=== PATIENT | female | born 1955 | race Caucasian/White ===

== ENCOUNTER → 2019-02-14 15:22 | Outpatient (CLI) | payer MEDICARE, OTHER, SELFPAY ==
[2019-02-14 17:49] LABS: Absolute Lymphocyte Count 1.72 X10^3/ul (0.83-4.51); Absolute Neutrophil Count 4.7 X10^3/uL (2.0-7.7); Basophil# 0.04 X10^3/uL; Basophil% 0.5 % (0-1); Eosinophil# 0.31 X10^3/uL; Eosinophils% 4.1 % (0-5); Hemoglobin 14.6 g/dl (12.0-15.0); Lymphocyte # 1.72 X10^3/ul (4.0); Lymphocyte % 22.6 % (19-41); Mean Corp Hgb Conc 32.4 g/gl (32-36); Mean Corpuscular Hgb 29.6 pg (27.0-32.0); Mean Corpuscular Volume 91.1 fL (81-99); Mean Platelet Vol. 10.6 fl (6.2-12.0); Monocyte# 0.79 X10^3/uL; Monocyte% 10.4 % (0-10); Neutrophil # 4.74 X10^3/uL (2.7-7.7); Neutrophil % 62.1 % (47-70); Platelet Count 272 K/mm3 (150-450); RBC Distribution Width CV 14.2 % (11.6-14.6); RBC Distribution Width SD 46.8 fl (35.1-43.9); Red Blood Count 4.94 M/mm3 (4.2-5.4); White Blood Count 7.6 K/mm3 (4.4-11.0)
[2019-02-14 18:04] LABS: POSITIVE COUNT NO; POSITIVE DIFFERENTIAL NO; POSITIVE MORPHOLOGY NO
[2019-02-14 18:08] LABS: ALB/GLOB Ratio 1.2 RATIO (0.9-2.4); AST(SGOT) 20 U/L (15-37); Alanine Aminotransfer ALT/SGPT 32 U/L (13-56); Albumin, Serum 4.2 g/dL (3.2-5.0); Alkaline Phosphatase 85 U/L (45-117); Anion Gap 6 (5-15); BUN 16 mg/dL (7-18); BUN/Creat Ratio 23.3 RATIO (10-20); Calcium,Total 9.2 mg/dL (8.5-10.1); Chloride 107 mmol/L (98-107); Cholesterol 176 mg/dL (200); Creatinine, Serum 0.69 mg/dL (0.55-1.02); EST Glomerular Filtration Rate 91 mL/min (>60); Est Glom Filt Rate - Afr Amer 110 mL/min (>60); Globulin 3.6 g/dL (2.2-4.2); Glucose 86 mg/dL (74-106); High Density Lipoprotein 56 mg/dL; Potassium 4.2 mmol/L (3.5-5.1); Protein, Total 7.8 g/dL (6.4-8.2); Sodium Level 139 mmol/L (136-145); Triglycerides 95 mg/dL; Very Low Density Lipoprotein 19 mg/dL (5-40)
[2019-02-14 19:52] LABS: Microalbumin:Creatinine Ratio 360.7 mg/g CRE (<30 mg/g CRE)
== END ==
PROVIDERS: Family Provider Family Medicine; PCP Family Medicine; Visit Provider Family Medicine
DX: I10 Essential (primary) hypertension (principal)
CPT/HCPCS: 36415; 80053; 80061; 82043; 82570; 85025

== ENCOUNTER → 2019-02-15 10:27 | Outpatient (CLI) | payer MEDICARE, OTHER, SELFPAY ==
--- NOTE | 2019-02-15 10:33 | RAD_ITS ---
HISTORY: bilateral knee pain, nki, right worse than left COMPARISON: None FINDINGS: XR Knee Complete 4 Views or More: Right. SOFT TISSUES: No acute findings. No radiopaque foreign body. BONES/JOINTS: No acute fracture or subluxation. Normal alignment. Marked osteoarthritis of the medial compartment. Mild osteoarthritis of the patellofemoral and lateral compartments. No effusion. No destructive changes observed. RAD/Knee 4 or More Views IMPRESSION: Marked medial compartment osteoarthritis. at 1450 Reported and signed by: Mark Ivan MD Electronically Signed: Mark Ivan, at 14:48 EDT Tel , Service support ,
--- NOTE | 2019-02-15 10:47 | RAD_ITS ---
HISTORY: nki, bilateral knee pain, right worse COMPARISON: None FINDINGS: XR Knee Complete 4 Views or More: Left SOFT TISSUES: No acute findings. No radiopaque foreign body. BONES/JOINTS: No acute fracture or subluxation. Normal alignment. Marked osteoarthritis of the medial compartment. Mild lateral and moderate patellofemoral osteoarthritis. No joint effusion. No destructive changes observed. RAD/Knee 4 or More Views IMPRESSION: Marked osteoarthritis of the medial compartment. at 1450 Reported and signed by: Mark Ivan MD Electronically Signed: Mark Ivan, at 14:49 EDT Tel , Service support ,
== END ==
PROVIDERS: Family Provider Family Medicine; PCP Family Medicine; Referring Provider Family Medicine; Visit Provider Family Medicine
DX: M25.561 Pain in right knee (principal); M25.562 Pain in left knee
CPT/HCPCS: 73564

== ENCOUNTER 2019-08-26 14:51 | Emergency (ER) | payer MEDICARE, OTHER, SELFPAY ==
[2019-08-26 14:52] VITALS: BP 162/77; PULSE 95; RESP 16; TEMP 36.9; O2SAT 97; BMI 37.4
--- NOTE | 2019-08-26 15:05 | VDLE_ITS ---
Reason For Study: Swelling RIGHT LEFT GSV is normal. CFV is compressible, spontaneous, phasic, CFV is compressible, spontaneous, phasic, competent, and demonstrates normal competent and demonstrates normal augmentation. augmentation. FV is compressible, spontaneous, phasic, competent and demonstrates normal augmentation. POP V is compressible, spontaneous, phasic, competent and demonstrates normal augmentation. T/P Trunk is compressible. PTV is compressible. RT PerV is compressible. Procedure Exam performed portable in ED. A preliminary report was called and/or faxed to Dr. Fulton. Interpretation Summary Deep veins of the right lower extremity are patent and compressible segmentally. There is no evidence of right lower extremity deep vein thrombosis. Valvular competence appears intact within the proximal deep venous system on the right . The right great saphenous vein appears patent and compressible segmentally. Ordering Physician: Samuel Fulton Referring Physician: Devin Bloom Performed By: Betty Eng RDCS, RVT
--- NOTE | 2019-08-26 15:05 | RAD_ITS ---
STUDY: X-RAY - RIGHT KNEE REASON FOR EXAM: Female, 64 years old. Knee pain. TECHNIQUE: 4 view(s) of the knee. COMPARISON: None. FINDINGS: Normal visualized distal femur. Normal visualized proximal tibia and fibula. Normal proximal tibiofibular articulation. There is moderate degenerative arthrosis of the medial femorotibial compartment with moderate joint space narrowing. Normal lateral femorotibial compartment. There is moderate degenerative arthrosis of the patellofemoral articulation. Proximal 5.5 mm loose body in the intercondylar eminence. The soft tissue structures are unremarkable. RAD/Knee 4 or More Views IMPRESSION: Degenerative arthrosis. Possible 5.5 mm loose body in the intercondylar eminence. Electronically Signed: Kehinde Cruz, at 15:34 EDT , Service support ,
--- NOTE | 2019-08-26 15:06 | ED.DCSUM_ITS ---
History of Present Illness Chief Complaint: Lower Extremity Injury Informant: Patient Onset: Yesterday Context: Gradual Onset Timing: Intermittent Current Severity: Moderate Maximum Severity: Moderate Narrative: The patient presents to the emergency department with right posterior knee pain. She states that she does have a history of prior arthritis in the knee. States yesterday, she was doing a lot of exercises, sitting on the ground, and then sat crosslegged. She states that she had increasing pain and difficulty extending her knee. She denies any fevers or chills. She denies any trauma. She states that it has improved today but she still having tightness in the back of the knee. She denies chest pain or shortness of breath. She is taken some ibuprofe n with improvement. Prior similar symptoms: No Recent Illness/Hospitalization: No Past Medical History - Allergies and Home Meds Allergies/Adverse Reactions: Allergies No Known Allergies Allergy (Verified 08/26/19 15:02) Primary Care Physician: Martell Tai MD [STAFF PHYSICIAN] - Prior records reviewed: Yes Past Medical History: - - Hypertension Smoking Status: Never smoker Review of Systems General: Denies: Chills, Fever, Sweats Eyes: Denies: Visual changes - bilaterally, Diplopia ENT: Denies: Rhinorrhea, Sore throat Cardiovascular: Denies: Chest pain, Palpitations Respiratory: Denies: Dyspnea, Cough, Dyspnea on exertion Gastrointestinal: Denies: Abdominal pain, Nausea, Vomiting, Diarrhea, Melena, Hematochezia Genitourinary: Denies: Dysuria, Hematuria, Frequency Musculoskeletal: Reports: Arthralgias. Denies: Back pain, Extremity Pain Skin: Denies: Rash, Wounds Neurological: Denies: Headache, Weakness, Numbness Physical Exam Vital Signs/Narrative: Vital Signs Temp Pulse Resp BP Pulse Ox 08/26/19 14:52 98.4 F 95 16 162/77 H 97 Inital Vital Signs reviewed: Yes General: Well nourished, Well developed, No Acute Distress Head: Normocephalic, Atraumatic Eyes: Perrl, EOMI ENT: Moist mucous membranes, No rhinorrhea Neck: Supple, Nontender Cardiovascular: Regular rate, Regular rhythm, No murmurs Respiratory: No distress, CTA bilaterally, Chest nontender Abdomen: Soft, Nontender, Nondistended, Normal bowel sounds Back: Nontender, Normal Inspection Extremities: No edema, Tenderness - Mild tenderness in the posterior aspect of the knee. No cords. Normal pulses. No gross laxity. No erythema. Skin: Normal color, No rash Neurological: Alert, Oriented x3, Cranial nerves II-XII grossly intact, Normal Strength, Normal Sensation Psychological: Normal affect, Normal Mood Diagnostic/Tx/Re-eval Clinical Impression(s) from Imaging Studies Knee X-Ray 08/26/19 15:05 IMPRESSION: Degenerative arthrosis. Possible 5.5 mm loose body in the intercondylar eminence. Electronically Signed: Kehinde Bledsoequeenie, at 15:34 EDT , Service support , - Medical Decision Making The patient symptoms do seem most consistent with degenerative arthritis. I did obtain an ultrasound. There is no evidence of DVT. X-ray shows a questionable bony body within the knee. Again, the patient does have a normal range of motion. She is able to extend. My suspicion is that she may end up needing orthopedic intervention given the loose body. The patient be given outpatient referral. She declined crutches. She will be placed on Medrol. She will be discharged home. Impression 1. Right knee arthritis with bony disturbance ED Disposition - Plan for ED Patient: Instructions: Knee Effusion Prescriptions: MethylPREDNISolone DosePak [Medrol DosePak] 4 mg PO UD #1 box Prescription Printed Referrals: Martell Tai MD [STAFF PHYSICIAN] -
[2019-08-26] MEDS: Acetaminophen 500 MG Tablet 1000 MG PO (15:08)
== END 2019-08-26 16:13 | disposition home or self-care (01) ==
LOC: ED 15:56
PROVIDERS: Emergency Provider Emergency Medicine; Family Provider Family Medicine; PCP Family Medicine
DX: M17.11 Unilateral primary osteoarthritis, right knee (principal); M23.41 Loose body in knee, right knee; M79.89 Other specified soft tissue disorders; I10 Essential (primary) hypertension; Z79.899 Other long term (current) drug therapy
CPT/HCPCS: 73564; 93971; 99282

== ENCOUNTER → 2019-09-05 15:56 | Outpatient (CLI) | payer MEDICARE, OTHER, SELFPAY ==
[2019-08-26 14:52] VITALS: BMI 37.4
[2019-09-05 18:01] LABS: Anion Gap 6 (5-15); BUN 21 mg/dL (7-18); BUN/Creat Ratio 19.4 RATIO (10-20); Calcium,Total 8.9 mg/dL (8.5-10.1); Chloride 110 mmol/L (98-107); Creatinine, Serum 1.08 mg/dL (0.55-1.02); EST Glomerular Filtration Rate 54 mL/min (>60); Est Glom Filt Rate - Afr Amer 65 mL/min (>60); Glucose 120 mg/dL (74-106); Potassium 4.3 mmol/L (3.5-5.1); Sodium Level 141 mmol/L (136-145)
[2019-09-05 18:41] LABS: Microalbumin:Creatinine Ratio 351.2 mg/g CRE (<30 mg/g CRE)
== END ==
PROVIDERS: Family Provider Family Medicine; PCP Family Medicine; Visit Provider Family Medicine
DX: I10 Essential (primary) hypertension (principal); R80.9 Proteinuria, unspecified
CPT/HCPCS: 36415; 80048; 82043; 82570

== ENCOUNTER → 2019-11-01 14:27 | Outpatient (CLI) | payer MEDICARE, OTHER, SELFPAY ==
[2019-11-01 09:59] LABS: 24 Hour Urine Protein 937.9 mg/24HR (<150 MG/24HR); 24HR. UA Prot. Total Volume 1525 mL; Urine Protein (24 Hour) 61.5 mg/dL (<11.9)
--- NOTE | 2019-11-01 14:32 | US_ITS ---
ACR Level 3 findings have been noted. An addendum which confirms receipt of the report will follow. STUDY: RENAL ULTRASOUND - COMPLETE REASON FOR EXAM: Female, 64 years old. C KD stage III TECHNIQUE: Ultrasound evaluation of the kidneys was performed with real-time and static arevalo-scale imaging. COMPARISON: None. FINDINGS: RIGHT KIDNEY: Normal location of the right kidney, which is normal in size. The right kidney measures 10.1 x 4.9 x 6.2 cm. There is a normal cortex of the right kidney. The renal cortex measures 0.8 cm. There is no right renal mass or cyst. Dictated echogenicity is without shadowing compatible small punctate stones. The largest may measure up to 8.8 mm. There is a suggestion of cluster of stones in the lower pole. There is no visualized hydronephrosis. Within the right renal pelvis there is a shadowing stone that may measure up to 9.1 mm. There is mild right hydronephrosis. DISTAL RIGHT URETER: There is non-visualization of the distal right ureter. There is no demonstrated right ureterovesical junction calculus. There is no demonstrated right ureteral jet. LEFT KIDNEY: Normal location of the left kidney, which is normal in size. The left kidney measures 10.8 x 4.2 x 5.5 cm. There is a normal cortex of the left kidney. The renal cortex measures 1.5 cm. There is no left renal mass or cyst. The suggestion of few punctate calcifications in the left kidney. There is a well-circumscribed cystic structure measuring 1.4 x 1.0 cm. There is no left hydronephrosis. DISTAL LEFT URETER: There is non-visualization of the distal left ureter. There is no demonstrated left ureterovesical junction calculus. There is a visualized left ureteral jet. BLADDER: The distended urinary bladder has a volume of 145 ml. There is visualized layering debris in the bladder. There is mild wall thickening.. US/Kidney and Bladder IMPRESSION: Mild hydronephrosis. There is a 9.1 mm stone in the renal pelvis. Recommend consideration for a follow-up noncontrast renal colic protocol CT abdomen and pelvis for further violation. Bilateral renal stones. Mild thickening of the wall the bladder and debris could consider cystitis. Electronically Signed: Tameka Huang MD at 17:53 EST Tel , Service support ,
[2019-11-01 15:55] LABS: Color, Urine Yellow (Yellow); Glucose, Dipstick Normal (Normal); Ketone-Dipstick 5 mg/dl (Negative); Leukocyte Esterase-Dipstick 500 /ul (Negative); Nitrite-Dipstick Positive (Negative); Occult Blood-Urine 250 /ul (Negative); Protein-Dipstick 100 mg/dl (Negative); Urine Bilirubin Dipstick Negative (Negative); Urine Clarity Cloudy (Clear); Urine Urobilinogen Normal (Normal)
[2019-11-01 16:06] LABS: Anion Gap 7 (5-15); BUN 15 mg/dL (7-18); BUN/Creat Ratio 17.1 RATIO (10-20); Calcium,Total 8.9 mg/dL (8.5-10.1); Chloride 110 mmol/L (98-107); Creatinine, Serum 0.88 mg/dL (0.55-1.02); EST Glomerular Filtration Rate 69 mL/min (>60); Est Glom Filt Rate - Afr Amer 83 mL/min (>60); Glucose 122 mg/dL (74-106); Phosphorus 3.2 mg/dL (2.5-4.9); Sodium Level 140 mmol/L (136-145)
[2019-11-01 16:17] LABS: Vitamin D,25 Hydroxy 15.7 ng/mL (29.95-100.01)
[2019-11-01 16:35] LABS: Protein, Urine (Random) 76.8 mg/dL (<11.9); Protein:Creat Ratio 831 mg/g CRE (0-200)
[2019-11-01 21:43] LABS: Creat.Clear Total Volume 1525 mL; Creatinine Clearance 94 ml/min (100-200); Creatinine Serum Creat 0.9 mg/dL (0.6-1.0); Creatinine Urine 77.9 mg/dL (NO RANGE EST.); EST Glomerular Filtration Rate 68 mL/min (>60); Est Glom Filt Rate - Afr Amer 83 mL/min (>60)
[2019-11-02 09:07] LABS: PTHIN 47.7 pg/mL (18.4-80.1)
[2019-11-04 15:18] LABS: PROEL- A/G Ratio 1.1 (0.7-1.7); PROEL- Albumin 3.9 g/dL (2.9-4.4); PROEL- Alpha-1 Globulin 0.2 g/dL (0.0-0.4); PROEL- Alpha-2 Globulin 0.9 g/dL (0.4-1.0); PROEL- Beta Globulin 1.2 g/dL (0.7-1.3); PROEL- Globulin, Total 3.4 g/dL (2.2-3.9); PROEL- TOTAL PROTEIN 7.3 g/dL (6.0-8.5); PROELU- Alpha-1-Globulin,Ur 2.8 % (.); PROELU- Alpha-2-Globulin,Ur 11.8 % (.); PROELU- Beta Globulin, Ur 18.6 % (.); PROELU- Gamma Globulin, Ur 18.8 % (.); Total Protein, Ur 88.8 mg/dL (Not Estab.)
== END ==
PROVIDERS: Family Provider Family Medicine; PCP Family Medicine; Referring Provider Internal Medicine; Visit Provider Internal Medicine
DX: N18.3 Chronic kidney disease, stage 3 (moderate) (principal); R80.9 Proteinuria, unspecified
CPT/HCPCS: 36415; 76770; 80048; 81002; 81050; 82306; 82570; 82575; 83970; 84100; 84156; 84165; 84166

== ENCOUNTER → 2020-01-16 15:34 | Outpatient (CLI) | payer MEDICARE, OTHER, SELFPAY | PROVIDERS: PCP Family Medicine; Referring Provider Urology; Visit Provider Urology | DX: N39.0 Urinary tract infection, site not specified (principal) | CPT/HCPCS: 87077; 87086; 87088; 87186 ==

== ENCOUNTER → 2020-05-08 09:17 | Outpatient (CLI) | payer MEDICARE, OTHER, SELFPAY ==
--- NOTE | 2020-05-08 09:25 | RAD_ITS ---
STUDY: X-RAY - ABDOMEN/PELVIS REASON FOR EXAM: Female, 65 years old. HX OF KIDNEY STONES PER PATIENT. TECHNIQUE: Single AP view of the abdomen / pelvis. COMPARISON: None. FINDINGS: There is elevation of the right hemidiaphragm. There is a moderate amount of colonic fecal material. There is a staghorn calculus in the mid to lower pole of the right kidney. This measures 2.2 cm x 0.8 cm. This also evidence of a 1 cm calculus in the region of the right renal pelvis. There is also evidence of a 1.6 cm x 1.1 cm calculus in the lower pole calyx of the left kidney. Normal soft tissue structures. There are degenerative changes of the visualized lumbar spine. Mild levoscoliosis. RAD/Abdomen Single View IMPRESSION: Bilateral intrarenal calculi as well as a 1 cm calculus in the region of the right renal pelvis. Electronically Signed: Kehinde Cruz, at 9:50 EDT , Service support ,
== END ==
PROVIDERS: PCP Family Medicine; Referring Provider Urology; Visit Provider Urology
DX: N20.2 Calculus of kidney with calculus of ureter (principal)
CPT/HCPCS: 74018

== ENCOUNTER 2020-06-02 15:30 | Inpatient (IN) | payer MEDICARE, OTHER, SELFPAY ==
[2020-06-01] VITALS (18 sets, daily range): BP systolic 75–143; BP diastolic 41–88; PULSE 65–100; RESP 16–18; TEMP 36.2–37.2; O2SAT 91–98; BMI 39.2
[2020-06-01] MEDS: Lactated Ringers 1,000 ML 100 ML IV ×3 (08:11→20:14)
--- NOTE | 2020-06-01 09:02 | PCM.HP.STD ---
Problem List (1) Left renal stone Status: Acute Comment: Lower pole large 3 cm (2) Right kidney stone Status: Acute Comment: In the renal pelvis large 2.5 cm History of Present Illness Date of Admission: 06/01/20 Chief Complaint: Bilateral large renal calculi The patient is a 65 year old female who presents to the office with bilateral stones both a very large she has a very large stone in the right renal pelvis which we can proceed with ureteroscopy and laser and then she also has a very large stone in the lower pole the left kidney which is more symptomatic and we plan get percutaneous access that stone and do a percutaneous nephrolithotomy to remove that stone Past Medical History Allergies No Known Allergies Allergy (Verified 08/26/19 15:02) Home Medications: Ambulatory Orders Medication Instructions Recorded Lisinopril [Zestril] 10 mg PO DAILY 08/26/19 Aspirin [Aspir 81] 81 mg PO QODAY 05/24/20 Cider Vinegar [Apple Cider Vinegar] 300 mg PO DAILY 05/24/20 Multivit-Min/Iron/Folic/Lutein 1 ea PO DAILY 05/24/20 [Centrum Silver Women Tablet] Turmeric 400 mg PO DAILY 05/24/20 Surgical History: no surgical history Smoking Status: Never smoker Tobacco Use: Non-smoker Review of Systems Constitutional: Denies: Chills, Fever, Weight Change HEENT: Denies: Head Aches, Sinus Congestion, Sinus Drainage Cardiovascular: Denies: Chest Pain, Palpitations Respiratory: Denies: Cough, Shortness of breath at rest, Sputum production Gastrointestinal: Denies: Abdominal Pain, Nausea, Vomiting Genitourinary: Denies: Dysuria Musculoskeletal: Denies: Joint Pain, Joint Tenderness Skin: Denies: Rash, Wounds Neurological: Denies: Numbness, Tingling, Focal weakness Psychiatric: Denies: Anxiety, Depression, Homicidal Ideations, Suicidal Ideations Hematologic/ Lymphatic: Denies: Easy Bruising, Easy Bleeding VTE Information - Inpt Only VTE Present on Admission: No VTE Mechan Device Prophylaxis: SCD's Patient Problems: Active and Suspected Problems Left renal stone (Acute) Lower pole large 3 cm Right kidney stone (Acute) In the renal pelvis large 2.5 cm - Physical Exam Vitals/I&O's: Vital Signs Temp Pulse Resp BP Pulse Ox 97.9 F 87 16 143/82 H 95 06/01/20 07:45 06/01/20 07:45 06/01/20 07:45 06/01/20 07:45 06/01/20 07:45 Oxygen Delivery Method Room Air Weight: 97.3 kg Body Mass Index (BMI) 39.2 General: Alert, Oriented x3, Cooperative HEENT: Atraumatic, PERRLA, EOMI, Normocephalic Neck: Supple, No JVD, Negative Carotid Bruits Lungs: Clear to auscultation, Normal air movement Cardiovascular: Regular rate, No murmurs Abdomen: Bowel Sounds Present, Soft, Non Tender Extremities: No edema, Capillary Refill Less than 3 Seconds Skin: No rashes, No breakdown Musculoskeletal: No Tenderness to Palpation of Joints or Extremities Neurological: Cranial nerves II-XII grossly intact Psych/Mental Status: Normal Affect, Appropriate Laboratory Results 05/27/20 : COVID-19 ([facility]) Not Detected Current Medications Lactated Ringer's () 1,000 mls @ 100 mls/hr IV .Q10H MAYELIN Last Admin: 06/01/20 08:11 Dose: 100 mls/hr Documented by: Assessment/Plan All Active Problems Left renal stone (Acute) Right kidney stone (Acute) Plan to proceed with right ureteroscopy laser lithotripsy of stones and then will do a left percutaneous access and percutaneous nephrolithotomy and placement of nephrostomy tube on the left side.
[2020-06-01] MEDS: Cefazolin 2 GM in 0.9% Normal Saline 100 ML IV (09:13)
[2020-06-01] MEDS: Lubricating Jelly 60 GM Tube 30 GM TOPICAL (09:29)
--- NOTE | 2020-06-01 12:07 | OP.PCM_ITS ---
Problem List (1) Left renal stone Status: Acute Comment: Lower pole large 3 cm (2) Right kidney stone Status: Acute Comment: In the renal pelvis large 2.5 cm Report of Operation Date of Procedure: 06/01/20 Pre-Operative Diagnosis: Right renal calculi multiple stones, upper stone 1.5 cm and a right lower pole stone 1.5 cm. Left renal calculi a large 3 cm stone in the lower pole of the left kidney Post-Operative Diagnosis: Same Surgery/Procedure Performed:: Multiple procedures,. 1.Right ureteroscopy laser lithotripsy of stones and right stent placement. 2. Left percutaneous axis and establishment of a nephrostomy track. 3. Left percutaneous nephrostolithotomy. 4. Left nephrostomy tube placement. Description of Surgical Findings:: 65-year-old female who has stones bilateral stones very large on both sides today we will get a plan to proceed with treating both the stones in 1 surgical setting. She understands always possible she may need more than one procedure at this any fragments that are any able to be treated. First procedure: Right ureteroscopy laser lithotripsy of stones and right stent placement, patient was taken back to the operating room after smooth induction of general anesthesia she was placed supine on the table, urethrovaginal area prepped and draped in usual sterile fashion, went into the bladder with a 21 [place] rigid cystourethroscope, she had cystitis cystica throughout the bladder, the urethra was normal, the trigone was normal identified the right and left ureteral orifice, there were no tumors or stones within the bladder but there is a lot of cystitis cystica and raised lesions throughout the bladder. This is a result of chronic infections. I then cannulated the right ureteral orifice with a Glidewire advanced a wire up into the kidney over the wire I then advanced an access sheath all the way up into the kidney and then through the access sheath I went in with a flexible ureteroscope. She had 2 major stones in the right kidney one is the upper pole stone about 1.5 cm in size and there was another lower pole stone about 1.5 cm in size I started lasering the upper pole stone using a 270 ?m laser fiber laser the stone little tiny pieces took a long time to get the stone pulverized into small dust pieces. I then had to use quite a bit of deflection and angle to get the scope into the lower pole stone and then I treated the lower pole stone with laser lithotripsy as well. Took a long time to treat both the stones with ureteroscopy and a small laser took about 45 minutes of laser time at the end of the procedure both the stones were treated successfully except there was once fragment in the lower pole that I could not get it was about 5 to 6 mm fragment still not able to get probably plan to do shockwave lithotripsy for the remaining fragment. I then worked my way down the ureter advance a wire up on the right kidney over the wire I placed a stent once his stent was good position then we went to the left side. Second major procedure, Once inside the bladder I then identified the left ureteral orifice and advanced a wire up the left side over the wire then advanced the access sheath all the way to the left kidney under fluoroscopy could see the access sheath go up, there was a question of a distal stone when I was looking so I looked in with the ureteroscope and I did see cystitis cystica all along the course of the ureter but no stones. The patient was then repositioned facedown on the table of her pressure points were padded I then came in with fluoroscopy identified the stone in the lower pole of the left kidney I then used triangulation technique to identify my axis point of the stone in the left kidney. There was prepped and draped in usual sterile fashion I then used the 18-gauge needle with a stylette through the patient skin right to the stone once I got to the stone using triangulation technique then we irrigated the left kidney with retrograde with water to distend the kidney as much as possible as I pulled out the stylette I had water coming out of the access needle I then used 0.038 wire through the access needle coiled around the stone in the lower pole the kidney and then after this I dilated serial dilation starting with a 6 [place]i nephro dilator then went to the 8 [place]i nephro dilator and finally a 10 [place]i nephro dilator. Then after this I advanced the balloon dilator over the wire once I got the balloon dilator into the kidney then I filled the balloon dilator was a 30 [place]i access sheath we went to 30 bernarda and then I advanced the access sheath over the balloon dilator to establish nephrostomy tube track after getting the access. We then went in with the nephroscope and immediately around the stone I used ultrasonic lithotripsy fairly efficient machine was a large 3 cm stone but the machine broke the stone down very rapidly this only took about 15 minutes to completely remove the entire lower pole stone. Once that stone was completely pulverized and moved and removed from the lower pole the kidney then I used a flexible cystoscope to examine the lower pole the kidney went into the pelvis of the kidney I put a wire through the flexible cystoscope and then over the wire establish nephrostomy tube tract but a nephrostomy tube into the left kidney and sent this to gravity drainage I did perform a nephrostogram. Interpretation of fluoroscopic images during the case I could see on the right side we used fluoroscopy to identify the stone and identify the treatment of the stones as I went. I also used fluoroscopy to establish axis to the left lower pole kidney and to ensure that the entire stone was removed in its entirety we also performed a nephrostogram of the left side with good drainage of contrast on the left side after the establishment of nephrostomy tube tract and the nephrostomy tube. After this case took about 2-1/2 hours to the long complicated case patient's anesthetic was reversed taken back to the PACU in good condition will stay in the hospital overnight. Type of Anesthesia:: General Drains: stent right, nephrostomy tube left - Admit VTE Documentation VTE Present on Admission: No VTE Mechan Device Prophylaxis: SCD's
[2020-06-01] MEDS: Cefazolin 1 GM/50 ML BAG IV (16:57)
[2020-06-01] MEDS: 0.9% Saline Lock 10 ML Syringe IV (17:21)
[2020-06-01] MEDS: Lactated Ringers 500 ML 999 ML IV (17:21)
[2020-06-01] MEDS: Ketorolac 15 MG/ML Vial IV (17:21)
[2020-06-01 18:51] LABS: Hematocrit 42.8 % (37-47); Mean Corp Hgb Conc 30.4 g/dL (32-36); Mean Corpuscular Hgb 30.2 pg (27.0-32.0); Mean Corpuscular Volume 99.3 fL (81-99); Mean Platelet Vol. 9.8 fl (6.2-12.0); Platelet Count 160 K/mm3 (150-450); RBC Distribution Width CV 14.1 % (11.6-14.6); RBC Distribution Width SD 51.2 fl (35.1-43.9); Red Blood Count 4.31 M/mm3 (4.2-5.4); White Blood Count 6.5 K/mm3 (4.4-11.0)
[2020-06-01 19:11] LABS: Anion Gap 10 (5-15); BUN 16 mg/dL (7-18); BUN/Creat Ratio 18.6 RATIO (10-20); Calcium,Total 7.9 mg/dL (8.5-10.1); Chloride 113 mmol/L (98-107); Creatinine, Serum 0.86 mg/dL (0.55-1.02); EST Glomerular Filtration Rate 70 mL/min (>60); Est Glom Filt Rate - Afr Amer 85 mL/min (>60); Estimated Creatinine Clearance 50.21 ml/min; Glucose 131 mg/dL (74-106); Potassium 4.1 mmol/L (3.5-5.1); Sodium Level 142 mmol/L (136-145)
[2020-06-01] MEDS: Docusate Sodium 100 MG Capsule 200 MG PO (22:19)
[2020-06-02] VITALS (9 sets, daily range): BP systolic 81–124; BP diastolic 35–96; PULSE 81–97; RESP 16; TEMP 36.4–37.2; O2SAT 93–96; BMI 39.2
[2020-06-02] MEDS: Cefazolin 1 GM/50 ML BAG IV (00:15)
[2020-06-02] MEDS: Ketorolac 15 MG/ML Vial IV (00:30)
[2020-06-02] MEDS: HYDROcodone Bitartrate/Apap 5/325 Tablet PO ×3 (04:33→22:30)
[2020-06-02] MEDS: Lactated Ringers 1,000 ML 100 ML IV (06:45)
[2020-06-02 08:01] LABS: Hematocrit 33.3 % (37-47); Hemoglobin 10.8 g/dL (12.0-15.0); Mean Corp Hgb Conc 32.4 g/dL (32-36); Mean Corpuscular Volume 92.5 fL (81-99); Mean Platelet Vol. 10.1 fl (6.2-12.0); Platelet Count 230 K/mm3 (150-450); RBC Distribution Width CV 14.1 % (11.6-14.6); RBC Distribution Width SD 47.8 fl (35.1-43.9); White Blood Count 24.7 K/mm3 (4.4-11.0)
[2020-06-02 08:26] LABS: Scan Indicated on CBC? Y/N NO
[2020-06-02 08:45] LABS: Anion Gap 9 (5-15); BUN 20 mg/dL (7-18); BUN/Creat Ratio 15.3 RATIO (10-20); Calcium,Total 7.5 mg/dL (8.5-10.1); Chloride 107 mmol/L (98-107); Creatinine, Serum 1.31 mg/dL (0.55-1.02); EST Glomerular Filtration Rate 43 mL/min (>60); Est Glom Filt Rate - Afr Amer 52 mL/min (>60); Estimated Creatinine Clearance 32.96 ml/min; Glucose 117 mg/dL (74-106); Potassium 4.2 mmol/L (3.5-5.1); Sodium Level 139 mmol/L (136-145)
[2020-06-02] MEDS: Pantoprazole Sodium 40 MG Tablet PO (08:57)
[2020-06-02] MEDS: Docusate Sodium 100 MG Capsule 200 MG PO ×2 (08:57→21:45)
[2020-06-02] MEDS: Multivitamins,Ther W-Minerals Tablet 1 TABLET PO (08:57)
[2020-06-02] MEDS: Lactated Ringers 500 ML 999 ML IV (08:57)
--- NOTE | 2020-06-02 10:08 | PCM.PROGNOTE ---
Patient Problems: Active and Suspected Problems Left renal stone (Acute) Lower pole large 3 cm Right kidney stone (Acute) In the renal pelvis large 2.5 cm Subjective: 65-year-old female status post percutaneous removal of a large stone on the left side, also laser lithotripsy of stones in the right side, she has a stent in the right and the nephrostomy tube in the left. Working to remove the catheter today we will clamp her nephrostomy tube blood pressures been slightly low white count is high at 24,000 and started on Cipro continue with fluids at a slow rate at 50 cc/h she does not look symptomatic she is not septic looking. Not ready for discharge yet but with a low blood pressure can monitor and continue in the hospital will hold her blood pressure medications. - Physical Exam Vitals/I&O's: Vital Signs Temp Pulse Resp BP Pulse Ox 97.5 F L 81 16 85/35 L 95 06/02/20 09:58 06/02/20 09:58 06/02/20 09:58 06/02/20 09:59 06/02/20 09:58 Oxygen Flow Rate (L/min) 1 Oxygen Delivery Method Room Air Weight: 97.3 kg Body Mass Index (BMI) 39.2 Intake and Output for Last 24 Hours 05/31/20 06/01/20 06/02/20 23:59 23:59 23:59 Intake Total 2561.66 / 2561.66 2171.67 / 2171.67 Output Total 555 / 555 675 / 675 Balance 66 / 2005. 1496.67 / 1496.67 General: Alert, Oriented x3, Cooperative HEENT: Atraumatic, PERRLA, EOMI, Normocephalic Neck: Supple, No JVD, Negative Carotid Bruits Lungs: Clear to auscultation, Normal air movement Cardiovascular: Regular rate, No murmurs Abdomen: Bowel Sounds Present, Soft, Non Tender Extremities: No edema, Capillary Refill Less than 3 Seconds Skin: No rashes, No breakdown Musculoskeletal: No Tenderness to Palpation of Joints or Extremities Neurological: Cranial nerves II-XII grossly intact Psych/Mental Status: Normal Affect, Appropriate Laboratory Results 06/01/20 18:35: WBC 6.5, RBC 4.31, Hgb 13.0, Hct 42.8, MCV 99.3 H, MCH 30.2, MCHC 30.4 L, RDW Std Deviation 51.2 H, RDW Coeff of Chayo 14.1, Plt Count 160, MPV 9.8 06/01/20 18:35: Sodium 142, Potassium 4.1, Chloride 113 H, Carbon Dioxide 19.0 L, Anion Gap 10, BUN 16, Creatinine 0.86, Estim Creat Clear Calc 50.21, Est GFR (MDRD) Af Amer 85, Est GFR (MDRD) Non-Af 70, BUN/Creatinine Ratio 18.6, Glucose 131 H, Calcium 7.9 L 06/02/20 07:00: WBC 24.7 H, RBC 3.60 L, Hgb 10.8 L, Hct 33.3 L, MCV 92.5 D, MCH 30.0, MCHC 32.4 D, RDW Std Deviation 47.8 H, RDW Coeff of Chayo 14.1, Plt Count 230, MPV 10.1 06/02/20 07:00: Sodium 139, Potassium 4.2, Chloride 107, Carbon Dioxide 23.0, Anion Gap 9, BUN 20 H, Creatinine 1.31 H, Estim Creat Clear Calc 32.96, Est GFR (MDRD) Af Amer 52 L, Est GFR (MDRD) Non-Af 43 L, BUN/Creatinine Ratio 15.3, Glucose 117 H, Calcium 7.5 L Current Medications Hydrocodone Bitart/Acetaminophen ([place] 5mg-325mg) 1 - 2 tablet PO Q6H PRN PRN PRN Reason: Pain Score 1-5/10 Last Admin: 06/02/20 04:33 Dose: 2 tablet Documented by: Docusate Sodium (Colace) 200 mg PO BID [facility] Last Admin: 06/02/20 08:57 Dose: 200 mg Documented by: Hydromorphone HCl (Dilaudid Inj) 0.1 mg IV Q2H PRN PRN PRN Reason: Pain Score 6-10/10 Lactated Ringer's () 1,000 mls @ 50 mls/hr IV .Q20H [facility] Last Infusion: 06/02/20 09:31 Dose: 100 mls/hr Documented by: Ciprofloxacin (Cipro) 400 mg in 200 mls @ 200 mls/hr IV BID [facility] Ketorolac Tromethamine (Toradol (Bkc)) 15 mg IV Q6H PRN PRN PRN Reason: Pain Score 1-09/01 Stop: 06/03/20 09:06 Last Admin: 06/02/20 00:30 Dose: 15 mg Documented by: Lisinopril (Zestril) 10 mg PO DAILY [facility] Last Admin: 06/02/20 08:58 Dose: Not Given Documented by: Multivitamins/Minerals ([facility]ivitamin With Min[facility] (B[facility])) [facility] Last Admin: 06/02/20 08:57 Dose: 1 tablet Documented by: Ondansetron HCl (Zofran) 4 mg IV Q8H PRN PRN Reason: Nausea Pantoprazole Sodium (Protonix) 40 mg PO DAILY [facility] Last Admin: 06/02/20 08:57 Dose: 40 mg Documented by: Sodium Chloride () 10 - 40 ml IV UD PRN PRN Reason: SALINE FLUSH Last Admin: 06/01/20 17:21 Dose: 10 ml Documented by: Tolterodine Tartrate (Detrol La) 4 mg PO DAILY PRN PRN PRN Reason: Spasms Medical Necessity - Tobacco Use Smoking Status: Never smoker Tobacco Use: Non-smoker Assessment/Plan All Active Problems Left renal stone (Acute) Right kidney stone (Acute) Plan a KV O IV fluids start antibiotics DC Watson clamp nephrostomy tube hopefully her blood pressure resolves her white count normalizes by tomorrow she may be on the go home with antibiotics.
--- NOTE | 2020-06-02 10:24 | NURSING ---
neph tube clamped and dressing changed per dr javed
[2020-06-02] MEDS: Ciprofloxacin 400 MG/200 ML BAG 200 MG IV ×2 (11:32→21:45)
--- NOTE | 2020-06-02 15:43 | CASEMGMT ---
RN PEARL Face to Face with patient for initial transition planning/care coordination assessment. RN CM introduced self and role at [facility]. Patient sitting in chair, alert and oriented, at bedside. Patient willing to participate in assessment and is able to answer all questions appropriately. Care providers, pharmacy, and demographics verified. Patient wishes to discharge home, denies need for home health at this time. Patient states she has no further needs or concerns at this time. CM to follow for discharge planning needs that may arise. PCP: Wolf Specialists: Paty, urologist; Kamille, nephrology Preferred Pharmacy: [facility] Insurance: [facility] Prescription Benefit: YEs Living Will/HPOA: none LNOK: Living Arrangements: Patient lives with in split level home. Patient is independent at home and able to ambulate stairs. Transportation: self/ DME/HHC: Patient has cane and walker at home. Patient denies previous HHC. Disposition Plan: Patient to discharge home with family support and follow-up plans in place. Denise CARRINGTON, RN, CM
[2020-06-03 02:20] VITALS: BP 116/77; PULSE 100; RESP 16; TEMP 36.6; O2SAT 95
[2020-06-03] MEDS: HYDROcodone Bitartrate/Apap 5/325 Tablet PO ×2 (04:59→17:37)
[2020-06-03 06:20] LABS: Hematocrit 33.7 % (37-47); Hemoglobin 10.9 g/dL (12.0-15.0); Mean Corp Hgb Conc 32.3 g/dL (32-36); Mean Corpuscular Hgb 29.7 pg (27.0-32.0); Mean Corpuscular Volume 91.8 fL (81-99); Mean Platelet Vol. 10.1 fl (6.2-12.0); Platelet Count 203 K/mm3 (150-450); RBC Distribution Width CV 14.1 % (11.6-14.6); Red Blood Count 3.67 M/mm3 (4.2-5.4); White Blood Count 20.4 K/mm3 (4.4-11.0)
[2020-06-03 06:52] LABS: Anion Gap 9 (5-15); BUN 16 mg/dL (7-18); BUN/Creat Ratio 21.4 RATIO (10-20); Calcium,Total 7.8 mg/dL (8.5-10.1); Chloride 106 mmol/L (98-107); Creatinine, Serum 0.75 mg/dL (0.55-1.02); EST Glomerular Filtration Rate 82 mL/min (>60); Est Glom Filt Rate - Afr Amer 99 mL/min (>60); Estimated Creatinine Clearance 43.18 ml/min; Glucose 106 mg/dL (74-106); Potassium 3.7 mmol/L (3.5-5.1); Sodium Level 138 mmol/L (136-145)
[2020-06-03] MEDS: Docusate Sodium 100 MG Capsule 200 MG PO ×2 (08:50→21:03)
[2020-06-03] MEDS: Multivitamins,Ther W-Minerals Tablet 1 TABLET PO (08:50)
[2020-06-03] MEDS: Lisinopril 10 MG Tablet PO (08:50)
[2020-06-03] MEDS: Pantoprazole Sodium 40 MG Tablet PO (08:50)
--- NOTE | 2020-06-03 08:58 | PCM.PROGNOTE ---
Patient Problems: Active and Suspected Problems Left renal stone (Acute) Lower pole large 3 cm Right kidney stone (Acute) In the renal pelvis large 2.5 cm Subjective: s/p bilateral procedures Blood pressure is better good uop WBC still high, on cipro. - Physical Exam Vitals/I&O's: Vital Signs Temp Pulse Resp BP Pulse Ox 97.9 F 100 16 116/77 95 06/03/20 02:20 06/03/20 02:20 06/03/20 02:20 06/03/20 02:06/03/20 02:20 Oxygen Flow Rate (L/min) 2 Oxygen Delivery Method Room Air Weight: 97.3 kg Body Mass Index (BMI) 39.2 Intake and Output for Last 24 Hours 06/01/20 06/02/20 06/03/20 23:59 23:59 23:59 Intake Total 2561.66 / 2561.66 3477.50 / 3717.50 940 / 940 Output Total 555 / 555 1125 / 1125 575 / 575 Balance / 2352.50 / 2592.50 365 / 365 General: Alert, Oriented x3, Cooperative HEENT: Atraumatic, PERRLA, EOMI, Normocephalic Neck: Supple, No JVD, Negative Carotid Bruits Lungs: Clear to auscultation, Normal air movement Cardiovascular: Regular rate, No murmurs Abdomen: Bowel Sounds Present, Soft, Non Tender Extremities: No edema, Capillary Refill Less than 3 Seconds Skin: No rashes, No breakdown Musculoskeletal: No Tenderness to Palpation of Joints or Extremities Neurological: Cranial nerves II-XII grossly intact Psych/Mental Status: Normal Affect, Appropriate Laboratory Results 06/03/20 05:30: WBC 20.4 H, RBC 3.67 L, Hgb 10.9 L, Hct 33.7 L, MCV 91.8, MCH 29.7, MCHC 32.3, RDW Std Deviation 48.0 H, RDW Coeff of Chayo 14.1, Plt Count 203, MPV 10.1 06/03/20 05:30: Sodium 138, Potassium 3.7, Chloride 106, Carbon Dioxide 23.0, Anion Gap 9, BUN 16, Creatinine 0.75, Estim Creat Clear Calc 43.18, Est GFR (MDRD) Af Amer 99, Est GFR (MDRD) Non-Af 82, BUN/Creatinine Ratio 21.4 H, Glucose 106, Calcium 7.8 L Current Medications Hydrocodone Bitart/Acetaminophen ([place] 5mg-325mg) 1 - 2 tablet PO Q6H PRN PRN PRN Reason: Pain Score 1-510 Last Admin: 06/03/20 04:59 Dose: 2 tablet Documented by: Docusate Sodium (Colace) 200 mg PO BID [facility] Last Admin: 06/03/20 08:50 Dose: 200 mg Documented by: Hydromorphone HCl (Dilaudid Inj) 0.1 mg IV Q2H PRN PRN PRN Reason: Pain Score 6-09/01 Lactated Ringer's () 1,000 mls @ 50 mls/hr IV .Q20H [facility] Last Infusion: 06/02/20 12:35 Dose: 50 mls/hr Documented by: Ciprofloxacin (Cipro) 400 mg in 200 mls @ 200 mls/hr IV BID [facility] Last Infusion: 06/02/20 23:07 Dose: Infused Documented by: Ketorolac Tromethamine (Toradol (Bkc)) 15 mg IV Q6H PRN PRN PRN Reason: Pain Score 1-09/01 Stop: 06/03/20 09:06 Last Admin: 06/02/20 00:30 Dose: 15 mg Documented by: Lisinopril (Zestril) 10 mg PO DAILY [facility] Last Admin: 06/03/20 08:50 Dose: 10 mg Documented by: Multivitamins/Minerals (Multivitamin With Minerals (Bkc)) [facility] Last Admin: 06/03/20 08:50 Dose: 1 tablet Documented by: Ondansetron HCl (Zofran) 4 mg IV Q8H PRN PRN Reason: Nausea Pantoprazole Sodium (Protonix) 40 mg PO DAILY [facility] Last Admin: 06/03/20 08:50 Dose: 40 mg Documented by: Sodium Chloride () 10 - 40 ml IV UD PRN PRN Reason: SALINE FLUSH Last Admin: 06/01/20 17:21 Dose: 10 ml Documented by: Tolterodine Tartrate (Detrol La) 4 mg PO DAILY PRN PRN PRN Reason: Spasms Medical Necessity - Tobacco Use Smoking Status: Never smoker Tobacco Use: Non-smoker Assessment/Plan All Active Problems Left renal stone (Acute) Right kidney stone (Acute) may be discharge tomorrow. check CBC in am no signs of bleedign h/h stable.
[2020-06-03 09:00] VITALS: BP 134/57; PULSE 90; RESP 18; TEMP 36.5; O2SAT 96
[2020-06-03] MEDS: Ciprofloxacin 400 MG/200 ML BAG 200 MG IV ×2 (09:02→21:02)
[2020-06-03] MEDS: Sodium Chloride 0.65% 1 SPRAY SPRAY.BTL NASAL (17:55)
[2020-06-03 18:03] VITALS: BP 139/56; PULSE 90; RESP 18; TEMP 36.6; O2SAT 97
[2020-06-03 22:00] VITALS: BP 140/68; PULSE 86; RESP 16; TEMP 36.8; O2SAT 96
[2020-06-04] MEDS: HYDROcodone Bitartrate/Apap 5/325 Tablet PO (01:08)
[2020-06-04] MEDS: Ondansetron 4 MG/2 ML Vial IV (01:12)
[2020-06-04] MEDS: 0.9% Saline Lock 10 ML Syringe IV (01:12)
[2020-06-04 04:00] VITALS: BP 136/73; PULSE 82; RESP 16; TEMP 36.8; O2SAT 96
[2020-06-04 06:01] LABS: Hematocrit 35.5 % (37-47); Hemoglobin 11.5 g/dL (12.0-15.0); Mean Corp Hgb Conc 32.4 g/dL (32-36); Mean Corpuscular Hgb 29.6 pg (27.0-32.0); Mean Corpuscular Volume 91.5 fL (81-99); Platelet Count 214 K/mm3 (150-450); RBC Distribution Width CV 14.3 % (11.6-14.6); RBC Distribution Width SD 47.5 fl (35.1-43.9); Red Blood Count 3.88 M/mm3 (4.2-5.4); White Blood Count 15.5 K/mm3 (4.4-11.0)
[2020-06-04 06:29] LABS: Anion Gap 7 (5-15); BUN 10 mg/dL (7-18); BUN/Creat Ratio 13.8 RATIO (10-20); Calcium,Total 8.2 mg/dL (8.5-10.1); Chloride 108 mmol/L (98-107); Creatinine, Serum 0.72 mg/dL (0.55-1.02); EST Glomerular Filtration Rate 85 mL/min (>60); Est Glom Filt Rate - Afr Amer 103 mL/min (>60); Estimated Creatinine Clearance 43.18 ml/min; Glucose 122 mg/dL (74-106); Potassium 3.9 mmol/L (3.5-5.1); Sodium Level 139 mmol/L (136-145)
[2020-06-04 07:02] VITALS: O2SAT 93
[2020-06-04 07:53] VITALS: BP 131/67; PULSE 84; RESP 16; TEMP 36.6; O2SAT 98
--- NOTE | 2020-06-04 07:56 | PCM.PROGNOTE ---
Patient Problems: Active and Suspected Problems Left renal stone (Acute) Lower pole large 3 cm Right kidney stone (Acute) In the renal pelvis large 2.5 cm Subjective: Severe episode of pain last night with nausea vomiting on the left side nephrostomy tube is been removed this morning somewhat better but still pale and diaphoretic - Physical Exam Vitals/I&O's: Vital Signs Temp Pulse Resp BP Pulse Ox 97.8 F 84 16 131/67 H 98 06/04/20 07:53 06/04/20 07:53 06/04/20 07:53 06/04/20 07:53 06/04/20 07:53 Oxygen Flow Rate (L/min) 2 Oxygen Delivery Method Room Air Weight: 97.3 kg Body Mass Index (BMI) 39.2 Intake and Output for Last 24 Hours 06/02/20 06/03/20 06/04/20 23:59 23:59 23:59 Intake Total 3477.50 / 3717.50 2742.50 / 2742.50 800 / 800 Output Total 1125 / 1125 1275 / 1275 775 / 775 Balance 2352.50 / 2592.50 1467.50 / 1467.50 25 / 25 General: Alert, Oriented x3, Cooperative HEENT: Atraumatic, PERRLA, EOMI, Normocephalic Neck: Supple, No JVD, Negative Carotid Bruits Lungs: Clear to auscultation, Normal air movement Cardiovascular: Regular rate, No murmurs Abdomen: Bowel Sounds Present, Soft, Non Tender Extremities: No edema, Capillary Refill Less than 3 Seconds Skin: No rashes, No breakdown Musculoskeletal: No Tenderness to Palpation of Joints or Extremities Neurological: Cranial nerves II-XII grossly intact Psych/Mental Status: Normal Affect, Appropriate Laboratory Results 06/04/20 05:42: WBC 15.5 H, RBC 3.88 L, Hgb 11.5 L, Hct 35.5 L, MCV 91.5, MCH 29.6, MCHC 32.4, RDW Std Deviation 47.5 H, RDW Coeff of Chayo 14.3, Plt Count 214, MPV 10.0 06/04/20 05:42: Sodium 139, Potassium 3.9, Chloride 108 H, Carbon Dioxide 24.0, Anion Gap 7, BUN 10, Creatinine 0.72, Estim Creat Clear Calc 43.18, Est GFR (MDRD) Af Amer 103, Est GFR (MDRD) Non-Af 85, BUN/Creatinine Ratio 13.8, Glucose 122 H, Calcium 8.2 L Current Medications Hydrocodone Bitart/Acetaminophen ([place] 5mg-325mg) 1 - 2 tablet PO Q6H PRN PRN PRN Reason: Pain Score 1-5/10 Last Admin: 06/04/20 01:08 Dose: 2 tablet Documented by: Docusate Sodium (Colace) 200 mg PO BID [facility] Last Admin: 06/03/20 21:03 Dose: 200 mg Documented by: Ciprofloxacin (Cipro) 400 mg in 200 mls @ 200 mls/hr IV BID [facility] Last Infusion: 06/03/20 22:10 Dose: Infused Documented by: Multivitamins/Minerals (Multivitamin With Minerals (Bkc)) [facility] Last Admin: 06/03/20 08:50 Dose: 1 tablet Documented by: Ondansetron HCl (Zofran) 4 mg IV Q8H PRN PRN Reason: Nausea Last Admin: 06/04/20 01:12 Dose: 4 mg Documented by: Pantoprazole Sodium (Protonix) 40 mg PO DAILY [facility] Last Admin: 06/03/20 08:50 Dose: 40 mg Documented by: Sodium Chloride () 10 - 40 ml IV UD PRN PRN Reason: SALINE FLUSH Last Admin: 06/04/20 01:12 Dose: 10 ml Documented by: Sodium Chloride ([place] Nasal [place]) 1 spray NASAL TID PRN PRN PRN Reason: NASAL DRYNESS Last Admin: 06/03/20 17:55 Dose: 1 spray Documented by: Tolterodine Tartrate (Detrol La) 4 mg PO DAILY PRN PRN PRN Reason: Spasms Medical Necessity - Tobacco Use Smoking Status: Never smoker Tobacco Use: Non-smoker Assessment/Plan All Active Problems Left renal stone (Acute) Right kidney stone (Acute) Plan to do a CT scan stone protocol to evaluate the kidney on the left side.
--- NOTE | 2020-06-04 07:57 | CT_ITS ---
STUDY: CT ABDOMEN AND PELVIS WITHOUT CONTRAST REASON FOR EXAM: Female, 65 years old. BILAT [place] SURG, LT FLANK PAIN, LITHOTRIPSY RADIATION DOSAGE (If Supplied By Facility): CTDIvol = ( 14.43 ) mGy, DLP = ( 794.30 ) mGycm TECHNIQUE: Transaxial images were obtained from the dome of the diaphragm to the symphysis pubis without oral contrast, and without intravenous contrast. Sagittal and coronal images were reconstructed. Individualized dose optimization techniques were used for this CT. COMPARISON: None. FINDINGS: Linear atelectasis and/or infiltrates at the lung bases more prominent on the right side. Small right pleural effusion. Minimal left pleural effusion. The visualized portions of the heart are within normal limits. Normal liver. Sludge is seen in the gallbladder lumen. Normal spleen. Normal pancreas. Normal bilateral adrenal glands. Mild degree of the right hydronephrosis and right hydroureter. A right-sided double-J stent catheter is seen. There is evidence of a 8.4 mm x 7.7 mm calculus in the lower pole cortex of the right kidney. There is also evidence of a 4.9 mm calculus in the midportion of the right kidney. Nonspecific right perinephric stranding. Nonspecific moderate degree of left perinephric stranding. Mild degree of left hydronephrosis and left hydroureter. Possible tiny calculus at the left ureterovesical junction. There is a small hiatal hernia. Normal small intestine. Normal colon. The appendix is visualized and appears normal. Normal abdominal aorta. Normal inferior vena cava. Normal retroperitoneum. Normal urinary bladder. Soft tissue density overlying the left flank region most likely secondary to the recent ESWL. Disc space narrowing at the L4-L5 level with minimal anterolisthesis of L4 on L5. CT/Abdomen/Pelvis without Cont IMPRESSION: Right intrarenal calculi with the right hydronephrosis and hydroureter. Multiple calculi in the right kidney. Bilateral nonspecific perinephric stranding more prominent on the left side Possible tiny calculus at the left ureterovesical junction. Small bilateral pleural effusions with bibasilar atelectasis more prominent on the right side Electronically Signed: Kehinde Cruz, at 9:18 EDT , Service support ,
[2020-06-04] MEDS: Multivitamins,Ther W-Minerals Tablet 1 TABLET PO (08:06)
[2020-06-04] MEDS: Ciprofloxacin 400 MG/200 ML BAG 200 MG IV (10:13)
[2020-06-04] MEDS: Docusate Sodium 100 MG Capsule 200 MG PO (10:14)
[2020-06-04] MEDS: Pantoprazole Sodium 40 MG Tablet PO (10:14)
[2020-06-04 15:07] VITALS: BP 134/65; PULSE 85; RESP 16; TEMP 36.8; O2SAT 100
--- NOTE | 2020-06-04 17:06 | DCINST_ITS ---
Discharge Diet: Light diet - advance as tolerated Discharge Activity: Return to Normal Activity Allergies/Adverse Reactions: Allergies No Known Allergies Allergy (Verified 08/26/19 15:02) Medications to take at Discharge Lisinopril [Zestril] 10 mg PO DAILY 08/26/19 Aspirin [Aspir 81] 81 mg PO QODAY 05/24/20 Cider Vinegar [Apple Cider Vinegar] 300 mg PO DAILY 05/24/20 Multivit-Min/Iron/Folic/Lutein [Centrum Silver Women Tablet] 1 ea PO DAILY 05/24/20 Turmeric 400 mg PO DAILY 05/24/20 Ciprofloxacin [Cipro] 500 mg PO BID #6 tab 06/04/20 Hydrocodone/Acetaminophen [[place] 5-325 Tablet] 1 each PO Q4H PRN PRN 3 Days #14 tablet 06/04/20 The following prescriptions were given: Ciprofloxacin [Cipro] 500 mg PO BID #6 tab Transmission Status: [facility]ending to [id number] Hydrocodone/Acetaminophen [[place] 5-325 Tablet] 1 each PO Q4H PRN PRN 3 Days #14 tablet PRN Reason: Pain Score 1-10/10 Transmission Status: Received by [id number] Primary Care Physician: Devin Bloom DO [Primary Care Provider] - Test Results: Test results from this visit will be discussed in further detail at your follow- up appointment, if applicable. Please Follow Up With: Harshad Newman MD When: plan for surgery this Thursday at hospital.
--- NOTE | 2020-06-04 17:07 | PCM.DC.SUM ---
Discharge Date and Diagnosis - Problem List Patient Problems: Active and Suspected Problems Left renal stone (Acute) Lower pole large 3 cm Right kidney stone (Acute) In the renal pelvis large 2.5 cm Date of Admission: 06/01/20 Date of Discharge: 06/04/20 - Primary Discharge Diagnosis Acute Problems: Active Problems Left renal stone (Acute) Lower pole large 3 cm Right kidney stone (Acute) In the renal pelvis large 2.5 cm Hospital Course and Treatment Operations: - - left Perc. Procedures: None Summary of Care Provided: The patient is a 65 year old F [] Patient Problems: Active and Suspected Problems Left renal stone (Acute) Lower pole large 3 cm Right kidney stone (Acute) In the renal pelvis large 2.5 cm - Physical Exam Vitals/I&O's: Vital Signs Temp Pulse Resp BP Pulse Ox 98.2 F 85 16 134/65 H 100 06/04/20 15:07 06/04/20 15:07 06/04/20 15:07 06/04/20 15:07 06/04/20 15:07 Oxygen Flow Rate (L/min) 2 Oxygen Delivery Method Room Air Weight: 97.3 kg Body Mass Index (BMI) 39.2 Intake and Output for Last 24 Hours 06/02/20 06/03/20 06/04/20 23:59 23:59 23:59 Intake Total 3477.50 / 3717.50 2742.50 / 2742.50 1000 / 1000 Output Total 1125 / 1125 1275 / 1275 775 / 775 Balance 2352.50 / 2592.50 1467.50 / 1467.50 225 / 225 General: Alert, Oriented x3, Cooperative HEENT: Atraumatic, PERRLA, EOMI, Normocephalic Neck: Supple, No JVD, Negative Carotid Bruits Lungs: Clear to auscultation, Normal air movement Cardiovascular: Regular rate, No murmurs Abdomen: Bowel Sounds Present, Soft, Non Tender Extremities: No edema, Capillary Refill Less than 3 Seconds Skin: No rashes, No breakdown Musculoskeletal: No Tenderness to Palpation of Joints or Extremities Neurological: Cranial nerves II-XII grossly intact Psych/Mental Status: Normal Affect, Appropriate Laboratory Results 06/04/20 05:42: WBC 15.5 H, RBC 3.88 L, Hgb 11.5 L, Hct 35.5 L, MCV 91.5, MCH 29.6, MCHC 32.4, RDW Std Deviation 47.5 H, RDW Coeff of Chayo 14.3, Plt Count 214, MPV 10.0 06/04/20 05:42: Sodium 139, Potassium 3.9, Chloride 108 H, Carbon Dioxide 24.0, Anion Gap 7, BUN 10, Creatinine 0.72, Estim Creat Clear Calc 43.18, Est GFR (MDRD) Af Amer 103, Est GFR (MDRD) Non-Af 85, BUN/Creatinine Ratio 13.8, Glucose 122 H, Calcium 8.2 L Current Medications Hydrocodone Bitart/Acetaminophen ([place] 5mg-325mg) 1 - 2 tablet PO Q6H PRN PRN PRN Reason: Pain Score 1-5/10 Last Admin: 06/04/20 01:08 Dose: 2 tablet Documented by: Docusate Sodium (Colace) 200 mg PO BID [facility] Last Admin: 06/04/20 10:14 Dose: 200 mg Documented by: Ciprofloxacin (Cipro) 400 mg in 200 mls @ 200 mls/hr IV BID [facility] Last Infusion: 06/04/20 11:13 Dose: Infused Documented by: Multivitamins/Minerals (Multivitamin With Minerals (Bkc)) 1 tablet PO DAILYCM [facility] Last Admin: 06/04/20 08:06 Dose: 1 tablet Documented by: Ondansetron HCl (Zofran) 4 mg IV Q8H PRN PRN Reason: Nausea Last Admin: 06/04/20 01:12 Dose: 4 mg Documented by: Pantoprazole Sodium (Protonix) 40 mg PO DAILY [facility] Last Admin: 06/04/20 10:14 Dose: 40 mg Documented by: Sodium Chloride () 10 - 40 ml IV UD PRN PRN Reason: SALINE FLUSH Last Admin: 06/04/20 01:12 Dose: 10 ml Documented by: Sodium Chloride ([place] Nasal [place]) 1 spray NASAL TID PRN PRN PRN Reason: NASAL DRYNESS Last Admin: 06/03/20 17:55 Dose: 1 spray Documented by: Tolterodine Tartrate (Detrol La) 4 mg PO DAILY PRN PRN PRN Reason: Spasms Discharge Diet: Light diet - advance as tolerated Discharge Activity: Return to Normal Activity Home Medications: Medications to take at Discharge Lisinopril [Zestril] 10 mg PO DAILY 08/26/19 Aspirin [Aspir 81] 81 mg PO QODAY 05/24/20 Cider Vinegar [Apple Cider Vinegar] 300 mg PO DAILY 05/24/20 Multivit-Min/Iron/Folic/Lutein [Centrum Silver Women Tablet] 1 ea PO DAILY 05/24/20 Turmeric 400 mg PO DAILY 05/24/20 Ciprofloxacin [Cipro] 500 mg PO BID #6 tab 06/04/20 Hydrocodone/Acetaminophen [[place] 5-325 Tablet] 1 each PO Q4H PRN PRN 3 Days #14 tablet 06/04/20 Following Prescrptions Were Given to Patient: Ciprofloxacin [Cipro] 500 mg PO BID #6 tab Transmission Status: [id number] Hydrocodone/Acetaminophen [[place] 5-325 Tablet] 1 each PO Q4H PRN PRN 3 Days #14 tablet PRN Reason: Pain Score 1-1010 Transmission Status: [facility] by [id number] Primary Care Physician: Devin Bloom DO [Primary Care Provider] - Please Follow Up With: Harshad Newman MD When: plan for surgery this Thursday at hospital. Medical Necessity - Tobacco Use Smoking Status: Never smoker Tobacco Use: Non-smoker Meaningful Use Info Meaningful Use Diagnoses (Choose all that apply): None applicable
== END 2020-06-04 17:38 | disposition home or self-care (01) | DRG 983 ==
LOC: SDC 15:50 → MS3 18:10
PROVIDERS: Anesthesiology; Admitting Provider Urology; PCP Family Medicine; Referring Provider Urology; Visit Provider Urology
PROC: 0TJ98ZZ Inspection of Ureter, Via Natural or Artificial Opening Endoscopic (ICD-10-PCS; CPT 52352; principal; 2020-06-01 08:10)
PROC: 0TF38ZZ Fragmentation in Right Kidney Pelvis, Via Natural or Artificial Opening Endoscopic (ICD-10-PCS; 2020-06-01 08:10)
DX: I95.9 Hypotension, unspecified (principal); N20.0 Calculus of kidney; N30.80 Other cystitis without hematuria; Z11.59 Encounter for screening for other viral diseases; R35.1 Nocturia; I10 Essential (primary) hypertension; Z79.82 Long term (current) use of aspirin; Z79.899 Other long term (current) drug therapy; Z78.0 Asymptomatic menopausal state; Z87.442 Personal history of urinary calculi
CPT/HCPCS: 36415; 74176; 76000; 80048; 85027; 87635; G2023; J7120; A4216; C1769; C2617; J0744; J2405; U0003

== ENCOUNTER 2020-06-06 12:28 | Day surgery (SDC) | payer MEDICARE, OTHER, SELFPAY ==
[2020-06-01 07:45] VITALS: BMI 39.2
[2020-06-06] VITALS (8 sets, daily range): BP systolic 149–159; BP diastolic 76–93; PULSE 70–89; RESP 16–18; TEMP 36.4–37.1; O2SAT 94–100; BMI 40.3
--- NOTE | 2020-06-06 12:31 | RAD_ITS ---
STUDY: X-RAY - ABDOMEN/PELVIS REASON FOR EXAM: Female, 65 years old. KIDNEY STONES. STENT ON RIGHT SIDE TECHNIQUE: Single AP view of the abdomen / pelvis. COMPARISON: Comparison is made with prior examination of earlier today. FINDINGS: There is a moderate amount of colonic fecal material. A right-sided double J stent catheter is now seen. The previously seen calculus at the right ureteropelvic junction is not seen at this time. Normal soft tissue structures. There are diffuse degenerative changes of the visualized lumbar spine. RAD/Abdomen Single View IMPRESSION: Status post placement of a right double-J stent catheter with the removal of the right ureteral pelvic junction calculus. Electronically Signed: Kehinde Cruz, at 12:51 EDT , Service support ,
[2020-06-06] MEDS: Lactated Ringers 1,000 ML 100 ML IV ×2 (13:17→16:18)
--- NOTE | 2020-06-06 14:26 | HP.PCM_ITS ---
History of Present Illness Date of Admission: 06/06/20 Chief Complaint: Status post left percutaneous nephrostolithotomy. Status post right ureteroscopy laser of stones The patient is a 65 year old female who had a prior percutaneous procedure on the left side. She also had a prior procedure on the right side with ureteroscopy and laser. She has a remaining fragment in the right kidney organ to proceed with right shockwave lithotripsy to treat the stone fragments also can place a stent on the left side because she has some residual hydronephrosis as result of the prior procedure. Past Medical History Allergies No Known Allergies Allergy (Verified 06/06/20 12:54) Home Medications: Ambulatory Orders Medication Instructions Recorded Lisinopril [Zestril] 10 mg PO DAILY 08/26/19 Aspirin [Aspir 81] 81 mg PO QODAY 05/24/20 Cider Vinegar [Apple Cider Vinegar] 300 mg PO DAILY 05/24/20 Multivit-Min/Iron/Folic/Lutein 1 ea PO DAILY 05/24/20 [Centrum Silver Women Tablet] Turmeric 400 mg PO DAILY 05/24/20 Ciprofloxacin [Cipro] 500 mg PO BID #6 tab 06/04/20 Hydrocodone/Acetaminophen [[place] 1 ea PO Q4H PRN PRN 3 Days #14 tab 06/04/20 5-325 Tablet] Surgical History: no surgical history Smoking Status: Never smoker Tobacco Use: Non-smoker Review of Systems Constitutional: Denies: Chills, Fever, Weight Change HEENT: Denies: Head Aches, Sinus Congestion, Sinus Drainage Cardiovascular: Denies: Chest Pain, Palpitations Respiratory: Denies: Cough, Shortness of breath at rest, Sputum production Gastrointestinal: Denies: Abdominal Pain, Nausea, Vomiting Genitourinary: Denies: Dysuria Musculoskeletal: Denies: Joint Pain, Joint Tenderness Skin: Denies: Rash, Wounds Neurological: Denies: Numbness, Tingling, Focal weakness Psychiatric: Denies: Anxiety, Depression, Homicidal Ideations, Suicidal Ideations Hematologic/ Lymphatic: Denies: Easy Bruising, Easy Bleeding VTE Information - Inpt Only VTE Present on Admission: No VTE Mechan Device Prophylaxis: SCD's - Physical Exam Vitals/I&O's: Vital Signs Temp Pulse Resp BP Pulse Ox 98.4 F 89 16 159/90 H 96 06/06/20 12:58 06/06/20 12:58 06/06/20 12:58 06/06/20 12:58 06/06/20 12:58 Oxygen Delivery Method Room Air Weight: 100 kg Body Mass Index (BMI) 40.3 General: Alert, Oriented x3, Cooperative HEENT: Atraumatic, PERRLA, EOMI, Normocephalic Neck: Supple, No JVD, Negative Carotid Bruits Lungs: Clear to auscultation, Normal air movement Cardiovascular: Regular rate, No murmurs Abdomen: Bowel Sounds Present, Soft, Non Tender Extremities: No edema, Capillary Refill Less than 3 Seconds Skin: No rashes, No breakdown Musculoskeletal: No Tenderness to Palpation of Joints or Extremities Neurological: Cranial nerves II-XII grossly intact Psych/Mental Status: Normal Affect, Appropriate Current Medications Cefazolin Sodium 2 gm/ Sodium (Chloride) 110 mls @ 150 mls/hr IV PREOP ONE Stop: 06/06/20 15:08 Lactated Ringer's () 1,000 mls @ 100 mls/hr IV .Q10H MAYELIN Last Admin: 06/06/20 13:17 Dose: 100 mls/hr Documented by: Assessment/Plan All Active Problems Left renal stone (Acute) Right kidney stone (Acute) Plan to proceed with staged related procedures she is going to undergo a right shockwave lithotripsy for remaining fragments in the right kidney after right ureteroscopy about a week ago. Were also can place a stent on the left side due to some hydronephrosis on recent CAT scan after her percutaneous procedure on the left side.
--- NOTE | 2020-06-06 14:29 | PCM.DC.URO ---
Discharge Diet: Light diet - advance as tolerated Discharge Activity: Return to Normal Activity Call your doctor if your incision/area has: Sudden Increased Bleeding Call your doctor if you observe: Fever of 101 or Higher Allergies/Adverse Reactions: Allergies No Known Allergies Allergy (Verified 06/06/20 12:54) Medications to take at Discharge Lisinopril [Zestril] 10 mg PO DAILY 08/26/19 Aspirin [Aspir 81] 81 mg PO QODAY 05/24/20 Cider Vinegar [Apple Cider Vinegar] 300 mg PO DAILY 05/24/20 Multivit-Min/Iron/Folic/Lutein [Centrum Silver Women Tablet] 1 ea PO DAILY 05/24/20 Turmeric 400 mg PO DAILY 05/24/20 Ciprofloxacin [Cipro] 500 mg PO BID #6 tab 06/04/20 Hydrocodone/Acetaminophen [[place] 5-325 Tablet] 1 ea PO Q4H PRN PRN 3 Days #14 tab 06/04/20 Orders to be completed after discharge: Abdomen Single View [RAD] Time Frame: 06/06/20, Facility: [facility], Location: [facility] Primary Care Physician: Devin Bloom DO [Primary Care Provider] - Test Results: Test results from this visit will be discussed in further detail at your follow-up appointment, if applicable. Please Follow Up With: Harshad Newman MD When: please call to make an appointment.
[2020-06-06] MEDS: Cefazolin 2 GM in 0.9% Normal Saline 100 ML IV (14:40)
--- NOTE | 2020-06-06 15:50 | OP.PCM_ITS ---
Report of Operation Date of Procedure: 06/06/20 Pre-Operative Diagnosis: Right renal calculi status post right ureteroscopy. Left hydronephrosis status post PERC Post-Operative Diagnosis: Same Surgery/Procedure Performed:: Right extracorporeal shockwave lithotripsy. Cys toscopy and left stent placement Description of Surgical Findings:: 65-year-old female who last week underwent a right ureteroscopy and laser of stones in the right kidney she has remaining fragments in the right kidney working to proceed with shockwave lithotripsy to treat these fragments. Natalya also underwent a percutaneous procedure on the left side and she developed hydronephrosis as a result of the procedure and placed a stent to the left side to decompress the kidney. Patient was taken back to the operating room at the smooth induction of general anesthesia she was placed in dorsolithotomy position, the urethrovaginal area prepped and draped in usual sterile fashion, went into the bladder the 21 [place] rigid cystourethroscope, she had cystitis cystica throughout the bladder I then cannulated the left ureteral orifice with a Glidewire advance a wire up into the kidney and advanced a stent over the wire this decompress the left kidney there is a significant E flux of urine coming to the left kidney. After the stent was placed and the patient was repositioned on the table we found the stones and the lower pole the right kidney and we deliver 3000 shockwaves to the stone at a rate of 90/min between 5 to 7 kV. At the end of the treatment cycle the stones are broken up really well. She had a prior stent on the right side for the prior procedure the stent was left in place. Plan to see her next week with an x-ray and will get the stent out if everything looks good. Type of Anesthesia:: General Drains: left stent - Admit VTE Documentation VTE Present on Admission: No VTE Mechan Device Prophylaxis: SCD's
[2020-06-06] MEDS: Ketorolac 15 MG/ML Vial IV (16:17)
== END 2020-06-06 18:06 | disposition home or self-care (01) ==
LOC: SDC 12:29 → AC 12:30
PROVIDERS: PCP Family Medicine; Referring Provider Urology; Visit Provider Urology
PROC: (CPT 50590; principal; 2020-06-06 13:55)
DX: N13.2 Hydronephrosis with renal and ureteral calculous obstruction (principal); N30.80 Other cystitis without hematuria; I10 Essential (primary) hypertension; Z79.82 Long term (current) use of aspirin; Z78.0 Asymptomatic menopausal state; Z79.899 Other long term (current) drug therapy
CPT/HCPCS: 00873; 50590; 52332; 74018; J7120; C1769; C2617; J2405

== ENCOUNTER → 2020-06-07 10:44 | Outpatient (CLI) | payer MEDICARE, OTHER, SELFPAY ==
[2020-06-06 12:58] VITALS: BMI 40.3
[2020-06-07 11:11] LABS: Color, Urine Yellow (Yellow); Glucose, Dipstick Normal (Normal); Ketone-Dipstick Negative (Negative); Leukocyte Esterase-Dipstick 500 /ul (Negative); Nitrite-Dipstick Negative (Negative); Occult Blood-Urine 250 /ul (Negative); Protein-Dipstick 100 mg/dl (Negative); Urine Bilirubin Dipstick Negative (Negative); Urine Clarity Cloudy (Clear); Urine Urobilinogen Normal (Normal); Urine pH 6.5 (5.0 - 8.0)
[2020-06-07 11:24] LABS: Protein, Urine (Random) 76.5 mg/dL (<11.9); Protein:Creat Ratio 1435 mg/g CRE (0-200)
[2020-06-07 11:46] LABS: Anion Gap 5 (5-15); BUN 14 mg/dL (7-18); BUN/Creat Ratio 18.1 RATIO (10-20); Calcium,Total 8.2 mg/dL (8.5-10.1); Chloride 109 mmol/L (98-107); Creatinine, Serum 0.77 mg/dL (0.55-1.02); EST Glomerular Filtration Rate 79 mL/min (>60); Est Glom Filt Rate - Afr Amer 96 mL/min (>60); Glucose 101 mg/dL (74-106); Potassium 3.5 mmol/L (3.5-5.1); Sodium Level 142 mmol/L (136-145)
[2020-06-07 11:48] LABS: Vitamin D,25 Hydroxy 24.5 ng/mL
== END ==
PROVIDERS: PCP Family Medicine; Referring Provider Internal Medicine; Visit Provider Internal Medicine
DX: R80.9 Proteinuria, unspecified (principal); E55.9 Vitamin D deficiency, unspecified
CPT/HCPCS: 36415; 80048; 81002; 82306; 82570; 84156

== ENCOUNTER → 2020-06-12 10:05 | Outpatient (CLI) | payer MEDICARE, OTHER, SELFPAY ==
[2020-06-06 12:58] VITALS: BMI 40.3
--- NOTE | 2020-06-12 10:06 | RAD_ITS ---
STUDY: X-RAY - ABDOMEN/PELVIS REASON FOR EXAM: Female, 65 years old. Pain, hematuria, stent placement TECHNIQUE: Two AP supine views of the abdomen and pelvis. COMPARISON: 06/06/2020 FINDINGS: Since the previous study, a left-sided JJ stent has also been placed. There are now bilateral JJ stents in satisfactory position. There is an unremarkable bowel gas pattern. There is no demonstrated free abdominal air. The visualized liver, spleen and kidneys are grossly normal in size and morphology. Persistent calcific densities noted along the distal aspect of the right JJ stent. No suspicious calcifications noted along the course of the left JJ stent. The overall pattern of pelvic calcifications are unchanged. Normal soft tissue structures. There are diffuse degenerative changes of the visualized lumbar spine. RAD/Abdomen Single View IMPRESSION: Since the previous study, a left-sided JJ stent has been placed, stent appears in satisfactory position. Otherwise, there has been no significant interval change since the previous study Electronically Signed: Nilo Medeiros MD at 10:46 EDT , Service support ,
== END ==
PROVIDERS: PCP Family Medicine; Referring Provider Urology; Visit Provider Urology
DX: N20.2 Calculus of kidney with calculus of ureter (principal)
CPT/HCPCS: 74018

== ENCOUNTER → 2020-07-26 17:05 | Outpatient (CLI) | payer MEDICARE, OTHER, SELFPAY ==
[2020-06-06 12:58] VITALS: BMI 40.3
== END ==
PROVIDERS: Referring Provider Urology; Visit Provider Urology
DX: N39.0 Urinary tract infection, site not specified (principal)
CPT/HCPCS: 87077; 87086; 87088; 87186

== ENCOUNTER → 2020-10-30 15:08 | Outpatient (CLI) | payer MEDICARE, OTHER, SELFPAY ==
[2020-06-06 12:58] VITALS: BMI 40.3
--- NOTE | 2020-10-30 15:15 | RAD_ITS ---
STUDY: X-RAY - ABDOMEN/PELVIS REASON FOR EXAM: Female, 65 years old. Kidney stones TECHNIQUE: Single AP view of the abdomen / pelvis. COMPARISON: Comparison is made with prior examination dated 06/12/2020. FINDINGS: There is elevation of the right hemidiaphragm. There is a moderate amount of colonic fecal material. The previously seen bilateral double-J stent catheters have been removed. No evidence of renal calculi are seen. There are calcified phleboliths in the pelvis. Normal visualized osseous structures. RAD/Abdomen Single View IMPRESSION: Status post removal of the bilateral double-J stent catheters. No renal calculus is seen at this time. Electronically Signed: Kehinde Cruz, at 15:35 EST , Service support ,
== END ==
PROVIDERS: Referring Provider Urology; Visit Provider Urology
DX: N20.0 Calculus of kidney (principal)
CPT/HCPCS: 74018

== ENCOUNTER → 2020-12-07 13:58 | Outpatient (CLI) | payer MEDICARE, OTHER, SELFPAY ==
[2020-06-06 12:58] VITALS: BMI 40.3
[2020-12-07 14:04] LABS: Mucous, Urine 0 SEEN /hpf (<or=2+); Red Blood Cells-Urine 0 SEEN /hpf (0-5); Squamous Epithelial Cells - UA 0 SEEN /hpf (5-10)
[2020-12-07 15:10] LABS: Color, Urine Yellow (Yellow); Glucose, Dipstick Normal (Normal); Ketone-Dipstick 5 mg/dl (Negative); Leukocyte Esterase-Dipstick 500 /ul (Negative); Nitrite-Dipstick Negative (Negative); Occult Blood-Urine Negative /ul (Negative); Protein-Dipstick Negative (Negative); Protein:Creat Ratio 116 mg/g CRE (0-200); Urine Bilirubin Dipstick Negative (Negative); Urine Clarity Clear (Clear); Urine Urobilinogen Normal (Normal)
[2020-12-07 15:22] LABS: White Blood Cells 10-25 SEEN /hpf (0-5)
[2020-12-07 15:23] LABS: Bacteria 1+ /hpf (None Seen)
[2020-12-07 15:53] LABS: PTHIN 44.9 pg/mL (18.4-80.1)
[2020-12-07 15:54] LABS: Anion Gap 6 (5-15); BUN 24 mg/dL (7-18); BUN/Creat Ratio 32.4 RATIO (10-20); Calcium,Total 9.5 mg/dL (8.5-10.1); Chloride 110 mmol/L (98-107); Creatinine, Serum 0.74 mg/dL (0.55-1.02); EST Glomerular Filtration Rate 83 mL/min (>60); Est Glom Filt Rate - Afr Amer 101 mL/min (>60); Glucose 105 mg/dL (74-106); Phosphorus 3.9 mg/dL (2.5-4.9); Potassium 3.8 mmol/L (3.5-5.1); Sodium Level 140 mmol/L (136-145)
[2020-12-07 15:57] LABS: Vitamin D,25 Hydroxy 25.1 ng/mL
== END ==
PROVIDERS: PCP Family Medicine; Referring Provider Internal Medicine; Visit Provider Internal Medicine
DX: N18.2 Chronic kidney disease, stage 2 (mild) (principal); R80.9 Proteinuria, unspecified; E55.9 Vitamin D deficiency, unspecified
CPT/HCPCS: 36415; 80048; 81001; 82306; 82570; 83970; 84100; 84156

== ENCOUNTER 2021-03-26 14:34 | Emergency (ER) | payer MEDICARE, OTHER, SELFPAY ==
[2020-06-06 12:58] VITALS: BMI 40.3
[2021-03-26 14:35] VITALS: BP 138/71; PULSE 74; RESP 22; TEMP 36; O2SAT 97; BMI 36.6
--- NOTE | 2021-03-26 14:51 | ED.VIS.FEGU ---
HPI HPI - Female History of Present Illness Chief Complaint: Flank Pain Informant: patient Pain Onset: Today Context: Sudden Onset Timing: Continuous Quality: Positive for Sharp and Stabbing Current Severity: Moderate Maximum Severity: Moderate Bleeding Issue: Negative for Vaginal bleeding Associated Symptoms Associated Symptoms: Positive for Dysuria; Negative for Frequency, Urgency and Hematuria Narrative Narrative: 65-year-old female history of kidney stones. Had sudden onset of right flank pain around 11 AM today. Associated nausea and vomiting. Denies any fever. Denies any diarrhea. She does have dysuria associated with it. No gross hematuria. Prior surgery for kidney stones. Prior similar symptoms: Yes Recent Illness/Hospitalization: No PFSH PFSH Medical History Kidney disease Kidney stones Home Medications lisinopril 10 mg PO DAILY 08/26/19 [History Last Taken 06/01/20 05:30 10 MG] apple cider vinegar 300 mg PO DAILY 05/24/20 [History Last Taken Unknown] aspirin 81 mg PO QODAY 05/24/20 [History Last Taken Unknown] hfwlnxlg-xnl-rwdg-FA-lutein 1 ea PO DAILY 05/24/20 [History Last Taken Unknown] turmeric 400 mg PO DAILY 05/24/20 [History Last Taken Unknown] ciprofloxacin HCl 500 mg PO BID #6 tab 06/04/20 [Rx Last Taken Unknown] acetaminophen 500 mg PO Q4H PRN PRN #20 tab 06/06/20 [Rx Last Taken Unknown] ibuprofen 600 mg PO Q6H PRN PRN #20 tab 06/06/20 [Rx Last Taken Unknown] Allergy/AdvReac Type Severity Reaction Status Date / Time No Known Allergies Allergy Verified 03/26/21 14:35 Social History Smoking Status: Never smoker ROS ROS ED ROS Narrative Patient denies any recent illness. Review of Systems ROS Unobtainable: Denies due to encephalopathy Constitutional Constitutional ED: Denies chills or fever(s) Eyes Eyes: Denies change in vision ENT ENT ED: Denies sore throat Cardiovascular Cardiovascular: Denies chest pain Respiratory/Chest Respiratory/Chest: Denies dyspnea Gastrointestinal Gastrointestinal: Reports nausea and vomiting; Denies constipation or diarrhea Genitourinary Genitourinary ED: Reports dysuria; Denies hematuria or urinary frequency Musculoskeletal Musculoskeletal: Denies arthralgias or myalgias Integumentary Denies abscess or rash Neurologic Neurologic: Denies headache(s) Psychiatric Psychiatric: Denies depression Endocrine Endocrinology: Denies polyuria Hematologic/Lymphatic Hematologic/Lymphatic: Denies easy bruising Allergic/Immunologic Allergic/Immunologic ED: Denies urticaria EXAM Physical Exam Narrative Exam Narrative: Older female no acute distress complaining of right flank pain. Vital signs are stable and afebrile. She does not look septic or toxic. Const Vital Signs: 03/26/21 14:35 03/26/21 16:46 Temperature 96.8 F L Temperature Source Temporal Pulse Rate 74 Respiratory Rate 22 H 14 Blood Pressure 138/71 H Blood Pressure Mean 93 Pulse Ox 97 Oxygen Delivery Method Room Air Positive well nourished and well developed General Appearance ED: well developed HEENT Negative for trauma or tenderness Eyes PERRL and EOMs intact bilaterally Neck no lymphadenopathy and supple Chest Wall inspection of chest normal Resp normal respiratory effort and clear to auscultation bilaterally Cardio regular rate, regular rhythm and no murmurs GI normal to inspection, nondistended, normoactive bowel sounds, soft to palpation, non-tender and non-distended Auscultation: normoactive bowel sounds no CVA tenderness Back/Spine no CVA tenderness Extremity normal to inspection Neuro oriented x3 and CN's II-XII intact bilaterally Sensorium / Orientation: alert, oriented to person, oriented to place and oriented to time Psych mental status grossly normal Skin no rashes or lesions noted MDM MDM MDM Narrative Medical decision making narrative: 65-year-old female with right flank pain with a history of kidney stones. Kidney stone versus UTI to talk to my differential versus other etiologies. She will be treated with IV fluids, IV morphine and IV Zofran. Labs and CT flank study along with urinalysis are being obtained. Lab Data Attestation: I reviewed the patient's lab results. Lab results narrative: CBC unremarkable white count 1.4. Hemoglobin 13.9. CAT scan without contrast read by the radiologist reviewed by me shows right UVJ stone with hydroureter and hydronephrosis. Consistent with acute kidney stone. Urine was consistent with a urinary tract infection with grade 100 white cells, positive nitrates and bacteria. Urine culture was sent also. Patient be started on Keflex given first dose in the ER. Labs: Laboratory Results - last 24 hr 03/26/21 03/26/21 03/26/21 15:00 15:00 17:05 WBC 11.4 H RBC 4.72 Hgb 13.9 Hct 42.1 MCV 89.2 MCH 29.4 MCHC 33.0 RDW Std Deviation 44.9 H RDW Coeff of [place] 13.8 Plt Count 280 MPV 9.6 Immature Gran % (Auto) 0.400 Neut % (Auto) 79.0 H Lymph % (Auto) 11.5 L [place] % (Auto) 7.3 Eos % (Auto) 1.3 Baso % (Auto) 0.5 Absolute Neuts (auto) 9.0 H Absolute Lymphs (auto) 1.31 Nucleated RBC % 0 Sodium 139 Potassium 4.0 Chloride 107 Carbon Dioxide 22.0 Anion Gap 10 BUN 22 H Creatinine 0.82 Estim Creat Clear Calc 52.65 Est GFR (MDRD) Af Amer 90 Est GFR (MDRD) Non-Af 74 BUN/Creatinine Ratio 27.0 H Glucose 119 H Calcium 9.1 Urine Color Yellow Urine Clarity Cloudy Urine pH 6.5 Ur Specific [place] 1.015 Urine Protein 30 H Urine Glucose (UA) Normal Urine Ketones 50 H Urine Occult Blood 150 H Urine Nitrite Positive H Urine Bilirubin Negative Urine Urobilinogen Normal Ur Leukocyte Esterase 500 H Urine RBC 0-5 SEEN Urine WBC >100 SEEN Ur Squamous Epith Cells 0 SEEN Urine Bacteria 1+ Urine Mucus 0 SEEN Repeat exam patient is doing well at 3:58 PM. Feeling improved after medications. Her CBC was unremarkable with a white 11.4. Normal hemoglobin. Chemistries normal with a normal gap of 10 normal creatinine is 0.8.I went over all test results with the patient and her . Clinically she looks well at 5:48 PM. Radiography Diagnostic Testing: Radiology Impression Abdomen/Pelvis CT 03/26/21 15:12 IMPRESSION: Right hydronephrosis and hydroureter due to a 3.5 mm calculus at the right ureterovesical junction. 6.3 mm nonobstructive catheter is in the lower pole calyx of the left kidney. Electronically Signed: Kehinde Cruz MD at 15:42 EDT , Service support , Discharge Plan Triage Chief Complaint: Flank Pain ED Provider: Jan Yu Dx/Rx/DC Orders Clinical Impression: Right kidney stone, Acute UTI Instructions: ED Bladder Infection, Female (Adult), ED Kidney Stone w/ Colic Prescriptions: No Action lisinopril 10 MG tablet 10 mg PO DAILY RF: 0 apple cider vinegar 300 MG tablet 300 mg PO DAILY RF: 0 wgolpbpj-isf-ejaq-FA-lutein 1 EACH tablet 1 ea PO DAILY RF: 0 turmeric 400 MG capsule 400 mg PO DAILY RF: 0 aspirin 81 MG tablet,delayed release (DR/EC) 81 mg PO QODAY RF: 0 ciprofloxacin HCl 500 MG tablet 500 mg PO BID Qty: 6 RF: 0 acetaminophen 500 MG tablet 500 mg PO Q4H PRN PRN (Reason: Pain Score 1-10/10) Qty: 20 RF: 0 ibuprofen 600 MG tablet 600 mg PO Q6H PRN PRN (Reason: Pain Score 1-10/10) Qty: 20 RF: 0 Primary Care Provider: Devin Bloom Referrals: Harshad Newman MD [STAFF PHYSICIAN] - As soon as possible Jna Yu MD [Emergency Provider] - Devin Bloom DO [Primary Care Provider] - As soon as possible Activity Restrictions/Additional Instructions: You have a kidney stone that should pass. Strain your urine to look for the stone. Plenty of fluids. [place] for more severe pain. You also have a urinary tract infection. I sent a urine culture. He will be started on antibiotic Keflex. Follow-up with your doctor and/or the urologist the next several days to ensure you are doing well. Return to the emergency department if you are feeling worse. Disposition Disposition: Home, self care
[2021-03-26] MEDS: Ondansetron 4 MG/2 ML Vial IV (15:03)
[2021-03-26] MEDS: Morphine 4 MG/ML Syringe 8 MG IV (15:04)
[2021-03-26 15:10] LABS: Absolute Lymphocyte Count 1.31 X10^3/uL (0.83-4.51); Basophil# 0.06 X10^3/uL; Basophil% 0.5 % (0-1); Eosinophil# 0.15 X10^3/uL; Eosinophils% 1.3 % (0-5); Hematocrit 42.1 % (37-47); Hemoglobin 13.9 g/dL (12.0-15.0); Lymphocyte # 1.31 X10^3/ul (0.83-4.51); Lymphocyte % 11.5 % (19-41); Mean Corpuscular Hgb 29.4 pg (27.0-32.0); Mean Corpuscular Volume 89.2 fL (81-99); Mean Platelet Vol. 9.6 fl (6.2-12.0); Monocyte# 0.83 X10^3/uL; Monocyte% 7.3 % (0-10); NRBC Flagged by Analyzer 0 % (0-5); Neutrophil # 9.01 X10^3/uL (2.7-7.7); Platelet Count 280 K/mm3 (150-450); RBC Distribution Width CV 13.8 % (11.6-14.6); RBC Distribution Width SD 44.9 fl (35.1-43.9); Red Blood Count 4.72 M/mm3 (4.2-5.4); White Blood Count 11.4 K/mm3 (4.4-11.0)
--- NOTE | 2021-03-26 15:12 | CT_ITS ---
STUDY: CT ABDOMEN AND PELVIS WITHOUT CONTRAST REASON FOR EXAM: Female, 65 years old. Kidney Stone. Right flank pain RADIATION DOSAGE (If Supplied By Facility): CTDIvol = ( 18.38 ) mGy, DLP = ( 1033.43 ) mGycm TECHNIQUE: Transaxial images were obtained from the dome of the diaphragm to the symphysis pubis without oral contrast, and without intravenous contrast. Sagittal and coronal images were reconstructed. Individualized dose optimization techniques were used for this CT. COMPARISON: Comparison is made with prior study dated 06/04/2020. FINDINGS: The visualized lung bases are unremarkable. The visualized portions of the heart are within normal limits. Normal liver. Normal gallbladder and extrahepatic biliary system. Normal spleen. Normal pancreas. Normal bilateral adrenal glands. Mild degree of right hydronephrosis and hydroureter due to a 3.5 mm calculus at the right ureterovesical junction. Nonobstructive calculi are seen in the left kidney. The largest is in the lower pole calyx and measures 6.3 mm There is a small hiatal hernia. Normal small intestine. There is a 3.2 cm diverticulum in the sigmoid colon. The appendix is visualized and appears normal. There is scattered atherosclerotic calcification of the abdominal aorta, without a demonstrated aneurysm. Normal inferior vena cava. Normal retroperitoneum. Normal urinary bladder. Normal abdominal wall. There are degenerative changes of the visualized lumbar spine. Minimal anterior listhesis of L4 on L5. CT/Abdomen/Pelvis without Cont IMPRESSION: Right hydronephrosis and hydroureter due to a 3.5 mm calculus at the right ureterovesical junction. 6.3 mm nonobstructive catheter is in the lower pole calyx of the left kidney. Electronically Signed: Kehinde Cruz MD at 15:42 EDT , Service support ,
[2021-03-26 15:58] LABS: Anion Gap 10 (5-15); BUN 22 mg/dL (7-18); Calcium,Total 9.1 mg/dL (8.5-10.1); Chloride 107 mmol/L (98-107); Creatinine, Serum 0.82 mg/dL (0.55-1.02); EST Glomerular Filtration Rate 74 mL/min (>60); Est Glom Filt Rate - Afr Amer 90 mL/min (>60); Estimated Creatinine Clearance 52.65 ml/min; Glucose 119 mg/dL (74-106); Sodium Level 139 mmol/L (136-145)
[2021-03-26 16:46] VITALS: RESP 14
[2021-03-26 17:15] LABS: Mucous, Urine 0 SEEN /hpf (<or=2+); Squamous Epithelial Cells - UA 0 SEEN /hpf (5-10)
[2021-03-26 17:19] LABS: Color, Urine Yellow (Yellow); Glucose, Dipstick Normal (Normal); Ketone-Dipstick 50 mg/dl (Negative); Leukocyte Esterase-Dipstick 500 /ul (Negative); Nitrite-Dipstick Positive (Negative); Occult Blood-Urine 150 /ul (Negative); Protein-Dipstick 30 mg/dl (Negative); Specific Gravity, Urine 1.015 (1.002-1.030); Urine Bilirubin Dipstick Negative (Negative); Urine Clarity Cloudy (Clear); Urine Urobilinogen Normal (Normal); Urine pH 6.5 (5.0 - 8.0)
[2021-03-26 17:35] LABS: Bacteria 1+ /hpf (None Seen); Red Blood Cells-Urine 0-5 SEEN /hpf (0-5); White Blood Cells >100 SEEN /hpf (0-5)
[2021-03-26] MEDS: Ceftriaxone 1 GM/50 ML BAG IV (18:11)
[2021-03-26 18:13] VITALS: BP 156/75; PULSE 74; RESP 14; O2SAT 98
== END 2021-03-26 19:07 | disposition home or self-care (01) ==
PROVIDERS: Emergency Provider Emergency Medicine; PCP Family Medicine
DX: N13.6 Pyonephrosis (principal); Z79.82 Long term (current) use of aspirin; Z79.899 Other long term (current) drug therapy; Z87.442 Personal history of urinary calculi
CPT/HCPCS: 74176; 80048; 81001; 85025; 87077; 87086; 87088; 87186; 96365; 96375; 99282; J7030; A4216; J2405

== ENCOUNTER → 2021-04-18 16:04 | Outpatient (CLI) | payer MEDICARE, OTHER, SELFPAY ==
[2021-03-26 14:35] VITALS: BMI 36.6
[2021-04-18 17:36] LABS: Creatinine, Serum 0.87 mg/dL (0.55-1.02); EST Glomerular Filtration Rate 69 mL/min (>60); Est Glom Filt Rate - Afr Amer 83 mL/min (>60)
== END ==
PROVIDERS: PCP Family Medicine; Visit Provider Nurse Practitioner Adult Health
DX: N13.39 Other hydronephrosis (principal)
CPT/HCPCS: 36415; 82565

== ENCOUNTER → 2021-04-25 12:37 | Outpatient (CLI) | payer MEDICARE, OTHER, SELFPAY ==
[2021-03-26 14:35] VITALS: BMI 36.6
--- NOTE | 2021-04-25 12:38 | US_ITS ---
STUDY: RENAL ULTRASOUND - COMPLETE REASON FOR EXAM: Female, 66 years old. HYDRONEPHROSIS TECHNIQUE: Ultrasound evaluation of the kidneys was performed with real-time and static arevalo-scale imaging. COMPARISON: Comparison is made with prior ultrasound dated 11/03/2019. FINDINGS: RIGHT KIDNEY: Normal location of the right kidney, which is normal in size. The right kidney measures 10 cm x 5.5 cm x 5.5 cm. There is a normal cortex of the right kidney. The renal cortex measures 1.8 cm. There is a 1.1 cm x 1.1 cm x 0.9 cm cyst. There is a 3 mm x 3 mm x 3 mm nonobstructive right renal calculus. There is no right hydronephrosis. DISTAL RIGHT URETER: There is non-visualization of the distal right ureter. There is no demonstrated right ureterovesical junction calculus. There is a visualized right ureteral jet. LEFT KIDNEY: Normal location of the left kidney, which is normal in size. The left kidney measures 10.8 cm x 4.8 cm x 5 cm. There is a normal cortex of the left kidney. The renal cortex measures 1.4 cm. 2 cysts are seen. The larger measures 1.5 cm x 1.4 cm x 1.2 cm. There is a 6 mm x 5 mm x 5 mm nonobstructive intrarenal calculus. There is no left hydronephrosis. DISTAL LEFT URETER: There is non-visualization of the distal left ureter. There is no demonstrated left ureterovesical junction calculus. There is a visualized left ureteral jet. BLADDER: The distended urinary bladder has a volume of 602 ml. The empty urinary bladder has a volume of 64 ml. There is a normal wall thickness of the distended urinary bladder. There is no demonstrated mass within the urinary bladder. There are no demonstrated bladder calculi. US/Kidney and Bladder IMPRESSION: Small bilateral renal cysts. Small bilateral nonobstructive intrarenal calculi. Electronically Signed: Kehinde Cruz MD at 15:10 EDT , Service support ,
== END ==
PROVIDERS: PCP Family Medicine; Referring Provider Nurse Practitioner Adult Health; Visit Provider Nurse Practitioner Adult Health
DX: N13.39 Other hydronephrosis (principal)
CPT/HCPCS: 76770

== ENCOUNTER → 2021-08-23 14:10 | Outpatient (CLI) | payer MEDICARE, OTHER, SELFPAY ==
[2021-08-23 15:33] LABS: Color, Urine Yellow (Yellow); Glucose, Dipstick Normal (Normal); Ketone-Dipstick 5 mg/dl (Negative); Leukocyte Esterase-Dipstick 500 /ul (Negative); Nitrite-Dipstick Negative (Negative); Occult Blood-Urine 25 /ul (Negative); Protein-Dipstick 30 mg/dl (Negative); Urine Bilirubin Dipstick Negative (Negative); Urine Clarity Cloudy (Clear); Urine Urobilinogen Normal (Normal)
[2021-08-23 15:49] LABS: Protein, Urine (Random) 41.6 mg/dL (<11.9); Protein:Creat Ratio 185 mg/g CRE (0-200)
[2021-08-23 15:55] LABS: Anion Gap 9 (5-15); BUN 22 mg/dL (7-18); BUN/Creat Ratio 20.2 RATIO (10-20); Chloride 110 mmol/L (98-107); Creatinine, Serum 1.09 mg/dL (0.55-1.02); EST Glomerular Filtration Rate 53 mL/min (>60); Est Glom Filt Rate - Afr Amer 64 mL/min (>60); Glucose 130 mg/dL (74-106); Potassium 3.7 mmol/L (3.5-5.1); Sodium Level 140 mmol/L (136-145)
[2021-08-23 16:01] LABS: Vitamin D,25 Hydroxy 30.3 ng/mL
== END ==
PROVIDERS: PCP Family Medicine; Referring Provider Internal Medicine; Visit Provider Internal Medicine
DX: N18.2 Chronic kidney disease, stage 2 (mild) (principal); R80.9 Proteinuria, unspecified; E55.9 Vitamin D deficiency, unspecified
CPT/HCPCS: 36415; 80048; 81002; 82306; 82570; 84156

== ENCOUNTER → 2021-10-29 | Outpatient (CLI) | payer MEDICARE, OTHER, SELFPAY | END | disposition home or self-care (01) | LOC: LABSPEC 15:54 | PROVIDERS: PCP Family Medicine; Visit Provider Family Medicine | DX: U07.1 COVID-19 (principal) | CPT/HCPCS: 87635; U0005; U0003 ==

== ENCOUNTER 2021-10-31 13:36 | Outpatient (CLI) | payer MEDICARE, OTHER, SELFPAY ==
[2021-10-31] MEDS: 0.9% Saline Lock 10 ML Syringe IV (14:14)
[2021-10-31 14:16] VITALS: BP 146/71; PULSE 71; RESP 16; TEMP 36.4; O2SAT 99; BMI 31.8
[2021-10-31 14:58] VITALS: BP 144/81; PULSE 69; RESP 16; TEMP 36.8; O2SAT 100
[2021-10-31 15:46] VITALS: BP 151/74; PULSE 65; RESP 16; TEMP 36.9; O2SAT 99
== END 2021-10-31 15:49 | disposition home or self-care (01) ==
LOC: MS3OUT 13:37 → MS3 13:37
PROVIDERS: PCP Family Medicine; Referring Provider Nurse Practitioner Adult Health; Visit Provider Nurse Practitioner Adult Health
DX: Z23 Encounter for immunization (principal); U07.1 COVID-19
CPT/HCPCS: J7050; M0245; Q0245; A4216

== ENCOUNTER → 2022-08-28 | Outpatient (CLI) | payer MEDICARE, OTHER, SELFPAY ==
[2022-08-28 15:53] LABS: Anion Gap 9 (5-15); BUN 20 mg/dL (7-18); BUN/Creat Ratio 28.2 RATIO (10-20); Calcium,Total 9.2 mg/dL (8.5-10.1); Chloride 108 mmol/L (98-107); Creatinine, Serum 0.71 mg/dL (0.55-1.02); EST Glomerular Filtration Rate 87 mL/min (>60); Est Glom Filt Rate - Afr Amer 105 mL/min (>60); Glucose 141 mg/dL (74-106); Potassium 3.7 mmol/L (3.5-5.1); Sodium Level 140 mmol/L (136-145)
[2022-08-28 16:34] LABS: Protein:Creat Ratio 268 mg/g CRE (0-200)
== END | disposition home or self-care (01) ==
LOC: LAB 14:24
PROVIDERS: PCP Family Medicine; Referring Provider Internal Medicine Nephrology; Visit Provider Internal Medicine Nephrology
DX: N18.2 Chronic kidney disease, stage 2 (mild) (principal)
CPT/HCPCS: 36415; 80048; 82570; 84156

== ENCOUNTER → 2023-04-28 | Outpatient (CLI) | payer MEDICARE, OTHER, SELFPAY ==
[2023-04-28 12:32] LABS: Absolute Neutrophil Count 3.3 X10^3/uL (2.0-7.7); Basophil# 0.04 X10^3/uL; Basophil% 0.7 % (0-1); Eosinophil# 0.27 X10^3/uL; Hemoglobin 13.6 g/dL (12.0-15.0); Lymphocyte % 20.4 % (19-41); Mean Corp Hgb Conc 33.2 g/dL (32-36); Mean Corpuscular Hgb 30.4 pg (27.0-32.0); Mean Corpuscular Volume 91.5 fL (81-99); Monocyte# 0.63 X10^3/uL; Monocyte% 11.7 % (0-10); NRBC Flagged by Analyzer 0 % (0-5); Neutrophil # 3.32 X10^3/uL (2.7-7.7); Neutrophil % 61.8 % (47-70); Platelet Count 255 K/mm3 (150-450); RBC Distribution Width CV 13.8 % (11.6-14.6); RBC Distribution Width SD 46.5 fl (35.1-43.9); Red Blood Count 4.48 M/mm3 (4.2-5.4); White Blood Count 5.4 K/mm3 (4.4-11.0)
[2023-04-28 13:20] LABS: Vitamin B12 651 pg/mL (211-911)
[2023-04-28 13:35] LABS: ALB/GLOB Ratio 1.1 RATIO (0.9-2.4); AST(SGOT) 13 U/L (15-37); Alanine Aminotransfer ALT/SGPT 23 U/L (13-56); Albumin, Serum 3.8 g/dL (3.2-5.0); Alkaline Phosphatase 68 U/L (45-117); Anion Gap 7 (5-15); BUN 16 mg/dL (7-18); BUN/Creat Ratio 26.5 RATIO (10-20); Calcium,Total 8.9 mg/dL (8.5-10.1); Chloride 107 mmol/L (98-107); Cholesterol 178 mg/dL (200); EST Glomerular Filtration Rate 104 mL/min (>60); Est Glom Filt Rate - Afr Amer 126 mL/min (>60); Globulin 3.5 g/dL (2.2-4.2); Glucose 102 mg/dL (74-106); High Density Lipoprotein 49 mg/dL; Protein, Total 7.3 g/dL (6.4-8.2); Sodium Level 137 mmol/L (136-145); Thyroid Stim Hormone (TSH) 1.03 uIU/mL (0.358-3.74); Triglycerides 106 mg/dL; Very Low Density Lipoprotein 21 mg/dL (5-40)
[2023-05-01 15:08] LABS: Acetylcholine Receptor Binding < 0.03 nmol/L (0.00-0.24)
== END | disposition home or self-care (01) ==
PROVIDERS: PCP Family Medicine; Referring Provider Family Medicine; Visit Provider Family Medicine
DX: I10 Essential (primary) hypertension (principal); E55.9 Vitamin D deficiency, unspecified; R53.83 Other fatigue
CPT/HCPCS: 36415; 80053; 80061; 82306; 82607; 84238; 84443; 85025

== ENCOUNTER → 2023-07-24 | Outpatient (CLI) | payer MEDICARE, OTHER, SELFPAY ==
[2023-07-24 09:12] LABS: Hematocrit 42.7 % (37-47); Hemoglobin 14.1 g/dL (12.0-15.0); Mean Corpuscular Hgb 30.1 pg (27.0-32.0); Mean Platelet Vol. 9.7 fl (6.2-12.0); Platelet Count 300 K/mm3 (150-450); RBC Distribution Width CV 14.2 % (11.6-14.6); RBC Distribution Width SD 47.1 fl (35.1-43.9); Red Blood Count 4.69 M/mm3 (4.2-5.4); White Blood Count 5.9 K/mm3 (4.4-11.0)
[2023-07-24 09:40] LABS: BUN 20 mg/dL (7-18); BUN/Creat Ratio 24.1 RATIO (10-20); Calcium,Total 9.1 mg/dL (8.5-10.1); Chloride 106 mmol/L (98-107); Creatinine, Serum 0.83 mg/dL (0.55-1.02); EST Glomerular Filtration Rate 72 mL/min (>60); Est Glom Filt Rate - Afr Amer 88 mL/min (>60); Glucose 95 mg/dL (74-106); Phosphorus 3.1 mg/dL (2.5-4.9); Potassium 4.1 mmol/L (3.5-5.1); Sodium Level 138 mmol/L (136-145)
[2023-07-24 09:46] LABS: Vitamin D,25 Hydroxy 44.7 ng/mL
[2023-07-24 09:54] LABS: Microalbumin:Creatinine Ratio 171.9 mg/g CRE (<30 mg/g CRE); Protein, Urine (Random) 36.3 mg/dL (<11.9); Protein:Creat Ratio 411 mg/g CRE (0-200)
[2023-07-24 10:28] LABS: PTHIN 48.3 pg/mL (18.4-80.1)
== END | disposition home or self-care (01) ==
LOC: LAB 08:27
PROVIDERS: PCP Family Medicine; Referring Provider Nurse Practitioner Adult Health; Visit Provider Nurse Practitioner Adult Health
DX: N18.2 Chronic kidney disease, stage 2 (mild) (principal); E55.9 Vitamin D deficiency, unspecified; R80.9 Proteinuria, unspecified
CPT/HCPCS: 36415; 80069; 82043; 82306; 82570; 83970; 84156; 85027

== ENCOUNTER 2023-10-08 21:01 | Emergency (ER) | payer MEDICARE, OTHER, SELFPAY ==
[2023-10-08 21:02] VITALS: BP 179/84; PULSE 83; RESP 18; TEMP 36.7; O2SAT 97; BMI 39.2
[2023-10-08 23:09] LABS: Mucous, Urine 0 SEEN /hpf (<or=2+); Squamous Epithelial Cells - UA 0 SEEN /hpf (5-10)
--- NOTE | 2023-10-08 23:10 | CT_ITS ---
INDICATION: Kidney Stone EXAMINATION: CT ABDOMEN AND PELVIS WITHOUT CONTRAST - CT Abdomen And Pelvis W/O Contrast Injection TECHNIQUE: Helically acquired images were obtained of the abdomen and pelvis without oral or IV contrast. A radiation dose optimization technique was used for this scan. IV Contrast dosage and agent: None. Oral contrast: None. COMPARISON: March 26, 2021. FINDINGS: LOWER CHEST: Mild dependent atelectasis. No cardiomegaly or pericardial effusion. LIVER: Homogeneous. No focal mass. GALLBLADDER AND BILIARY TREE: No calcified gallstones. No gallbladder distension or wall edema. No intra- or extrahepatic biliary ductal dilation. PANCREAS: No focal cystic or solid mass. SPLEEN: Normal size without focal cystic or solid mass. ADRENAL GLANDS: No nodules. KIDNEYS AND URETERS: Left renal upper pole small cyst, no imaging follow-up required. Mild bilateral perinephric stranding. Posterior right renal staghorn calculus with mild hydronephrosis. 2 cm long right ureteropelvic junction stone. Left renal lower pole 1.2 cm calcification. Punctate left ureteral pelvic junction stone without hydronephrosis. Remainder the ureters are unremarkable. Mostly decompressed bladder with trace nondependent air. . PERITONEUM: No ascites or free air. No other fluid collection. BOWEL: No acute gastric finding. No small bowel distention or focal wall thickening. Appendix is not seen. No right lower quadrant inflammation to suggest appendicitis. No acute colonic finding. . LYMPH NODES: No enlarged mesenteric or retroperitoneal lymph nodes. VESSELS: Aorta is non-dilated. URINARY BLADDER: Unremarkable. REPRODUCTIVE ORGANS: Unremarkable uterus and adnexa. ABDOMINAL WALL: No discrete abdominal or pelvic wall hernia. BONES: No lytic or blastic abnormality. Lumbar facet arthropathy. CT/Abdomen/Pelvis without Cont IMPRESSION: Bilateral nephrolithiasis with large right ureteropelvic junction stone with mild hydronephrosis. Punctate left ureteral pelvic junction stone without hydronephrosis.. Electronically Signed: Jaskaran Bourne MD at 0:48 EST ,
--- NOTE | 2023-10-08 23:12 | EDS_ITS ---
HPI History of Present Illness Chief Complaint: Flank Pain Informant: patient and spouse/S.O. Narrative Narrative: 68-year-old female presenting to the emergency room with a sudden onset of right flank pain. Symptoms began around 1900 hrs. tonight. She notes nausea and vomiting. Pain has been unrelenting sharp and stabbing. She notes a history of hypertension and kidney stones. She sees Dr. Newman and has had several surgeries for kidney stones in the past. She states that this feels very similar to kidney stones. It does not radiate to the front or into the pelvis. She has tried getting up and moving around and riding the exercise bike and nothing seems to make it better. [facility] Medical History Kidney disease Kidney stones Home Medications lisinopril 10 mg tablet 10 mg PO DAILY htn 08/26/19 [History Last Taken 06/01/20 05:30 10 MG] apple cider vinegar 300 mg tablet 300 mg PO DAILY 05/24/20 [History Last Taken Unknown] aspirin 81 mg tablet,delayed release 81 mg PO QODAY [facility] 05/24/20 [History Last Taken Unknown] hibtqsaq-pnvv-zhxs 8 mg-folic 400 mcg-K 50 mcg-lutein 300 mcg tablet 1 ea PO DAILY 05/24/20 [History Last Taken Unknown] turmeric 400 mg capsule 400 mg PO DAILY supplement 05/24/20 [History Last Taken Unknown] acetaminophen 500 mg tablet 500 mg PO Q4H PRN PRN Pain Score 1-10/10 #20 tabs 06/06/20 [Rx Last Taken Unknown] cephalexin 500 mg capsule 500 mg PO Q12H #14 caps 10/09/23 [Rx Last Taken Unknown] ondansetron 4 mg disintegrating tablet 4 mg PO Q6H PRN PRN Nausea #10 tabs 10/09/23 [Rx Last Taken Unknown] oxycodone-acetaminophen 5 mg-325 mg tablet 1 tab PO Q6H PRN PRN pain 5 days #20 TABLETS 10/09/23 [Rx Last Taken Unknown] Allergy/AdvReac Type Severity Reaction Status Date / Time No Known Allergies Allergy Verified 10/08/23 21:04 Social History Smoking Status: Never smoker ROS ROS ED Constitutional Constitutional ED: Denies chills, fever(s) or weight loss Eyes Eyes: Denies change in vision or diplopia ENT ENT ED: Denies ear pain, rhinorrhea or sore throat Cardiovascular Cardiovascular: Denies chest pain, orthopnea, palpitations or racing heartbeat Respiratory/Chest Respiratory/Chest: Denies cough, dyspnea or orthopnea Gastrointestinal Gastrointestinal: Reports nausea and vomiting; Denies diarrhea Genitourinary Genitourinary ED: Denies dysuria, hematuria or urinary frequency Musculoskeletal Musculoskeletal: Reports back pain; Denies arthralgias or myalgias Integumentary Denies abscess or rash Neurologic Neurologic: Denies headache(s) or weakness Psychiatric Psychiatric: Denies anxiety, depression, suicidal ideation or suicidal thoughts Endocrine Endocrinology: Denies polydipsia, polyphagia or polyuria Allergic/Immunologic Allergic/Immunologic ED: Denies mouth swelling, tongue swelling or urticaria EXAM Physical Exam Narrative Exam Narrative: Patient appears in pain. She is unable to sit still in the bed. She is slightly pale appears nauseated Const Vital Signs: 10/08/23 21:02 10/09/23 00:16 Temperature 98.1 F Temperature Source Temporal Pulse Rate 83 Respiratory Rate 18 18 Blood Pressure 179/84 H Blood Pressure Mean 115 Pulse Ox 97 Oxygen Delivery Method Room Air Room Air Positive well nourished and well developed General Appearance ED: well developed HEENT Reports normocephalic, head/scalp atraumatic and moist mucous membranes Eyes PERRL and EOMs intact bilaterally Neck no lymphadenopathy, supple and no JVD Resp normal respiratory effort and clear to auscultation bilaterally Cardio regular rate, regular rhythm and no murmurs GI normal to inspection, nondistended, normoactive bowel sounds and non-tender Palpation: soft Back/Spine no CVA tenderness and normal ROM Extremity normal to inspection General Extremety ED: Negative for edema General Extremity: Negative for edema Neuro oriented x3 and CN's II-XII intact bilaterally Sensorium / Orientation: alert Motor Exam: strength 5/5 throughout Psych mental status grossly normal Mood & Affect: Negative for depressed or tearful Skin no rashes or lesions noted and no wounds MDM MDM MDM Narrative Medical decision making narrative: White count 7.9. Urine greater than 100 white cells 3+ bacteria negative nitrates. Creatinine normal. CT demonstrates a 2 cm long right UPJ stone with hydronephrosis. 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 Urine culture will be obtained. Patient received Toradol morphine and Zofran and feels significantly better. We will give her a dose of oxycodone here. She wants to go home. I will write for her to have Keflex as we await the urine culture. I did speak with her urologist the patient is instructed to follow-up in the office or return if worsening. She understands that given the size of the stone she may necessitate a repeat ED visit. History & Record Review Discussion w/independent historian: Patient and Significant other Additional record(s) reviewed:: Prior ED visit and Prior labs Lab Data Attestation: I reviewed the patient's lab results. Labs: Laboratory Results - last 24 hr 10/08/23 10/08/23 21:10 23:05 WBC 7.9 RBC 4.46 Hgb 13.0 Hct 41.3 MCV 92.6 MCH 29.1 MCHC 31.5 L RDW Std Deviation 45.9 H RDW Coeff of Chayo 13.4 Plt Count 349 MPV 10.4 Immature Gran % (Auto) 0.300 Neut % (Auto) 62.4 Lymph % (Auto) 20.3 Hanson % (Auto) 9.9 Eos % (Auto) 6.2 H Baso % (Auto) 0.9 Absolute Neuts (auto) 5.0 Absolute Lymphs (auto) 1.61 Nucleated RBC % 0 Sodium 139 Potassium 4.4 Chloride 108 H Carbon Dioxide 24.0 Anion Gap 7 BUN 23 H Creatinine 0.97 Estim Creat Clear Calc 44.64 Est GFR (MDRD) Af Amer 73 Est GFR (MDRD) Non-Af 60 BUN/Creatinine Ratio 23.7 H Glucose 152 H Calcium 9.1 Urine Color Yellow Urine Clarity Cloudy Urine pH 6.5 Ur Specific [place] 1.020 Urine Protein 100 H Urine Glucose (UA) Normal Urine Ketones Negative Urine Occult Blood 250 H Urine Nitrite Negative Urine Bilirubin Negative Urine Urobilinogen Normal Ur Leukocyte Esterase 500 H Urine RBC 5-10 SEEN Urine WBC >100 SEEN Ur Squamous Epith Cells 0 SEEN Urine Bacteria 3+ Urine Mucus 0 SEEN Radiography Diagnostic Testing: Clinical Impression(s) from Imaging Studies Abdomen/Pelvis CT 10/08/23 23:10 IMPRESSION: Bilateral nephrolithiasis with large right ureteropelvic junction stone with mild hydronephrosis. Punctate left ureteral pelvic junction stone without hydronephrosis.. Electronically Signed: Jaskaran Bourne MD at 0:48 EST , Discharge Plan Triage Chief Complaint: Flank Pain ED Provider: Donnie Shepard Dx/Rx/DC Orders Clinical Impression: Hydronephrosis, Renal colic, Acute UTI, Right kidney stone Instructions: ED Kidney Stone w/ Colic Prescriptions: New cephalexin 500 mg capsule 500 mg PO Q12H Qty: 14 0RF oxycodone-acetaminophen [oxycodone-acetaminophen] 5-325 mg tablet 1 tab PO Q6H PRN PRN (Reason: pain) 5 Days Qty: 20 0RF ondansetron [ondansetron] 4 mg tablet,disintegrating 4 mg PO Q6H PRN PRN (Reason: Nausea) Qty: 10 0RF No Action lisinopril 10 MG tablet 10 mg PO DAILY Patient Comments: TAKE 1 TABLET BY MOUTH EVERY DAY apple cider vinegar 300 MG tablet 300 mg PO DAILY hzjenmeb-sug-fecc-FA-vit K-lut 1 EACH tablet 1 ea PO DAILY turmeric 400 MG capsule 400 mg PO DAILY aspirin 81 MG tablet,delayed release (DR/EC) 81 mg PO QODAY Patient Comments: stop 7 days preop acetaminophen 500 MG tablet 500 mg PO Q4H PRN PRN (Reason: Pain Score 1-10/10) Qty: 20 0RF Primary Care Provider: Devin Bloom Referrals: Harshad Newman MD [Med Staff - Active Staff] - As soon as possible Devin Bloom DO [Primary Care Provider] - Disposition Disposition: Home, Self Care
[2023-10-08 23:21] LABS: Color, Urine Yellow (Yellow); Glucose, Dipstick Normal (Normal); Ketone-Dipstick Negative (Negative); Leukocyte Esterase-Dipstick 500 /ul (Negative); Nitrite-Dipstick Negative (Negative); Occult Blood-Urine 250 /ul (Negative); Protein-Dipstick 100 mg/dl (Negative); Urine Bilirubin Dipstick Negative (Negative); Urine Clarity Cloudy (Clear); Urine Urobilinogen Normal (Normal); Urine pH 6.5 (5.0 - 8.0)
[2023-10-08] MEDS: Ketorolac 30 MG/ML Syringe IV (23:26)
[2023-10-08] MEDS: Ondansetron 4 MG/2 ML Vial IV (23:27)
[2023-10-08] MEDS: Morphine 4 MG/ML Syringe IV (23:29)
[2023-10-08 23:35] LABS: Absolute Lymphocyte Count 1.61 X10^3/uL (0.83-4.51); Basophil# 0.07 X10^3/uL; Basophil% 0.9 % (0-1); Eosinophil# 0.49 X10^3/uL; Eosinophils% 6.2 % (0-5); Hematocrit 41.3 % (37-47); Lymphocyte # 1.61 X10^3/ul (0.83-4.51); Lymphocyte % 20.3 % (19-41); Mean Corp Hgb Conc 31.5 g/dL (32-36); Mean Corpuscular Hgb 29.1 pg (27.0-32.0); Mean Corpuscular Volume 92.6 fL (81-99); Mean Platelet Vol. 10.4 fl (6.2-12.0); Monocyte# 0.79 X10^3/uL; Monocyte% 9.9 % (0-10); NRBC Flagged by Analyzer 0 % (0-5); Neutrophil # 4.96 X10^3/uL (2.7-7.7); Neutrophil % 62.4 % (47-70); Platelet Count 349 K/mm3 (150-450); RBC Distribution Width CV 13.4 % (11.6-14.6); RBC Distribution Width SD 45.9 fl (35.1-43.9); Red Blood Count 4.46 M/mm3 (4.2-5.4); White Blood Count 7.9 K/mm3 (4.4-11.0)
[2023-10-08 23:43] LABS: Bacteria 3+ /hpf (None Seen); Red Blood Cells-Urine 5-10 SEEN /hpf (0-5); White Blood Cells >100 SEEN /hpf (0-5)
[2023-10-08 23:53] LABS: Anion Gap 7 (5-15); BUN 23 mg/dL (7-18); BUN/Creat Ratio 23.7 RATIO (10-20); Calcium,Total 9.1 mg/dL (8.5-10.1); Chloride 108 mmol/L (98-107); Creatinine, Serum 0.97 mg/dL (0.55-1.02); EST Glomerular Filtration Rate 60 mL/min (>60); Est Glom Filt Rate - Afr Amer 73 mL/min (>60); Estimated Creatinine Clearance 44.64 ml/min; Glucose 152 mg/dL (74-106); Potassium 4.4 mmol/L (3.5-5.1); Sodium Level 139 mmol/L (136-145)
[2023-10-09 00:16] VITALS: RESP 18
[2023-10-09] MEDS: oxyCODONE 5 MG Tablet 10 MG PO (01:39)
[2023-10-09] MEDS: Cephalexin 250 MG Capsule 500 MG PO (01:39)
[2023-10-09 01:43] VITALS: BP 162/77; PULSE 69; RESP 17; O2SAT 98
== END 2023-10-09 01:44 | disposition home or self-care (01) ==
PROVIDERS: Emergency Provider Emergency Medicine; PCP Family Medicine; Visit Provider Emergency Medicine
DX: N13.6 Pyonephrosis (principal); R11.2 Nausea with vomiting, unspecified; I10 Essential (primary) hypertension; Z79.82 Long term (current) use of aspirin; Z79.899 Other long term (current) drug therapy
CPT/HCPCS: 74176; 80048; 81001; 85025; 87077; 87086; 87088; 87186; 96374; 96375; 99283; A4216; J2405

== ENCOUNTER → 2023-10-14 | Outpatient (CLI) | payer MEDICARE, OTHER, SELFPAY | END | disposition home or self-care (01) | LOC: PSN 13:27 | PROVIDERS: PCP Family Medicine; Referring Provider Urology; Visit Provider Urology | DX: Z01.810 Encounter for preprocedural cardiovascular examination (principal) | CPT/HCPCS: 93005 ==

== ENCOUNTER 2023-11-25 15:09 | Inpatient (IN) | payer MEDICARE, OTHER, SELFPAY ==
[2023-11-25] VITALS (11 sets, daily range): BP systolic 121–144; BP diastolic 48–95; PULSE 69–100; RESP 16–18; TEMP 36–37.1; O2SAT 95–99; BMI 38.5; BMI 40.0
[2023-11-25] MEDS: Lactated Ringers 1,000 ML 15 ML IV (11:41)
--- NOTE | 2023-11-25 13:04 | HP.PCM_ITS ---
HPI - General General Date of Admission: 11/25/23 Chief Complaint: Large right percutaneous stone HPI Narrative FERDINAND FELICIANO, is a 68 F who presents for a percutaneous nephrostolithotomy on the right side and also ureteroscopy laser stone in the ureter right side [facility] Medical History (Updated 11/18/23 @ 14:31 by Jocelyn Matute) Arthritis History of stress test Hypertension Kidney disease Kidney stones Post-menopausal Wears contact lenses Home Medications lisinopril 10 mg tablet 10 mg PO DAILY htn 08/26/19 [History Last Taken 11/24/23] apple cider vinegar 300 mg tablet 300 mg PO DAILY 05/24/20 [History Last Taken Unknown] aspirin 81 mg tablet,delayed release 81 mg PO QODAY [facility] 05/24/20 [History Last Taken 11/11/23] wadcteev-ebhh-ryun 8 mg-folic 400 mcg-K 50 mcg-lutein 300 mcg tablet 1 ea PO DAILY 05/24/20 [History Last Taken Unknown] turmeric 400 mg capsule 400 mg PO DAILY supplement 05/24/20 [History Last Taken Unknown] acetaminophen 500 mg tablet 500 mg PO Q4H PRN PRN Pain Score 1-10/10 #20 tabs 06/06/20 [Rx Last Taken Unknown] oxycodone-acetaminophen 5 mg-325 mg tablet 1 tab PO Q6H PRN PRN pain 5 days #20 TABLETS 10/09/23 [Rx Last Taken Unknown] cholecalciferol (vitamin D3) 25 mcg (1,000 unit) tablet (Vitamin D3) 1,000 unit PO DAILY 11/18/23 [History Last Taken Unknown] ciprofloxacin HCl 500 mg tablet (Cipro) 500 mg PO BID #14 tabs 11/25/23 [Rx Last Taken Unknown] oxycodone 5 mg tablet 5 mg PO Q6H PRN pain 7 days #14 tabs 11/25/23 [Rx Last Taken Unknown] Allergy/AdvReac Type Severity Reaction Status Date / Time cephalexin Allergy Intermediate Rash Verified 11/25/23 11:30 Social History Smoking Status: Never smoker Vital Signs Vital Signs Vital Signs: 11/25/23 11:33 11/25/23 11:33 Temperature 98.4 F Temperature Source Temporal Pulse Rate 76 Respiratory Rate 18 Respiratory Pattern Normal Blood Pressure 139/95 H Blood Pressure Mean 109 Blood Pressure Source Monitor Blood Pressure Position Semi-Fowlers Blood Pressure Location Left Arm Pulse Ox 98 Oxygen Delivery Method Room Air Weight Weight: 95.708 kg Body Mass Index (BMI) 38.5
--- NOTE | 2023-11-25 13:05 | DCINST_ITS ---
Discharge Instructions Diet Discharge Diet: No restrictions Activity Discharge Activity: Return to Normal Activity and May Not Drive (while taking narcotic pain medications.) Dressing / Incision Call your doctor if you observe: Fever of 101 or Higher Follow Up Care Please Follow Up With: Harshad Newman MD When: Call [phone] for an appointment Test Results: Test results from this visit will be discussed in further detail at your follow- up appointment, if applicable. Discharge Plan Admission Primary Reason for Your Visit: Right percutaneous removal of stone Attending Provider: Harshad Newman Primary Care Provider: Devin Bloom Discharge Orders/Prescriptions Prescriptions: New oxycodone 5 mg tablet 5 mg PO Q6H PRN (Reason: pain) 7 Days Qty: 14 0RF ciprofloxacin HCl [Cipro] 500 mg tablet 500 mg PO BID Qty: 14 0RF Continued lisinopril 10 MG tablet 10 mg PO DAILY Patient Comments: TAKE 1 TABLET BY MOUTH EVERY DAY apple cider vinegar 300 MG tablet 300 mg PO DAILY xmorpdlc-ghg-hojt-FA-vit K-lut 1 EACH tablet 1 ea PO DAILY turmeric 400 MG capsule 400 mg PO DAILY aspirin 81 MG tablet,delayed release (DR/EC) 81 mg PO QODAY Patient Comments: stop 7 days preop acetaminophen 500 MG tablet 500 mg PO Q4H PRN PRN (Reason: Pain Score 1-10/10) Qty: 20 0RF cholecalciferol (vitamin D3) [Vitamin D3] 25 mcg (1,000 unit) tablet 1,000 unit PO DAILY oxycodone-acetaminophen 5-325 mg tablet 1 tab PO Q6H PRN PRN (Reason: pain) 5 Days Qty: 20 0RF Referrals / Follow Up: Harshad Newman MD [Med Staff - Active Staff] - Devin Bloom DO [Primary Care Provider] - Disposition Disposition (needs filled in before D/C Order can be placed): Home, Self Care
[2023-11-25] MEDS: Ciprofloxacin 400 MG/200 ML BAG 200 MG IV ×2 (13:31→21:21)
--- NOTE | 2023-11-25 13:41 | RAD_ITS ---
PROCEDURE: Cystogram and right retrograde pyelographic. DATE OF EXAMINATION: November 25, 2023. INDICATION: Female, 68 years old. Hematuria. FLUOROSCOPY TIME (if supplied): (1 minute and 32 seconds) minutes/seconds Intraoperative imaging provided for right nephrolithotomy. RAD/Fluoroscopy 1 Hr or Less IMPRESSION: Intraoperative imaging provided for right nephrolithotomy. Electronically Signed: Kehinde Cruz MD at 9:37 EST ,
--- NOTE | 2023-11-25 14:59 | OP.PCM_ITS ---
Report of Operation Date of Procedure: 11/25/23 Pre-Operative Diagnosis: Right staghorn calculus 3 cm, distal right ureter stone Post-Operative Diagnosis: Same Surgery/Procedure Performed:: 1 right percutaneous nephrostolithotomy with 2. establishment of a nephrostomy track and 3. placement of nephrostomy tube, nephrostomy gram 2. Cystoscopy right ureteroscopy laser lithotripsy of stone, removal stent Description of Surgical Findings:: The patient was taken back to the operating room. After induction of anesthesia by the anesthesiology team the patient was placed in dorsolithotomy position. The genitals were prepped and draped in usual sterile fashion. I went into the bladder with a 21 Swazi rigid cystourethroscope through the urethra. Upon entering the bladder I inspected the trigone the left and right ureteral orifice and the bladder itself. I then cannulated the ureteral orifice and advanced a 0.038 Glidewire up into the kidney. Then over the Glidewire I advanced a 5 Fr Ureteral catheter and performed a retrograde pyelogram with about 10cc of contrast, to delineate the anatomy and identify the stone location. Then a ureteral balloon dilator was advanced over the wire and the distal ureter was balloon dilated with a 12 Fr x 5cm balloon dilator. After 3 minutes of dilating the ureter the balloon was backloaded off the 0.038 glidewire then the safety wire was left in place. I then placed a second 0.038 Guidewire as a working wire and over the working 0.038 guidewire I went in with the jarek rigide 7.5fr ureteroscope. I was able to go inside with the 7.5Fr jarek rigid utereroscope and I pulled out the working guidewire and then through the 7.5 fr simirigid ureteroscope I engage the stone in the distal ureter with laser lithotripsy using a 270miron laser fiber with energy setting of 6 Hertz and 0.6 J until the stone was lasered into tiny little pieces that should pass on their own. A retrograde pyelogram was performed with 10cc of contrast and no extravasation of contrast or perforation was identified in the ureter there was some mild irritation of the ureter where the stone was located. I then left a 12 Swazi balloon dilator catheter up in the right ureter and we filled the catheter balloon with contrast and the patient was then flipped for a percutaneous nephrostolithotomy establishment of a nephrostomy track and placement of nephrostomy tube and nephrostogram. The patient was positioned facedown make sure all of her pressure points were padded and secured. Then the x-ray came then through the balloon dilator catheter we did a retrograde to fill the renal pelvis with contrast we could see the shadowing stone it was in the upper pole posterior. Then using triangulation technique through the skin I used tube trocar needle 18-gauge and guided the needle right to the location of the upper pole stone and then once the needle was in good position then I put the wire through the two-part needle coiled in the renal pelvis. Then over the wire I advanced a 30 Swazi balloon dilator with an access sheath I balloon dilated the tract using the balloon dilator kit up to 30 bernarda once the tract was dilated then over the balloon dilator advanced the access sheath and once the XC within the kidney then the balloon dilator was deflated I left the wire in place and then went in with the access sheath with the nephroscope, once inside the kidney then the stone was about 3 cm inside the kidney was identified and I proceeded with ultrasonic lithotripter using the [employer] dual ultrasound lithotripter with suction as the stone was broken up and immediately was cordova ctioned out and it was a soft infectious stone that came out fairly fast this point the entire stone was treated and was broken up and sucked out with the ultrasonic lithotripter I then inspected the entire kidney the renal pelvis the upper pole lower pole I then went in with a flexible ureteroscope and inspected the entire kidney no other stones were seen the entire stone had been removed successfully there is a very large stone but soft stones were broken up quickly. Once I completed the inspection of the entire kidney no stone fragments were seen we then deflated the balloon and the ureteral balloon dilator and remove that from the ureter under direct visualization I did go down the ureter with the flexible cystoscope did not see any fragments along the course of the ureter and went back up to the kidney then to the axis sheath I put in a in a 18 Swazi [place] tip catheter 3 cc in the balloon performed a nephrostogram to secure the nephrostomy tube to the skin with stitches patient's anesthetic was reversed she was Gonzales catheter was left in place nephrostomy tube was left to gravity drainage, she was extubated and taken back to the PACU in good condition we will keep her in the hospital for recovery after successful removal of a large stone in the right kidney with a percutaneous approach. Surgeon: Harshad Newman Type of Anesthesia: General Drains: gonzales and 18 fr nephrostomy tube Admit VTE Documentation VTE Present on Admission: No VTE Mechan Device Prophylaxis: SCD's VTE Pharm Prophylaxis ordered?: No
--- OUTSIDE RECORDS SUMMARY | 2023-11-25 15:41 | XMS RPT_ITS | CCD ---
Author Name Unknown Address [address] [place] [address] Organization [facility] Care Team Providers Care Head Of Sales Name Role Phone JAYDON COFFEY, MIRANDA Echols Attending Camacho MCWILLIAMS MD, DR SABINA PANIAGUA Attending Gomez MCWILLIAMS MD, DR SABINA PANIAGUA Attending Gomez enriquez Allergies Allergy Classification Reported Allergen(s) Allergy Type Date of Onset Reaction(s) Facility (3 sources) Cephalexin; Translations: [cephalexin] Drug Allergy [facility] (3 sources) Contrast media; Translations: [iodinated radiocontrast agents] Drug allergy FEELS HOT [facility] (3 sources) oxyCODONE; Translations: [oxycodone] Drug Allergy [facility] Medications Current Medications Medication Drug Class(es) Dates Sig (Normalized) Sig (Original) benzonatate 100 mg oral capsule (2 sources) Non-narcotic Antitussive Start: 3 End: 3 Tessalon Perles 100 mg oral capsule Dose : 100 mg = 1 cap(s), Oral, q8h, PRN as needed for cough, X 10 day(s), # 30 cap(s), 0 Refill(s), 11/07/23 3:16:00 PM EST Start Date: 10/28/23 Stop Date: 11/07/23 Status: Ordered Centrum Silver Ultra Women's oral tablet (3 sources) Start: 3 take 1 tablet by mouth once daily Centrum Silver Ultra Women's oral tablet Dose = 1 tab(s), Oral, Daily, 0 Refill(s) Start Date: 10/27/23 Status: Ordered levoFLOXacin 750 mg oral tablet (2 sources) Quinolone Antimicrobial Start: 3 End: 3 levoFLOXacin 750 mg oral tablet Dose : 750 mg = 1 tab(s), Oral, q48h, X 10 day(s), # 5 tab(s), 0 Refill(s), 11/07/23 3:07:00 PM EST, 91 Start Date: 10/28/23 Stop Date: 11/07/23 Status: Ordered lisinopril 10 mg oral tablet (3 sources) Angiotensin Converting Enzyme Inhibitor Start: 3 take 1 tablet by mouth once daily lisinopril 10 mg oral tablet TAKE 1 TABLET BY MOUTH EVERY DAY Start Date: 10/27/23 Status: Ordered methylPREDNISolone Dosepak 4 mg tablet (1 source) Start: 3 End: 3 methylPREDNISolone Dosepak 4 mg tablet Per Dosepak Instructions, Oral, Daily, # 1 EA, 0 Refill(s) Start Date: 10/28/23 Stop Date: 11/03/23 Status: Ordered oxyCODONE hydrochloride 5 mg oral tablet (1 source) Opioid Agonist Start: 3 End: 3 oxyCODONE 5 mg oral tablet ( IMMEDIATE release ) Dose : 5 mg = 1 tab(s), Oral, q6h, PRN for pain, X 7 day(s), # 28 tab(s), 0 Refill(s), 11/06/23 10:49:00 AM EST, Pharmacy: [id number], Stone in kidney, 157.5, cm, 10/28/23 11:46:00 EST, Height, 91, kg, 10/28/23 11:46:00 EST, Dosing Weight Start Date: 10/30/23 Stop Date: 11/06/23 Status: Ordered triamcinolone acetonide 1 mg/ml topical cream (1 source) Corticosteroid Start: 3 triamcinolone 0.1% topical cream Apply 1 dima, Topical, TID, # 80 gram(s), 0 Refill(s), Cream, 91 Start Date: 10/28/23 Status: Ordered turmeric extract 500 mg oral capsule (3 sources) Start: 3 turmeric 500 mg oral capsule Dose : 500 mg = 1 cap(s), Oral, Daily, 0 Refill(s) Start Date: 10/27/23 Status: Ordered Vitamin D3 (3 sources) Start: Vitamin D3 Dose : 50 mcg = 1 cap(s), Oral, Daily, # 30 cap(s), 0 Refill(s) Start Date: 10/27/23 Status: Ordered Completed/Discontinued Medications Medication Drug Class(es) Dates Sig (Normalized) Sig (Original) Ciprofloxacin (1 source) Quinolone Antimicrobial Start: 10-30-2023 Cipro I.V. Dose : 400 mg = 200 mL, IV Piggyback, PREOP pharm, 0 Refill(s), 91 Start Date: 10/30/23 Status: Ordered fluconazole 150 mg oral tablet (1 source) Azole Antifungal Start: 10-28-2023 End: 10-28-2023 fluconazole 150 mg oral tablet Dose : 150 mg = 1 tab(s), Oral, qDay, # 1 tab(s), 0 Refill(s), 91 Start Date: 10/28/23 Stop Date: 10/28/23 Status: Ordered Problems Problem Classification Problem Date Documented Da te Episodic/Chronic Calculus of urinary tract (2 sources) Kidney stone; Translations: [Calculus of kidney] Onset: 10-28-2023 Episodic Urinary tract infections (1 source) Urinary tract infectious disease; Translations: [Urinary tract infection, site not specified] Onset: 10-28-2023 Episodic Results Test Name Value Interpretation Reference Range Facil ity Vital Signs Date Time Vital Sign Value Performing Clinician Faci lity 10-30-2023 14:32-0500 Diastolic Blood Pressure Non-Invasive 71 mm[Hg] DR SABINA MCWILLIAMS MD [facility] 10-30-2023 14:32-0500 Heart rate 82 /min DR SABINA MCWILLIAMS MD [facility] 10-30-2023 14:32-0500 Systolic Blood Pressure Non-Invasive 122 mm[Hg] DR SABINA MCWILLIAMS MD [facility] 10-30-2023 14:05-0500 Diastolic Blood Pressure Non-Invasive 64 mm[Hg] DR SABINA MCWILLIAMS MD [facility] 10-30-2023 14:05-0500 Heart rate 87 /min DR SABINA MCWILLIAMS MD [facility] 10-30-2023 14:05-0500 Systolic Blood Pressure Non-Invasive 118 mm[Hg] DR SABINA MCWILLIAMS MD [facility] 10-30-2023 13:38-0500 Diastolic Blood Pressure Non-Invasive 65 mm[Hg] DR SABINA MCWILLIAMS MD [facility] 10-30-2023 13:38-0500 Heart rate 88 /min DR SABINA MCWILLIAMS MD [facility] 10-30-2023 13:38-0500 Systolic Blood Pressure Non-Invasive 120 mm[Hg] DR SABINA MCWILLIAMS MD [facility] 10-30-2023 13:08-0500 Respiratory rate 18 /min DR SABINA MCWILLIAMS MD [facility] 10-30-2023 12:57-0500 Respiratory rate 14 /min DR SABINA MCWILLIAMS MD [facility] 10-30-2023 12:51-0500 Respiratory rate 17 /min DR SABINA MCWILLIAMS MD [facility] 10-30-2023 12:26-0500 Body temperature 97.7 [degF] DR SABINA MCWILLIAMS MD [facility] 10-30-2023 12:25-0500 Respiratory Rate - Anes 0 br/min DR SABINA MCWILLIAMS MD [facility] 10-30-2023 12:20-0500 Respiratory Rate - Anes 35 br/min DR SABINA MCWILLIAMS MD [facility] 10-30-2023 12:15-0500 Respiratory Rate - Anes 38 br/min DR SABINA MCWILLIAMS MD [facility] 10-30-2023 10:47-0500 Body height 157.[address] SABINA MCWILLIAMS MD [facility] 10-30-2023 10:47-0500 Body temperature 97.88 [degF] DR SABINA MCWILLIAMS MD [facility] 10-30-2023 10:47-0500 Body weight [address] SABINA MCWILLIAMS MD [facility] 10-30-2023 10:47-0500 Heart rate 96 /min DR SABINA MCWILLIAMS MD [facility] 10-28-2023 15:58-0500 Diastolic Blood Pressure Non-Invasive 66 mm[Hg] MIRANDA INTERIANO MD [facility] 10-28-2023 15:58-0500 Heart rate 94 /min MIRANDA INTERIANO MD [facility] 10-28-2023 15:58-0500 Respiratory rate 18 /min MIRANDA INTERIANO MD [facility] 10-28-2023 15:58-0500 Systolic Blood Pressure Non-Invasive 99 mm[Hg] MIRANDA INTERIANO MD [facility] 10-28-2023 14:30-0500 Diastolic Blood Pressure Non-Invasive 59 mm[Hg] MIRANDA INTERIANO MD [facility] 10-28-2023 14:30-0500 Heart rate 94 /min MIRANDA INTERIANO MD [facility] 10-28-2023 14:30-0500 Respiratory rate 20 /min MIRANDA INTERIANO MD [facility] 10-28-2023 14:30-0500 Systolic Blood Pressure Non-Invasive 100 mm[Hg] MIRANDA INTERIANO MD [facility] 10-28-2023 14:00-0500 Diastolic Blood Pressure Non-Invasive 55 mm[Hg] MIRANDA INTERIANO MD [facility] 10-28-2023 14:00-0500 Heart rate 89 /min MIRANDA INTERIANO MD [facility] 10-28-2023 14:00-0500 Systolic Blood Pressure Non-Invasive 96 mm[Hg] MIRANDA INTERIANO MD [facility] 10-28-2023 13:32-0500 Heart rate 96 /min MIRANDA INTERIANO MD [facility] 10-28-2023 11:46-0500 Body height 157.5 cm MIRANDA INTERIANO MD [facility] 10-28-2023 11:46-0500 Body temperature 98.24 [degF] MIRANDA INTERIANO MD [facility] 10-28-2023 11:46-0500 Body weight 91 kg MIRANDA INTERIANO MD [facility] 10-28-2023 11:46-0500 Heart rate 123 /min MIRANDA INTERIANO MD [facility] 10-27-2023 14:19-0500 Blood Pressure Cuff Size DR SABINA MCWILLIAMS MD [facility] 10-27-2023 14:19-[address] SABINA MCWILLIAMS MD [facility] 10-27-2023 14:19-[address] SABINA MCWILLIAMS MD [facility] 10-27-2023 14:19-0500 Body height 157.[address] SABINA MCWILLIAMS MD [facility] 10-27-2023 14:19-0500 Body weight 90.[address] SABINA MCWILLIAMS MD [facility] 10-27-2023 14:19-0500 Body weight 36.64 kg/m2 DR SABINA MCWILLIAMS MD [facility] 10-27-2023 14:19-0500 Diastolic Blood Pressure Non-Invasive 64 mm[Hg] DR SABINA MCWILLIAMS MD [facility] 10-27-2023 14:19-0500 Heart rate 88 /min DR SABINA MCWILLIAMS MD [facility] 10-27-2023 14:19-0500 Systolic Blood Pressure Non-Invasive 102 mm[Hg] DR SABINA MCWILLIAMS MD [facility] Encounters Encounter Date Encounter Type Care Provider Facility Start: 10-30-2023 End: 10-30-[address] SABINA MCWILLIAMS MD Facility:[facility] Start: 10-30-2023 End: 10-30-[address] SABINA MCWILLIAMS MD [facility] Start: 10-28-2023 End: 10-28-2023 Emergency department patient visit MIRANDA INTERIANO MD Facility:[facility] Start: 10-28-2023 End: 10-28-2023 Emergency department patient visit MIRANDA INTERIANO MD [facility] Start: 10-27-2023 End: 10-28-[address] SABINA MCWILLIAMS MD Facility:[facility] Start: 10-27-2023 End: 10-27-[address] SABINA MCWILLIAMS MD [facility] Procedures Date Procedure Procedure Detail Performing Clinician Kidney stone (disorder) DR Mkuul MCWILLIAMS MD Payers Date Payer Category Payer Medicare [id number] 2023 Unknown [id number] 1955 Unknown [id number] 1955 Unknown [id number] 1955 Unknown [id number] Social History Date Type Detail Facility Start: 10-27-2023 Tobacco smoking status Never s moked tobacco (finding) [facility] Sex Assigned At Female [facility] Functional Status Date Assessment Result Facility 10-30-2023 Functional Status Activity Statu s ADL Up to bathroom [facility] 10-30-2023 Functional Status bilateral knee high applied/on [facility] 10-30-2023 Functional Status [facility] 10-28-2023 Functional Status Up ad shukri [facility] 10-28-2023 Functional Status [facility] 10-27-2023 Functional Status Sensory Deficits None [facility] Mental Status Date Assessment Result Facility 10-30-2023 Mental Status Orientation Oriented x 4 [facility] 12-08-2023 Mental Status [facility] 10-28-2023 Mental Status Orientation Oriented x 4 [facility] Clinical Notes 10-28-2023 to 11-01-2023 Note Date & Type Note Facility 11-01-2023 Note . MICRO - Microbiology PROCEDURE: Urine Culture [*1] SOURCE: Urine BODY SITE: COLLECTED DATE/TIME: 10/30/2023 12:18 EST RECEIVED DATE/TIME: 10/30/2023 21:17 EST START DATE/TIME: 10/30/2023 21:17 EST FREE TEXT SOURCE: FINAL REPORTS Final Report [] Verified Date/Time/Personnel: 11/01/2023 08:19 EST 50,000 - 100,000 cfu/ml Proteus mirabilis PRELIMINARY REPORTS Preliminary Report [] Verified Date/Time/Personnel: 10/31/2023 11:26 EST 50,000 - 100,000 cfu/ml Proteus mirabilis MANAV to follow SUSCEPTIBILITY RESULTS Proteus mirabilis Antibiotic MANAV Dilut MANAV Inter Ampicillin <=8 Susceptible Ampicillin/ <=4/2 Susceptible Sulbactam Aztreonam <=4 Susceptible Cefazolin <=2 Susceptible Ciprofloxacin <=0.25 Susceptible Ertapenem <=0.5 Susceptible Gentamicin <=2 Susceptible ID Panel Not Not Applicable Applicable Levofloxacin <=0.5 Susceptible Meropenem <=1 Susceptible Minocycline >8 Resistant Nitrofurantoin >64 Resistant Trimethoprim/ <=0.5/9.5 Susceptible Sulfa Performing Locations *1: This test was performed at: [address], [address] [place] [address] ([place]) 10-30-2023 Note . MICRO - Microbiology PROCEDURE: Urine Culture [*1] SOURCE: Urine BODY SITE: COLLECTED DATE/TIME: 10/28/2023 13:11 EST RECEIVED DATE/TIME: 10/28/2023 19:06 EST START DATE/TIME: 10/28/2023 19:06 EST FREE TEXT SOURCE: FINAL REPORTS Final Report [] Verified Date/Time/Personnel: 10/30/2023 11:37 EST >100,000 cfu/ml Escherichia coli PRELIMINARY REPORTS Preliminary Report [] Verified Date/Time/Personnel: 10/29/2023 15:15 EST >100,000 cfu/ml Escherichia coli MANAV to follow SUSCEPTIBILITY RESULTS Escherichia coli Antibiotic MANAV Dilut MANAV Inter Ampicillin <=8 Susceptible Ampicillin/ <=4/2 Susceptible Sulbactam Aztreonam <=4 Susceptible Cefazolin <=2 Susceptible Ciprofloxacin <=0.25 Susceptible Ertapenem <=0.5 Susceptible Gentamicin <=2 Susceptible ID Panel Not Not Applicable Applicable Imipenem <=1 Susceptible Levofloxacin <=0.5 Susceptible Meropenem <=1 Susceptible Minocycline <=4 Susceptible Nitrofurantoin <=32 Susceptible Trimethoprim/ <=0.5/9.5 Susceptible Sulfa Performing Locations *1: This test was performed at: [facility], [address] [place] [address], [id number] , [facility] ([place]) 10-30-2023 Hospital Discharg e instructions Patient Education 10/30/2023 12:40:45 Acute Pain, Adult Acute Pain, Adult Acute pain is a type of sudden pain that may last for just a few days or for as long as six months. It is often related to an illness, injury, or medical procedure. Acute pain may be mild, moderate, or severe. Pain can make it hard for you to do your normal, daily activities. It can cause anxiety and lead to other problems if it is left untreated. Treatment depends on the cause and severity of your pain. Acute pain usually goes away once your injury has healed or you are no longer ill. Follow these instructions at home: Medicines Take bkel-jen-qmgrlsx and prescription medicines only as told by your health care provider. Take the lowest dose of medicine for the shortest amount of time needed to relieve the pain. If you are taking prescription pain medicine: ?Do not stop taking the medicine suddenly. Talk to your health care provider about how and when to discontinue prescription medicine. ?Do not take more pills than told by your health care provider even if your pain is severe. ?Do not take other ashg-vlj-iscjdeb pain medicines in addition to prescription pain medicine unless told by your health care provider. ?Ask your health care provider if the medicine requires you to avoid driving or using heavy machinery. ?Ask your health care provider if the medicine can cause constipation. You may need to take these actions to prevent or treat constipation: ?Drink enough fluid to keep your urine pale yellow. ?Eat foods that are high in fiber, such as beans, whole grains, and fresh fruits and vegetables. ?Take orru-ttq-qlreinv or prescription medicines. ?Limit foods that are high in fat and processed sugars, such as fried or sweet foods. Managing pain, stiffness, and swelling If directed, put ice on the affected area. To do this: Put ice in a plastic bag. Place a towel between your skin and the bag. Leave the ice on for 20 minutes, 2 3 times a day. If directed, apply heat to the affected area as often as told by your health care provider. Use the heat source that your health care provider recommends, such as a moist heat pack or a heating pad. Place a towel between your skin and the heat source. Leave the heat on for 20 30 minutes. Remove the heat if your skin turns bright red. This is especially important if you are unable to feel pain, heat, or cold. You may have a greater risk of getting burned. Activity Rest as told by your health care provider. Return to your normal activities as told by your health care provider. Ask your health care provider what activities are safe for you. General instructions Check your pain level as told by your health care provider. Ask your health care provider if other strategies such as distraction, relaxation, or physical therapies can help your pain. Keep all follow-up visits as told by your health care provider. This is important. Contact a health care provider if: Your pain is not controlled by medicine. Your pain does not improve or gets worse. You have side effects from pain medicines, such as vomiting or confusion. Get help right away if you: Have severe pain. Have trouble breathing. Lose consciousness. Have chest pain or pressure that lasts for more than a few minutes, or if you have other symptoms along with chest pain, including if you: ?Have pain or discomfort in one or both arms, your back, neck, jaw, or stomach. ?Have shortness of breath. ?Break out in a cold sweat. ?Feel nauseous. ?Become light-headed. These symptoms may represent a serious problem that is an emergency. Do not wait to see if the symptoms will go away. Get medical help right away. Call your local emergency services (911 in the [place] Do not drive yourself to the hospital. Summary Acute pain may be mild, moderate, or severe. It usually goes away once your injury has healed or you are no longer ill. Take tgsv-xqj-osvltaj and prescription medicines only as told by your health care provider. Ask your health care provider if the medicine prescribed to you can cause constipation. Contact a health care provider if your pain is not controlled by medicine. This information is not intended to replace advice given to you by your health care provider. Make sure you discuss any questions you have with your health care provider. Document Released: 11/23/2016 Document Revised: 03/26/2020 Document Reviewed: 03/26/2020 [employer] Patient Education 2019 [employer]. 10/30/2023 12:40:34 Ureteral Stent Implantation, Care After Ureteral Stent Implantation, Care After This sheet gives you information about how to care for yourself after your procedure. Your health care provider may also give you more specific instructions. If you have problems or questions, contact your health care provider. What can I expect after the procedure? After the procedure, it is common to have: Nausea. Mild pain when you urinate. You may feel this pain in your lower back or lower abdomen. The pain should stop within a few minutes after you urinate. This may last for up to 1 week. A small amount of blood in your urine for several days. Follow these instructions at home: Medicines Take pbhr-ifr-trbtnsl and prescription medicines only as told by your health care provider. If you were prescribed an antibiotic medicine, take it as told by your health care provider. Do not stop taking the antibiotic even if you start to feel better. Do not drive for 24 hours if you were given a sedative during your procedure. Ask your health care provider if the medicine prescribed to you requires you to avoid driving or using heavy machinery. Activity Rest as told by your health care provider. Avoid sitting for a long time without moving. Get up to take short walks every 1 2 hours. This is important to improve blood flow and breathing. Ask for help if you feel weak or unsteady. Return to your normal activities as told by your health care provider. Ask your health care provider what activities are safe for you. General instructions Watch for any blood in your urine. Call your health care provider if the amount of blood in your urine increases. If you have a catheter: ?Follow instructions from your health care provider about taking care of your catheter and collection bag. ?Do not take baths, swim, or use a hot tub until your health care provider approves. Ask your health care provider if you may take showers. You may only be allowed to take sponge baths. Drink enough fluid to keep your urine pale yellow. Do not use any products that contain nicotine or tobacco, such as cigarettes, e-cigarettes, and chewing tobacco. These can delay healing after surgery. If you need help quitting, ask your health care provider. Keep all follow-up visits as told by your health care provider. This is important. Contact a health care provider if: You have pain that gets worse or does not get better with medicine, especially pain when you urinate. You have difficulty urinating. You feel nauseous or you vomit repeatedly during a period of more than 2 days after the procedure. Get help right away if: Your urine is dark red or has blood clots in it. You are leaking urine (have incontinence). The end of the stent comes out of your urethra. You cannot urinate. You have sudden, sharp, or severe pain in your abdomen or lower back. You have a fever. You have swelling or pain in your legs. You have difficulty breathing. Summary After the procedure, it is common to have mild pain when you urinate that goes away within a few minutes after you urinate. This may last for up to 1 week. Watch for any blood in your urine. Call your health care provider if the amount of blood in your urine increases. Take bqbt-hlh-nxkajqt and prescription medicines only as told by your health care provider. Drink enough fluid to keep your urine pale yellow. This information is not intended to replace advice given to you by your health care provider. Make sure you discuss any questions you have with your health care provider. Document Released: 07/12/2014 Document Revised: 08/16/2019 Document Reviewed: 08/17/2019 [employer] Patient Education 2020 [employer] 10/30/2023 12:40:15 Kidney Stones, Gnfh-hb-Cztf Kidney Stones Kidney stones are rock-like masses that form inside of the kidneys. Kidneys are organs that make pee (urine). A kidney stone may move into other parts of the urinary tract, including: The tubes that connect the kidneys to the bladder (ureters). The bladder. The tube that carries urine out of the body (urethra). Kidney stones can cause very bad pain and can block the flow of pee. The stone usually leaves your body (passes) through your pee. You may need to have a doctor take out the stone. What are the causes? Kidney stones may be caused by: A condition in which certain glands make too much parathyroid hormone (primary hyperparathyroidism). A buildup of a type of crystals in the bladder made of a chemical called uric acid. The body makes uric acid when you eat certain foods. Narrowing (stricture) of one or both of the ureters. A kidney blockage that you were born with. Past surgery on the kidney or the ureters, such as gastric bypass surgery. What increases the risk? You are more likely to develop this condition if: You have had a kidney stone in the past. You have a family history of kidney stones. You do not drink enough water. You eat a diet that is high in protein, salt (sodium), or sugar. You are overweight or very overweight (obese). What are the signs or symptoms? Symptoms of a kidney stone may include: Pain in the side of the belly, right below the ribs (flank pain). Pain usually spreads (radiates) to the groin. Needing to pee often or right away (urgently). Pain when going pee (urinating). Blood in your pee (hematuria). Feeling like you may vomit (nauseous). Vomiting. Fever and chills. How is this treated? Treatment depends on the size, location, and makeup of the kidney stones. The stones will often pass out of the body through peeing. You may need to: Drink more fluid to help pass the stone. In some cases, you may be given fluids through an IV tube put into one of your veins at the hospital. Take medicine for pain. Make changes in your diet to help keep kidney stones from coming back. Sometimes, medical procedures are needed to remove a kidney stone. This may involve: A procedure to break up kidney stones using a beam of light (laser) or shock waves. Surgery to remove the kidney stones. Follow these instructions at home: Medicines Take lktf-xed-coqokwy and prescription medicines only as told by your doctor. Ask your doctor if the medicine prescribed to you requires you to avoid driving or using heavy machinery. Eating and drinking Drink enough fluid to keep your pee pale yellow. You may be told to drink at least 8 10 glasses of water each day. This will help you pass the stone. If told by your doctor, change your diet. This may include: ?Limiting how much salt you eat. ?Eating more fruits and vegetables. ?Limiting how much meat, poultry, fish, and eggs you eat. Follow instructions from your doctor about eating or drinking restrictions. General instructions Collect pee samples as told by your doctor. You may need to collect a pee sample: ?24 hours after a stone comes out. ?8 12 weeks after a stone comes out, and every 6 12 months after that. Strain your pee every time you pee (urinate), for as long as told. Use the strainer that your doctor recommends. Do not throw out the stone. Keep it so that it can be tested by your doctor. Keep all follow-up visits as told by your doctor. This is important. You may need follow-up tests. How is this prevented? To prevent another kidney stone: Drink enough fluid to keep your pee pale yellow. This is the best way to prevent kidney stones. Eat healthy foods. Avoid certain foods as told by your doctor. You may be told to eat less protein. Stay at a healthy weight. Where to find more information National Kidney Foundation (NKF): www.kidney.org [facility] (UCF): www.urologyhealth.org Contact a doctor if: You have pain that gets worse or does not get better with medicine. Get help right away if: You have a fever or chills. You get very bad pain. You get new pain in your belly (abdomen). You pass out (faint). You cannot pee. Summary Kidney stones are rock-like masses that form inside of the kidneys. Kidney stones can cause very bad pain and can block the flow of pee. The stones will often pass out of the body through peeing. Drink enough fluid to keep your pee pale yellow. This information is not intended to replace advice given to you by your health care provider. Make sure you discuss any questions you have with your health care provider. Document Released: 04/27/2009 Document Revised: 03/27/2020 Document Reviewed: 03/27/2020 [employer] Patient Education 2020 [employer]. 10/30/2023 12:40:13 Dietary Guidelines to Help Prevent Kidney Stones Dietary Guidelines to Help Prevent Kidney Stones Kidney stones are deposits of minerals and salts that form inside your kidneys. Your risk of developing kidney stones may be greater depending on your diet, your lifestyle, the medicines you take, and whether you have certain medical conditions. Most people can reduce their chances of developing kidney stones by following the instructions below. Depending on your overall health and the type of kidney stones you tend to develop, your dietitian may give you more specific instructions. What are tips for following this plan? Reading food labels Choose foods with no salt added or low-salt labels. Limit your sodium intake to less than 1500 mg per day. Choose foods with calcium for each meal and snack. Try to eat about 300 mg of calcium at each meal. Foods that contain 200 500 mg of calcium per serving include: ?8 oz (237 ml) of milk, fortified nondairy milk, and fortified fruit juice. ?8 oz (237 ml) of kefir, yogurt, and soy yogurt. ?4 oz (118 ml) of tofu. ?1 oz of cheese. ?1 cup (300 g) of dried figs. ?1 cup (91 g) of cooked broccoli. ?1 3 oz can of sardines or mackerel. Most people need 1000 to 1500 mg of calcium each day. Talk to your dietitian about how much calcium is recommended for you. Shopping Buy plenty of fresh fruits and vegetables. Most people do not need to avoid fruits and vegetables, even if they contain nutrients that may contribute to kidney stones. When shopping for convenience foods, choose: ?Whole pieces of fruit. ?Premade salads with dressing on the side. ?Low-fat fruit and yogurt smoothies. Avoid buying frozen meals or prepared deli foods. Look for foods with live cultures, such as yogurt and kefir. Cooking Do not add salt to food when cooking. Place a salt shaker on the table and allow each person to add his or her own salt to taste. Use vegetable protein, such as beans, textured vegetable protein (TVP), or tofu instead of meat in pasta, casseroles, and soups. Meal planning Eat less salt, if told by your dietitian. To do this: ?Avoid eating processed or premade food. ?Avoid eating fast food. Eat less animal protein, including cheese, meat, poultry, or fish, if told by your dietitian. To do this: ?Limit the number of times you have meat, poultry, fish, or cheese each week. Eat a diet free of meat at least 2 days a week. ?Eat only one serving each day of meat, poultry, fish, or seafood. ?When you prepare animal protein, cut pieces into small portion sizes. For most meat and fish, one serving is about the size of one deck of cards. Eat at least 5 servings of fresh fruits and vegetables each day. To do this: ?Keep fruits and vegetables on hand for snacks. ?Eat 1 piece of fruit or a handful of berries with breakfast. ?Have a salad and fruit at lunch. ?Have two kinds of vegetables at dinner. Limit foods that are high in a substance called oxalate. These include: ?Spinach. ?Rhubarb. ?Beets. ?Potato chips and mongolian fries. ?Nuts. If you regularly take a diuretic medicine, make sure to eat at least 1 2 fruits or vegetables high in potassium each day. These include: ?Avocado. ?Banana. ?[place], prune, carrot, or tomato juice. ?Baked potato. ?Cabbage. ?Beans and split peas. General instructions Drink enough fluid to keep your urine clear or pale yellow. This is the most important thing you can do. Talk to your health care provider and dietitian about taking daily supplements. Depending on your health and the cause of your kidney stones, you may be advised: ?Not to take supplements with vitamin C. ?To take a calcium supplement. ?To take a daily probiotic supplement. ?To take other supplements such as magnesium, fish oil, or vitamin B6. Take all medicines and supplements as told by your health care provider. Limit alcohol intake to no more than 1 drink a day for non women and 2 drinks a day for men. One drink equals 12 oz of beer, 5 oz of wine, or 1 oz of hard liquor. Lose weight if told by your health care provider. Work with your dietitian to find strategies and an eating plan that works best for you. What foods are not recommended? Limit your intake of the following foods, or as told by your dietitian. Talk to your dietitian about specific foods you should avoid based on the type of kidney stones and your overall health. Grains Breads. Bagels. Rolls. Baked goods. Salted crackers. Cereal. Pasta. Vegetables Spinach. Rhubarb. Beets. Canned vegetables. Pickles. Olives. Meats and other protein foods Nuts. Nut butters. Large portions of meat, poultry, or fish. Salted or cured meats. Deli meats. Hot dogs. Sausages. Dairy Cheese. Beverages Regular soft drinks. Regular vegetable juice. Seasonings and other foods Seasoning blends with salt. Salad dressings. Canned soups. Soy sauce. Ketchup. Barbecue sauce. Canned pasta sauce. Casseroles. Pizza. Lasagna. Frozen meals. Potato chips. [place] Islander fries. Summary You can reduce your risk of kidney stones by making changes to your diet. The most important thing you can do is drink enough fluid. You should drink enough fluid to keep your urine clear or pale yellow. Ask your health care provider or dietitian how much protein from animal sources you should eat each day, and also how much salt and calcium you should have each day. This information is not intended to replace advice given to you by your health care provider. Make sure you discuss any questions you have with your health care provider. Document Released: 03/05/2012 Document Revised: 02/29/2020 Document Reviewed: 10/20/2017 [employer] Patient Education 2020 [employer]. Follow Up Care 10/26/2023 10:29:58 With:SABINA MCWILLIAMS MD, [facility] Address: [address] [place] [phone] When: Unknown [facility] 10-30-2023 Evaluation + Plan note Diagnostic Tests PendingUrine Culture 10/30/23 [facility] 10-30-2023 Note ORIGINAL EXAMINATION: CT OF THE ABDOMEN AND PELVIS WITHOUT CGFXGPZO60/8/2023 1:41 pm TECHNIQUE: CT of the abdomen and pelvis was performed without the administration of intravenous contrast. Multiplanar reformatted images are provided for review. Automated exposure control, iterative reconstruction, and/or weight based adjustment of the mA/kV was utilized to reduce the radiation dose to as low as reasonably achievable. COMPARISON: 10/28/2023 HISTORY: ORDERING SYSTEM PROVIDED HISTORY: Reason for Exam: check stone and stent FINDINGS: Interval placement of right ureteral stent which appears to be in appropriate position. There is no change in the caliber of the right renal collecting system and right ureter, with persistent severe dilation. A solitary focus of air in the urinary bladder is most likely related to the procedure. 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 Left lower pole nonobstructing calculus again noted. Remainder of the examination is unchanged. IMPRESSION: Interval placement of right ureteral stent, with no definite change in severe right hydroureteronephrosis. Distal right ureteral calculi and bilateral nephrolithiasis appear essentially unchanged from prior examination. Remainder of the exam is also essentially unchanged. I have personally reviewed the images of this examination and agree with the resident's findings and interpretation. Interpreted by: Samuel Martinez MD Preliminary Report By: Juan Aquino Electronically signed By Samuel Martinez MD Dictated Date: 10/30/2023 1:45:15 PM Prelim Date: 10/30/2023 2:49:05 PM Sign Date: 10/30/2023 3:25:09 PM Ordering Provider: SABINA MCWILLIAMS [facility] 10-30-2023 Note Discharge Instructions Thank you for allowing [facility] to assist you with your healthcare needs. The following is important discharge information regarding your hospital visit. Your Care Team Your Diagnosis Stone in kidney What to do next Follow Up Appointments Follow Up with SABINA MCWILLIAMS MD, [facility] When Where: [address] [place] [phone] The Following Activity and Diet Have Been Ordered for You Discharge Activity - Ordered -- Follow the post-operative/post-procedure activity instructions provided by your physician's office., 10/30/23 12:29:00 EST Discharge Driving Restrictions - Ordered -- No driving until pain-free, 10/30/23 12:29:00 EST Discharge Return to Work, School, or Sports (Discharge Return to status) - Ordered -- May return to: work, 10/30/23 12:29:00 EST Discharge Diet - Ordered -- Follow the post-operative/post-procedure diet instructions provided by your physician's office., 10/30/23 12:29:00 EST Allergies Contrast dye (FEELS HOT ) cephalexin (HIVES) oxyCODONE (HIVES) Medications Please ask your primary doctor or pharmacist before taking any other medication not listed, including over the counter drugs, herbal medications, vitamins and or supplements as they may interact with your home medications. What How Much When Why Instructions Last Dose New ciprofloxacin (Cipro I.V.) 400 Milligram IV Piggyback As directed Pre-Op New oxyCODONE (oxyCODONE 5 mg oral tablet ( IMMEDIATE release )) 1 tab(s) by mouth Every 6 hours as needed for for pain Stone in kidney Duration: 7 Days Pickup at [facility] #[id number] Unchanged benzonatate (Tessalon Perles 100 mg oral capsule) 1 cap by mouth Every 8 hours as needed for as needed for cough Duration: 10 Days Unchanged cholecalciferol (Vitamin D3) 50 Microgram by mouth Every day Unchanged herbal/ nutritional product (turmeric 500 mg oral capsule) 1 cap by mouth Every day Unchanged levoFLOXacin (levoFLOXacin 750 mg oral tablet) 1 tab(s) by mouth Every 48 hours Duration: 10 Days Unchanged lisinopril (lisinopril 10 mg oral tablet) TAKE 1 TABLET BY MOUTH EVERY DAY Unchanged multivitamin with minerals (Centrum Silver Ultra Women's oral tablet) 1 tab(s) by mouth Every day Pharmacy Information [facility] #[id number]: [address], [place] [phone] Please take this list to your next doctor s visit. Bring all medications you take, including over the counter medications, herbals and other supplements with you to your doctor s visit. Patients and families are reminded to discard old lists and to update any records with all medication providers or retail pharmacies. Education Materials Acute Pain, Adult Acute pain is a type of sudden pain that may last for just a few days or for as long as six months. It is often related to an illness, injury, or medical procedure. Acute pain may be mild, moderate, or severe. Pain can make it hard for you to do your normal, daily activities. It can cause anxiety and lead to other problems if it is left untreated. Treatment depends on the cause and severity of your pain. Acute pain usually goes away once your injury has healed or you are no longer ill. Follow these instructions at home: Medicines Take jglj-pnu-ioonzgo and prescription medicines only as told by your health care provider. Take the lowest dose of medicine for the shortest amount of time needed to relieve the pain. If you are taking prescription pain medicine: ? Do not stop taking the medicine suddenly. Talk to your health care provider about how and when to discontinue prescription medicine. ? Do not take more pills than told by your health care provider even if your pain is severe. ? Do not take other ivdn-xwn-byrymoi pain medicines in addition to prescription pain medicine unless told by your health care provider. ? Ask your health care provider if the medicine requires you to avoid driving or using heavy machinery. ? Ask your health care provider if the medicine can cause constipation. You may need to take these actions to prevent or treat constipation: ? Drink enough fluid to keep your urine pale yellow. ? Eat foods that are high in fiber, such as beans, whole grains, and fresh fruits and vegetables. ? Take jeqq-mco-pvbgxml or prescription medicines. ? Limit foods that are high in fat and processed sugars, such as fried or sweet foods. Managing pain, stiffness, and swelling If directed, put ice on the affected area. To do this: Put ice in a plastic bag. Place a towel between your skin and the bag. Leave the ice on for 20 minutes, 2 3 times a day. If directed, apply heat to the affected area as often as told by your health care provider. Use the heat source that your health care provider recommends, such as a moist heat pack or a heating pad. Place a towel between your skin and the heat source. Leave the heat on for 20 30 minutes. Remove the heat if your skin turns bright red. This is especially important if you are unable to feel pain, heat, or cold. You may have a greater risk of getting burned. Activity Rest as told by your health care provider. Return to your normal activities as told by your health care provider. Ask your health care provider what activities are safe for you. General instructions Check your pain level as told by your health care provider. Ask your health care provider if other strategies such as distraction, relaxation, or physical therapies can help your pain. Keep all follow-up visits as told by your health care provider. This is important. Contact a health care provider if: Your pain is not controlled by medicine. Your pain does not improve or gets worse. You have side effects from pain medicines, such as vomiting or confusion. Get help right away if you: Have severe pain. Have trouble breathing. Lose consciousness. Have chest pain or pressure that lasts for more than a few minutes, or if you have other symptoms along with chest pain, including if you: ? Have pain or discomfort in one or both arms, your back, neck, jaw, or stomach. ? Have shortness of breath. ? Break out in a cold sweat. ? Feel nauseous. ? Become light-headed. These symptoms may represent a serious problem that is an emergency. Do not wait to see if the symptoms will go away. Get medical help right away. Call your local emergency services (911 in the [place] Do not drive yourself to the hospital. Summary Acute pain may be mild, moderate, or severe. It usually goes away once your injury has healed or you are no longer ill. Take bzvw-rgu-wunhuvs and prescription medicines only as told by your health care provider. Ask your health care provider if the medicine prescribed to you can cause constipation. Contact a health care provider if your pain is not controlled by medicine. This information is not intended to replace advice given to you by your health care provider. Make sure you discuss any questions you have with your health care provider. Document Released: 11/23/2016 Document Revised: 03/26/2020 Document Reviewed: 03/26/2020 [employer] Patient Education 2020 [employer] Ureteral Stent Implantation, Care After This sheet gives you information about how to care for yourself after your procedure. Your health care provider may also give you more specific instructions. If you have problems or questions, contact your health care provider. What can I expect after the procedure? After the procedure, it is common to have: Nausea. Mild pain when you urinate. You may feel this pain in your lower back or lower abdomen. The pain should stop within a few minutes after you urinate. This may last for up to 1 week. A small amount of blood in your urine for several days. Follow these instructions at home: Medicines Take qmye-hjo-zqimllm and prescription medicines only as told by your health care provider. If you were prescribed an antibiotic medicine, take it as told by your health care provider. Do not stop taking the antibiotic even if you start to feel better. Do not drive for 24 hours if you were given a sedative during your procedure. Ask your health care provider if the medicine prescribed to you requires you to avoid driving or using heavy machinery. Activity Rest as told by your health care provider. Avoid sitting for a long time without moving. Get up to take short walks every 1 2 hours. This is important to improve blood flow and breathing. Ask for help if you feel weak or unsteady. Return to your normal activities as told by your health care provider. Ask your health care provider what activities are safe for you. General instructions Watch for any blood in your urine. Call your health care provider if the amount of blood in your urine increases. If you have a catheter: ? Follow instructions from your health care provider about taking care of your catheter and collection bag. ? Do not take baths, swim, or use a hot tub until your health care provider approves. Ask your health care provider if you may take showers. You may only be allowed to take sponge baths. Drink enough fluid to keep your urine pale yellow. Do not use any products that contain nicotine or tobacco, such as cigarettes, e-cigarettes, and chewing tobacco. These can delay healing after surgery. If you need help quitting, ask your health care provider. Keep all follow-up visits as told by your health care provider. This is important. Contact a health care provider if: You have pain that gets worse or does not get better with medicine, especially pain when you urinate. You have difficulty urinating. You feel nauseous or you vomit repeatedly during a period of more than 2 days after the procedure. Get help right away if: Your urine is dark red or has blood clots in it. You are leaking urine (have incontinence). The end of the stent comes out of your urethra. You cannot urinate. You have sudden, sharp, or severe pain in your abdomen or lower back. You have a fever. You have swelling or pain in your legs. You have difficulty breathing. Summary After the procedure, it is common to have mild pain when you urinate that goes away within a few minutes after you urinate. This may last for up to 1 week. Watch for any blood in your urine. Call your health care provider if the amount of blood in your urine increases. Take vcqe-mts-kdijbvy and prescription medicines only as told by your health care provider. Drink enough fluid to keep your urine pale yellow. This information is not intended to replace advice given to you by your health care provider. Make sure you discuss any questions you have with your health care provider. Document Released: 07/12/2014 Document Revised: 08/16/2019 Document Reviewed: 08/17/2019 [employer] Patient Education 2020 [employer]. Kidney Stones Kidney stones are rock-like masses that form inside of the kidneys. Kidneys are organs that make pee (urine). A kidney stone may move into other parts of the urinary tract, including: The tubes that connect the kidneys to the bladder (ureters). The bladder. The tube that carries urine out of the body (urethra). Kidney stones can cause very bad pain and can block the flow of pee. The stone usually leaves your body (passes) through your pee. You may need to have a doctor take out the stone. What are the causes? Kidney stones may be caused by: A condition in which certain glands make too much parathyroid hormone (primary hyperparathyroidism). A buildup of a type of crystals in the bladder made of a chemical called uric acid. The body makes uric acid when you eat certain foods. Narrowing (stricture) of one or both of the ureters. A kidney blockage that you were born with. Past surgery on the kidney or the ureters, such as gastric bypass surgery. What increases the risk? You are more likely to develop this condition if: You have had a kidney stone in the past. You have a family history of kidney stones. You do not drink enough water. You eat a diet that is high in protein, salt (sodium), or sugar. You are overweight or very overweight (obese). What are the signs or symptoms? Symptoms of a kidney stone may include: Pain in the side of the belly, right below the ribs (flank pain). Pain usually spreads (radiates) to the groin. Needing to pee often or right away (urgently). Pain when going pee (urinating). Blood in your pee (hematuria). Feeling like you may vomit (nauseous). Vomiting. Fever and chills. How is this treated? Treatment depends on the size, location, and makeup of the kidney stones. The stones will often pass out of the body through peeing. You may need to: Drink more fluid to help pass the stone. In some cases, you may be given fluids through an IV tube put into one of your veins at the hospital. Take medicine for pain. Make changes in your diet to help keep kidney stones from coming back. Sometimes, medical procedures are needed to remove a kidney stone. This may involve: A procedure to break up kidney stones using a beam of light (laser) or shock waves. Surgery to remove the kidney stones. Follow these instructions at home: Medicines Take msug-vym-ixztbvp and prescription medicines only as told by your doctor. Ask your doctor if the medicine prescribed to you requires you to avoid driving or using heavy machinery. Eating and drinking Drink enough fluid to keep your pee pale yellow. You may be told to drink at least 8 10 glasses of water each day. This will help you pass the stone. If told by your doctor, change your diet. This may include: ? Limiting how much salt you eat. ? Eating more fruits and vegetables. ? Limiting how much meat, poultry, fish, and eggs you eat. Follow instructions from your doctor about eating or drinking restrictions. General instructions Collect pee samples as told by your doctor. You may need to collect a pee sample: ? 24 hours after a stone comes out. ? 8 12 weeks after a stone comes out, and every 6 12 months after that. Strain your pee every time you pee (urinate), for as long as told. Use the strainer that your doctor recommends. Do not throw out the stone. Keep it so that it can be tested by your doctor. Keep all follow-up visits as told by your doctor. This is important. You may need follow-up tests. How is this prevented? To prevent another kidney stone: Drink enough fluid to keep your pee pale yellow. This is the best way to prevent kidney stones. Eat healthy foods. Avoid certain foods as told by your doctor. You may be told to eat less protein. Stay at a healthy weight. Where to find more information National Kidney Foundation (NKF): www.kidney.org [facility] ([facility]): www.[facility].org Contact a doctor if: You have pain that gets worse or does not get better with medicine. Get help right away if: You have a fever or chills. You get very bad pain. You get new pain in your belly (abdomen). You pass out (faint). You cannot pee. Summary Kidney stones are rock-like masses that form inside of the kidneys. Kidney stones can cause very bad pain and can block the flow of pee. The stones will often pass out of the body through peeing. Drink enough fluid to keep your pee pale yellow. This information is not intended to replace advice given to you by your health care provider. Make sure you discuss any questions you have with your health care provider. Document Released: 04/27/2009 Document Revised: 03/27/2020 Document Reviewed: 03/27/2020 [employer] Patient Education 2019 [employer] Dietary Guidelines to Help Prevent Kidney Stones Kidney stones are deposits of minerals and salts that form inside your kidneys. Your risk of developing kidney stones may be greater depending on your diet, your lifestyle, the medicines you take, and whether you have certain medical conditions. Most people can reduce their chances of developing kidney stones by following the instructions below. Depending on your overall health and the type of kidney stones you tend to develop, your dietitian may give you more specific instructions. What are tips for following this plan? Reading food labels Choose foods with no salt added or low-salt labels. Limit your sodium intake to less than 1500 mg per day. Choose foods with calcium for each meal and snack. Try to eat about 300 mg of calcium at each meal. Foods that contain 200 500 mg of calcium per serving include: ? 8 oz (237 ml) of milk, fortified nondairy milk, and fortified fruit juice. ? 8 oz (237 ml) of kefir, yogurt, and soy yogurt. ? 4 oz (118 ml) of tofu. ? 1 oz of cheese. ? 1 cup (300 g) of dried figs. ? 1 cup (91 g) of cooked broccoli. ? 1 3 oz can of sardines or mackerel. Most people need 1000 to 1500 mg of calcium each day. Talk to your dietitian about how much calcium is recommended for you. Shopping Buy plenty of fresh fruits and vegetables. Most people do not need to avoid fruits and vegetables, even if they contain nutrients that may contribute to kidney stones. When shopping for convenience foods, choose: ? Whole pieces of fruit. ? Premade salads with dressing on the side. ? Low-fat fruit and yogurt smoothies. Avoid buying frozen meals or prepared deli foods. Look for foods with live cultures, such as yogurt and kefir. Cooking Do not add salt to food when cooking. Place a salt shaker on the table and allow each person to add his or her own salt to taste. Use vegetable protein, such as beans, textured vegetable protein (TVP), or tofu instead of meat in pasta, casseroles, and soups. Meal planning Eat less salt, if told by your dietitian. To do this: ? Avoid eating processed or premade food. ? Avoid eating fast food. Eat less animal protein, including cheese, meat, poultry, or fish, if told by your dietitian. To do this: ? Limit the number of times you have meat, poultry, fish, or cheese each week. Eat a diet free of meat at least 2 days a week. ? Eat only one serving each day of meat, poultry, fish, or seafood. ? When you prepare animal protein, cut pieces into small portion sizes. For most meat and fish, one serving is about the size of one deck of cards. Eat at least 5 servings of fresh fruits and vegetables each day. To do this: ? Keep fruits and vegetables on hand for snacks. ? Eat 1 piece of fruit or a handful of berries with breakfast. ? Have a salad and fruit at lunch. ? Have two kinds of vegetables at dinner. Limit foods that are high in a substance called oxalate. These include: ? Spinach. ? Rhubarb. ? Beets. ? Potato chips and mongolian fries. ? Nuts. If you regularly take a diuretic medicine, make sure to eat at least 1 2 fruits or vegetables high in potassium each day. These include: ? Avocado. ? Banana. ? [place], prune, carrot, or tomato juice. ? Baked potato. ? Cabbage. ? Beans and split peas. General instructions Drink enough fluid to keep your urine clear or pale yellow. This is the most important thing you can do. Talk to your health care provider and dietitian about taking daily supplements. Depending on your health and the cause of your kidney stones, you may be advised: ? Not to take supplements with vitamin C. ? To take a calcium supplement. ? To take a daily probiotic supplement. ? To take other supplements such as magnesium, fish oil, or vitamin B6. Take all medicines and supplements as told by your health care provider. Limit alcohol intake to no more than 1 drink a day for non women and 2 drinks a day for men. One drink equals 12 oz of beer, 5 oz of wine, or 1 oz of hard liquor. Lose weight if told by your health care provider. Work with your dietitian to find strategies and an eating plan that works best for you. What foods are not recommended? Limit your intake of the following foods, or as told by your dietitian. Talk to your dietitian about specific foods you should avoid based on the type of kidney stones and your overall health. Grains Breads. Bagels. Rolls. Baked goods. Salted crackers. Cereal. Pasta. Vegetables Spinach. Rhubarb. Beets. Canned vegetables. Pickles. Olives. Meats and other protein foods Nuts. Nut butters. Large portions of meat, poultry, or fish. Salted or cured meats. Deli meats. Hot dogs. Sausages. Dairy Cheese. Beverages Regular soft drinks. Regular vegetable juice. Seasonings and other foods Seasoning blends with salt. Salad dressings. Canned soups. Soy sauce. Ketchup. Barbecue sauce. Canned pasta sauce. Casseroles. Pizza. Lasagna. Frozen meals. Potato chips. [place] Islander fries. Summary You can reduce your risk of kidney stones by making changes to your diet. The most important thing you can do is drink enough fluid. You should drink enough fluid to keep your urine clear or pale yellow. Ask your health care provider or dietitian how much protein from animal sources you should eat each day, and also how much salt and calcium you should have each day. This information is not intended to replace advice given to you by your health care provider. Make sure you discuss any questions you have with your health care provider. Document Released: 03/05/2012 Document Revised: 02/29/2020 Document Reviewed: 10/20/2017 [employer] Patient Education 2020 [employer] Additional Information VACCINATE! IT SAVES LIVES! Members of the community who have not yet received the COVID-19 vaccine and would like to receive it can visit one of [facility] vaccine clinics. There are many vaccine clinic locations within the [facility]. For locations and available times, please visit https://gettheshot.coronavirus.o hio.gov/. It is important to note that some COVID mobile vaccine clinics are held outdoors and may be canceled in rainy or stormy conditions. To learn more about pediatric vaccinations (ages 5-11), we invite you to visit the [facility] webpage. [email or web address].[email or web address].org/p [email or web address]-[email or web address] [email or web address].[email or web address] To learn more about the COVID-19 vaccine, we invite you to visit the CDC website for a list of frequently asked questions.https://www.cdc.gov/co ronavirus/2019-ncov/vaccines/faq .html [facility] Patient Portal Access Instructions: Stay connected with your healthcare team and access your personal medical information anytime with the [facility] Patient Portal. Please follow the directions below to create your [facility] account: 1.Access the email account you provided upon registration to the hospital/physician office.2.Look for an invitation email from [facility].3.Open the email and access the invitation link: Accept Invitation to [facility].4.Fill in the required root to create your account. To access your account, visit [employer]OneChart. Click the blue button labeled Access Patient Portal and then log in with the username and password that you created in the steps above. You will be able to view your test results, lab results, a summary of your visits, upcoming appointments and more. There is also a convenient messaging option where you can send secure messages to your provider. In addition, you will have the ability to download any documents or summaries to your computer and/or send the information securely to a physician. Remember that your healthcare information is confidential, so carefully consider who you will allow to register on the [facility] Patient Portal for access to your information. You can also access the [facility] Patient Portal on the [employer] Anywhere dima. Simply click on Patient Portal and then log into your account. If you would like to receive a full copy of your medical records, please contact the [facility] Medical Records Department by calling [phone], Thursday through Thursday between 8 a.m. and 4:30 p.m. HOW TO SAFELY DISPOSE OF PRESCRIPTION MEDICATIONS Please use one of the following methods to safely dispose of your unused medications. 1.Use a drug disposal kit: the drug disposal pouch allows you to safely discard your old and unused drugs. Ask your nurse to give you one when you are discharged.2.Visit a local take-back location: Many local pharmacies and police departments have programs that collect old and unwanted prescription drugs. Call your local pharmacy or go to http://[employer]/5P1Xm5i to find one close to you.3.Make use of household items: Use cat litter or old coffee grounds to dispose medications if other options are not available. Mix your drugs with these household products, seal them in an airtight container and throw it into the garbage. Call [facility]: [phone] to be sure your drugs can be disposed of in this way. Some medicines may require a different approach.4.Never flush your medications down the toilet. IF YOU HAVE BEEN PRESCRIBED AN OPIOID FOR PAIN If you have been prescribed an opioid (such as hydrocodone, oxycodone or morphine), it is critical to understand the possible side effects and risks of opioid pain medications. Even when taken as directed, opioids can have several side effects including: Tolerance, meaning you might need to take more of a medication for the same pain relief. Nausea, vomiting and/or constipation. Sleepiness, dizziness, dry mouth, confusion, depression or itching. Physical dependence, meaning you have withdrawal symptoms when a medication is stopped, can develop within a few days. KNOW YOUR RESPONSIBILITIES It is important to know exactly how much and how often to take the opioid pain medications you are prescribed. Never take opioids in higher amounts or more often than prescribed. Do not combine opioids with alcohol or other drugs that cause drowsiness, such as benzodiazepines, also known as benzos, including diazepam and alprazolam, muscle relaxants or sleep aids. Never sell or share prescription opioids. This is illegal. Store opioids in a secure place and out of reach of others (including children, family, friends and visitors). The last page of this document has been signed and retained as a CHART COPY. Signatures Patient Education Materials Acute Pain, Adult Ureteral Stent Implantation, Care After Kidney Stones, Ltmz-pf-Owas Dietary Guidelines to Help Prevent Kidney Stones Medication Leaflets My discharge plan and instructions have been reviewed and explained to me and I,FERDINAND FELICIANO understand my current condition and have read and understand these discharge instructions. I have received a written copy of the plan/instructions. If I have questions, I am aware that I should contact my doctor. 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 Family's history: negative. Review of Systems Ear/Nose/Mouth/Throat: Negative except as documented in history of present illness. Respiratory: Negative except as documented in history of present illness. Cardiovascular: Negative except as documented in history of present illness. Gastrointestinal: Negative except as documented in history of present illness. Genitourinary: Negative except as documented in history of present illness. Endocrine: Negative except as documented in history of present illness. Musculoskeletal: Negative except as documented in history of present illness. Integumentary: Negative except as documented in history of present illness. Neurologic: Negative except as documented in history of present illness. Health Status Allergies: Allergic Reactions (Selected) Severity Not Documented Cephalexin- Hives. Contrast dye- Feels hot . OxyCODONE- Hives., Allergies (3) ActiveReaction cephalexinHIVES Contrast dyeFEELS HOT oxyCODONEHIVES Current medications: (Selected) Inpatient Medications Ordered NS 1000 mL: 75 mL/hr, Intravenous, Stop: 10/31/23 17:59:00 EST Prescriptions Prescribed Tessalon Perles 100 mg oral capsule: 100 mg, 1 cap(s), Oral, q8h, for 10 day(s), PRN: as needed for cough, 30 cap(s), 0 Refill(s) levoFLOXacin 750 mg oral tablet: 750 mg, 1 tab(s), Oral, q48h, for 10 day(s), 5 tab(s), 0 Refill(s) oxyCODONE 5 mg oral tablet ( IMMEDIATE release ): 5 mg, 1 tab(s), Oral, q6h, for 7 day(s), PRN: for pain, 28 tab(s), 0 Refill(s) Documented Medications Documented Centrum Silver Ultra Women's oral tablet: 1 tab(s), Oral, Daily, 0 Refill(s) Cipro I.V.: 400 mg, 200 mL, IV Piggyback, PREOP pharm, 0 Refill(s) Vitamin D3: 50 mcg, 1 cap(s), Oral, Daily, 30 cap(s), 0 Refill(s) lisinopril 10 mg oral tablet: TAKE 1 TABLET BY MOUTH EVERY DAY turmeric 500 mg oral capsule: 500 mg, 1 cap(s), Oral, Daily, 0 Refill(s), Medications (1) Active Scheduled: (0) Continuous: (1) NS (0.9% nacl) 1000 mL 1,000 mL, Intravenous, 75 mL/hr PRN: (0) Problem list: No problem items selected or recorded., Active Problems (3) Arthritis HTN (hypertension) Kidney stone Histories Past Medical History: No active or resolved past medical history items have been selected or recorded. Family History: History is unknown. Procedure history: Kidney stone ([id number]). Social History Social & Psychosocial Habits Alcohol 10/30/2023 Use: Never Substance Abuse 10/30/2023 Use: Never Tobacco 10/30/2023 Tobacco Use: Never (less than 100 in l . Physical Examination Vital Signs 10/30/2023 10:47 EST Temperature Temporal Artery 36.6 DegC Peripheral Pulse Rate 96 bpm Respiratory Rate 16 br/min Systolic Blood Pressure Non-Invasive 117 mmHg Diastolic Blood Pressure Non-Invasive 73 mmHg Vital Signs(last 24 hrs) Last Charted Resp Rate 16 br/min (OCT 30 10:47) YRA819 mmHg (OCT 30 10:47) DBP73 mmHg (OCT 30 10:47) Measurements from flowsheet : Measurements 10/30/2023 10:47 EST Height 157.5 cm Admission Weight 91 kg [place] Body Weight 50.12 kg Admission Body Mass Index 36.68 m2 Pain assessment: Pain Assessment 10/30/2023 10:47 EST Primary Pain Intensity 0 Pain Scale Type 0-10 Pain scale . General: Alert and oriented. Airway: Normal neck range of motion. Mallampati classification: II (soft palate, fauces, uvula visible). Head: Normocephalic. Dentition Evaluation: Intact, Own teeth. Neck: Full range of motion. Respiratory: Lungs are clear to auscultation. Cardiovascular: Normal rate. Heart Sounds: Normal. Gastrointestinal: Soft. Musculoskeletal Normal range of motion. Integumentary: Intact, Warm, Dry. Neurologic: Alert, Oriented. Review / Management Results review: No qualifying data available , Lab results 10/30/2023 11:52 EST SN - CAt - Case Attendee SN - CAt - Case Attendee SN - CAt - Role Performed Primary Surgeon 10/30/2023 11:52 EST SN - Proc - Anesthesia Type General SN - Proc - Actual Procedure RIGHT EXTRACORPOREAL SHOCKWAVE LITHOTRIPSY AND CYSTOSCOPY WITH URETERAL STENT PLACEMENT 10/30/2023 11:15 EST SN - Preop - CTm Pt Ready for OR/Proced 10/30/2023 11:13 10/30/2023 11:13 EST SN - Preop - CTm Pt in SDS Room 10/30/2023 10:25 10/30/2023 11:09 EST Sodium Chloride 0.9% Begin Bag 1,000 mL mL 10/30/2023 11:08 EST ciprofloxacin 400 mg mg 10/30/2023 11:03 EST Hand Left 20 gauge Peripheral IV Activity: Insert new site Peripheral IV Dressing Condition: Clean, Dry, Intact Peripheral IV Dressing Activity: Transparent dressing Peripheral IV Line Status/Patency: Continuous infusion Peripheral IV Site Condition: No complications Peripheral IV Equipment: Extension set Peripheral IV Number of Attempts: 1 10/30/2023 10:47 EST Height 157.5 cm Admission Weight 91 kg [place] Body Weight 50.12 kg Admission Body Mass Index 36.68 m2 Temperature Temporal Artery 36.6 DegC Peripheral Pulse Rate 96 bpm Respiratory Rate 16 br/min Systolic Blood Pressure Non-Invasive 117 mmHg Diastolic Blood Pressure Non-Invasive 73 mmHg Primary Pain Intensity 0 Pain Scale Type 0-10 Pain scale Heart Rhythm Regular Respirations Unlabored All Lobes Breath Sounds Clear Cough Dry Oxygen Therapy Room air Abdomen Description Non-distended, Soft Skin Temperature Warm Skin Description Crescent Skin Integrity Intact Mucous Membrane Color Crescent Skin Moisture General Dry Neurological Symptoms Patient denies Level of Consciousness Alert Strength All Extremities Strong Affect/Behavior Appropriate, Calm, Cooperative Orientation Oriented x 4 Assistive Device None Sequential Compression Device bilateral knee high applied/on Standard Safety ID band on, Allergy Band on, Call device within reach, Bed in low position, Wheels locked, Non-Slip footwear 10/30/2023 10:43 EST Designated Person #1 We May Share PHI SKIP FELICIANO [phone] Designated Person #1 Relationship Spouse Designated Person #2 We May Share PHI OMAR FELICIANO [phone] Designated Person #2 Relationship Son Privacy Restrictions Requested None Status N/A Sensory Deficits None Sleep Apnea Snore No Sleep Apnea Tired No Sleep Apnea Obstruction No Sleep Apnea Pressure Yes Sleep Apnea BMI Yes Sleep Apnea Age Yes Sleep Apnea Neck No Sleep Apnea Gender No Sleep Apnea Score 3 Diagnosed With Sleep Apnea No Advanced Directives No - refuses information Infectious Disease Symptoms Patient states no symptoms Infectious Disease Recent Exposure No Alcohol and Drug Use No Employee of Institutional Living No Health Care Employee No History of Exposure to TB No History of Positive Chest X-Ray for TB No History of Positive TB Skin Test No Homeless No Known Immunosuppression No Recent Immigrant No Resident of Institutional Living No Bloody Sputum No Fatigue No Fever No Loss of Appetite No Night Sweats No Persistent Cough > 3 Weeks No Weight Loss No Patient Aware Date/Time Of Surgery Yes Previous Surgery At This Facility No Pre-Op Patient Education NPO after midnight, No makeup, No jewelry, Responsible Green Party, Aware of surgery location, No ordered medications, SSI prevention handout given SN - Preprocedure Comments Spoke with patient, Verbalizes/Nonverbally indicates understanding Barriers to Learning None evident Teaching Method Printed materials Preferred Spoken Language Angolan Preferred Written Language Angolan Teaching Evaluation Verbalizes/Nonverbally indicates understanding Safety Brochure Information Reviewed Unable to complete [facility] Video Viewed No Information Given by Patient Patient's Current Physicians DR JACKSON - PCP Discharge To, Anticipated Home independently Prev Test Positive/Diagnosis w/COVID-19 Yes Previous COVID-19 Positive Date 2020 Current Quarantine/Isolated any Illness No Any Contact with Sick Animals/Birds No Traveled Anywhere in Last 30 Days No Lost Weight Unintentionally Recently No Eat Poorly Due to Decreased Appetite No Total MST Score 0 N/A Personal Devices, Patient Valuables Contact lenses Anesthesia/Transfusions Prior anesthesia Admission Note-Nursing Same Day Patient History 10/30/2023 10:27 EST Urinary Elimination Voiding, no difficulties IV Present Present Allergies Yes Anesthesia Extension Set Applied Yes Psychological Assistant On Yes Consent Form Signed Yes Patient Dressed In Hospital gown History & Physical Update On Chart Yes History & Physical On Chart Yes Obstructive Sleep Apnea Assess Completed Yes Belongings At Bedside Pants, Shirt, Shoes Personal Home Medications Received No home medications were brought in Allergy Band on and Verified Yes Patient ID Band on and Verified Yes Implants Verified Yes Pacemaker/AICD Verified Yes Site Verified by Patient/Family Yes Anesthesia Consent Signed No Blood Consent Signed Yes Last Fluid Intake 10/29/2023 23:00 Last Food Intake 10/29/2023 18:00 10/29/2023 14:17 EST Transition of Care Note Transition of Care sent from [facility] . Assessment and Plan [place] Society of Anesthesiologists (ASA) physical status classification: Class III. Anesthetic Preoperative Plan Premedication: intravenous. Anesthetic technique: General. Induction: intravenously. Maintenance airway: Laryngeal mask airway. Postoperative pain management: Per surgeon. Risks discussed: nausea, vomiting, headache, sore throat, dental injury, hypotension, allergic reaction, serious complications. Informed consent: signed by patient. Digitally Signed by ANDRES NAGY on 10/30/2023 11:55 AM [facility] 10-28-2023 Hospital Discharg e instructions Patient Education 10/28/2023 15:15:08 Identifying Kidney Stones Identifying Kidney Stones Your kidneys filter your blood and release chemicals into the urine. If certain chemicals build up in the kidneys, they can form a stone. There are 4 general types of kidney stones. Your kidney stone s size and shape determine whether it is likely to pass by itself. Knowing what a stone is made of (its composition) helps your healthcare provider find its cause. Then he or she can suggest the best treatment. X-rays or scans can help show the stone's size and shape. Your healthcare provider may also give you a strainer. You can use this to catch the stone while passing urine, and the provider can then test the stone. Other urine and blood tests may be done to help identify the stone. These tests can also help identify causes for different types of stones. Size A stone may be as small as a grain of sand. Or it may be as large as a golf ball. Small stones may pass out of your body when you urinate. Shape Small, smooth, round stones may pass easily. Jagged-edged stones often lodge inside the kidney or ureter. Staghorn stones can fill the entire renal pelvis and calyces. Composition Most stones are made of calcium oxalate, a hard compound. Stones made of cystine or uric acid, or caused by infection (struvite stones), are less dense. Stones often contain more than one chemical. Treating your stones You and your healthcare provider will work together to form a treatment plan. Your provider may suggest that you let your stone pass naturally. Or you may manage it with medicines. Certain procedures may also help, such as SWL (shock wave lithotripsy) or using a camera inside the body to remove the stone (ureteroscopy). And you will be told how you can help prevent kidney stones in the future. [id number] [employer]. [address] [place] [address]. All rights reserved. This information is not intended as a substitute for professional medical care. Always follow your healthcare professional's instructions. Follow Up Care 10/28/2023 11:37:18 With:SABINA MCWILLIAMS MD, [facility] Address: [address] [place] [phone] When:1-2 days [facility] 10-28-2023 Note Discharge Instructions Thank you for allowing [facility] to assist you with your healthcare needs. The following is important discharge information regarding your hospital visit. Diagnosis from Today's Visit Cough Flank pain Kidney stone Urinary tract infection What to Do Next Instructions from Your Care Team You have a complicated UTI because you have an infection in your urine test and a kidney stone. This requires antibiotics. Because you had a recent reaction to Keflex you will be put on an antibiotic called levofloxacin. Because your kidneys are under stress they are not filtering that well so we have to dose levofloxacin every 48 hours. You are given a dose today so your next dose will be Monday, October 30, 2023. Please call Dr. Adames's office tomorrow and let them know that you have a UTI to see if that will change anything for your upcoming procedure to remove your kidney stone. If you feel ill, have severe pain, have a fever, feel lethargic or weak you should come to the emergency department. You can take Tylenol or ibuprofen for pain. No qualifying data available. Post Acute Orders No qualifying data available. You Need to Schedule the Following Appointments Follow Up with SABINA MCWILLIAMS MD, [facility] When Within 1-2 days Where: [address] [place] [phone] Allergies Contrast dye (FEELS HOT ) cephalexin (HIVES) oxyCODONE (HIVES) Medications Please ask your primary doctor or pharmacist before taking any other medication not listed, including over the counter drugs, herbal medications, vitamins and or supplements as they may interact with your home medications. What How Much When Instructions Last Dose New benzonatate (Tessalon Perles 100 mg oral capsule) 1 cap by mouth Every 8 hours as needed for as needed for cough Duration: 10 Days Printed Prescription New levoFLOXacin (levoFLOXacin 750 mg oral tablet) 1 tab(s) by mouth Every 48 hours Duration: 10 Days Printed Prescription Unchanged cholecalciferol (Vitamin D3) 50 Microgram by mouth Every day Unchanged fluconazole (fluconazole 150 mg oral tablet) 1 tab(s) by mouth Once a day Duration: 1 Doses Unchanged herbal/ nutritional product (turmeric 500 mg oral capsule) 1 cap by mouth Every day Unchanged lisinopril (lisinopril 10 mg oral tablet) TAKE 1 TABLET BY MOUTH EVERY DAY Unchanged methylPREDNISolone (methylPREDNISolone Dosepak 4 mg tablet) Per Dosepak Instructions by mouth Every day Duration: 6 Days Unchanged multivitamin with minerals (Centrum Silver Ultra Women's oral tablet) 1 tab(s) by mouth Every day Unchanged triamcinolone topical (triamcinolone 0.1% topical cream) 1 application Topical Three (3) times a day Please take this list to your next doctor s visit. Bring all medications you take, including over the counter medications, herbals and other supplements with you to your doctor s visit. Patients and families are reminded to discard old lists and to update any records with all medication providers or retail pharmacies. Medication Leaflets levofloxacin (oral) (TRISHA forbes) What is the most important information I should know about levofloxacin? Levofloxacin can cause serious side effects, including tendon problems, nerve damage, serious mood or behavior changes, or low blood sugar. Stop using this medicine and call your doctor at once if you have symptoms such as: headache, hunger, irritability, numbness, tingling, burning pain, confusion, agitation, paranoia, problems with memory or concentration, thoughts of suicide, or sudden pain or movement problems in any of your joints. In rare cases, levofloxacin may cause damage to your aorta, which could lead to dangerous bleeding or . Get emergency medical help if you have severe and constant pain in your chest, stomach, or back. What is levofloxacin? Levofloxacin is a fluoroquinolone (qhmr-s-MDYZ-o-lone) antibiotic that fights bacteria in the body. Levofloxacin is used to treat different types of bacterial infections. Levofloxacin is also used to treat people who have been exposed to anthrax or certain types of plague. Fluoroquinolone antibiotics can cause serious or disabling side effects. Levofloxacin should be used only for infections that cannot be treated with a safer antibiotic. Levofloxacin may also be used for purposes not listed in this medication guide. What should I discuss with my healthcare provider before taking levofloxacin? You should not use this medicine if you are allergic to levofloxacin or other fluoroquinolones (ciprofloxacin, gemifloxacin, moxifloxacin, norfloxacin, ofloxacin, and others). Levofloxacin may cause swelling or tearing of a tendon (the fiber that connects bones to muscles in the body), especially in the Achilles' tendon of the heel. This can happen during treatment or up to several months after you stop taking levofloxacin. Tendon problems may be more likely in certain people (children and older adults, or people who use steroid medicine or have had an organ transplant). Tell your doctor if you have ever had: tendon problems, bone problems, arthritis or other joint problems (especially in children); blood circulation problems, aneurysm, narrowing or hardening of the arteries; heart problems, high blood pressure; a genetic disease such as Marfan syndrome or Ehler's-Danlos syndrome; diabetes; a muscle or nerve disorder, such as myasthenia gravis; kidney disease; seizures or epilepsy; a head injury or brain tumor; long QT syndrome (in you or a family member); or low levels of potassium in your blood (hypokalemia). Do not give this medicine to a child without medical advice. It is not known whether this medicine will harm an unborn baby. Tell your doctor if you are . You should not breast-feed while using this medicine. How should I take levofloxacin? Follow all directions on your prescription label and read all medication guides or instruction sheets. Use the medicine exactly as directed. Take levofloxacin with water, at the same time each day. Drink extra fluids to keep your kidneys working properly while taking this medicine. You may take levofloxacin tablets with or without food. Take levofloxacin oral solution (liquid) on an empty stomach, at least 1 hour before or 2 hours after a meal. Measure liquid medicine carefully. Use the dosing syringe provided, or use a medicine dose-measuring device (not a kitchen spoon). Use this medicine for the full prescribed length of time, even if your symptoms quickly improve. Skipping doses can increase your risk of infection that is resistant to medication. Levofloxacin will not treat a viral infection such as the flu or a common cold. Do not share levofloxacin with another person. This medicine may affect a drug-screening urine test and you may have false results. Tell the laboratory staff that you use levofloxacin. Store at room temperature away from moisture and heat. Keep the bottle tightly closed when not in use. What happens if I miss a dose? Take the medicine as soon as you can, but skip the missed dose if it is almost time for your next dose. Do not take two doses at one time. What happens if I overdose? Seek emergency medical attention or call the Poison Help line at . What should I avoid while taking levofloxacin? Avoid driving or hazardous activity until you know how this medicine will affect you. Your reactions could be impaired. Antibiotic medicines can cause diarrhea, which may be a sign of a new infection. If you have diarrhea that is watery or bloody, call your doctor before using anti-diarrhea medicine. Levofloxacin could make you sunburn more easily. Avoid sunlight or tanning beds. Wear protective clothing and use sunscreen (SPF 30 or higher) when you are outdoors. Tell your doctor if you have severe burning, redness, itching, rash, or swelling after being in the sun. What are the possible side effects of levofloxacin? Get emergency medical help if you have signs of an allergic reaction (hives, difficult breathing, swelling in your face or throat) or a severe skin reaction (fever, sore throat, burning in your eyes, skin pain, red or purple skin rash that spreads and causes blistering and peeling). Levofloxacin can cause serious side effects, including tendon problems, side effects on your nerves (which may cause permanent nerve damage), serious mood or behavior changes (after just one dose), or low blood sugar (which can lead to coma). Stop taking this medicine and call your doctor at once if you have: low blood sugar--headache, hunger, sweating, irritability, dizziness, nausea, fast heart rate, or feeling anxious or shaky; nerve symptoms in your hands, arms, legs, or feet--numbness, weakness, tingling, burning pain; serious mood or behavior changes--nervousness, confusion, agitation, paranoia, hallucinations, memory problems, trouble concentrating, thoughts of suicide; or signs of tendon rupture--sudden pain, swelling, bruising, tenderness, stiffness, movement problems, or a snapping or popping sound in any of your joints (rest the joint until you receive medical care or instructions). In rare cases, levofloxacin may cause damage to your aorta, the main blood artery of the body. This could lead to dangerous bleeding or . Get emergency medical help if you have severe and constant pain in your chest, stomach, or back. Stop taking levofloxacin and call your doctor at once if you have: severe stomach pain, diarrhea that is watery or bloody; fast or pounding heartbeats, fluttering in your chest, shortness of breath, and sudden dizziness (like you might pass out); the first sign of any skin rash, no matter how mild; muscle weakness, breathing problems; seizure (convulsions); increased pressure inside the skull--severe headaches, ringing in your ears, dizziness, nausea, vision problems, pain behind your eyes; or liver problems--upper stomach pain, loss of appetite, dark urine, nelsy-colored stools, jaundice (yellowing of the skin or eyes). Common side effects may include: nausea, constipation, diarrhea; headache, dizziness; or trouble sleeping. This is not a complete list of side effects and others may occur. Call your doctor for medical advice about side effects. You may report side effects to FDA at 2-046-TTZ-6666. What other drugs will affect levofloxacin? Some medicines can make levofloxacin much less effective when taken at the same time. If you take any of the following medicines, take your levofloxacin dose 2 hours before or 2 hours after you take the other medicine. antacids that contain magnesium or aluminum (such as Maalox, Mylanta, or Rolaids), or the ulcer medicine sucralfate (Carafate); didanosine (Videx) powder or chewable tablets; or vitamin or mineral supplements that contain aluminum, iron, magnesium, or zinc. Tell your doctor about all your other medicines, especially: theophylline; a diuretic or 'water pill'; heart rhythm medication; insulin or oral diabetes medicine (check your blood sugar regularly); medicine to treat depression or mental illness; steroid medicine (such as prednisone); a blood thinner--warfarin, Coumadin, Jantoven; or NSAIDs (nonsteroidal anti-inflammatory drugs)--aspirin, ibuprofen (Advil, Motrin), naproxen (Aleve), celecoxib, diclofenac, indomethacin, meloxicam, and others. This list is not complete. Other drugs may affect levofloxacin, including prescription and cury-axz-twroqep medicines, vitamins, and herbal products. Not all possible drug interactions are listed here. Where can I get more information? Your pharmacist can provide more information about levofloxacin. Remember, keep this and all other medicines out of the reach of children, never share your medicines with others, and use this medication only for the indication prescribed. Every effort has been made to ensure that the information provided by [employer]. [employer]') is accurate, up-to-date, and complete, but no guarantee is made to that effect. Drug information contained herein may be time sensitive. [employer] information has been compiled for use by healthcare practitioners and consumers in the [place] and therefore [employer] does not warrant that uses outside of the [place] are appropriate, unless specifically indicated otherwise. [employer]'s drug information does not endorse drugs, diagnose patients or recommend therapy. [employer] drug information is an informational resource designed to assist licensed healthcare practitioners in caring for their patients and/or to serve consumers viewing this service as a supplement to, and not a substitute for, the expertise, skill, knowledge and judgment of healthcare practitioners. The absence of a warning for a given drug or drug combination in no way should be construed to indicate that the drug or drug combination is safe, effective or appropriate for any given patient. [facility] does not assume any responsibility for any aspect of healthcare administered with the aid of information [facility] provides. The information contained herein is not intended to cover all possible uses, directions, precautions, warnings, drug interactions, allergic reactions, or adverse effects. If you have questions about the drugs you are taking, check with your doctor, nurse or pharmacist. Copyright 3557-5870 [facility] [employer]. Version: 16.. Revision Date: 07/02/2023. benzonatate (denise hale) What is the most important information I should know about benzonatate? Never suck or chew on a benzonatate capsule. Swallow the pill whole. Sucking or chewing the capsule may cause serious side effects. Benzonatate is not approved for use by anyone younger than 10 years old. An overdose of benzonatate can be fatal to a young child. What is benzonatate? Benzonatate is used to relieve coughing. Benzonatate is a non-narcotic cough medicine that numbs the throat and lungs, making the cough reflex less active. Benzonatate may also be used for purposes not listed in this medication guide. What should I discuss with my healthcare provider before taking benzonatate? You should not use this medicine if you are allergic to benzonatate or topical numbing medicines such as tetracaine or procaine (found in some insect bite and sunburn creams). Tell your doctor if you are or . Benzonatate is not approved for use by anyone younger than 10 years old. An overdose of benzonatate can be fatal, especially to a young child who has accidentally swallowed the medicine. How should I take benzonatate? Follow all directions on your prescription label and read all medication guides or instruction sheets. Use the medicine exactly as directed. Never suck or chew on a benzonatate capsule. Swallow the pill whole. Sucking or chewing the capsule may cause serious side effects. Store at room temperature away from moisture, heat, and light. What happens if I miss a dose? Skip the missed dose and use your next dose at the regular time. Do not use two doses at one time. What happens if I overdose? Seek emergency medical attention or call the Poison Help line at . An overdose of benzonatate can be fatal, especially to a child. Accidental has occurred in children under 10 years old. Overdose symptoms may include tremors, feeling restless, seizure (convulsions), slow heart rate, weak pulse, fainting, and slow breathing (breathing may stop). What should I avoid while taking benzonatate? Avoid eating or drinking anything while you feel numbness or tingling in your mouth or throat. What are the possible side effects of benzonatate? Stop taking this medicine and get emergency medical help if you have signs of an allergic reaction: hives; difficult breathing; swelling of your face, lips, tongue, or throat. Call your doctor at once if you have: severe drowsiness or dizziness; confusion, hallucinations. ongoing numbness or tingling in your mouth, throat, or face; numbness in your chest; a choking feeling; chills; or burning in your eyes. Some of these side effects may result from chewing or sucking on a benzonatate capsule. Common side effects may include: headache, dizziness; nausea, upset stomach; constipation; itching, rash; or stuffy nose. This is not a complete list of side effects and others may occur. Call your doctor for medical advice about side effects. You may report side effects to FDA at 5-726-VUI-1346. What other drugs will affect benzonatate? Using benzonatate with other drugs that make you drowsy can worsen this effect. Ask your doctor before using opioid medication, a sleeping pill, a muscle relaxer, or medicine for anxiety or seizures. Other drugs may affect benzonatate, including prescription and zipp-knp-npzdule medicines, vitamins, and herbal products. Tell your doctor about all your current medicines and any medicine you start or stop using. Where can I get more information? Your pharmacist can provide more information about benzonatate. Remember, keep this and all other medicines out of the reach of children, never share your medicines with others, and use this medication only for the indication prescribed. Every effort has been made to ensure that the information provided by [employer]') is accurate, up-to-date, and complete, but no guarantee is made to that effect. Drug information contained herein may be time sensitive. [employer] information has been compiled for use by healthcare practitioners and consumers in the [place] and therefore [employer] does not warrant that uses outside of the [place] are appropriate, unless specifically indicated otherwise. [employer] drug information does not endorse drugs, diagnose patients or recommend therapy. [employer] drug information is an informational resource designed to assist licensed healthcare practitioners in caring for their patients and/or to serve consumers viewing this service as a supplement to, and not a substitute for, the expertise, skill, knowledge and judgment of healthcare practitioners. The absence of a warning for a given drug or drug combination in no way should be construed to indicate that the drug or drug combination is safe, effective or appropriate for any given patient. [facility] does not assume any responsibility for any aspect of healthcare administered with the aid of information [employer] provides. The information contained herein is not intended to cover all possible uses, directions, precautions, warnings, drug interactions, allergic reactions, or adverse effects. If you have questions about the drugs you are taking, check with your doctor, nurse or pharmacist. Copyright 3840-8105 [facility] [employer]. Version: .. Revision Date: 06/25/2023. Education Materials Identifying Kidney Stones Your kidneys filter your blood and release chemicals into the urine. If certain chemicals build up in the kidneys, they can form a stone. There are 4 general types of kidney stones. Your kidney stone s size and shape determine whether it is likely to pass by itself. Knowing what a stone is made of (its composition) helps your healthcare provider find its cause. Then he or she can suggest the best treatment. X-rays or scans can help show the stone's size and shape. Your healthcare provider may also give you a strainer. You can use this to catch the stone while passing urine, and the provider can then test the stone. Other urine and blood tests may be done to help identify the stone. These tests can also help identify causes for different types of stones. Size A stone may be as small as a grain of sand. Or it may be as large as a golf ball. Small stones may pass out of your body when you urinate. Shape Small, smooth, round stones may pass easily. Jagged-edged stones often lodge inside the kidney or ureter. Staghorn stones can fill the entire renal pelvis and calyces. Composition Most stones are made of calcium oxalate, a hard compound. Stones made of cystine or uric acid, or caused by infection (struvite stones), are less dense. Stones often contain more than one chemical. Treating your stones You and your healthcare provider will work together to form a treatment plan. Your provider may suggest that you let your stone pass naturally. Or you may manage it with medicines. Certain procedures may also help, such as SWL (shock wave lithotripsy) or using a camera inside the body to remove the stone (ureteroscopy). And you will be told how you can help prevent kidney stones in the future. 1812-9106 [employer]. [address] [place] [address], [place] [address]. All rights reserved. This information is not intended as a substitute for professional medical care. Always follow your healthcare professional's instructions. Additional Information VACCINATE! IT SAVES LIVES! Members of the community who have not yet received the COVID-19 vaccine and would like to receive it can visit one of [facility] vaccine clinics. There are many vaccine clinic locations within the [facility]. For locations and available times, please visit [email or web address] It is important to note that some COVID mobile vaccine clinics are held outdoors and may be canceled in rainy or stormy conditions. To learn more about pediatric vaccinations (ages 5-11), we invite you to visit the [facility] webpage. [email or web address] [email or web address]-Freq [email or web address].[email or web address] To learn more about the COVID-19 vaccine, we invite you to visit the CDC website for a list of frequently asked questions. https://www.cdc.gov/coronavirus/ 2019-ncov/vaccines/faq.html [facility] Access Instructions: Stay connected with your healthcare team and access your personal medical information anytime with the [facility]. If you would like a full copy of your medical records please contact the [facility] Medical Records Department Thursday through Thursday between 8a.m. and 4:30p.m. Please follow the directions below to access the portal: 1.Access the email account you provided upon registration to the hospital.2.Look for an invitation email from [facility].3.Open the email and access the invitation link: Accept Invitation to [facility].Fill in the required root to create your account. Sign into [email or web address] with your username and password that you created in the above steps to stay up to date. You can then view a summary of results, a summary of your visits, and the ability to download your summaries to your computer or send the information securely to a physician. Remember that your healthcare information is confidential, so carefully consider who you will allow to register on the [facility] for access to your information. You can also access the [facility] Patient Portal on the [employer]. Simply click on Health Records under Health Data and then click on the [facility] logo. HOW TO SAFELY DISPOSE OF PRESCRIPTION MEDICATIONS Please use one of the following methods to safely dispose of your unused medications. 1.Use a drug disposal kit: the drug disposal pouch allows you to safely discard your old and unused drugs. Ask your nurse to give you one when you are discharged.2.Visit a local take-back location: Many local pharmacies and police departments have programs that collect old and unwanted prescription drugs. Call your local pharmacy or go to http://[employer]/6P1Ww5q to find one close to you.3.Make use of household items: Use cat litter or old coffee grounds to dispose medications if other options are not available. Mix your drugs with these household products, seal them in an airtight container and throw it into the garbage. Call [facility]: [phone] to be sure your drugs can be disposed of in this way. Some medicines may require a different approach.4.Never flush your medications down the toilet. IF YOU HAVE BEEN PRESCRIBED AN OPIOIDS FOR PAIN If you have been prescribed an opioid (such as hydrocodone, oxycodone or morphine), it is critical to understand the possible side effects and risks of opioid pain medications. Even when taken as directed, opioids can have several side effects including: Tolerance, meaning you might need to take more of a medication for the same pain relief. Nausea, vomiting and/or constipation. Sleepiness, dizziness, dry mouth, confusion, depression or itching. Physical dependence, meaning you have withdrawal symptoms when a medication is stopped ? this can develop within a few days. KNOW YOUR RESPONSIBILITIES It is important to know exactly how much and how often to take the opioid pain medications you are prescribed. Never take opioids in higher amounts or more often than prescribed. Do not combine opioids with alcohol or other drugs that cause drowsiness, such as benzodiazepines, also known as benzos, including diazepam and alprazolam, muscle relaxants or sleep aids. Never sell or share prescription opioids. This is illegal. Store opioids in a secure place and out of reach of others (including children, family, friends and visitors). The last page(s) of this document has been signed and retained as a CHART COPY Signatures Patient Education Materials Identifying Kidney Stones Medication Leaflets levofloxacin (oral), benzonatate My discharge plan and instructions have been reviewed and explained to me and I,FERDINAND FELICIANO understand my current condition and have read and understand these discharge instructions. I have received a written copy of the plan/instructions. If I have questions, I am aware that I should contact my doctor. 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 Multiplanar reformatted images are provided for review. Automated exposure control, iterative reconstruction, and/or weight based adjustment of the mA/kV was utilized to reduce the radiation dose to as low as reasonably achievable. COMPARISON: None HISTORY: ORDERING SYSTEM PROVIDED HISTORY: Reason for Exam: abdominal pain FINDINGS: The liver, gallbladder, pancreas, spleen, adrenal glands are unremarkable. Partial staghorn calculus of the right kidney. In addition, distal right ureteral calculi, largest measuring up to 1 cm, with severe right hydroureteronephrosis. Nonobstructive left lower pole nephrolithiasis measures up to 1.5 cm. Left upper pole renal cyst noted. Collapsed urinary bladder with a single focus of air, suspected to be on the basis of recent instrumentation. The visualized esophagus, stomach, and duodenum are unremarkable. The visualized aorta is atherosclerotic but nonaneurysmal. The GI tract exhibits no acute abnormalities. No pathologically enlarged retroperitoneal, mesenteric, or pelvic lymph nodes are identified. There is no free intraperitoneal air or fluid. Unremarkable uterus. Multiple pelvic phleboliths noted. No acute or suspicious soft tissue or bony abnormality. Degenerative spine. Provided images of the lower thorax insert minimal scattered scarring. IMPRESSION: Obstructive calculi of the distal right ureter measuring up to 1 cm with severe right hydroureteronephrosis. 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 I have personally reviewed the images of this examination and agree with the resident's findings and interpretation. Interpreted by: Samuel Martinez MD Preliminary Report By: Juan Aquino Electronically signed By Samuel Martinez MD Dictated Date: 10/28/2023 2:49:30 PM Prelim Date: 10/28/2023 3:08:54 PM Sign Date: 10/28/2023 4:36:46 PM [facility] Note ORIGINAL EXAMINATION: ONE XRAY VIEW OF THE CHEST10/28/2023 1:23 pm COMPARISON: None HISTORY: ORDERING SYSTEM PROVIDED HISTORY: Reason for Exam: SOB/cough/fever FINDINGS: The cardiomediastinal contours are normal. There is no consolidation, vascular congestion, pleural effusion, or pneumothorax. There are no acute abnormalities to osseous structures. Scoliotic curvature in thoracic spine. IMPRESSION: No acute radiographic findings. I have personally reviewed the images of this examination and agree with the resident's findings and interpretation. Interpreted by: Samuel Mantilla MD Preliminary Report By: Ramon Savage Electronically signed By Samuel Mantilla MD Dictated Date: 10/28/2023 1:27:35 PM Prelim Date: 10/28/2023 1:58:24 PM Sign Date: 10/28/2023 1:58:24 PM Ordering Provider: MIRANDA INTERIANO [facility] 10-28-2023 SARS-CoV-2 (COVID-19) RNA EMMA+probe Ql (Nph) Negative *NA* (10/28/23 12:07 PM) AO Auto Urine SS Evaluation + Plan note Future Appointments [facility] Hospital course Narrative No data available for this section [facility] Hospital Discharge instructions No data available for this section [facility] Progress note No data available for this section [facility] Summary Purpose Family History No Family History Records Found No data available for this section No data available for this section No data available for this section No Family History Records Found Advance Directives No Advanced Directives Records FoundNo Advanced Directives Records Found Additional Source Comments INFORMATION SOURCE (unrecogn ized section and content) DATE CREATED AUTHOR AUTHOR'S ORGANIZ ATION 11/05/2023 [facility] ([place]) Patient Care team informatio n (unrecognized section and content) Care Team Personnel Name: MICHELLE Larry Position: AO RN Member Role: ED RN Name: MIRANDA INTERIANO MD Position: ED Physician Member Role: Attending Physician Address: Address: [facility] [address] FOR RECORDS PERTAINING TO PATIENTS WHO ARE OR HAVE BEEN ENROLLED IN A CHEMICAL DEPENDENCY/SUBSTANCEABUSE PROGRAM, SOME INFORMATION MAY BE OMITTED. This clinical summary was aggregated from multiple sources. Caution should be exercised in using it in the provision of clinical care. This summary normalizes information from multiple sources, and as a consequence, information in this document may materially change the coding, format and clinical context of patient data. In addition, data may be omitted in some cases. CLINICAL DECISIONS SHOULD BE BASED ON THE PRIMARY CLINICAL RECORDS. [facility] [employer] provides no warranty or guarantee of the accuracy or completeness of information in this document.
[2023-11-25] MEDS: Lactated Ringers 1,000 ML 125 ML IV (16:14)
[2023-11-25] MEDS: Docusate Sodium 100 MG Capsule 200 MG PO (21:21)
[2023-11-25] MEDS: Ketorolac 15 MG/ML Vial IV (21:30)
[2023-11-26] MEDS: Lactated Ringers 1,000 ML 125 ML IV ×3 (01:23→18:25)
[2023-11-26 03:58] VITALS: BP 103/83; PULSE 91; RESP 16; TEMP 36.7; O2SAT 95
[2023-11-26 07:30] VITALS: O2SAT 96
--- NOTE | 2023-11-26 07:43 | PCM.PN.GU ---
Subjective Subjective Status post right percutaneous removal of large staghorn calculus and also laser of stone and ureter, today I clamped the nephrostomy tube plan to get a CT scan tomorrow and remove nephrostomy tube and discharge home tomorrow Objective Data Objective Data Vital Signs: Vital Signs Temp Pulse Resp BP Pulse Ox O2 Del Method 98.1 F 91 16 103/83 H 95 Room Air 11/26/23 03:58 11/26/23 03:58 11/26/23 03:58 11/26/23 03:58 11/26/23 03:58 11/26/23 03:58 Oxygen Delivery Method Room Air Weight: 99.3 kg Body Mass Index (BMI) 40.0 Intake & Output: Intake and Output for Last 24 Hours 11/24/23 11/25/23 11/26/23 23:59 23:59 23:59 Intake Total 1768.5 / 1768.5 1000 / 1000 Output Total 1525 / 2125 950 / 950 Balance 243.5 / -356.5 50 / 50
[2023-11-26 09:55] VITALS: BP 98/82; PULSE 77; RESP 18; TEMP 36.7; O2SAT 98
[2023-11-26] MEDS: Docusate Sodium 100 MG Capsule 200 MG PO (10:18)
[2023-11-26] MEDS: Ciprofloxacin 400 MG/200 ML BAG 200 MG IV (10:22)
[2023-11-26] MEDS: 0.9% Normal Saline (500mL Bag) 500 ML IV (12:46)
[2023-11-26 14:42] VITALS: BP 105/52; PULSE 86; RESP 18; TEMP 37; O2SAT 99
--- NOTE | 2023-11-26 14:59 | CASEMGMT ---
MICHELLE KANG Assessment Face to Face with patient for initial transition planning/care coordination assessment. MICHELLE KANG introduced self and role at [facility], pt voices understanding. Pt is A&Ox4 and is resting comfortably in chair and is calm. Care providers, pharmacy, and demographics verified. Admitting dx: Ureteroscopy Laser lithotripsy LACE Strata: 1 PCP: Wolf Specialists: Paty (Urologist) [facility]erred [facility]acy: [facility] Insurance: [facility] Prescription Benefit:Yes LNOK: - Shaji Mederos Living Arrangements: Pt states living in a split-level home with 6 steps to get to the downstairs and 10 steps to get to the upstairs. Pt denies any issues using the steps. Reports all steps are equipped with hand rails. ADLs/IADLs: States independent Transportation: Pt and pt drive DME: Denies all DME use or history. States she can borrow a walker if needed. HHC/SNF: Denies history or needs. Pt?s goal/ Plan: Pt goal and plan is to DC home tomorrow via her with no additional needs. Rocky Sweeney RN, CM
[2023-11-26 19:58] VITALS: BP 149/65; PULSE 82; RESP 16; TEMP 36.6; O2SAT 100
[2023-11-27] MEDS: Ketorolac 15 MG/ML Vial IV (01:29)
[2023-11-27 02:00] VITALS: BP 157/57; PULSE 80; RESP 16; TEMP 36.6; O2SAT 96
[2023-11-27] MEDS: Lactated Ringers 1,000 ML 125 ML IV ×2 (02:29→11:50)
[2023-11-27 08:00] VITALS: BP 148/72; PULSE 98; RESP 16; TEMP 36.4; O2SAT 98
--- NOTE | 2023-11-27 08:10 | CT_ITS ---
HISTORY: s/p right perc. TECHNIQUE: Helically acquired images were obtained of the abdomen and pelvis without oral or IV contrast. A radiation dose optimization technique was used for this scan. 465 images. COMPARISON: 10/08/2023. FINDINGS: LOWER CHEST: Very mild atelectasis and pulmonary edema of the lung bases. BOWEL: Bowel nondilated. Appendix not visualized. No focal pericolonic inflammatory change. LIVER: Unremarkable. GALLBLADDER/BILIARY TREE: Gallbladder present. SPLEEN/PANCREAS/ADRENAL GLANDS: Nonenlarged. KIDNEYS AND URETERS: Interval placement of percutaneous nephrostomy tube with artifact from the catheter balloon the renal pelvis and tip of the catheter at the ureteropelvic junction. Mild right perinephric stranding and air in the right renal collecting system. Decreased right hydronephrosis with the large staghorn type calculus and the elongated proximal ureteral calculus no longer identified. 1.2 cm left lower pole calculus without hydronephrosis. No obstructing renal calculus on either side. Small left upper pole cyst again seen. VESSELS: No abdominal aortic aneurysm. Mild atherosclerosis. PELVIC ORGANS: Mild air in the bladder, likely from recent instrumentation. Trace free fluid in the pelvis. BONES: Degenerative change. CT/Abdomen/Pelvis without Cont IMPRESSION: Decreased right hydronephrosis status post percutaneous nephrostomy catheter placement. Interval removal or passage of right staghorn calculus and right proximal ureteral calculus. Nonobstructing left lower pole calculus again seen. Electronically Signed: Mae Leon MD at 8:37 EST ,
[2023-11-27 08:18] VITALS: O2SAT 96
[2023-11-27] MEDS: Lisinopril 10 MG Tablet PO (08:53)
--- NOTE | 2023-11-27 12:37 | PCM.PN.GU ---
Subjective Subjective Status post percutaneous removal stone CT scan done this morning shows no stone no hydro nephrostomy tubes been clamped we will remove nephrostomy tube today and he will she can go home Objective Data Objective Data Vital Signs: Vital Signs Temp Pulse Resp BP Pulse Ox O2 Del Method 97.6 F L 98 16 148/72 H 96 Room Air 11/27/23 08:00 11/27/23 08:00 11/27/23 08:00 11/27/23 08:00 11/27/23 08:18 11/27/23 08:18 Oxygen Delivery Method Room Air Weight: 99.3 kg Body Mass Index (BMI) 40.0 Intake & Output: Intake and Output for Last 24 Hours 11/25/23 11/26/23 11/27/23 23:59 23:59 23:59 Intake Total 1768.5 / 1768.5 3700 / 3700 2187.5 / 2187.5 Output Total 1525 / 2125 1500 / 1600 1525 / 1525 Balance 243.5 / -356.5 2200 / 2100 662.5 / 662.5 Radiography Diagnostic Testing: Radiology Impression Abdomen/Pelvis CT 11/27/23 08:10 IMPRESSION: Decreased right hydronephrosis status post percutaneous nephrostomy catheter placement. Interval removal or passage of right staghorn calculus and right proximal ureteral calculus. Nonobstructing left lower pole calculus again seen. Electronically Signed: Mae Leon MD at 8:37 EST ,
--- NOTE | 2023-11-27 13:25 | PHA.DC_ITS ---
Pharmacy [facility] has performed discharge medication reconciliation and counseling for this patient. The patient's discharge medication list was reviewed for discrepancies and discrepancies were resolved. The patient was counseled on the following discharge medications and changes in medications for homegoing were reviewed. The Reason for Use, instructions for use, and potential side effects were reviewed for all new medications. The patient's questions regarding all of their medications were answered. 1. Oxycodone 5 mg PO Q6H PRN pain x 7 days 2. Ciprofloxacin 500 mg PO BID x 14 days The patient was able to verbally demonstrate an understanding of their discharge medications. Medications at Discharge Home Medications lisinopril 10 mg tablet 10 mg PO DAILY htn 08/26/19 apple cider vinegar 300 mg tablet 300 mg PO DAILY 05/24/20 aspirin 81 mg tablet,delayed release 81 mg PO QODAY [facility] 05/24/20 rldbarbd-gsxb-[id number] 8 mg-folic 400 mcg-K 50 mcg-lutein 300 mcg tablet 1 ea PO DAILY 05/24/20 turmeric 400 mg capsule 400 mg PO DAILY supplement 05/24/20 acetaminophen 500 mg tablet 500 mg PO Q4H PRN PRN Pain Score 1-10/10 #20 tabs 06/06/20 oxycodone-acetaminophen 5 mg-325 mg tablet 1 tab PO Q6H PRN PRN pain 5 days #20 TABLETS 10/09/23 cholecalciferol (vitamin D3) 25 mcg (1,000 unit) tablet (Vitamin D3) 1,000 unit PO DAILY 11/18/23 ciprofloxacin HCl 500 mg tablet (Cipro) 500 mg PO BID #14 tabs 11/25/23 oxycodone 5 mg tablet 5 mg PO Q6H PRN pain 7 days #14 tabs 11/25/23
[2023-11-27 13:34] VITALS: BP 126/74; PULSE 88; RESP 18; TEMP 36.7; O2SAT 99
== END 2023-11-27 14:57 | disposition home or self-care (01) | DRG 661 ==
LOC: MS3 11-26 01:29 → SDC 11-26 11:38
PROVIDERS: Admitting Provider Urology; PCP Family Medicine; Referring Provider Urology; Visit Provider Urology
PROC: 0TC03ZZ Extirpation of Matter from Right Kidney, Percutaneous Approach (ICD-10-PCS; principal; 2023-11-25 12:40)
DX: N20.2 Calculus of kidney with calculus of ureter (principal); I10 Essential (primary) hypertension; M19.90 Unspecified osteoarthritis, unspecified site; Z79.82 Long term (current) use of aspirin; Z79.899 Other long term (current) drug therapy
CPT/HCPCS: 74176; 76000; 94668; J7040; J7120; C1769; J0744; J2405

== ENCOUNTER → 2024-09-06 | Outpatient (CLI) | payer MEDICARE, OTHER, SELFPAY ==
--- NOTE | 2024-09-06 15:00 | RAD_ITS ---
HISTORY: CALCULUS OF KIDNEY. TECHNIQUE: XR Abdomen 1 View. COMPARISON: CT 11/27/2023. FINDINGS: BOWEL GAS PATTERN: No dilated bowel loops identified. FREE AIR: Not assessed on supine view. CALCIFICATIONS: No abnormal calcifications observed. Right nephrostomy tube removed. Pelvic phleboliths noted. BONES: Degenerative change. SOFT TISSUES: Chronic elevation of the right hemidiaphragm RAD/Abdomen Single View IMPRESSION: No definite renal calculi identified. Electronically Signed: Mea Leon MD at 9:55 EDT ,
== END | disposition home or self-care (01) ==
LOC: RAD 14:45
PROVIDERS: PCP Family Medicine; Referring Provider Urology; Visit Provider Urology
DX: N20.0 Calculus of kidney (principal)
CPT/HCPCS: 74018

== ENCOUNTER → 2024-10-13 | Outpatient (CLI) | payer MEDICARE, OTHER, SELFPAY ==
[2024-10-13 17:52] LABS: Absolute Neutrophil Count 4.9 X10^3/uL (2.0-7.7); Basophil# 0.07 X10^3/uL; Basophil% 0.9 % (0-1); Eosinophil# 0.38 X10^3/uL; Eosinophils% 4.7 % (0-5); Hematocrit 41.3 % (37-47); Hemoglobin 13.6 g/dL (12.0-15.0); Lymphocyte % 22.1 % (19-41); Mean Corp Hgb Conc 32.9 g/dL (32-36); Monocyte# 0.94 X10^3/uL; Monocyte% 11.5 % (0-10); NRBC Flagged by Analyzer 0 % (0-5); Neutrophil # 4.94 X10^3/uL (2.7-7.7); Neutrophil % 60.4 % (47-70); Platelet Count 290 K/mm3 (150-450); RBC Distribution Width CV 13.8 % (11.6-14.6); RBC Distribution Width SD 45.9 fl (35.1-43.9); Red Blood Count 4.54 M/mm3 (4.2-5.4); White Blood Count 8.2 K/mm3 (4.4-11.0)
[2024-10-13 18:17] LABS: ALB/GLOB Ratio 1.1 RATIO (0.9-2.4); AST(SGOT) 13 U/L (15-37); Alanine Aminotransfer ALT/SGPT 25 U/L (13-56); Alkaline Phosphatase 74 U/L (45-117); Anion Gap 4 (5-15); BUN 17 mg/dL (7-18); Calcium,Total 9.1 mg/dL (8.5-10.1); Chloride 106 mmol/L (98-107); Cholesterol 189 mg/dL (200); Creatinine, Serum 0.77 mg/dL (0.55-1.02); EST Glomerular Filtration Rate 78 mL/min (>60); Est Glom Filt Rate - Afr Amer 95 mL/min (>60); Globulin 3.6 g/dL (2.2-4.2); Glucose 109 mg/dL (74-106); High Density Lipoprotein 59 mg/dL; Potassium 4.4 mmol/L (3.5-5.1); Protein, Total 7.6 g/dL (6.4-8.2); Sodium Level 138 mmol/L (136-145); Triglycerides 115 mg/dL; Very Low Density Lipoprotein 23 mg/dL (5-40)
== END | disposition home or self-care (01) ==
LOC: BFHLAB 16:16
PROVIDERS: PCP Family Medicine; Visit Provider Family Medicine
DX: I10 Essential (primary) hypertension (principal)
CPT/HCPCS: 36415; 80053; 80061; 85025

== ENCOUNTER → 2024-11-29 | Outpatient (CLI) | payer MEDICARE, OTHER, SELFPAY ==
--- NOTE | 2024-11-29 16:05 | BD_ITS ---
STUDY: DUAL ENERGY X-RAY ABSORPTIOMETRY / DXA REASON FOR EXAM: Female, 69 years old. 733.00OsteoporosisBONE DENSITY REASON FOR EXAM TECHNIQUE: Bone Mineral Density (BMD) measurements of lumbar spine and bilateral hips were obtained. COMPARISON: None. FINDINGS: Lumbar Spine (L1-L4): g/cm2 (0.964) / T-score (-0.8) / Z-score (1.5) Findings are suggestive of normal bone density with a low fracture risk. Left Femur Total: g/cm2 (0.883) / T-score (-0.5) / Z-score (1.1) Left Femoral Neck: g/cm2 (0.641) / T-score (-1.9) / Z-score (0.0) Right Femur Total: g/cm2 (0.926) / T-score (-0.1) / Z-score (1.5) Right Femoral Neck: g/cm2 (0.707) / T-score (-1.3) / Z-score (0.6) BD/Dexa Bone Density Study IMPRESSION: The patient is considered osteopenic as outlined below according to World Anurag Organization (WHO) criteria with a moderate fracture risk. Reference Information: The T-score is the number of standard deviations above or below the standard which is normal for young adults at their peak bone mineral density. The World Health Organization (WHO) interprets the T-scores as follows: Above -1 Normal bone density Between -1 and -2.5 Osteopenia Equal to / or below -2.5 Osteoporosis As a practical clinical guideline, osteopenia may be graded as follows: Mild -1 through -1.5 Moderate -1.6 through -2.0 Severe -2.1 through -2.4 The Z-score is the number of standard deviations above or below age-matched controls. A Z-score of less than -1.5 would be considered abnormal. References: 1. NIH Osteoporosis and Related Bone Diseases www osteo.org 2. International Society for Clinical Densitometry www iscd.org 3. National Osteoporosis Foundation www nof.org Electronically Signed: Kehinde Cruz MD at 9:39 EST ,
== END | disposition home or self-care (01) ==
PROVIDERS: PCP Family Medicine; Referring Provider Family Medicine; Visit Provider Family Medicine
DX: M81.0 Age-related osteoporosis without current pathological fracture (principal)
CPT/HCPCS: 77080

== ENCOUNTER → 2025-10-12 | Outpatient (CLI) | payer MEDICARE, OTHER, SELFPAY ==
[2025-10-12 17:44] LABS: Hematocrit 42.1 % (37-47); Hemoglobin 13.7 g/dL (12.0-15.0); Immature Granulocytes Count 0.020 X10^3/uL (0.0-0.0); Mean Corp Hgb Conc 32.5 g/dL (32-36); Mean Corpuscular Volume 90.9 fL (81-99); Mean Platelet Vol. 10.4 fl (6.2-12.0); NRBC Flagged by Analyzer 0 % (0-5); Platelet Count 287 K/mm3 (150-450); RBC Distribution Width CV 13.9 % (11.6-14.6); RBC Distribution Width SD 46.5 fl (35.1-43.9); Red Blood Count 4.63 M/mm3 (4.2-5.4); White Blood Count 7.0 K/mm3 (4.4-11.0)
[2025-10-12 18:30] LABS: AST(SGOT) 22 U/L (<=31); Alanine Aminotransfer ALT/SGPT 22 U/L (<=34); Albumin, Serum 4.4 g/dL (3.4-4.8); Alkaline Phosphatase 70 U/L (35-104); Anion Gap 13 (5-15); BUN 19 mg/dL (4-19); BUN/Creat Ratio 25.4 RATIO (10-20); Calcium,Total 9.4 mg/dL (7.6-11.0); Carbon Dioxide 21.1 mmol/L (21.0-32.0); Chloride 105 mmol/L (98-108); Cholesterol 192 mg/dL (<=200); Globulin 3.0 g/dL (2.2-4.2); Glucose 157 mg/dL (70-99); Low Density Lipoprotein Calc. 108 mg/dL; Potassium 4.0 mmol/L (3.3-5.1); Triglycerides 172 mg/dL; Very Low Density Lipoprotein 34 mg/dL (5-40); Vitamin D,25 Hydroxy 34.2 ng/mL (30-100); cholesterol:hdl ratio screen 3.52
--- OUTSIDE RECORDS SUMMARY | 2025-10-12 19:08 | XMS RPT_ITS | CCD ---
Author Organization [facility] Care Team Providers Care Wood Pattern Maker Name Role Phone Dr. Devin Bloom Primary Care Provider [phone] Monica Bacon Attending Provider [phone] Poppy, Dr. Harshad Stenr Referring Provider POPPY COFFEY, DR HARSHAD STERN Attending Gomez MCWILLIAMS MD, DR HARSHAD STERN Attending Gomez INTERIANO MD, MIRANDA Echols Attending Unavail clayton MCWILLIAMS MD, DR HARSHAD STERN Attending Gomez MCWILLIAMS MD, DR HARSHAD STERN Attending Devin Neff Attending Unavailable Devin Bloom Primary Care Unavailable Devin Bloom Attending Unavailable Devin Bloom Referring Unavailable Devin Bloom Primary Care Unavailable Devin Bloom Attending Unavailable Devin Bloom Primary Care Unavailable Devin Bloom Primary Care Unavailable Harshad Mcwilliams Attending Unavailable Harshad Mcwilliams Referring Unavailable Allergies Allergy Classification Reported Allergen(s) Allergy Type Date of Onset Reaction(s) Facility (5 sources) Cephalexin; Translations: [cephalexin] Drug Allergy 11-25-2023 Eloisa PRATHER [facility] (4 sources) Contrast media; Translations: [iodinated radiocontrast agents] Drug allergy FEELS [facility] (3 sources) oxyCODONE; Translations: [oxycodone] Drug Allergy [facility] (1 source) Cephalexin Drug Allergy 11-25-2023 [facility] Repository Medications Current Medications Medication Drug Class(es) Dates Sig (Normalized) Sig (Original) acetaminophen 500 mg oral tablet (4 sources) Start: 06-06-2020 take 500 mg by mouth every four hours as needed Acetaminophen Active 500 MG PO EVERY 4 HOURS NEEDED June 05, 2020 11:00pm acetaminophen 325 mg / oxyCODONE hydrochloride 5 mg oral tablet (3 sources) Opioid Agonist Start: 10-09-2023 take 1 tablet by mouth every six hours as needed Oxycodone-Acetamino phen Active 1 TABLET PO EVERY 6 HOURS NEEDED 11 04October 09, 2023 aspirin 81 mg delayed release oral tablet (5 sources) Platelet Aggregation Inhibitor, Nonsteroidal Anti-inflammatory Drug Start: 12-22-2023 aspirin 81 mg oral delayed release tablet Dose : 81 mg = 1 tab(s), Oral, Daily, 0 Refill(s) Start Date: 12/22/23 Status: Ordered Start: 05-24-2020 take 81 mg by mouth every other day Aspirin Active 81 MG PO EVERY OTHER DAY May 23, 2020 11:00pm benzonatate 100 mg oral capsule (2 sources) Non-narcotic Antitussive Start: 10-28-2023 End: 11-07-2023 Tessalon Perles 100 mg oral capsule Dose : 100 mg = 1 cap(s), Oral, q8h, PRN as needed for cough, X 10 day(s), # 30 cap(s), 0 Refill(s), 11/07/23 3:16:00 PM EST Start Date: 10/28/23 Stop Date: 11/07/23 Status: Ordered Centrum Silver Ultra Women's oral tablet (4 sources) Start: 10-27-2023 take 1 tablet by mouth once daily Centrum Silver Ultra Women's oral tablet Dose = 1 tab(s), Oral, Daily, 0 Refill(s) Start Date: 10/27/23 Status: Ordered cephalexin 500 mg oral capsule (2 sources) Cephalosporin Antibacterial Start: 10-09-2023 take 500 mg by mouth every twelve hours Cephalexin Active 500 MG PO Q12H October 09, 2023 12:00am cholecalciferol 0.025 mg oral tablet (1 source) Vitamin D Start: 11-18-2023 take 1 tablet by mouth once daily Cholecalciferol (Vitamin D3) (Vitamin D3) 25 mcg (1,000 unit) tablet Active 1000 UNIT PO DAILY November 18, 2023 12:00am cider vinegar 300 mg oral tablet (4 sources) Start: 05-24-2020 take 300 mg by mouth once daily Apple Cider Vinegar Active 300 MG PO DAILY May 23, 2020 11:00pm cider vinegar oral tablets (1 source) Start: 12-22-2023 take 1 tablet by mouth once daily cider vinegar oral tablets 1 tab, Oral, Daily, 0 Refill(s) Start Date: 12/22/23 Status: Ordered ciprofloxacin 500 mg oral tablet (3 sources) Quinolone Antimicrobial Start: 01-01-2024 End: 01-06-2024 Cipro 500 mg oral tablet Dose : 500 mg = 1 tab(s), Oral, q12h, X 5 day(s), # 10 tab(s), 0 Refill(s), 01/06/24 2:05:00 PM EST, [facility]acy: [facility] #[id number], 157, cm, 01/01/24 11:36:00 EST, Height, 93, kg, 01/01/24 11:36:00 EST, Dosing Weight Start Date: 01/01/24 Stop Date: 01/06/24 Status: Ordered Start: 11-25-2023 take 1 tablet by cleo twice daily Ciprofloxacin Hcl (Cipro) 500 mg tablet Active 500 MG PO TWICE A DAY November 25, 2023 12:00am Start: 10-30-2023 Cipro I.V. Dos e : 400 mg = 200 mL, IV Piggyback, PREOP pharm, 0 Refill(s), 91 Start Date: 10/30/23 Status: Ordered levoFLOXacin 750 mg oral tablet (2 sources) Quinolone Antimicrobial Start: 10-28-2023 End: 11-07-2023 levoFLOXacin 750 mg oral tablet Dose : 750 mg = 1 tab(s), Oral, q48h, X 10 day(s), # 5 tab(s), 0 Refill(s), 11/07/23 3:07:00 PM EST, 91 Start Date: 10/28/23 Stop Date: 11/07/23 Status: Ordered lisinopril 10 mg oral tablet (8 sources) Angiotensin Converting Enzyme Inhibitor Start: 08-26-2019 take 1 tablet by mouth once daily lisinopril 10 mg oral tablet TAKE 1 TABLET BY MOUTH EVERY DAY Start Date: 10/27/23 Status: Ordered methylPREDNISolone Dosepak 4 mg tablet (1 source) Start: 10-28-2023 End: 11-03-2023 methylPREDNISolone Dosepak 4 mg tablet Per Dosepak Instructions, Oral, Daily, # 1 EA, 0 Refill(s) Start Date: 10/28/23 Stop Date: 11/03/23 Status: Ordered Pwselxbh-Nng-Wjof-Fa-V it K-Lut (4 sources) Start: 05-24-2020 Soczompd-Bcp-Ihhz-Fa-V it K-Lut Active 1 EACH PO DAILY May 23, 2020 11:00pm Start: 05-24-2020 Jepfxpux-Fgn-O jeana-Fa-Vit K-Lut Active 1 EACH PO DAILY May 24, 2020 12:00am ondansetron 4 mg disintegrating oral tablet (2 sources) Serotonin-3 Receptor Antagonist Start: 10-09-2023 take 4 mg by mouth every six hours as needed Ondansetron Active 4 MG PO EVERY 6 HOURS NEEDED October 09, 2023 1:23am oxyCODONE hydrochloride 5 mg oral tablet (3 sources) Opioid Agonist Start: 01-01-2024 End: 01-06-2024 oxyCODONE 5 mg oral tablet ( IMMEDIATE release ) Dose : 5 mg = 1 tab(s), Oral, q6h, PRN for pain, X 5 day(s), # 12 tab(s), 0 Refill(s), 01/06/24 2:06:00 PM EST, [facility]: [facility] #[id number], Kidney stone, 157, cm, 01/01/24 11:36:00 EST, Height, 93, kg, 01/01/24 11:36:00 EST, Dosing Weight Start Date: 01/01/24 Stop Date: 01/06/24 Status: Ordered Start: 11-25-2023 take 5 mg by mouth e very six hours Oxycodone Active 5 MG PO EVERY 6 HOURS 14 November 25, 2023 Start: 10-30-2023 End: 11-06-2023 oxyCODONE 5 mg oral tablet ( IMMEDIATE release ) Dose : 5 mg = 1 tab(s), Oral, q6h, PRN for pain, X 7 day(s), # 28 tab(s), 0 Refill(s), 11/06/23 10:49:00 AM EST, Pharmacy: [facility] #[id number], Stone in kidney, 157.5, cm, 10/28/23 11:46:00 EST, Height, 91, kg, 10/28/23 11:46:00 EST, Dosing Weight Start Date: 10/30/23 Stop Date: 11/06/23 Status: Ordered triamcinolone acetonide 1 mg/ml topical cream (1 source) Corticosteroid Start: 10-28-2023 triamcinolone 0.1% topical cream Apply 1 dima, Topical, TID, # 80 gram(s), 0 Refill(s), Cream, 91 Start Date: 10/28/23 Status: Ordered turmeric extract 500 mg oral capsule (8 sources) Start: 10-27-2023 turmeric 500 m g oral capsule Dose : 500 mg = 1 cap(s), Oral, Daily, 0 Refill(s) Start Date: 10/27/23 Status: Ordered Start: 05-24-2020 take 400 mg by mouth once camilo y Turmeric Active 400 MG PO DAILY May 23, 2020 11:00pm Start: 05-24-2020 take 400 mg by mouth once camilo y Turmeric Active 400 MG PO DAILY May 24, 2020 12:00am Vitamin D3 (4 sources) Start: 10-27-2023 Vitamin D3 Dos e : 50 mcg = 1 cap(s), Oral, Daily, # 30 cap(s), 0 Refill(s) Start Date: 10/27/23 Status: Ordered Completed/Discontinued Medications Medication Drug Class(es) Dates Sig (Normalized) Sig (Original) acetaminophen 325 mg / HYDROcodone bitartrate 5 mg oral tablet (4 sources) Opioid Agonist Start: 06-04-2020 End: 06-07-2020 Hydrocodone-Acetami nophen Discontinued 1 EACH PO EVERY 4 HOURS NEEDED 14 June 04, 2020 June 06, 2020 11:02pm fluconazole 150 mg oral tablet (1 source) Azole Antifungal Start: 10-28-2023 End: 10-28-2023 fluconazole 150 mg oral tablet Dose : 150 mg = 1 tab(s), Oral, qDay, # 1 tab(s), 0 Refill(s), 91 Start Date: 10/28/23 Stop Date: 10/28/23 Status: Ordered Problems Active Problems Problem Classification Problem Date Documented Da te Episodic/Chronic Essential hypertension (2 sources) Essential (primary) hypertension; Translations: [Essential (primary) hypertension] Onset: 10-26-2024 Chronic Nutritional deficiencies (1 source) Vitamin D deficiency, unspecified; Translations: [Vitamin D deficiency, unspecified] Onset: 08-10-2025 Chronic Osteoporosis (1 source) Age-related osteoporosis without current pathological fracture; Translations: [Age-related osteoporosis without current pathological fracture] Onset: 12-21-2024 Chronic Other diseases of kidney and ureters (3 sources) Hydronephrosis; Translations: [Unspecified hydronephrosis] 10-09-2023 Episodic Unclassified (4 sources) Age more than 65 years; Translations: [Over 65 years old] 10-30-2021 Urinary tract infections (8 sources) Acute urinary tract infection; Translations: [Urinary tract infection, site not specified] Onset: 10-28-2023 03-27-2021 Episodic Viral infection (4 sources) Disease caused by 2019-nCoV; Translations: [COVID-19] 10-30-2021 Episodic Past or Other Problems Problem Classification Problem Date Documented Da te Episodic/Chronic Calculus of urinary tract (19 sources) Kidney stone; Translations: [Calculus of kidney] Onset: 10-28-2023 06-06-2020 Episodic Results Test Name Value Interpretation Reference Range Facility Dexa Bone Density Studyon Dexa Bone Density Study [facility] Imaging Services [address] [place] [address] [id number] Dexa Bone Density Study MR#: [id number] Acct: [id number] Name: FERDINAND FELICIANO Rep #: [id number] : [id number] F 69 From: Kehinde jerome MD PCP: Dr. Devin Bloom DO Status: REG CLI Study: Dexa Bone Density Study Date of Exam: 11/29/24 Exam# [id number] Ordering Dr: Devin Bloom DO [id number] STUDY: DUAL ENERGY X-RAY ABSORPTIOMETRY / DXA REASON FOR EXAM: Female, 69 years old. 733.00OsteoporosisBONE DENSITY REASON FOR EXAM TECHNIQUE: Bone Mineral Density (BMD) measurements of lumbar spine and bilateral hips were obtained. COMPARISON: None. FINDINGS: Lumbar Spine (L1-L4): g/cm2 (0.964) / T-score (-0.8) / Z-score (1.5) Findings are suggestive of normal bone density with a low fracture risk. Left Femur Total: g/cm2 (0.883) / T-score (-0.5) / Z-score (1.1) Left Femoral Neck: g/cm2 (0.641) / T-score (-1.9) / Z-score (0.0) Right Femur Total: g/cm2 (0.926) / T-score (-0.1) / Z-score (1.5) Right Femoral Neck: g/cm2 (0.707) / T-score (-1.3) / Z-score (0.6) BD/Dexa Bone Density Study IMPRESSION: The patient is considered osteopenic as outlined below according to World Anurag Organization (WHO) criteria with a moderate fracture risk. Reference Information: The T-score is the number of standard deviations above or below the standard which is normal for young adults at their peak bone mineral density. The World Health Organization (WHO) interprets the T-scores as follows: Above -1 Normal bone density Between -1 and -2.5 Osteopenia Equal to / or below -2.5 Osteoporosis As a practical clinical guideline, osteopenia may be graded as follows: Mild -1 through -1.5 Moderate -1.6 through -2.0 Severe -2.1 through -2.4 The Z-score is the number of standard deviations above or below age-matched controls. A Z-score of less than -1.5 would be considered abnormal. References: 1. NIH Osteoporosis and Related Bone Diseases www osteo.org 2. International Society for Clinical Densitometry www iscd.org 3. National Osteoporosis Foundation www nof.org Electronically Signed: Kehinde Cruz MD at 9:39 EST , CC: Dr. Devin Bloom, DO Guest Advisor: Signed Normal [facility] CBC W/Diff, Automatedon 11-2 Absolute Lymph 1.80 X10 3/uL Normal 0.83-4.51 [facility] Comment on above: Performed By: #### L 100.0100, L500.4050, L500.4100 #### [facility] [address] [place], [address] Absolute Neut 4.9 X10 3/uL Normal 2.0-7.7 [facility] Comment on above: Performed By: #### L 100.0100, L500.4050, L500.4100 #### [facility] [address] [place], [address] Basophils/100 WBC (Bld) 0.9 % Normal 0-1 [facility] Comment on above: Performed By: #### L 100.0100, L500.4050, L500.4100 #### [facility] [address] [place], [address] Eosinophils/100 WBC (Bld) 4.7 % Normal 0-5 [facility] Comment on above: Performed By: #### L 100.0100, L500.4050, L500.4100 #### [facility] [address] [place], [address] Erythrocyte distribution width (RBC) [Ratio] 13.8 % Normal 11.6-14.6 [facility] Comment on above: Performed By: #### L 100.0100, L500.4050, L500.4100 #### [facility] [address] [place], [address] Hematocrit (Bld) [Volume fraction] 41.3 % Normal 37-47 [facility] Comment on above: Performed By: #### L 100.0100, L500.4050, L500.4100 #### [facility] [address] [place], [address] Hemoglobin (Bld) [Mass/Vol] 13.6 g/dL Normal 12.0-15.0 [facility] Comment on above: Performed By: #### L 100.0100, L500.4050, L500.4100 #### [facility] [address] [place], [address] IG% 0.400 Normal 0.0-0.9 [facility] Comment on above: Result Comment: IG% - Immature Granulocytes (promyelocytes, myelocytes and metamyelocytes) > 1% indicates that a LEFT SHIFT is Present. Performed By: #### L 100.0100, L500.4050, L500.4100 #### [facility] [address] [place], [address] Lymphocytes/100 WBC (Bld) 22.1 % Normal 19-41 [facility] Comment on above: Performed By: #### L 100.0100, L500.4050, L500.4100 #### [facility] [address] [place], [address] MCH (RBC) [Entitic mass] 30.0 pg Normal 27.0-32.0 [facility] Comment on above: Performed By: #### L 100.0100, L500.4050, L500.4100 #### [facility] [address] [place], [address] MCHC (RBC) [Mass/Vol] 32.9 g/dL Normal 32-36 [facility] Comment on above: Performed By: #### L 100.0100, L500.4050, L500.4100 #### [facility] [address] [place], [address] MCV (RBC) [Entitic vol] 91.0 fL Normal 81-99 [facility] Comment on above: Performed By: #### L 100.0100, L500.4050, L500.4100 #### [facility] [address] [place], [address] Monocytes/100 WBC (Bld) 11.5 % High 0-10 [facility] Comment on above: Performed By: #### L 100.0100, L500.4050, L500.4100 #### [facility] [address] [place], [address] Neutrophils/100 WBC (Bld) 60.4 % Normal 47-70 [facility] Comment on above: Performed By: #### L 100.0100, L500.4050, L500.4100 #### [facility] [address] [place], [address] Nucleated RBC (Bld) [#/Vol] 0 10*3/uL Normal 0-5 [facility] Comment on above: Performed By: #### L 100.0100, L500.4050, L500.4100 #### [facility] [address] [place], [address] Platelet mean volume (Bld) [Entitic vol] 10.0 fL Normal 6.2-12.0 [facility] Comment on above: Performed By: #### L 100.0100, L500.4050, L500.4100 #### [facility] [address] [place], [address] Platelets (Bld) [#/Vol] 290 10*3/uL Normal 150-450 [facility] Comment on above: Performed By: #### L 100.0100, L500.4050, L500.4100 #### [facility] [address] [place], [address] RBC (Bld) [#/Vol] 4.54 10*6/uL Normal 4.2-5.4 [facility] Comment on above: Performed By: #### L 100.0100, L500.4050, L500.4100 #### [facility] [address] [place], [address] RDW SD 45.9 fl High 35.1-43.9 [facility] Comment on above: Performed By: #### L 100.0100, L500.4050, L500.4100 #### [facility] [address] [place], [address] WBC (Bld) [#/Vol] 8.2 10*3/uL Normal 4.4-11.0 [facility] Comment on above: Performed By: #### L 100.0100, L500.4050, L500.4100 #### [facility] [address] [place], [address] Comprehensive Metabolic [facility] 10-13-2024 Albumin [Mass/Vol] 4.0 g/dL Normal 3.2-5.0 [facility] Comment on above: Performed By: #### L 100.0100, L500.4050, L500.4100 #### [facility] [address] [place], [address] Albumin/Globulin [Mass ratio] 1.1 {ratio} Normal 0.9-2.4 [facility] Comment on above: Performed By: #### L 100.0100, L500.4050, L500.4100 #### [facility] [address] [place], [address] ALK P 74 U/L Normal 45-117 [facility] Comment on above: Performed By: #### L 100.0100, L500.4050, L500.4100 #### [facility] [address] [place], [address] ALT [Catalytic activity/Vol] 25 U/L Normal 13-56 [facility] Comment on above: Performed By: #### L 100.0100, L500.4050, L500.4100 #### [facility] [address] [place], [address] AST [Catalytic activity/Vol] 13 U/L Low 15-37 [facility] Comment on above: Performed By: #### L 100.0100, L500.4050, L500.4100 #### [facility] [address] [place], [address] Bilirubin [Mass/Vol] 0.40 mg/dL Normal 0.20-1.00 [facility] Comment on above: Result Comment: For patients on eltrombopag therapy, use of Dimension Roland TBIL is not recommended. Performed By: #### L 100.0100, L500.4050, L500.4100 #### [facility] [address] [place], [address] BUN/CRE 22.0 RATIO High 10-20 [facility] Comment on above: Performed By: #### L 100.0100, L500.4050, L500.4100 #### [facility] [address] [place], [address] CA,Total 9.1 mg/dL Normal 8.5-10.1 [facility] Comment on above: Performed By: #### L 100.0100, L500.4050, L500.4100 #### [facility] [address] [place], [address] Chloride [Moles/Vol] 106 mmol/L Normal 98-107 [facility] Comment on above: Performed By: #### L 100.0100, L500.4050, L500.4100 #### [facility] [address] [place], [address] CO2 [Moles/Vol] 27.0 mmol/L Normal 21.0-32.0 [facility] Comment on above: Performed By: #### L 100.0100, L500.4050, L500.4100 #### [facility] [address] [place], [address] Creatinine [Mass/Vol] 0.77 mg/dL Normal 0.55-1.02 [facility] Comment on above: Result Comment: The validity of the calculated GFR GFRAA in patients over 70 years has not been determined. Clinical correlation is essential. Performed By: #### L 100.0100, L500.4050, L500.4100 #### [facility] [address] [place], [address] EST GFR - AA 95 mL/min Normal >60 [facility] Comment on above: Result Comment: Afri can Algerian GFR Calc Performed By: #### L 100.0100, L500.4050, L500.4100 #### [facility] [address] [place], [address] GAP 4 Low 5-15 [facility] Comment on above: Performed By: #### L 100.0100, L500.4050, L500.4100 #### [facility] [address] [place], [address] GFR/1.73 sq M.predicted among non-blacks MDRD (S/P/Bld) [Vol rate/Area] 78 mL/min/{1.73_m2} Normal >60 [facility] Comment on above: Result Comment: Non- GFR Calc Performed By: #### L 100.0100, L500.4050, L500.4100 #### [facility] [address] [place], [address] Globulin (S) [Mass/Vol] 3.6 g/dL Normal 2.2-4.2 [facility] Comment on above: Performed By: #### L 100.0100, L500.4050, L500.4100 #### [facility] [address] [place], [address] Glucose [Mass/Vol] 109 mg/dL High 74-106 [facility] Comment on above: Result Comment: Fast ing Glucose result from 100 to 125 mg/dL suggests IMPAIRED HOMEOSTASIS per A.D.A. criteria. Performed By: #### L 100.0100, L500.4050, L500.4100 #### [facility] [address] [place], [address] Potassium [Moles/Vol] 4.4 mmol/L Normal 3.5-5.1 [facility] Comment on above: Performed By: #### L 100.0100, L500.4050, L500.4100 #### [facility] [address] [place], [address] Sodium [Moles/Vol] 138 mmol/L Normal 136-145 [facility] Comment on above: Performed By: #### L 100.0100, L500.4050, L500.4100 #### [facility] [address] [place], [address] T PROT 7.6 g/dL Normal 6.4-8.2 [facility] Comment on above: Performed By: #### L 100.0100, L500.4050, L500.4100 #### [facility] [address] [place], [address] Urea nitrogen [Mass/Vol] 17 mg/dL Normal 7-18 [facility] Comment on above: Performed By: #### L 100.0100, L500.4050, L500.4100 #### [facility] [address] [place], [address] Lipid Profileon 10-13-2024 Cholesterol [Mass/Vol] 189 mg/dL Normal 200 [facility] Comment on above: Result Comment: <200 mg/dL Desirable 200-240 mg/dL Borderline >240 mg/dL High Risk Performed By: #### L 100.0100, L500.4050, L500.4100 #### [facility] [address] [place], [address] Cholesterol in HDL [Mass/Vol] 59 mg/dL Normal [facility] Comment on above: Result Comment: The drugs N-Acetylcysteine and Metamizole may falsely depress this assay. Reference Range HDL <40 mg/dL Low HDL Cholesterol HDL >or= 60 mg/dL High HDL Cholesterol Performed By: #### L 100.0100, L500.4050, L500.4100 #### [facility] [address] [place], [address] Cholesterol in LDL [Mass/Vol] 107 mg/dL Normal 0-130 [facility] Comment on above: Performed By: #### L 100.0100, L500.4050, L500.4100 #### [facility] [address] [place], [address] Cholesterol in VLDL [Mass/Vol] 23 mg/dL Normal 5-40 [facility] Comment on above: Performed By: #### L 100.0100, L500.4050, L500.4100 #### [facility] [address] [place], [address] Triglyceride [Mass/Vol] 115 mg/dL Normal [facility] Comment on above: Result Comment: The drugs N-Acetylcysteine and Metamizole may falsely depress this assay. Serum Triglycerides Reference Interval Normal <150 mg/dL Borderline high 150 - 199 mg/dL High 200 - 499 mg/dL Very High > or = 500 mg/dL Performed By: #### L 100.0100, L500.4050, L500.4100 #### [facility] [address] [place], [address] Abdomen Single Viewon 2023 Abdomen Single View [facility] Imaging Services [address] [place] [address] Abdomen Single View MR#: [id number] Acct: [id number] Name: FERDINAND FELICIANO Rep #: [id number] : 1955 F 69 From: Mae fernando MD PCP: Dr. Devin Bloom, Status: REG CLI Study: Abdomen Single View Date of Exam: 09/06/24 Exam# [id number] Ordering Dr: Harshad Mcwilliams MD [id number] HISTORY: CALCULUS OF KIDNEY. TECHNIQUE: XR Abdomen 1 View. COMPARISON: CT 11/27/2023. FINDINGS: BOWEL GAS PATTERN: No dilated bowel loops identified. FREE AIR: Not assessed on supine view. CALCIFICATIONS: No abnormal calcifications observed. Right nephrostomy tube removed. Pelvic phleboliths noted. BONES: Degenerative change. SOFT TISSUES: Chronic elevation of the right hemidiaphragm RAD/Abdomen Single View IMPRESSION: No definite renal calculi identified. Electronically Signed: Mae Leon MD at 9:55 EDT Reading Location ID and State: [facility] / [place] Tel , Service support , CC: Dr. Harshad Mcwilliams MD; Dr. Devin Bloom DO Guest Advisor: Signed Normal [facility] CT ABDOMEN/PELVIS W/O CONTRA STon 10-30-2023 CT ABDOMEN/PELVIS W/O CONTRAST ORIGINAL EXAMINATION: CT OF THE ABDOMEN AND PELVIS WITHOUT XMZHTXUD58/8/2023 1:41 pm TECHNIQUE: CT of the abdomen [...] Sign Date: 10/30/2023 3:25:09 PM Ordering Provider: HARSHAD MCWILLIAMS [facility] ([place]) .GFRon 10-28-2023 GFR Non- 30 ml/min/1.73sqm Normal [facility] ([place]) Comment on above: Result Comment: GFR Population mean for , Non- Americans Ages 20-29 = 116 mL/min/1.73 sq.m. Ages 30-39 = 107 mL/min/1.73 sq.m. Ages 40-49 = 99 mL/min/1.73 sq.m. Ages 50-59 = 93 mL/min/1.73 sq.m. Ages 60-69 = 85 mL/min/1.73 sq.m. Ages 70+ = 75 mL/min/1.73 sq.m. Chronic Kidney Disease: Less than 60 mL/min/1.73 square meters End Stage Renal Disease: Less than 15 mL/min/1.73 square meters Performed By: #### G FR, CBC, MDW, DIFF, MORPH, BMP #### [address] [address] GFR 36 ml/min/1.73sqm Normal [facility] ([place]) Comment on above: Result Comment: GFR Population mean for , Non- Americans Ages 20-29 = 116 mL/min/1.73 sq.m. Ages 30-39 = 107 mL/min/1.73 sq.m. Ages 40-49 = 99 mL/min/1.73 sq.m. Ages 50-59 = 93 mL/min/1.73 sq.m. Ages 60-69 = 85 mL/min/1.73 sq.m. Ages 70+ = 75 mL/min/1.73 sq.m. Chronic Kidney Disease: Less than 60 mL/min/1.73 square meters End Stage Renal Disease: Less than 15 mL/min/1.73 square meters Performed By: #### G FR, CBC, MDW, DIFF, MORPH, BMP #### [address] [address] .MDWon 10-28-2023 Monocyte Distribution Width 23.76 High 0.00-20.00 [facility] ([place]) Comment on above: Result Comment: For adults in ED, MDW>20.0 may be associated with a higher risk of sepsis during the first 12hrs of hospital admission Performed By: #### G FR, CBC, MDW, DIFF, MORPH, BMP #### [address] [address] .Manual Diffon 10-28-2023 Bands 3.0 % Normal 0.0-5.0 [facility] ([place]) Comment on above: Performed By: #### G FR, CBC, MDW, DIFF, MORPH, BMP #### [address] [address] Basophil %, Manual 0.0 % Normal 0.0-2.5 [facility] ([place]) Comment on above: Performed By: #### G FR, CBC, MDW, DIFF, MORPH, BMP #### [address] [address] Basophil, Abs Manual 0.0 10 3/mcL Normal 0.0-0.2 [facility] ([place]) Comment on above: Performed By: #### G FR, CBC, MDW, DIFF, MORPH, BMP #### [address] [address] Eosinophil %, Manual 0.0 % Normal 0.0-7.0 Count includes the [facility] ([place]) Comment on above: Performed By: #### G FR, CBC, MDW, DIFF, MORPH, BMP #### [address] [address] Eosinophil, Abs Manual 0.0 10 3/mcL Normal 0.0-0.4 [facility] ([place]) Comment on above: Performed By: #### G FR, CBC, MDW, DIFF, MORPH, BMP #### [address] [address] Lymphocyte %, Manual 2.0 % Low 10.0-50.0 Count includes the [facility] ([place]) Comment on above: Performed By: #### G FR, CBC, MDW, DIFF, MORPH, BMP #### [address] [address] Lymphocyte, Abs Manual 0.4 10 3/mcL Low 0.8-3.9 [facility] ([place]) Comment on above: Performed By: #### G FR, CBC, MDW, DIFF, MORPH, BMP #### [address] [address] Monocyte %, Manual 0.0 % Low 1.7-13.0 [facility] ([place]) Comment on above: Performed By: #### G FR, CBC, MDW, DIFF, MORPH, BMP #### [address] [address] Monocyte, Abs Manual 0.0 10 3/mcL Low 0.2-1.0 [facility] ([place]) Comment on above: Performed By: #### G FR, CBC, MDW, DIFF, MORPH, BMP #### [address] [address] Neutrophil %, Manual 95.0 % High 37.0-80.0 Count includes the [facility] ([place]) Comment on above: Performed By: #### G FR, CBC, MDW, DIFF, MORPH, BMP #### [address] [address] Neutrophil, Abs Manual 21.5 10 3/mcL High 2.9-6.2 [facility] ([place]) Comment on above: Performed By: #### G FR, CBC, MDW, DIFF, MORPH, BMP #### [address] [address] Nucleated RBC 0.0 /100 WBC Normal [facility] ([place]) Comment on above: Performed By: #### G FR, CBC, MDW, DIFF, MORPH, BMP #### [address] [address] .Morphon 10-28-2023 Platelet Estimate Increased Normal [facility] ([place]) Comment on above: Performed By: #### G FR, CBC, MDW, DIFF, MORPH, BMP #### [address] [address] .Urinalysis Microscopic (AO) on 10-28-2023 UA Bacteria 1+ /hpf Abnormal [facility] ([place]) Comment on above: Performed By: #### U A, UAMICAO #### [address] [address] UA RBC 0-5 Abnormal None Seen [facility] ([place]) Comment on above: Performed By: #### U A, UAMICAO #### [address] [address] UA Squam Epithelial 0-5 Abnormal None Seen [facility] ([place]) Comment on above: Performed By: #### U A, UAMICAO #### [place] [id number] UA WBC LOADED Abnormal None Seen [facility] ([place]) Comment on above: Performed By: #### U A, UAMICAO #### [place] [address] BMPon 10-28-2023 BUN/Creatinine Ratio 20 ratio Normal 7-27 Count includes the [facility] ([place]) Comment on above: Order Comment: hemol yzed Performed By: #### G FR, CBC, MDW, DIFF, MORPH, BMP #### [address] [address] Calcium [Mass/Vol] 9.0 mg/dL Normal 8.4-10.2 [facility] ([place]) Comment on above: Order Comment: hemol yzed Performed By: #### G FR, CBC, MDW, DIFF, MORPH, BMP #### [address] [address] Chloride [Moles/Vol] 98 mmol/L Normal 98-107 Count includes the [facility] ([place]) Comment on above: Order Comment: hemol yzed Performed By: #### G FR, CBC, MDW, DIFF, MORPH, BMP #### [address] [address] CO2 [Moles/Vol] 20 mmol/L Low 23-31 [facility] ([place]) Comment on above: Order Comment: hemol yzed Performed By: #### G FR, CBC, MDW, DIFF, MORPH, BMP #### [address] [address] Creatinine [Mass/Vol] 1.69 mg/dL High 0.55-1.02 [facility] ([place]) Comment on above: Order Comment: hemol yzed Performed By: #### G FR, CBC, MDW, DIFF, MORPH, BMP #### [address] [address] Electrolyte Balance 14.0 mEq/L Normal 4.0-15.0 [facility] ([place]) Comment on above: Order Comment: hemol yzed Performed By: #### G FR, CBC, MDW, DIFF, MORPH, BMP #### [address] [address] Glucose [Mass/Vol] 156 mg/dL High 83-110 [facility] ([place]) Comment on above: Order Comment: hemol yzed Performed By: #### G FR, CBC, MDW, DIFF, MORPH, BMP #### [address] [address] Potassium [Moles/Vol] 4.3 mmol/L Normal 3.5-5.1 [facility] ([place]) Comment on above: Order Comment: hemol yzed Performed By: #### G FR, CBC, MDW, DIFF, MORPH, BMP #### [place] [address] Sodium [Moles/Vol] 132 mmol/L Low 136-145 [facility] ([place]) Comment on above: Order Comment: hemol yzed Performed By: #### G FR, CBC, MDW, DIFF, MORPH, BMP #### [place] [address] Urea nitrogen [Mass/Vol] 34 mg/dL High 7-18 [facility] ([place]) Comment on above: Order Comment: hemol yzed Performed By: #### G FR, CBC, MDW, DIFF, MORPH, BMP #### [place] [id number] CBCon 10-28-2023 Erythrocyte distribution width (RBC) [Ratio] 13.7 % Normal 11.5-14.5 [facility] ([place]) Comment on above: Performed By: #### G FR, CBC, MDW, DIFF, MORPH, BMP #### [place] [address] Hematocrit (Bld) [Volume fraction] 38.9 % Normal 37.0-47.0 [facility] ([place]) Comment on above: Performed By: #### G FR, CBC, MDW, DIFF, MORPH, BMP #### [place] [address] Hgb 13.0 G/dL Normal 12.0-16.0 [facility] ([place]) Comment on above: Performed By: #### G FR, CBC, MDW, DIFF, MORPH, BMP #### [place] [address] MCH (RBC) [Entitic mass] 29.1 pg Normal 27.0-31.2 [facility] ([place]) Comment on above: Performed By: #### G FR, CBC, MDW, DIFF, MORPH, BMP #### [address] [address] MCHC 33.4 G/dL Normal 33.0-37.0 [facility] ([place]) Comment on above: Performed By: #### G FR, CBC, MDW, DIFF, MORPH, BMP #### [address] [address] MCV (RBC) [Entitic vol] 87.1 fL Normal 80.0-94.0 [facility] ([place]) Comment on above: Performed By: #### G FR, CBC, MDW, DIFF, MORPH, BMP #### [address] [address] Platelet 490 10 3/mcL High 130-400 [facility] ([place]) Comment on above: Performed By: #### G FR, CBC, MDW, DIFF, MORPH, BMP #### [address] [address] Platelet mean volume (Bld) [Entitic vol] 7.6 fL Normal 7.4-10.4 [facility] ([place]) Comment on above: Performed By: #### G FR, CBC, MDW, DIFF, MORPH, BMP #### [address] [address] RBC 4.46 10 6/mcL Normal 4.20-5.40 [facility] ([place]) Comment on above: Performed By: #### G FR, CBC, MDW, DIFF, MORPH, BMP #### [address] [address] WBC 22.6 10 3/mcL High 4.6-10.8 [facility] ([place]) Comment on above: Performed By: #### G FR, CBC, MDW, DIFF, MORPH, BMP #### [address] [address] [id number] 10-28-2023 SARS-CoV-2 (COVID-19) RNA EMMA+probe Ql (Unsp spec) Negative Normal Negative [facility] ([place]) Comment on above: Performed By: #### Manuel OVD19, FLURSV ####[id number] [place], [place] [address] SARS-CoV-2 (COVID-19) RNA EMMA+probe Ql (Unsp spec) Normal [facility] ([place]) Comment on above: Result Comment: Nega tive results do not preclude SARS-CoV-2 infection and should not be used as the sole basis for patient management decisions. Negative results must be combined with clinical observations, patient history, and epidemiological information. There is a risk of false negative values resulting from improperly collected, transported, or handled specimens. There is a risk of false negative values due to the presence of sequence variants in the pathogen targets of the assay, procedural errors, amplification inhibitors in specimens, or inadequate numbers of organisms for amplification. JEFE SARS-CoV-2 Assay is a Real-Time reverse-transcriptase polymerase chain reaction (RT-PCR) based qualitative in vitro diagnostic test intended for the qualitative detection of nucleic acid from the SARS-CoV-2 in nasopharyngeal swab specimens collected from individuals suspected of COVID-19 by their healthcare provider. Testing is limited to laboratories certified under the Clinical Laboratory Improvement Amendments of 1988 (CLIA), 42 U.S.C. ?263a, to perform moderate and high complexity tests. COVID-19 Int Performed By: #### Manuel OVD19, FLURSV ####[id number] [place], [place] [address] CT ABDOMEN/PELVIS W/O CONTRA STon 10-28-2023 CT ABDOMEN/PELVIS W/O CONTRAST ORIGINAL EXAMINATION: CT OF THE ABDOMEN AND PELVIS WITHOUT PQCTOGWV99/6/2023 1:[address] ABDOMEN/PELVIS WITHOUT CONTRAST TECHNIQUE: [...] Date: 10/28/2023 4:36:46 PM Ordering Provider: MIRANDA INTERIANO Normal [facility] ([place]) Nehal 10-28-2023 Flu A PCR (AO) Negative Normal Negative [facility] ([place]) Comment on above: Result Comment: Posi tive Results: Positive Flu A/B or RSV for by PCR. Positive test results do not rule out bacterial infection or co-infection with other pathogens. Test results should be interpreted in conjunction with other laboratory and clinical data. Negative Results: Negative for by PCR. Negative test results do not preclude influenza virus or RSV infection and should not be used as the sole basis for diagnosis, treatment, or other management decisions. There is a risk of false negative RSV results when at low concentration and in the presence of co-infection with high concentration of influenza A. Invalid Results: An Invalid result (INV) was obtained. The test was repeated with similar results. REPEAT COLLECTION AND TESTING IS RECOMMENDED. The Jefe Flu A/B & RSV Assay is a real-time polymerase chain reaction (PCR) based qualitative in vitro diagnostic test for the direct detection and differentiation of influenza A virus, influenza B virus, and respiratory syncytial virus (RSV) nucleic acid in nasopharyngeal swab (COMMISSARY CLERK) specimens from patients with signs and symptoms of respiratory infection in conjunction with clinical and laboratory findings. The test is intended for use as an aid in the differential diagnosis of influenza A virus, influenza B virus, and RSV in humans and is not intended to detect influenza C. Performed By: #### C OVD19, FLURSV ####[id number] [place], [place] [address] Flu B PCR (AO) Negative Normal Negative [facility] ([place]) Comment on above: Result Comment: Posi tive Results: Positive Flu A/B or RSV for by PCR. Positive test results do not rule out bacterial infection or co-infection with other pathogens. Test results should be interpreted in conjunction with other laboratory and clinical data. Negative Results: Negative for by PCR. Negative test results do not preclude influenza virus or RSV infection and should not be used as the sole basis for diagnosis, treatment, or other management decisions. There is a risk of false negative RSV results when at low concentration and in the presence of co-infection with high concentration of influenza A. Invalid Results: An Invalid result (INV) was obtained. The test was repeated with similar results. REPEAT COLLECTION AND TESTING IS RECOMMENDED. The Jefe Flu A/B & RSV Assay is a real-time polymerase chain reaction (PCR) based qualitative in vitro diagnostic test for the direct detection and differentiation of influenza A virus, influenza B virus, and respiratory syncytial virus (RSV) nucleic acid in nasopharyngeal swab (COMMISSARY CLERK) specimens from patients with signs and symptoms of respiratory infection in conjunction with clinical and laboratory findings. The test is intended for use as an aid in the differential diagnosis of influenza A virus, influenza B virus, and RSV in humans and is not intended to detect influenza C. Performed By: #### C OVD19, FLURSV ####[id number] [place], [place] [address] RSV PCR (AO) Negative Normal Negative [facility] ([place]) Comment on above: Result Comment: Posi tive Results: Positive Flu A/B or RSV for by PCR. Positive test results do not rule out bacterial infection or co-infection with other pathogens. Test results should be interpreted in conjunction with other laboratory and clinical data. Negative Results: Negative for by PCR. Negative test results do not preclude influenza virus or RSV infection and should not be used as the sole basis for diagnosis, treatment, or other management decisions. There is a risk of false negative RSV results when at low concentration and in the presence of co-infection with high concentration of influenza A. Invalid Results: An Invalid result (INV) was obtained. The test was repeated with similar results. REPEAT COLLECTION AND TESTING IS RECOMMENDED. The [employer] Flu A/B & RSV Assay is a real-time polymerase chain reaction (PCR) based qualitative in vitro diagnostic test for the direct detection and differentiation of influenza A virus, influenza B virus, and respiratory syncytial virus (RSV) nucleic acid in nasopharyngeal swab (COMMISSARY CLERK) specimens from patients with signs and symptoms of respiratory infection in conjunction with clinical and laboratory findings. The test is intended for use as an aid in the differential diagnosis of influenza A virus, influenza B virus, and RSV in humans and is not intended to detect influenza C. Performed By: #### C OVD19, FLURSV ####[id number] [place] [address] LABORATORYOrdered By: Nicky Somers on 10-28-2023 Appearance (U) Slightly Cloudy *ABN* (10/28/23 12:07 PM) Invalid Interpretation Code Clear AO Auto Urine SS Bacteria LM.HPF (Urine sed) [#/Area] 1 /[HPF] Invalid Interpretation Code AO Auto Urine SS Bilirubin Ql (U) Negative (10/28/23 12:07 PM) Normal Negative AO Auto Urine SS Color (U) Yellow (10/28/23 12:07 PM) Normal AO Auto Urine SS FLUAV RNA EMMA+probe Ql (Upper resp) Negative 4 (10/28/23 12:07 PM) Normal Negative AO Auto Urine SS Comment on above: Interpretive Data: P ositive Results: Positive Flu A/B or RSV for by PCR. Positive test results do not rule out bacterial infection or co-infection with other pathogens. Test results should be interpreted in conjunction with other laboratory and clinical data. Negative Results: Negative for by PCR. Negative test results do not preclude influenza virus or RSV infection and should not be used as the sole basis for diagnosis, treatment, or other management decisions. There is a risk of false negative RSV results when at low concentration and in the presence of co-infection with high concentration of influenza A. Invalid Results: An Invalid result (INV) was obtained. The test was repeated with similar results. REPEAT COLLECTION AND TESTING IS RECOMMENDED. The Jefe Flu A/B & RSV Assay is a real-time polymerase chain reaction (PCR) based qualitative in vitro diagnostic test for the direct detection and differentiation of influenza A virus, influenza B virus, and respiratory syncytial virus (RSV) nucleic acid in nasopharyngeal swab (COMMISSARY CLERK) specimens from patients with signs and symptoms of respiratory infection in conjunction with clinical and laboratory findings. The test is intended for use as an aid in the differential diagnosis of influenza A virus, influenza B virus, and RSV in humans and is not intended to detect influenza C. FLUBV RNA EMMA+probe Ql (Upper resp) Negative 5 (10/28/23 12:07 PM) Normal Negative AO Auto Urine SS Comment on above: Interpretive Data: P ositive Results: Positive Flu A/B or RSV for by PCR. Positive test results do not rule out bacterial infection or co-infection with other pathogens. Test results should be interpreted in conjunction with other laboratory and clinical data. Negative Results: Negative for by PCR. Negative test results do not preclude influenza virus or RSV infection and should not be used as the sole basis for diagnosis, treatment, or other management decisions. There is a risk of false negative RSV results when at low concentration and in the presence of co-infection with high concentration of influenza A. Invalid Results: An Invalid result (INV) was obtained. The test was repeated with similar results. REPEAT COLLECTION AND TESTING IS RECOMMENDED. The Jefe Flu A/B & RSV Assay is a real-time polymerase chain reaction (PCR) based qualitative in vitro diagnostic test for the direct detection and differentiation of influenza A virus, influenza B virus, and respiratory syncytial virus (RSV) nucleic acid in nasopharyngeal swab (COMMISSARY CLERK) specimens from patients with signs and symptoms of respiratory infection in conjunction with clinical and laboratory findings. The test is intended for use as an aid in the differential diagnosis of influenza A virus, influenza B virus, and RSV in humans and is not intended to detect influenza C. Glucose Test strip (U) [Mass/Vol] Negative Normal Negative AO Auto Urine SS Hemoglobin Auto test strip (U) [Mass/Vol] Small *ABN* (10/28/23 12:07 PM) Invalid Interpretation Code Negative AO Auto Urine SS Ketones Ql (U) Negative Normal Negative AO Auto Urine SS RSV RNA EMMA+probe Ql (Upper resp) Negative 6 (10/28/23 12:07 PM) Normal Negative AO Auto Urine SS Comment on above: Interpretive Data: P ositive Results: Positive Flu A/B or RSV for by PCR. Positive test results do not rule out bacterial infection or co-infection with other pathogens. Test results should be interpreted in conjunction with other laboratory and clinical data. Negative Results: Negative for by PCR. Negative test results do not preclude influenza virus or RSV infection and should not be used as the sole basis for diagnosis, treatment, or other management decisions. There is a risk of false negative RSV results when at low concentration and in the presence of co-infection with high concentration of influenza A. Invalid Results: An Invalid result (INV) was obtained. The test was repeated with similar results. REPEAT COLLECTION AND TESTING IS RECOMMENDED. The [employer] Flu A/B & RSV Assay is a real-time polymerase chain reaction (PCR) based qualitative in vitro diagnostic test for the direct detection and differentiation of influenza A virus, influenza B virus, and respiratory syncytial virus (RSV) nucleic acid in nasopharyngeal swab (COMMISSARY CLERK) specimens from patients with signs and symptoms of respiratory infection in conjunction with clinical and laboratory findings. The test is intended for use as an aid in the differential diagnosis of influenza A virus, influenza B virus, and RSV in humans and is not intended to detect influenza C. SARS-CoV-2 (COVID-19) RNA EMMA+probe Ql (Resp) Negative results do not preclude SARS-CoV-2 infection and should not be used as the sole basis for patient management decisions. Negative results must be combined with clinical observations, patient history, and epidemiological information.There is a risk of false negative values resulting from improperly collected, transported, or handled specimens.There is a risk of false negative values due to the presence of sequence variants in the pathogen targets of the assay, procedural errors, amplification inhibitors in specimens, or inadequate numbers of organisms for amplification.[employer] SARS-CoV-2 Assay is a Real-Time reverse-transcriptase polymerase chain reaction (RT-PCR) based qualitative in vitro diagnostic test intended for the qualitative detection of nucleic acid from the SARS-CoV-2 in nasopharyngeal swab specimens collected from individuals suspected of COVID-19 by their healthcare provider. Testing is limited to laboratories certified under the Clinical Laboratory Improvement Amendments of 1988 (CLIA), 42 U.S.C. 263a, to perform moderate and high complexity tests. Invalid Interpretation Code AO Auto Urine SS UA Leuk Est Large *ABN* (10/28/23 12:07 PM) Invalid Interpretation Code Negative AO Auto Urine SS UA Nitrite Negative (10/28/23 12:07 PM) Normal Negative AO Auto Urine SS UA pH 6.0 (10/28/23 12:07 PM) Normal 5.0 - 8.0 AO Auto Urine SS UA Protein 30 mg/dL Normal Negative AO Auto Urine SS UA RBC 0-5 /HPF Invalid Interpretation Code None Seen AO Auto Urine SS UA Spec Grav 1.020 (10/28/23 12:07 PM) Normal 1.015-1.02 5 AO Auto Urine SS UA Specimen Type Clean Catch (10/28/23 12:07 PM) Normal AO Auto Urine SS UA Squam Epithelial 0-5 /HPF Invalid Interpretation Code None Seen AO Auto Urine SS UA Urobilinogen 0.2 E.U./dL Normal 0.2-1.0 AO Auto Urine SS WBC LM.HPF (Urine sed) [#/Area] LOADED /HPF Invalid Interpretation Code None Seen AO Auto Urine SS LABORATORYOrdered By: SYSTEM SYSTEM on 10-28-2023 Bands 3.0 % Normal 0.0 - 5.0 % AO Workflow SS Basophil %, Manual 0.0 % Normal 0.0 - 2.5 % AO Workflow SS Basophil, Abs Manual 0.0 103/mcL Normal 0.0 - 0 .2 10^3/mcL AO Workflow SS Calcium [Mass/Vol] 9.0 mg/dL Normal 8.4 - 10. 2 mg/dL AO ADM SS Chloride [Moles/Vol] 98 mmol/L Normal 98 - 10 7 mmol/L AO ADM SS CO2 [Moles/Vol] 20 mmol/L Low 23 - 31 mmol/L AO ADM SS Creatinine [Mass/Vol] 1.69 mg/dL High 0.55 - 1.02 mg/dL AO ADM SS Electrolyte Balance 14.0 mEq/L Normal 4.0 - 15 .0 mEq/L AO ADM SS Eosinophil %, Manual 0.0 % Normal 0.0 - 7 .0 % AO Workflow SS Eosinophils (Bld) [#/Vol] 0.0 103/mcL Normal 0.0 - 0.4 10^3/mcL AO Workflow SS Erythrocyte distribution width (RBC) [Ratio] 13.7 % Normal 11.5 - 14.5 % AO Workflow SS GFR/1.73 sq M.predicted among blacks MDRD (S/P/Bld) [Vol rate/Area] 36 ml/min/1.73sqm Invalid Interpretation Code AO Chemistry S Comment on above: Interpretive Data: GFR Population mean for , Non- Americans Ages 20-29 = 116 mL/min/1.73 sq.m. Ages 30-39 = 107 mL/min/1.73 sq.m. Ages 40-49 = 99 mL/min/1.73 sq.m. Ages 50-59 = 93 mL/min/1.73 sq.m. Ages 60-69 = 85 mL/min/1.73 sq.m. Ages 70+ = 75 mL/min/1.73 sq.m. Chronic Kidney Disease: Less than 60 mL/min/1.73 square meters End Stage Renal Disease: Less than 15 mL/min/1.73 square meters GFR/1.73 sq M.predicted among non-blacks MDRD (S/P/Bld) [Vol rate/Area] 30 ml/min/1.73sqm Invalid Interpretation Code AO Chemistry S Comment on above: Interpretive Data: GFR Population mean for , Non- Americans Ages 20-29 = 116 mL/min/1.73 sq.m. Ages 30-39 = 107 mL/min/1.73 sq.m. Ages 40-49 = 99 mL/min/1.73 sq.m. Ages 50-59 = 93 mL/min/1.73 sq.m. Ages 60-69 = 85 mL/min/1.73 sq.m. Ages 70+ = 75 mL/min/1.73 sq.m. Chronic Kidney Disease: Less than 60 mL/min/1.73 square meters End Stage Renal Disease: Less than 15 mL/min/1.73 square meters Glucose [Mass/Vol] 156 mg/dL High 83 - 110 mg/dL AO ADM SS Hematocrit (Bld) [Volume fraction] 38.9 % Normal 37.0 - 47.0 % AO Workflow SS Hemoglobin (Bld) [Mass/Vol] 13.0 G/dL Normal 12.0 - 16.0 G/dL AO Workflow SS Lymphocyte %, Manual 2.0 % Low 10.0 - 50.0 % AO Workflow SS Lymphocyte, Abs Manual 0.4 103/mcL Low 0.8 - 3.9 10^3/mcL AO Workflow SS MCH (RBC) [Entitic mass] 29.1 pg Normal 27.0 - 31.2 pg AO Workflow SS MCHC 33.4 G/dL Normal 33.0 - 37.0 G/dL AO Workflow SS MCV (RBC) [Entitic vol] 87.1 fL Normal 80.0 - 94.0 fL AO Workflow SS Monocyte %, Manual 0.0 % Low 1.7 - 13. 0 % AO Workflow SS Monocyte distribution width Auto (Bld) [Entitic vol] 23.76 1 High 0.00 - 20.00 AO Workflow SS Comment on above: Result Comment: For adults in ED, MDW>20.0 may be associated with a higher risk of sepsis during the first 12hrs of hospital admission Monocyte, Abs Manual 0.0 103/mcL Low 0.2 - 1 .0 10^3/mcL AO Workflow SS Neutrophil %, Manual 95.0 % High 37.0 - 80.0 % AO Workflow SS Neutrophil, Abs Manual 21.5 103/mcL High 2.9 - 6.2 10^3/mcL AO Workflow SS Nucleated RBC 0.0 /100 WBC Invalid Interpretation Code AO Workflow SS Platelet Estimate Increased *NA* (10/28/23 12:07 PM) Invalid Interpretation Code AO Workflow SS Platelet mean volume (Bld) [Entitic vol] 7.6 fL Normal 7.4 - 10.4 fL AO Workflow SS Platelets (Bld) [#/Vol] 490 103/mcL High 130 - 400 10^3/mcL AO Workflow SS Potassium [Moles/Vol] 4.3 mmol/L Normal 3.5 - 5.1 mmol/L AO ADM SS RBC (Bld) [#/Vol] 4.46 106/mcL Normal 4.20 - 5.40 10^6/mcL AO Workflow SS Sodium [Moles/Vol] 132 mmol/L Low 136 - 145 mmol/L AO ADM SS Urea nitrogen [Mass/Vol] 34 mg/dL High 7 - 18 mg/dL AO ADM SS Urea nitrogen/Creatinine [Mass ratio] 20 ratio Normal 7 - 27 ratio AO ADM SS WBC (Bld) [#/Vol] 22.6 103/mcL High 4.6 - 10.8 10^3/mcL AO Workflow SS UAon 10-28-2023 Color (U) Yellow Normal [facility] ([place]) Comment on above: Performed By: #### U A, UAMICAO #### [address] [address] Glucose (U) [Mass/Vol] Negative Normal Negative [facility] ([place]) Comment on above: Performed By: #### U A, UAMICAO #### [place] [address] Ketones Ql (U) Negative Normal Negative [facility] ([place]) Comment on above: Performed By: #### U A, UAMICAO #### [address] [address] UA Appear Slightly Cloudy Abnormal Clear [facility] ([place]) Comment on above: Performed By: #### U A, UAMICAO #### [place] [address] UA Blood Small Abnormal Negative [facility] ([place]) Comment on above: Performed By: #### U A, UAMICAO #### [address] [address] UA Leuk Est Large Abnormal Negative [facility] ([place]) Comment on above: Performed By: #### U A, UAMICAO #### [place] [address] UA Nitrite Negative Normal Negative [facility] ([place]) Comment on above: Performed By: #### U A, UAMICAO #### [address] [address] UA pH 6.0 Normal 5.0 - 8.0 [facility] ([place]) Comment on above: Performed By: #### U A, UAMICAO #### [address] [address] UA Protein 30 mg/dL Normal Negative [facility] ([place]) Comment on above: Performed By: #### U A, UAMICAO #### [address] [address] UA Spec Grav 1.020 Normal 1.015-1.02 5 [facility] ([place]) Comment on above: Performed By: #### U A, UAMICAO #### [place] [id number] [place], [place] [address] UA Specimen Type Clean Catch Normal [facility] ([place]) Comment on above: Performed By: #### U A, UAMICAO #### [address] [address] UA Urobilinogen 0.2 E.U./dL Normal 0.2-1.0 [facility] ([place]) Comment on above: Performed By: #### U A, UAMICAO #### [address] [address] Urobilinogen (U) [Mass/Vol] Negative Normal Negative [facility] ([place]) Comment on above: Performed By: #### U A, UAMICAO #### [address] [address] XR CHEST 1 VIEWon 10-28-2023 XR CHEST 1 VIEW ORIGINAL EXAMINATION: ONE XRAY VIEW OF THE [...] Date: 10/28/2023 1:58:24 PM Ordering Provider: MIRANDA Castle [facility] ([place]) Absolute lymphocyte countOrd ered By: Donnie Shepard on 10-08-2023 Lymphocytes Auto (Unsp spec) [#/Vol] 1.61 10*3/uL 0.83-4.51 [facility] Basophil percentageOrdered B y: Donnie Shepard on 10-08-2023 Basophil percentage >100 SEEN /hpf 0-5 W [facility] Basophils/100 WBC (Bld) 0.9 % 0-1 [facility] Chloride [Moles/Vol] 108 mmol/L 98-107 [facility] Eosinophils/100 WBC (Bld) 6.2 % 0-5 [facility] Glucose [Mass/Vol] 152 mg/dL 74-106 [facility] Comment on above: Fasting Glucose resu lt greater than or equal to 126 mg/dL suggests DIABETES MELLITUS per A.D.A. criteria. Neutrophils (Bld) [#/Vol] 5.0 10*3/uL 2.0-7.7 [facility] Neutrophils/100 WBC (Bld) 62.4 % 47-70 [facility] Potassium [Moles/Vol] 4.4 mmol/L 3.5-5.1 [facility] Comment on above: Slight Hemolysis, Re sult may be falsely increased. Sodium [Moles/Vol] 139 mmol/L 136-145 [facility] WBC (Bld) [#/Vol] 7.9 10*3/uL 4.4-11.0 [facility] Bilirubin Test strip Ql (U)O rdered By: Donnie Shepard on 10-08-2023 Bilirubin Ql (U) Negative Negative [facility] Blood erythrocytes count (nu mber/volume)Ordered By: Donnie Shepard on 10-08-2023 RBC (Bld) [#/Vol] 4.46 10*6/uL 4.2-5.4 [facility] Blood hemoglobin measurement (mass/volume)Ordered By: Donnie Shepard on 10-08-2023 Hemoglobin (Bld) [Mass/Vol] 13.0 g/dL 12.0-15.0 [facility] Blood lymphocytes/100 leukoc ytesOrdered By: Donnie Shepard on 10-08-2023 Lymphocytes/100 WBC (Bld) 20.3 % 19-41 [facility] Blood monocytes/100 leukocyt esOrdered By: Donnie Shepard on 10-08-2023 Monocytes/100 WBC (Bld) 9.9 % 0-10 [facility] Blood platelet mean volumeOr dered By: Donnie Shepard on 10-08-2023 Platelet mean volume (Bld) [Entitic vol] 10.4 fL 6.2-12.0 [facility] Culture, urineOrdered By: Yfn Shepard on 10-08-2023 Bacteria identified Cx Nom (U) Proteus mirabilis [facility] Determination of erythrocyte mean corpuscular volume (MCV)Ordered By: Donnie Shepard on 10-08-2023 MCV (RBC) [Entitic vol] 92.6 fL 81-99 [facility] Hematocrit Auto (Bld) [Volum e fraction]Ordered By: Donnie Shepard on 10-08-2023 Hematocrit (Bld) [Volume fraction] 41.3 % 37-47 [facility] Ketones Test strip Ql (U)Ord ered By: Donnie Shepard on 10-08-2023 Ketones Ql (U) Negative Negative [facility] Laboratory - Chemistry and C hemistry - challengeOrdered By: Donnie Shepard on 10-08-2023 CO2 [Moles/Vol] 24.0 mmol/L 21.0-32.0 [facility] Urea nitrogen/Creatinine [Mass ratio] 23.7 mg/mg 10-20 [facility] Laboratory - Hematology and Cell countsOrdered By: Donnie Shepard on 10-08-2023 Erythrocyte distribution width (RBC) [Entitic vol] 45.9 fL 35.1-43.9 [facility] Erythrocyte distribution width (RBC) [Ratio] 13.4 % 11.6-14.6 [facility] Immature granulocytes/100 WBC (Bld) 0.300 % 0.0-0.9 [facility] Comment on above: IG% - Immature Granu locytes (promyelocytes, myelocytes and metamyelocytes) > 1% indicates that a LEFT SHIFT is Present. MCH (RBC) [Entitic mass] 29.1 pg 27.0-32.0 [facility] Nucleated RBC/100 WBC (Bld) [Ratio] 0 % 0-5 [facility] ([facility]) [Mass/Vol]Or dered By: Donnie Shepard on 10-08-2023 MCHC (RBC) [Mass/Vol] 31.5 g/dL 32-36 [facility] Mucus LM Ql (Urine sed)Order ed By: Donnie Shepard on 10-08-2023 Mucus Ql (Urine sed) 0 SEEN /hpf [facility] Nitrite Test strip Ql (U)Ord ered By: Donnie Shepard on 10-08-2023 Nitrite Ql (U) Negative Negative [facility] No Panel InformationOrdered By: Donnie Shepard on 10-08-2023 Estimated Creatinine Clearance Calc 44.64 ml/min [facility] Estimated GFR (MDRD) Amer 73 mL/min >60 [facility] Comment on above: GFR Calc Estimated GFR (MDRD) Non-Af Amer 60 mL/min >60 [facility] Comment on above: Non- GFR Calc Platelets bldOrdered By: Kevin Shepard on 10-08-2023 Platelets (Bld) [#/Vol] 349 10*3/uL 150-450 [facility] Protein Test strip Ql (U)Ord ered By: Donnie Shepard on 10-08-2023 Protein Ql (U) 100 mg/dl Negative [facility] Serum or plasma calcium ophelia urement (mass/volume)Ordered By: Donnie Shepard on 10-08-2023 Calcium [Mass/Vol] 9.1 mg/dL 8.5-10.1 [facility] Serum or plasma creatinine m easurement (mass/volume)Ordered By: Donnie Shepard on 10-08-2023 Creatinine [Mass/Vol] 0.97 mg/dL 0.55-1.02 [facility] Comment on above: The validity of the calculated GFR & GFRAA in patients over 70 years has not been determined. Clinical correlation is essential. Serum or plasma urea nitroge n measurement (mass/volume)Ordered By: Donnie Shepard on 10-08-2023 Urea nitrogen [Mass/Vol] 23 mg/dL 7-18 [facility] Squamous epithelial cells de tection in urine sediment by light microscopyOrdered By: Donnie Shepard on 10-08-2023 Epithelial cells.squamous LM Ql (Urine sed) 0 SEEN /hpf 5-10 [facility] Thin prep Papanicolaou smear with manual screeningOrdered By: Donnie Shepard on 10-08-2023 Thin prep Papanicolaou smear with manual screening 7 5-15 [facility] Urine blood detectionOrdered By: Donnie Shepard on 10-08-2023 RBC Ql (U) 250 /ul Negative [facility] RBC Ql (U) 5-10 SEEN /hpf 0-5 [facility] Urine clarityOrdered By: Kevin Shepard on 10-08-2023 Clarity (U) Cloudy Clear [facility] Urine color determinationOrd ered By: Donnie Shepard on 10-08-2023 Color (U) Yellow Yellow [facility] Urine glucose detectionOrder ed By: Donnie Shepard on 10-08-2023 Glucose Ql (U) Normal mg/dl Normal [facility] Urine leukocyte esterase det ection by dipstickOrdered By: Donnie Shepard on 10-08-2023 Leukocyte esterase Test strip Ql (U) 500 /ul Negative [facility] Urine pHOrdered By: Donnie tang on 10-08-2023 pH (U) 6.5 [pH] 5.0 - 8.0 [facility] Urine sediment bacteria coun t by microscopy (number/high power field)Ordered By: Donnie Shepard on 10-08-2023 Bacteria LM.HPF (Urine sed) [#/Area] 3 /[HPF] None Seen [facility] Urine specific gravity measu rementOrdered By: Donnie Shepard on 10-08-2023 Specific gravity (U) [Rel density] 1.020 1.002-1.03 0 [facility] Urobilinogen Auto test strip Ql (U)Ordered By: Donnie Shepard on 10-08-2023 Urobilinogen Ql (U) Normal mg/dl Normal [facility] Basophil percentageOrdered B y: Deloris Landen on 07-24-2023 Basophil percentage 3.1 mg/dL 2.5-4.9 [facility] Chlor[facility] [Moles/Vol] 106 mmol/L 98-107 [facility] Glucose [Mass/Vol] 95 mg/dL 74-106 [facility] Potassium [Moles/Vol] 4.1 mmol/L 3.5-5.1 [facility] Sodium [Moles/Vol] 138 mmol/L 136-145 [facility] WBC (Bld) [#/Vol] 5.9 10*3/uL 4.4-11.0 [facility] Blood erythrocytes count (nu mber/volume)Ordered By: Deloris Schuster on 07-24-2023 RBC (Bld) [#/Vol] 4.69 10*6/uL 4.2-5.4 [facility] Blood hemoglobin measurement (mass/volume)Ordered By: Deloris Schuster on 07-24-2023 Hemoglobin (Bld) [Mass/Vol] 14.1 g/dL 12.0-15.0 [facility] Blood platelet mean volumeOr dered By: Deloris Schuster on 07-24-2023 Platelet mean volume (Bld) [Entitic vol] 9.7 fL 6.2-12.0 [facility] Determination of erythrocyte mean corpuscular volume (MCV)Ordered By: Deloris Schuster on 07-24-2023 MCV (RBC) [Entitic vol] 91.0 fL 81-99 [facility] Hematocrit Auto (Bld) [Volum e fraction]Ordered By: Deloris Schuster on 07-24-2023 Hematocrit (Bld) [Volume fraction] 42.7 % 37-47 [facility] Laboratory - Chemistry and C hemistry - challengeOrdered By: Deloris Schuster on 07-24-2023 CO2 [Moles/Vol] 23.0 mmol/L 21.0-32.0 [facility] Urea nitrogen/Creatinine [Mass ratio] 24.1 mg/mg 10-20 [facility] Laboratory - Hematology and Cell countsOrdered By: Deloris Schuster on 07-24-2023 Erythrocyte distribution width (RBC) [Entitic vol] 47.1 fL 35.1-43.9 [facility] Erythrocyte distribution width (RBC) [Ratio] 14.2 % 11.6-14.6 [facility] MCH (RBC) [Entitic mass] 30.1 pg 27.0-32.0 [facility] Auto (RBC) [Mass/Vol]Or dered By: Deloris Schuster on 07-24-2023 MCHC (RBC) [Mass/Vol] 33.0 g/dL 32-36 [facility] No Panel InformationOrdered By: Deloris Schuster on 07-24-2023 Estimated GFR (MDRD) Amer 88 mL/min >60 [facility] Comment on above: GFR Calc Estimated GFR (MDRD) Non-Af Amer 72 mL/min >60 [facility] Comment on above: Non- GFR Calc Parathyroid Hormone (Intact) 48.3 pg/mL 18.4-80.1 [facility] Urine Microalbumin/Creatinin e Ratio 171.9 mg/g CRE <30 [facility] Vitamin D 25-Hydroxy 44.7 ng/mL [facility] Comment on above: Vitamin D 25(OH) Sta tus Range Deficiency <20 ng/mL (50nmol/L) Insufficiency 20 - 30 ng/mL (50 - 75 nmol/L) Sufficiency 30 - 100 ng/mL (75 - 250 nmol/L) Toxicity >100 ng/mL (>250 nmol/L) Platelets bldOrdered By: Thony Schuster on 07-24-2023 Platelets (Bld) [#/Vol] 300 10*3/uL 150-450 [facility] Serum or plasma albumin ophelia urement (mass/volume)Ordered By: Deloris Schuster on 07-24-2023 Albumin [Mass/Vol] 4.0 g/dL 3.2-5.0 [facility] Serum or plasma calcium ophelia urement (mass/volume)Ordered By: Deloris Schuster on 07-24-2023 Calcium [Mass/Vol] 9.1 mg/dL 8.5-10.1 [facility] Serum or plasma creatinine m easurement (mass/volume)Ordered By: Deloris Schuster on 07-24-2023 Creatinine [Mass/Vol] 0.83 mg/dL 0.55-1.02 [facility] Comment on above: The validity of the calculated GFR & GFRAA in patients over 70 years has not been determined. Clinical correlation is essential. Serum or plasma urea nitroge n measurement (mass/volume)Ordered By: Deloris Schuster on 07-24-2023 Urea nitrogen [Mass/Vol] 20 mg/dL 7-18 [facility] Thin prep Papanicolaou smear with manual screeningOrdered By: [place] Landen on 07-24-2023 Thin prep Papanicolaou smear with manual screening 152.0 mg/L NO RANGE EST. [facility] Urine creatinine measurement (mass/volume)Ordered By: Deloris Schuster on 07-24-2023 Creatinine (U) [Mass/Vol] 88.40 mg/dL NO RANGE EST. [facility] Urine protein measurement (m ass/volume)Ordered By: [place] Landen on 07-24-2023 Protein (U) [Mass/Vol] 36.3 mg/dL 0.0-11.8 [facility] Urine protein/creatinine mas s ratioOrdered By: [place] Landen on 07-24-2023 Protein/Creatinine (U) [Mass ratio] 411 mg/g CRE 0-200 [facility] Absolute lymphocyte countOrd ered By: Devin Bloom on 04-28-2023 Lymphocytes Auto (Unsp spec) [#/Vol] 1.10 10*3/uL 0.83-4.51 [facility] Basophil percentageOrdered B y: Devin Bloom on 04-28-2023 Basophils/100 WBC (Bld) 0.7 % 0-1 [facility] Bilirubin [Mass/Vol] 0.40 mg/dL 0.20-1.00 [facility] Comment on above: For patients on eltr ombopag therapy, use of Dimension Roland TBIL is not recommended. Chloride [Moles/Vol] 107 mmol/L 98-107 [facility] Cholesterol [Mass/Vol] 178 mg/dL <200 [facility] Comment on above: <200 mg/dL Desirable 200-240 mg/dL Borderline >240 mg/dL High Risk Eosinophils/100 WBC (Bld) 5.0 % 0-5 [facility] Glucose [Mass/Vol] 102 mg/dL 74-106 [facility] Comment on above: Fasting Glucose resu lt from 100 to 125 mg/dL suggests IMPAIRED HOMEOSTASIS per A.D.A. criteria. Neutrophils (Bld) [#/Vol] 3.3 10*3/uL 2.0-7.7 [facility] Neutrophils/100 WBC (Bld) 61.8 % 47-70 [facility] Potassium [Moles/Vol] 4.0 mmol/L 3.5-5.1 [facility] Protein [Mass/Vol] 7.3 g/dL 6.4-8.2 [facility] Sodium [Moles/Vol] 137 mmol/L 136-145 [facility] Triglyceride [Mass/Vol] 106 mg/dL <199 [facility] Comment on above: The drugs N-Acetylcy steine and Metamizole may falsely depress this assay.Serum Triglycerides Reference Interval Normal <150 mg/dL Borderline high 150 - 199 mg/dL High 200 - 499 mg/dL Very High > or = 500 mg/dL WBC (Bld) [#/Vol] 5.4 10*3/uL 4.4-11.0 [facility] Blood erythrocytes count (nu mber/volume)Ordered By: Devin Bloom on 04-28-2023 RBC (Bld) [#/Vol] 4.48 10*6/uL 4.2-5.4 [facility] Blood hemoglobin measurement (mass/volume)Ordered By: Devin Bloom on 04-28-2023 Hemoglobin (Bld) [Mass/Vol] 13.6 g/dL 12.0-15.0 [facility] Blood lymphocytes/100 leukoc ytesOrdered By: Devin Bloom on 04-28-2023 Lymphocytes/100 WBC (Bld) 20.4 % 19-41 [facility] Blood monocytes/100 leukocyt esOrdered By: Devin Bloom on 04-28-2023 Monocytes/100 WBC (Bld) 11.7 % 0-10 [facility] Blood platelet mean volumeOr dered By: Devin Bloom on 04-28-2023 Platelet mean volume (Bld) [Entitic vol] 10.0 fL 6.2-12.0 [facility] Determination of erythrocyte mean corpuscular volume (MCV)Ordered By: Devin Bloom on 04-28-2023 MCV (RBC) [Entitic vol] 91.5 fL 81-99 [facility] Hematocrit Auto (Bld) [Volum e fraction]Ordered By: Devin Bloom on 04-28-2023 Hematocrit (Bld) [Volume fraction] 41.0 % 37-47 [facility] Laboratory - Chemistry and C hemistry - challengeOrdered By: Devin Bloom on 04-28-2023 ALP [Catalytic activity/Vol] 68 U/L 45-117 [facility] ALT [Catalytic activity/Vol] 23 U/L 13-56 [facility] CO2 [Moles/Vol] 23.0 mmol/L 21.0-32.0 [facility] Cobalamin (Vitamin B12) [Mass/Vol] 651 pg/mL 211-911 [facility] Globulin (S) [Mass/Vol] 3.5 g/dL 2.2-4.2 [facility] Urea nitrogen/Creatinine [Mass ratio] 26.5 mg/mg 10-20 [facility] Laboratory - Hematology and Cell countsOrdered By: Devin Bloom on 04-28-2023 Erythrocyte distribution width (RBC) [Entitic vol] 46.5 fL 35.1-43.9 [facility] Erythrocyte distribution width (RBC) [Ratio] 13.8 % 11.6-14.6 [facility] Immature granulocytes/100 WBC (Bld) 0.400 % 0.0-0.9 [facility] Comment on above: IG% - Immature Granu locytes (promyelocytes, myelocytes and metamyelocytes) > 1% indicates that a LEFT SHIFT is Present. MCH (RBC) [Entitic mass] 30.4 pg 27.0-32.0 [facility] Nucleated RBC/100 WBC (Bld) [Ratio] 0 % 0-5 [facility] MCHC Auto (RBC) [Mass/Vol]Or dered By: Devin Bloom on 04-28-2023 MCHC (RBC) [Mass/Vol] 33.2 g/dL 32-36 [facility] No Panel InformationOrdered By: Devin Bloom on 04-28-2023 Acetylcholine Receptor Antibody < 0.03 nmol/L 0.00-0.24 [facility] Comment on above: Negative: 0.00 - 0.2 4 Borderline: 0.25 - 0.40 Positive: >0.40Performed at: [id number] [place], [place] [id number] Director: Todd Jackson MD, Phone: [phone] Estimated GFR (MDRD) Amer 126 mL/min >60 [facility] Comment on above: GFR Calc Estimated GFR (MDRD) Non-Af Amer 104 mL/min >60 [facility] Comment on above: Non- GFR Calc Miscellaneous Test See comment [facility] Comment on above: TEST RESULT LIMITSMu SK Abs, Serum MuSK Abs, Serum <1.0 U/mL Reference Range: Negative: <1.0 Positive: 1.0 or higher A positive result, in the context of congruent clinical findings, confirms the diagnosis of autoimmune MuSK myasthenia gravis.COMMENTS: - Myasthenia gravis (MG) is caused by auto-antibodies against proteins of the neuromuscular junction. Most cases (about 90%) of generalized MG are anti- acetylcholine receptor (AChR) antibody-positive.(1) - Of generalized MG patients who lack anti-AChR antibodies (AChR-seronegative), about 40% are positive for Muscle- Specific Kinase (MuSK) antibody.(1,2) - Though a positive MuSK result is specific for the diagnosis of MuSK MG, a negative MuSK result does not rule out a MG diagnosis. - MuSK antibody levels have been shown to correlate with disease severity.(3) Serial measurements may be useful to follow treatment.References:1. Pam-Dionna S et al. J Autoimmunity 2014;52:90-100.2. Aniyah MEEK et al. PNAS 2013;110(63);20361-45680.3. Baldemar E et al. Neurology 2006;67:505-507.This test was developed and its performance characteristicsdetermined by [employer] It has not been cleared or approvedby the Food and Drug Administration. TESTING PERFORMED AT [employer]. ORIGINAL REPORT ON FILE IN LAB CONTAINS ADDITIONAL TEST SITE INFORMATION. Thyroid Stimulating Hormone (TSH) 1.03 uIU/mL 0.358-3.74 [facility] Vitamin D 25-Hydroxy 40.0 ng/mL [facility] Comment on above: Vitamin D 25(OH) Sta tus Range Deficiency <20 ng/mL (50nmol/L) Insufficiency 20 - 30 ng/mL (50 - 75 nmol/L) Sufficiency 30 - 100 ng/mL (75 - 250 nmol/L) Toxicity >100 ng/mL (>250 nmol/L) Platelets bldOrdered By: Edith Bloom on 04-28-2023 Platelets (Bld) [#/Vol] 255 10*3/uL 150-450 [facility] Serum or plasma albumin ophelia urement (mass/volume)Ordered By: Devin Bloom on 04-28-2023 Albumin [Mass/Vol] 3.8 g/dL 3.2-5.0 [facility] Serum or plasma albumin/glob ulin mass ratioOrdered By: Devin Bloom on 04-28-2023 Albumin/Globulin [Mass ratio] 1.1 {ratio} 0.9-2.4 [facility] Serum or plasma calcium ophelia urement (mass/volume)Ordered By: Devin Bloom on 04-28-2023 Calcium [Mass/Vol] 8.9 mg/dL 8.5-10.1 [facility] Serum or plasma cholesterol in HDL measurement (mass/volume)Ordered By: Devin Bloom on 04-28-2023 Cholesterol in HDL [Mass/Vol] 49 mg/dL >40 [facility] Comment on above: The drugs N-Acetylcy steine and Metamizole may falsely depress this assay. Reference Range HDL <40 mg/dL Low HDL Cholesterol HDL >or= 60 mg/dL High HDL Cholesterol Serum or plasma cholesterol in VLDL measurement (mass/volume)Ordered By: Devin Bloom on 04-28-2023 Cholesterol in VLDL [Mass/Vol] 21 mg/dL 5-40 [facility] Serum or plasma creatinine m easurement (mass/volume)Ordered By: Devin Bloom on 04-28-2023 Creatinine [Mass/Vol] 0.60 mg/dL 0.55-1.02 [facility] Comment on above: The validity of the calculated GFR & GFRAA in patients over 70 years has not been determined. Clinical correlation is essential. Serum or plasma low density lipoprotein (LDL) cholesterol measurement (mass/volume)Ordered By: Devin Bloom on 04-28-2023 Cholesterol in LDL [Mass/Vol] 108 mg/dL 0-130 [facility] Serum or plasma urea nitroge n measurement (mass/volume)Ordered By: Devin Bloom on 04-28-2023 Urea nitrogen [Mass/Vol] 16 mg/dL 7-18 [facility] Thin prep Papanicolaou smear with manual screeningOrdered By: Devin Bloom on 04-28-2023 Thin prep Papanicolaou smear with manual screening 13 U/L 15-37 [facility] Thin prep Papanicolaou smear with manual screening 7 5-15 [facility] CNOVSPon 01-11-2020 CNOVSP Visit (SP) Office (H EMAWS) FERDINAND FELICIANO ([id number]) 1955 F Date Time Provider Department 01/11/20 4:20 PM ISIDORO CAMARGO During your visit today, we recorded the following information about you: Temperature Pulse Blood pressure Weight 97.9 degrees 80/minute 128/59 97.3 kg Laura Garsia LPN 01/11/2020 4:35 PM Signed Est patient. Two week OV. Laura Camargo DO 01/11/2020 4:48 PM Signed Diagnosis: 1) CKD. HPI: The patient is a 64 yo female with a past medical history significant for CKD, nephrolithiasis, hypertension, obesity and osteoarthritis of the knees. Patient was referred to nephrology for an increase in serum creatinine to 1.08 mg/dL in August 2019 associated with albuminuria with a microalbumin to creatinine ratio of 351. Serum protein electrophoresis on 11/01/2019 revealed no monoclonal spike. Immunofixation not performed. Urine protein electrophoresis demonstrated an asymmetrical gamma. No immunofixation performed. Labs were done through [facility]. Repeat serum creatinine on 11/01/2019 was 0.88 mg/dL. Diagnosed with HTN in 02/2019. Didn't have regular health care piror to that. Presents for ongoing hematologic management. Interim history: No complaints today. PMH, medications and allergies personally reviewed by me today. Any changes documented in appropriate section. ROS: Constitutional: Denies episodes of fever and night sweats. Not significantly fatigued. Normal appetite. Neuro: Denies LEUNG, vertigo, dizziness and imbalance. Denies symptoms of neuropathy. HEENT: No recent change in voice, vision or hearing. Resp: Denies cough, wheeze and hemoptysis. Denies shortness of breath at rest. Denies SON. CVS: Denies exertional chest pain, PND, orthopnea and LE edema. GI: Denies dysgeusia. Denies symptoms of stomatitis. Denies dysphagia and odynophagia. Denies reflux, n/v, change in bowel habits and abdominal pain. : Denies dysuria or gross hematuria. No symptoms of bladder outlet obstruction. Endo: Denies hot flashes. Denies polyuria and polydipsia. Denies heat and cold intolerance. Musculoskeletal: Denies bone, back and muscular pain. Has OA both knees and will require b/l knee replacement. Derm: Denies rash. Denies jaundice and diffuse pruritis. Heme: Denies unusual bleeding and unexplained bruising. Psych: Normal mood. Family history: Mother--Colon cancer at about age 70. Treated with surgery. Lived to be 89. PHYSICAL EXAM: Vitals: Blood pressure 128/59, pulse 80, temperature 36.6 ?C (97.9 ?F), temperature source Temporal, weight 97.3 kg (214 lb 8 oz). Well-appearing and in no acute distress. EYES: Sclerae are anicteric bilaterally. NECK: Supple. No enlargement of thyroid. LYMPHATIC: There is no palpable cervical or supraclavicular adenopathy. RESPIRATORY: Inspiratory breath sounds are of normal intensity in all root. No rales, wheezes or rhonchi. Expiratory phase is normal. CARDIOVASCULAR: Rhythm is regular. Normal intensity S1/S2. There is no gallop or murmur. ABDOMEN: The abdomen is nondistended. No organomegaly. No tenderness. Extremities: No swelling or edema. SKIN: No jaundice or rash. No petechiae. NEUROLOGIC: career coach II-XII are grossly intact. No focal motor weakness. MUSCULOSKELETAL: No joint swelling or tenderness. No muscle wasting. LABS: Component Latest Ref Rng AND Units 12/21/2019 WBC 3.70 - 11.00 k/uL 7.83 RBC 3.90 - 5.20 m/uL 4.57 Hemoglobin 11.5 - 15.5 g/dL 13.5 Hematocrit 36.0 - 46.0 % 40.9 MCV 80.0 - 100.0 fL 89.5 MCH 26.0 - 34.0 pG 29.5 MCHC 30.5 - 36.0 g/dL 33.0 RDW-CV 11.5 - 15.0 % 13.5 Platelet Count 150 - 400 k/uL 290 MPV 9.0 - 12.7 fL 9.7 Neut% % 62.9 Abs Neut (ANC) 1.45 - 7.50 k/uL 4.90 Lymph% % 21.3 Abs Lymph 1.00 - 4.00 k/uL 1.67 Lyon% % 9.3 Abs Lyon <0.87 k/uL 0.73 Eosin% % 5.9 Abs Eosin <0.46 k/uL 0.46 (H) Baso% % 0.6 Abs Baso <0.11 k/uL 0.05 Nucleated Reds 0 /100 WBC 0.0 Absolute nRBC <0.01 k/uL <0.01 Diff Type Auto Diff Protein, Total 6.3 - 8.0 g/dL 7.1 Albumin 3.9 - 4.9 g/dL 4.3 Calcium 8.5 - 10.2 mg/dL 9.4 Bilirubin, Total 0.2 - 1.3 mg/dL 0.3 Alkaline Phosphatase 34 - 123 U/L 70 AST 13 - 35 U/L 21 Glucose 74 - 99 mg/dL 128 (H) BUN 7 - 21 mg/dL 18 Creatinine 0.58 - 0.96 mg/dL 0.65 Sodium 136 - 144 mmol/L 138 Potassium 3.7 - 5.1 mmol/L 3.8 Chloride 97 - 105 mmol/L 105 CO2 22 - 30 mmol/L 24 Anion Gap 9 - 18 mmol/L 9 ALT 7 - 38 U/L 18 eGFR- >60 eGFR-All Other Races . >60 Component Latest Ref Rng AND Units 12/21/2019 Protein, Total 6.0 - 8.4 g/dL 7.1 Albumin 3.37 - 4.23 gm/dL 3.92 Alpha 1 Globulin 0.18 - 0.31 gm/dL 0.24 Alpha 2 Globulin 0.52 - 0.97 gm/dL 0.79 Beta Globulin 0.84 - 1.36 gm/dL 1.07 Gamma Globulin 0.70 - 1.44 gm/dL 1.08 Interpretation (Prot Electro) SEE COMMENT M-Protein Location N/A M-Protein Concentration 0.00 gm/dL 0.00 SPE Staff Review Reviewed by Samuel Johnson MD ([id number]) Component Latest Ref Rng AND Units 12/21/2019 MPA IgG, Serum 717 - 1,411 mg/dL 992 MPA IgA, Serum 78 - 391 mg/dL 176 MPA IgM, Serum 53 - 334 mg/dL 51 (L) [place] Free, Serum 3.30 - 19.40 mg/L 14.9 Lambda Free, Serum 5.7 - 26.3 mg/L 13.1 K/L Ratio, Serum 0.26 - 1.65 1.14 MPA Result No M protein is identified. No M protein is identified. Staff Review (MPA) Reviewed by Samuel Johnson MD ([id number]) Component Latest Ref Rng AND Units 12/25/2019 Protein Conc, 24 Hr Ur 0 - 20 mg/dL 43 (H) Protein, 24 Hr Ur (UEPG24) <0.16 gm/24 Hr 0.84 (H) Albumin %, 24 Hr Urine % 55.6 Alpha 1 Globulin %, 24 Hr Ur % 1.2 Alpha 2 Globulin %, 24 Hr Ur % 8.5 Beta Globulin %, 24 Hr Ur % 23.6 Gamma Globulin %, 24 Hr Ur % 11.2 Interpretation (UEPG24) No definitive M protein is identified on protein electrophoresis. M Jorge Quant, 24 Hr Urine 0.00 gm/24 Hr 0.00 Staff Review (UEPG24) Reviewed by Ann Marie Costello MD. ([id number]) Component Latest Ref Rng AND Units 12/25/2019 Result ([facility]) No M protein is identified. No M protein is identified. Staff Review ([facility]) Reviewed by Ann Marie Costello MD. ([id number]) ASSESSMENT/PLAN: (R80.9) Proteinuria, unspecified type (primary encounter diagnosis) Assessment: -In summary the patient is a 64-year-old female who did not have routine healthcare until about a year ago when she was initially diagnosed with hypertension. -Lab work fall 2018 demonstrated mild increase in serum creatinine and she was referred to nephrology. Workup raised question of possible urine monoclonal protein. -Blood pressure under good control. -Reviewed labs--no evidence monoclonal protein in serum or 24 hour urine collection by both electrophoresis and immunofixation. -General proteinuria. -Reviewed lab work in detail. Plan: -No hematologic follow up indicated for now. -Continue hypertension management with PCP and nephrology. Total [id number]-cx-janp time was >15 minutes with greater than 10 minutes spent discussing the issues outlined above and/or coordinating care. Isidoro Camargo DO Referring Provider: ISIDORO CAMARGO [[id number]] Allergies As of Date: 01/11/2020 Noted Allergy Reaction CONTRAST DYE 03/25/2007 Date Reviewed: 01/11/2020 Reviewed by: Laura Garsia LPN - Fully Assessed Reason for Visit: Established Patient [[id number]] Primary Visit Diagnosis:Proteinuria, unspecified type [R80.9] Follow-up and Disposition History Recorded Prescriptions as of 01/11/2020 Sig: LISINOPRIL 10 MG TABLET Take 10 mg by mouth once camilo* MULTIVITAMIN TABLET Take 1 tablet by mouth once d* TURMERIC ORAL Take 1 tablet by mouth once d* APPLE CIDER VINEGAR ORAL Take 1 capsule by mouth once * VITAMIN D2 ORAL Take 1 tablet by mouth once d* Problem List As Of Date 01/11/2020 Noted Resolved CALCULUS OF KIDNEY [N20.0] 04/12/2007 CALCULUS OF URETER [N20.1] 10/11/2007 FB BLADDER AND URETHRA [T19.1XXA, T19.0XXA] 11/26/2007 Visit Notes: >> Laura Garsia LPN ThuJan 11, 2020 4:12 PM Status: Signed Est patient. Two week OV. Laura Garsia LPN Encounter Status:Closed by ISIDORO CAMARGO DO on 01/11/20 Normal [facility] PROGRESSon 01-11-2020 PROGRESS HNO ID: [id number] Author: Isidoro Camargo Service: ? Author Type: Physician Type: Progress Notes Filed: 01/11/2020 4:48 PM Note Text: Diagnosis: 1) CKD. HPI: The patient is a 64 yo female with a past medical history significant for CKD, nephrolithiasis, hypertension, obesity and osteoarthritis of the knees. Patient was referred to nephrology for an increase in serum creatinine to 1.08 mg/dL in August 2019 associated with albuminuria with a microalbumin to creatinine ratio of 351. Serum protein electrophoresis on 11/01/2019 revealed no monoclonal spike. Immunofixation not performed. Urine protein electrophoresis demonstrated an asymmetrical gamma. No immunofixation performed. Labs were done through [facility]. Repeat serum creatinine on 11/01/2019 was 0.88 mg/dL. Diagnosed with HTN in 02/2019. Didn't have regular health care piror to that. Presents for ongoing hematologic management. Interim history: No complaints today. PMH, medications and allergies personally reviewed by me today. Any changes documented in appropriate section. ROS: Constitutional: Denies episodes of fever and night sweats. Not significantly fatigued. Normal appetite. Neuro: Denies LEUNG, vertigo, dizziness and imbalance. Denies symptoms of neuropathy. HEENT: No recent change in voice, vision or hearing. Resp: Denies cough, wheeze and hemoptysis. Denies shortness of breath at rest. Denies SON. CVS: Denies exertional chest pain, PND, orthopnea and LE edema. GI: Denies dysgeusia. Denies symptoms of stomatitis. Denies dysphagia and odynophagia. Denies reflux, n/v, change in bowel habits and abdominal pain. : Denies dysuria or gross hematuria. No symptoms of bladder outlet obstruction. Endo: Denies hot flashes. Denies polyuria and polydipsia. Denies heat and cold intolerance. Musculoskeletal: Denies bone, back and muscular pain. Has OA both knees and will require b/l knee replacement. Derm: Denies rash. Denies jaundice and diffuse pruritis. Heme: Denies unusual bleeding and unexplained bruising. Psych: Normal mood. Family history: Mother--Colon cancer at about age 70. Treated with surgery. Lived to be 89. PHYSICAL EXAM: Vitals: Blood pressure 128/59, pulse 80, temperature 36.6 ?C (97.9 ?F), temperature source Temporal, weight 97.3 kg (214 lb 8 oz). Well-appearing and in no acute distress. EYES: Sclerae are anicteric bilaterally. NECK: Supple. No enlargement of thyroid. LYMPHATIC: There is no palpable cervical or supraclavicular adenopathy. RESPIRATORY: Inspiratory breath sounds are of normal intensity in all root. No rales, wheezes or rhonchi. Expiratory phase is normal. CARDIOVASCULAR: Rhythm is regular. Normal intensity S1/S2. There is no gallop or murmur. ABDOMEN: The abdomen is nondistended. No organomegaly. No tenderness. Extremities: No swelling or edema. SKIN: No jaundice or rash. No petechiae. NEUROLOGIC: career coach II-XII are grossly intact. No focal motor weakness. MUSCULOSKELETAL: No joint swelling or tenderness. No muscle wasting. LABS: Component Latest Ref Rng AND Units 12/21/2019 WBC 3.70 - 11.00 k/uL 7.83 RBC 3.90 - 5.20 m/uL 4.57 Hemoglobin 11.5 - 15.5 g/dL 13.5 Hematocrit 36.0 - 46.0 % 40.9 MCV 80.0 - 100.0 fL 89.5 MCH 26.0 - 34.0 pG 29.5 MCHC 30.5 - 36.0 g/dL 33.0 RDW-CV 11.5 - 15.0 % 13.5 Platelet Count 150 - 400 k/uL 290 MPV 9.0 - 12.7 fL 9.7 Neut% % 62.9 Abs Neut (ANC) 1.45 - 7.50 k/uL 4.90 Lymph% % 21.3 Abs Lymph 1.00 - 4.00 k/uL 1.67 Lyon% % 9.3 Abs Lyon <0.87 k/uL 0.73 Eosin% % 5.9 Abs Eosin <0.46 k/uL 0.46 (H) Baso% % 0.6 Abs Baso <0.11 k/uL 0.05 Nucleated Reds 0 /100 WBC 0.0 Absolute nRBC <0.01 k/uL <0.01 Diff Type Auto Diff Protein, Total 6.3 - 8.0 g/dL 7.1 Albumin 3.9 - 4.9 g/dL 4.3 Calcium 8.5 - 10.2 mg/dL 9.4 Bilirubin, Total 0.2 - 1.3 mg/dL 0.3 Alkaline Phosphatase 34 - 123 U/L 70 AST 13 - 35 U/L 21 Glucose 74 - 99 mg/dL 128 (H) BUN 7 - 21 mg/dL 18 Creatinine 0.58 - 0.96 mg/dL 0.65 Sodium 136 - 144 mmol/L 138 Potassium 3.7 - 5.1 mmol/L 3.8 Chloride 97 - 105 mmol/L 105 CO2 22 - 30 mmol/L 24 Anion Gap 9 - 18 mmol/L 9 ALT 7 - 38 U/L 18 eGFR- >60 eGFR-All Other Races . >60 Component Latest Ref Rng AND Units 12/21/2019 Protein, Total 6.0 - 8.4 g/dL 7.1 Albumin 3.37 - 4.23 gm/dL 3.92 Alpha 1 Globulin 0.18 - 0.31 gm/dL 0.24 Alpha 2 Globulin 0.52 - 0.97 gm/dL 0.79 Beta Globulin 0.84 - 1.36 gm/dL 1.07 Gamma Globulin 0.70 - 1.44 gm/dL 1.08 Interpretation (Prot Electro) SEE COMMENT M-Protein Location N/A M-Protein Concentration 0.00 gm/dL 0.00 SPE Staff Review Reviewed by Samuel Johnson MD ([id number]) Component Latest Ref Rng AND Units 12/21/2019 MPA IgG, Serum 717 - 1,411 mg/dL 992 MPA IgA, Serum 78 - 391 mg/dL 176 MPA IgM, Serum 53 - 334 mg/dL 51 (L) [place] Free, Serum 3.30 - 19.40 mg/L 14.9 Lambda Free, Serum 5.7 - 26.3 mg/L 13.1 K/L Ratio, Serum 0.26 - 1.65 1.14 MPA Result No M protein is identified. No M protein is identified. Staff Review ([facility]A) Reviewed by Samuel Johnson MD ([id number]) Component Latest Ref Rng AND Units 12/25/2019 Protein Conc, 24 Hr Ur 0 - 20 mg/dL 43 (H) Protein, 24 Hr Ur (UEPG24) <0.16 gm/24 Hr 0.84 (H) Albumin %, 24 Hr Urine % 55.6 Alpha 1 Globulin %, 24 Hr Ur % 1.2 Alpha 2 Globulin %, 24 Hr Ur % 8.5 Beta Globulin %, 24 Hr Ur % 23.6 Gamma Globulin %, 24 Hr Ur % 11.2 Interpretation (UEPG24) No definitive M protein is identified on protein electrophoresis. M Jorge Quant, 24 Hr Urine 0.00 gm/24 Hr 0.00 Staff Review ([facility]) Reviewed by Ann Marie Costello MD. ([id number]) Component Latest Ref Rng AND Units 12/25/2019 Result ([facility]) No M protein is identified. No M protein is identified. Staff Review ([facility]) Reviewed by Ann Marie Costello MD. ([id number]) ASSESSMENT/PLAN: (R80.9) Proteinuria, unspecified type (primary encounter diagnosis) Assessment: -In summary the patient is a 64-year-old female who did not have routine healthcare until about a year ago when she was initially diagnosed with hypertension. -Lab work fall 2018 demonstrated mild increase in serum creatinine and she was referred to nephrology. Workup raised question of possible urine monoclonal protein. -Blood pressure under good control. -Reviewed labs--no evidence monoclonal protein in serum or 24 hour urine collection by both electrophoresis and immunofixation. -General proteinuria. -Reviewed lab work in detail. Plan: -No hematologic follow up indicated for now. -Continue hypertension management with PCP and nephrology. Total cgdu-lo-rgol time was >15 minutes with greater than 10 minutes spent discussing the issues outlined above and/or coordinating care. Isidoro Camargo, Normal [facility] Monoclon Prot 24 Uron 2019 Protein [Mass/Vol] No M protein is identified. Normal No M protein is identified . [facility] Comment on above: Performed By: #### U 24MPA, [id number] #### [facility] [address] [place], [place] [address] [facility] Staff Review Reviewed by Ann Marie Costello MD. ([id number]) Normal [facility] Comment on above: Performed By: #### U 24MPA, [id number] #### [facility] [address] [place] [id number] Period / Volumeon 12-25-2019 Collection End Date [id number] Normal [facility] Comment on above: Performed By: #### U 24MPA, [id number] #### [facility] [address] [place] [phone] Collection End Time 0630 Normal [facility] Comment on above: Performed By: #### U 24MPA, [id number] #### [facility] [address] [place] [phone] Collection Start Date [facility] Comment on above: Performed By: #### U 24MPA, [id number] #### [facility] [address] [place] [phone] Collection Start Time 0630 [facility] Comment on above: Performed By: #### U 24MPA, [id number] #### [facility] [address] [place] [phone] Period 24 hr Normal [facility] Comment on above: Performed By: #### U 24MPA, [id number] #### [facility] [address] [place] [phone] Volume 1950 mL Normal [facility] Comment on above: Performed By: #### U 24MPA, [id number] #### [facility] [address] [place] [phone] Prot Elect Ur 24 hron 2019 Albumin, 24 hr 55.6 % Normal [facility] Comment on above: Performed By: #### U 24MPA, [id number] #### [facility] [address] [phone] Alpha 1 Globul, 24hr 1.2 % Normal [facility] Comment on above: Performed By: #### U 24MPA, [id number] #### [facility] [address] [phone] Alpha 2 Globul, 24hr 8.5 % Normal [facility] Comment on above: Performed By: #### U 24MPA, [id number] #### [facility] [address] [place] [phone] Beta Globulin, 24hr 23.6 % Normal [facility] Comment on above: Performed By: #### U 24MPA, [id number] #### [place] [address] [place] [phone] Gamma Globulin, 24hr 11.2 % Normal [facility] Comment on above: Performed By: #### U 24MPA, [id number] #### [place] [address] [place] [address] Interpretation, 24hr No definitive M pro tein is identified on protein electrophoresis. Normal [facility] Comment on above: Performed By: #### U 24MPA, [id number] #### [place] [address] [place] [address] M Jorge Quant/24 Hr 0.00 gm/24 Hr Normal 0.00 [facility] Comment on above: Performed By: #### U 24MPA, [id number] #### [place] [address] [place], [place] [address] Protein (U) [Mass/Vol] 0.84 gm/24 Hr High <0.16 [facility] Comment on above: Performed By: #### U 24MPA, [id number] #### [place] [address] [place], [place] [address] Protein [Mass/Vol] 43 mg/dL High 0-20 [facility] Comment on above: Performed By: #### U 24MPA, [id number] #### [place] [address] [place], [place] [address] Staff Review, 24hr Reviewed by Ann Marie Costello MD. ([id number]) Normal [facility] Comment on above: Performed By: #### U 24MPA, [id number] #### [facility] [address] [place], [place] [address] CBC and Differentialon 12-21 Abs Baso 0.05 k/uL Normal <0.11 [facility] Abs Lyon 0.73 k/uL Normal <0.87 [facility] Abs Neut 4.90 k/uL Normal 1.45-7.50 [facility] Absolute nRBC <0.01 Normal <0.01 [facility] Basophils/100 WBC (Bld) 0.6 % Normal [facility] DTYPE Auto Diff Normal [facility] Eosinophils (Bld) [#/Vol] 0.46 10*3/uL High <0.46 [facility] Eosinophils/100 WBC (Bld) 5.9 % Normal [facility] Erythrocyte distribution width (RBC) [Ratio] 13.5 % Normal 11.5-15.0 [facility] Hematocrit (Bld) [Volume fraction] 40.9 % Normal 36.0-46.0 [facility] Hemoglobin (Bld) [Mass/Vol] 13.5 g/dL Normal 11.5-15.5 [facility] Lymphocytes (Bld) [#/Vol] 1.67 10*3/uL Normal 1.00-4.00 [facility] Lymphocytes/100 WBC (Bld) 21.3 % Normal [facility] MCH (RBC) [Entitic mass] 29.5 pG Normal 26.0-34.0 [facility] MCHC (RBC) [Mass/Vol] 33.0 g/dL Normal 30.5-36.0 [facility] MCV (RBC) [Entitic vol] 89.5 fL Normal 80.0-100.0 [facility] Monocytes/100 WBC (Bld) 9.3 % Normal [facility] Neutrophils/100 WBC (Bld) 62.9 % Normal [facility] NRBCs 0.0 /100 WBC Normal 0 [facility] Platelet mean volume (Bld) [Entitic vol] 9.7 fL Normal 9.0-12.7 [facility] Platelets (Bld) [#/Vol] 290 10*3/uL Normal 150-400 [facility] RBC (Bld) [#/Vol] 4.57 10*6/uL Normal 3.90-5.20 [facility] WBC (Bld) [#/Vol] 7.83 10*3/uL Normal 3.70-11.00 [facility] CNOVSPon 12-21-2019 CNOVSP Visit (SP) Office (H EMAWS) FERDINADN FELICIANO ([id number]) 1955 F Date Time Provider Department 12/21/19 3:00 PM ISIDORO CAMARGO During your visit today, we recorded the following information about you: Temperature Pulse Blood pressure Weight 97.8 degrees 89/minute 110/65 97.5 kg Height 1.568 m Isidoro Camargo DO 12/21/2019 3:40 PM Signed Consult requested by Dr. Juares for my opinion recommendations regarding a patient with a monoclonal protein. The impression and plan will be communicated by way of the shared electronic record. HPI: The patient is a 64 yo female with a past medical history significant for CKD, nephrolithiasis, hypertension, obesity and osteoarthritis of the knees. Patient was referred to nephrology for an increase in serum creatinine to 1.08 mg/dL in August 2019 associated with albuminuria with a microalbumin to creatinine ratio of 351. Serum protein electrophoresis on 11/01/2019 revealed no monoclonal spike. Immunofixation not performed. Urine protein electrophoresis demonstrated an asymmetrical gamma. No immunofixation performed. Labs were done through [facility]. Repeat serum creatinine on 11/01/2019 was 0.88 mg/dL. Diagnosed with HTN in 02/2019. Didn't have regular health care piror to that. PMH, medications and allergies personally reviewed by me today. Any changes documented in appropriate section. ROS: Constitutional: Denies episodes of fever and night sweats. Not significantly fatigued. Normal appetite. Neuro: Denies LEUNG, vertigo, dizziness and imbalance. Denies symptoms of neuropathy. HEENT: No recent change in voice, vision or hearing. Resp: Denies cough, wheeze and hemoptysis. Denies shortness of breath at rest. Denies SON. CVS: Denies exertional chest pain, PND, orthopnea and LE edema. GI: Denies dysgeusia. Denies symptoms of stomatitis. Denies dysphagia and odynophagia. Denies reflux, n/v, change in bowel habits and abdominal pain. : Denies dysuria or gross hematuria. No symptoms of bladder outlet obstruction. Endo: Denies hot flashes. Denies polyuria and polydipsia. Denies heat and cold intolerance. Musculoskeletal: Denies bone, back and muscular pain. Has OA both knees and will require b/l knee replacement. Derm: Denies rash. Denies jaundice and diffuse pruritis. Heme: Denies unusual bleeding and unexplained bruising. Psych: Normal mood. Family history: Mother--Colon cancer at about age 70. Treated with surgery. Lived to be 94. PHYSICAL EXAM: Vitals: Blood pressure 110/65, pulse 89, temperature 36.6 ?C (97.8 ?F), temperature source Oral, height 156.8 cm (5' 1.75), weight 97.5 kg (215 lb). Well-appearing and in no acute distress. EYES: Sclerae are anicteric bilaterally. NECK: Supple. No enlargement of thyroid. LYMPHATIC: There is no palpable cervical or supraclavicular adenopathy. RESPIRATORY: Inspiratory breath sounds are of normal intensity in all root. No rales, wheezes or rhonchi. Expiratory phase is normal. CARDIOVASCULAR: Rhythm is regular. Normal intensity S1/S2. There is no gallop or murmur. ABDOMEN: The abdomen is nondistended. No organomegaly. No tenderness. Extremities: No swelling or edema. SKIN: No jaundice or rash. No petechiae. NEUROLOGIC: career coach II-XII are grossly intact. No focal motor weakness. MUSCULOSKELETAL: No joint swelling or tenderness. No muscle wasting. ASSESSMENT/PLAN: (D47.2) Monoclonal gammopathy (primary encounter diagnosis) Assessment: -In summary the patient is a 64-year-old female who did not have routine healthcare until about a year ago when she was initially diagnosed with hypertension. Lab work this past fall demonstrated mild increase in serum creatinine and she was referred to nephrology. Workup raised question of possible urine monoclonal protein. She is on antihypertensive medication and is now normotensive. Plan: -Appropriate lab work and 24-hour urine collection for identification quantification of possible urine monoclonal protein. -Office visit following above to review. Isidoro Camargo DO Referring Provider: VERONICA JUARES) [[id number]] Allergies As of Date: 12/21/2019 Noted Allergy Reaction CONTRAST DYE 03/25/2007 Date Reviewed: 12/21/2019 Reviewed by: Kelsie Silva - Fully Assessed Reason for Visit: New Patient Evaluation [154] Primary Visit Diagnosis:Monoclonal gammopathy [D47.2] Order(s):KAPPA/DIAZ,FREE,SE R [SQKLFRS] Order #: [id number] FUTURE PROTEIN ELECTROPHORESIS W/INTERP [SQSEPG] Order #: [id number] FUTURE MONOCLONAL PROTEIN, SERUM (BLOOD) [SQSERMPA] Order #: [id number] FUTURE PROT ELEC UR 24HR W/M SPIKE AND INTERP [PYXDTZ47] Order #: [id number] FUTURE MONOCLONAL PROT 24 UR W/INTERP [[id number]] Order #: [id number] FUTURE CBC + DIFF [SQCBCDIF] Order #: [id number] FUTURE COMP METABOLIC PANEL [SQCMP] Order #: [id number] FUTURE Follow-up and Disposition History Recorded Prescriptions as of 12/21/2019 Sig: LISINOPRIL 10 MG TABLET Take 10 mg by mouth once camilo* MULTIVITAMIN TABLET Take 1 tablet by mouth once d* TURMERIC ORAL Take 1 tablet by mouth once d* APPLE CIDER VINEGAR ORAL Take 1 capsule by mouth once * VITAMIN D2 ORAL Take 1 tablet by mouth once d* Medication notes this encounter CODEINE 10 MG-GUAIFENESIN 100 MG/5 ML SYRUP >> Kelsie Silva MA 12/21/2019 2:44 PM >> KELSIE SILVA MA ThuDec 21, 2019 2:44 PM Completed TESSALON 200 MG CAPSULE >> Kelsie Silva MA 12/21/2019 2:44 PM >> KELSIE SILVA MA ThuDec 21, 2019 2:44 PM Completed Problem List As Of Date 12/21/2019 Noted Resolved CALCULUS OF KIDNEY [N20.0] 04/12/2007 CALCULUS OF URETER [N20.1] 10/11/2007 FB BLADDER AND URETHRA [T19.1XXA, T19.0XXA] 11/26/2007 Encounter Status:Closed by ISIDORO CAMARGO DO on 12/21/19 Normal [facility] Comp Metabolic Panelon 12-21 Albumin [Mass/Vol] 4.3 g/dL Normal 3.9-4.9 [facility] ALP [Catalytic activity/Vol] 70 U/L Normal 34-123 [facility] ALT [Catalytic activity/Vol] 18 U/L Normal 7-38 [facility] Anion gap [Moles/Vol] 9 mmol/L Normal 9-18 [facility] AST [Catalytic activity/Vol] 21 U/L Normal 13-35 [facility] Bilirubin [Mass/Vol] 0.3 mg/dL Normal 0.2-1.3 [facility] Calcium [Mass/Vol] 9.4 mg/dL Normal 8.5-10.2 [facility] Chloride [Moles/Vol] 105 mmol/L Normal 97-105 [facility] CO2 [Moles/Vol] 24 mmol/L Normal 22-30 [facility] Creatinine [Mass/Vol] 0.65 mg/dL Normal 0.58-0.96 [facility] eGFR- Amer. >60 Normal [facility] GFR/1.73 sq M predicted among non-blacks MDRD (S/P/Bld) [Vol rate/Area] mL/min/{1.73_m2} Normal [facility] Comment on above: Result Comment: eGFR (Estimated GFR) Units of measure: mL/min/1.73 meters squared eGFR is derived from the reexpressed MDRD Study equation using the following parameters: serum creatinine, age, gender and race. The creatinine assay has been calibrated to be traceable to IDMS. An eGFR <60 mL/min/1.73m2 for >3 months is consistent with chronic kidney disease. Refer to KDOQI guidelines for clinical interpretation. In patients with unstable renal function, e.g. those with acute kidney injury, the eGFR may not accurately reflect actual GFR. Glucose [Mass/Vol] 128 mg/dL High 74-99 [facility] Comment on above: Result Comment: The [place] [employer] (ADA) provides guidance for cutoff values for fasting glucose and random glucose. The ADA defines fasting as no caloric intake for at least 8 hours. Fasting plasma glucose results between 100 to 125 mg/dL indicate increased risk for diabetes (prediabetes). Fasting plasma glucose results greater than or equal to 126 mg/dL meet the criteria for diagnosis of diabetes. In the absence of unequivocal hyperglycemia, results should be confirmed by repeat testing. In a patient with classic symptoms of hyperglycemia or hyperglycemic crisis, random plasma glucose results greater than or equal to 200 mg/dL meet the criteria for diagnosis of diabetes. Reference: Standards of Medical Care in Diabetes 2016, [place] [employer]. Diabetes Care. 2016.39(Suppl 1). Potassium [Moles/Vol] 3.8 mmol/L Normal 3.7-5.1 [facility] Protein [Mass/Vol] 7.1 g/dL Normal 6.3-8.0 [facility] Sodium [Moles/Vol] 138 mmol/L Normal 136-144 [facility] Urea nitrogen [Mass/Vol] 18 mg/dL Normal 7-21 [facility] Monclnl Protein, Seron 12-21 K/L Ratio, Serum 1.14 Normal 0.26-1.65 [facility] Comment on above: Performed By: #### S DONNIE SERMPA #### [facility] [address] [place], [place] [address] [place], Free, Serum 14.9 mg/L Normal 3.30-19.40 [facility] Comment on above: Result Comment: Test performed by an immunoturbidimetric assay on import.io instrument from [facility]. Immunoglobulin free light chain assay results should be interpreted in conjunction with other tests and in correlation with clinical picture. Performed By: #### S EPG SERMPA #### [facility] [address] [place], [place] [address] [place], Free, Serum 13.1 mg/L Normal 5.7-26.3 [facility] Comment on above: Result Comment: Test performed by an immunoturbidimetric assay on Optilite instrument from [facility]. Immunoglobulin free light chain assay results should be interpreted in conjunction with other tests and in correlation with clinical picture. Performed By: #### S DONNIE SERMPA #### [facility] [address] [place] [address] MPA Serum IgA 176 mg/dL Normal 78-391 [facility] Comment on above: Performed By: #### S DONNIE SERMPA #### [place] [address] [place] [phone] MPA Serum IgG 992 mg/dL Normal 717-1411 [facility] Comment on above: Performed By: #### S DONNIE SERMPA #### [place] [phone] MPA Serum IgM 51 mg/dL Low 53-334 [facility] Comment on above: Performed By: #### S DONNIE SERMPA #### [place] [address] [place] [phone] Protein [Mass/Vol] No M protein is identified. Normal No M protein is identified . [facility] Comment on above: Performed By: #### S DONNIE SERMPA #### [place] [address] Staff Review Reviewed by Samuel Johnson MD ([id number]) Normal [facility] Comment on above: Performed By: #### S DONNIE SERMPA #### [place] [phone] PROGRESSon 12-21-2019 PROGRESS HNO ID: [id number] Author: Isidoro Camargo Service: ? Author Type: Physician Type: Progress Notes Filed: 12/21/2019 3:40 PM Note Text: Consult requested by Dr. Juares for my opinion recommendations regarding a patient with a monoclonal protein. The impression and plan will be communicated by way of the shared electronic record. HPI: The patient is a 64 yo female with a past medical history significant for CKD, nephrolithiasis, hypertension, obesity and osteoarthritis of the knees. Patient was referred to nephrology for an increase in serum creatinine to 1.08 mg/dL in August 2019 associated with albuminuria with a microalbumin to creatinine ratio of 351. Serum protein electrophoresis on 11/01/2019 revealed no monoclonal spike. Immunofixation not performed. Urine protein electrophoresis demonstrated an asymmetrical gamma. No immunofixation performed. Labs were done through [facility]. Repeat serum creatinine on 11/01/2019 was 0.88 mg/dL. Diagnosed with HTN in 02/2019. Didn't have regular health care piror to that. PMH, medications and allergies personally reviewed by me today. Any changes documented in appropriate section. ROS: Constitutional: Denies episodes of fever and night sweats. Not significantly fatigued. Normal appetite. Neuro: Denies LEUNG, vertigo, dizziness and imbalance. Denies symptoms of neuropathy. HEENT: No recent change in voice, vision or hearing. Resp: Denies cough, wheeze and hemoptysis. Denies shortness of breath at rest. Denies SON. CVS: Denies exertional chest pain, PND, orthopnea and LE edema. GI: Denies dysgeusia. Denies symptoms of stomatitis. Denies dysphagia and odynophagia. Denies reflux, n/v, change in bowel habits and abdominal pain. : Denies dysuria or gross hematuria. No symptoms of bladder outlet obstruction. Endo: Denies hot flashes. Denies polyuria and polydipsia. Denies heat and cold intolerance. Musculoskeletal: Denies bone, back and muscular pain. Has OA both knees and will require b/l knee replacement. Derm: Denies rash. Denies jaundice and diffuse pruritis. Heme: Denies unusual bleeding and unexplained bruising. Psych: Normal mood. Family history: Mother--Colon cancer at about age 70. Treated with surgery. Lived to be 89. PHYSICAL EXAM: Vitals: Blood pressure 110/65, pulse 89, temperature 36.6 ?C (97.8 ?F), temperature source Oral, height 156.8 cm (5' 1.75), weight 97.5 kg (215 lb). Well-appearing and in no acute distress. EYES: Sclerae are anicteric bilaterally. NECK: Supple. No enlargement of thyroid. LYMPHATIC: There is no palpable cervical or supraclavicular adenopathy. RESPIRATORY: Inspiratory breath sounds are of normal intensity in all root. No rales, wheezes or rhonchi. Expiratory phase is normal. CARDIOVASCULAR: Rhythm is regular. Normal intensity S1/S2. There is no gallop or murmur. ABDOMEN: The abdomen is nondistended. No organomegaly. No tenderness. Extremities: No swelling or edema. SKIN: No jaundice or rash. No petechiae. NEUROLOGIC: career coach II-XII are grossly intact. No focal motor weakness. MUSCULOSKELETAL: No joint swelling or tenderness. No muscle wasting. ASSESSMENT/PLAN: (D47.2) Monoclonal gammopathy (primary encounter diagnosis) Assessment: -In summary the patient is a 64-year-old female who did not have routine healthcare until about a year ago when she was initially diagnosed with hypertension. Lab work this past fall demonstrated mild increase in serum creatinine and she was referred to nephrology. Workup raised question of possible urine monoclonal protein. She is on antihypertensive medication and is now normotensive. Plan: -Appropriate lab work and 24-hour urine collection for identification quantification of possible urine monoclonal protein. -Office visit following above to review. Isidoro Camargo, DO Normal [facility] Protein Electrophor.on 12-21 Albumin [Mass/Vol] 3.92 g/dL Normal 3.37-4.23 [facility] Comment on above: Performed By: #### S DONNIE SERMPA #### [facility] [address] [place] [address] Alpha 1 Globulin 0.24 gm/dL Normal 0.18-0.31 [facility] Comment on above: Performed By: #### S DONNIE SERMPA #### [facility] [address] [place], [place] [address] Alpha 2 Globulin 0.79 gm/dL Normal 0.52-0.97 [facility] Comment on above: Performed By: #### S DONNIE SERMPA #### [facility] [address] [place], [place] [address] Beta Globulin 1.07 gm/dL Normal 0.84-1.36 [facility] Comment on above: Performed By: #### S MAMTA FIELDS #### [place] [address] [place] [id number] Gamma Globulin 1.08 gm/dL Normal 0.70-1.44 [facility] Comment on above: Performed By: #### S MAMTA FIELDS #### [place] [address] [place] [address] Interpretation SEE COMMENT Normal [facility] Comment on above: Result Comment: No d efinitive M protein is identified on protein electrophoresis. Performed By: #### S MAMTA FIELDS #### [place] [address] [place] [address] M Jorge Concentratn 0.00 gm/dL Normal 0.00 [facility] Comment on above: Performed By: #### S MAMTA FIELDS #### [place] [id number] Protein [Mass/Vol] N/A Normal [facility] Comment on above: Performed By: #### S MAMTA FIELDS #### [place] [address] [place], [place] [address] Protein [Mass/Vol] 7.1 g/dL Normal 6.0-8.4 [facility] Comment on above: Performed By: #### S MAMTA FIELDS #### [place] [address] [place] [phone] [facility] Staff Review Reviewed by Samuel Johnson MD ([id number]) [facility] Comment on above: Performed By: #### S MAMTA FIELDS #### [facility] [address], [place] [address] Vital Signs Date Time Vital Sign Value Performing Clinician Facility 01-01-2024 15:05-0500 Diastolic Blood Pressure Non-Invasive 72 mm[Hg] DR HARSHAD MCWILLIAMS MD [facility] 01-01-2024 15:05-0500 Heart rate 79 /min DR HARSHAD MCWILLIAMS MD [facility] 01-01-2024 15:05-0500 Systolic Blood Pressure Non-Invasive 130 mm[Hg] DR HARSHAD MCWILLIAMS MD [facility] 01-01-2024 14:43-0500 Diastolic Blood Pressure Non-Invasive 51 mm[Hg] DR HARSHAD MCWILLIAMS MD [facility] 01-01-2024 14:43-0500 Heart rate 87 /min DR HARSHAD MCWILLIAMS MD [facility] 01-01-2024 14:43-0500 Respiratory rate 16 /min DR HARSHAD MCWILLIAMS MD [facility] 01-01-2024 14:43-0500 Systolic Blood Pressure Non-Invasive 108 mm[Hg] DR HARSHAD MCWILLIAMS MD [facility] 01-01-2024 14:35-0500 Diastolic Blood Pressure Non-Invasive 42 mm[Hg] DR HARSHAD MCWILLIAMS MD [facility] 01-01-2024 14:35-0500 Heart rate 82 /min DR HARSHAD MCWILLIAMS MD [facility] 01-01-2024 14:35-0500 Respiratory rate 15 /min DR HARSHAD MCWILLIAMS MD [facility] 01-01-2024 14:35-0500 Systolic Blood Pressure Non-Invasive 99 mm[Hg] DR HARSHAD MCWILLIAMS MD [facility] 01-01-2024 14:20-0500 Respiratory rate 17 /min DR HARSHAD MCWILLIAMS MD [facility] 01-01-2024 14:05-0500 Body temperature 96.98 [degF] DR HARSHAD MCWILLIAMS MD [facility] 01-01-2024 14:00-0500 Respiratory Rate - Anes 22 br/min DR HARSHAD MCWILLIAMS MD [facility] 01-01-2024 13:55-0500 Respiratory Rate - Anes 23 br/min DR HARSHAD MCWILLIAMS MD [facility] 01-01-2024 13:50-0500 Respiratory Rate - Anes 21 br/min DR HARSHAD MCWILLIAMS MD [facility] 01-01-2024 11:47-0500 Body temperature 97.7 [degF] DR HARSHAD MCWILLIAMS MD [facility] 01-01-2024 11:36-0500 Body height [address] HARSHAD MCWILLIAMS MD [facility] 01-01-2024 11:36-0500 Body weight [address] HARSHAD MCWILLIAMS MD [facility] 01-01-2024 11:36-0500 Body weight 37.73 kg/m2 DR HARSHAD MCWILLIAMS MD [facility] 11-27-2023 13:34-0500 Body temperature 98 [degF] Dr. Devin Bloom Work Phone: [facility] 11-27-2023 13:34-0500 Diastolic blood pressure 74 mm[Hg] Dr. Devin Bloom Work Phone: [facility] 11-27-2023 13:34-0500 Heart rate 88 /min Dr. Devin Bloom Work Phone: [facility] 11-27-2023 13:34-0500 Respiratory rate 18 /min Dr. Devin Bloom Work Phone: [facility] 11-27-2023 13:34-0500 SaO2% (BldA) [Mass fraction] 99 % Dr. Devin Bloom Work Phone: [facility] 11-27-2023 13:34-0500 Systolic blood pressure 126 mm[Hg] Dr. Devin Bloom Work Phone: [facility] 11-25-2023 15:58-0500 Body height 157.[address] Devin Bloom Work Phone: [facility] 11-25-2023 15:58-0500 Body mass index (BMI) [Ratio] 40 kg/m2 Dr. Devin Bloom Work Phone: [facility] 11-25-2023 15:58-0500 Body weight 99.[address] Devin Bloom Work Phone: [facility] 10-30-2023 14:32-0500 Diastolic Blood Pressure Non-Invasive 71 mm[Hg] DR HARSHAD MCWILLIAMS MD [facility] 10-30-2023 14:32-0500 Heart rate 82 /min DR HARSHAD MCWILLIAMS MD [facility] 10-30-2023 14:32-0500 Systolic Blood Pressure Non-Invasive 122 mm[Hg] DR HARSHAD MCWILLIAMS MD [facility] 10-30-2023 14:05-0500 Diastolic Blood Pressure Non-Invasive 64 mm[Hg] DR HARSHAD MCWILLIAMS MD [facility] 10-30-2023 14:05-0500 Heart rate 87 /min DR HARSHAD MCWILLIAMS MD [facility] 10-30-2023 14:05-0500 Systolic Blood Pressure Non-Invasive 118 mm[Hg] DR HARSHAD MCWILLIAMS MD [facility] 10-30-2023 13:38-0500 Diastolic Blood Pressure Non-Invasive 65 mm[Hg] DR HARSHAD MCWILLIAMS MD [facility] 10-30-2023 13:38-0500 Heart rate 88 /min DR HARSHAD MCWILLIAMS MD [facility] 10-30-2023 13:38-0500 Systolic Blood Pressure Non-Invasive 120 mm[Hg] DR HARSHAD MCWILLIAMS MD [facility] 10-30-2023 13:08-0500 Respiratory rate 18 /min DR HARSHAD MCWILLIAMS MD [facility] 10-30-2023 12:57-0500 Respiratory rate 14 /min DR HARSHAD MCWILLIAMS MD [facility] 10-30-2023 12:51-0500 Respiratory rate 17 /min DR HARSHAD MCWILLIAMS MD [facility] 10-30-2023 12:26-0500 Body temperature 97.7 [degF] DR HARSHAD MCWILLIAMS MD [facility] 10-30-2023 12:25-0500 Respiratory Rate - Anes 0 br/min DR HARSHAD MCWILLIAMS MD [facility] 10-30-2023 12:20-0500 Respiratory Rate - Anes 35 br/min DR HARSHAD MCWILLIAMS MD [facility] 10-30-2023 12:15-0500 Respiratory Rate - Anes 38 br/min DR HARSHAD MCWILLIAMS MD [facility] 10-30-2023 10:47-0500 Body height 157.[address] HARSHAD MCWILLIAMS MD [facility] 10-30-2023 10:47-0500 Body temperature 97.88 [degF] DR HARSHAD MCWILLIAMS MD [facility] 10-30-2023 10:47-0500 Body weight [address] HARSHAD MCWILLIAMS MD [facility] 10-30-2023 10:47-0500 Heart rate 96 /min DR HARSHAD MCWILLIAMS MD [facility] 10-28-2023 15:58-0500 Diastolic Blood Pressure Non-Invasive 66 mm[Hg] MIRANDA INTERIANO MD [facility] 10-28-2023 15:58-0500 Heart rate 94 /min MIRANDA INTERIANO MD [facility] 10-28-2023 15:58-0500 Respiratory rate 18 /min MIRANDA INTERIANO MD [facility] 10-28-2023 15:58-0500 Systolic Blood Pressure Non-Invasive 99 mm[Hg] MIRANDA INTERIANO MD [facility] 10-28-2023 14:30-0500 Diastolic Blood Pressure Non-Invasive 59 mm[Hg] MIRANDA INTERIANO MD [facility] 10-28-2023 14:30-0500 Heart rate 94 /min MIRANDA INTERIANO MD [facility] 10-28-2023 14:30-0500 Respiratory rate 20 /min MIRANDA INTERIANO MD [facility] 10-28-2023 14:30-0500 Systolic Blood Pressure Non-Invasive 100 mm[Hg] MIRANDA INTERIANO MD [facility] 10-28-2023 14:00-0500 Diastolic Blood Pressure Non-Invasive 55 mm[Hg] MIRANDA INTERIANO MD [facility] 10-28-2023 14:00-0500 Heart rate 89 /min MIRANDA INTERIANO MD [facility] 10-28-2023 14:00-0500 Systolic Blood Pressure Non-Invasive 96 mm[Hg] MIRANDA INTERIANO MD [facility] 10-28-2023 13:32-0500 Heart rate 96 /min MIRANDA INTERIANO MD [facility] 10-28-2023 11:46-0500 Body height 157.5 cm MIRANDA INTERIANO MD [facility] 10-28-2023 11:46-0500 Body temperature 98.24 [degF] MIRANDA INTERIANO MD [facility] 10-28-2023 11:46-0500 Body weight 91 kg MIRANDA INTERIANO MD [facility] 10-28-2023 11:46-0500 Heart rate 123 /min MIRANDA INTERIANO MD [facility] 10-27-2023 14:19-0500 Blood Pressure Cuff Size DR HARSHAD MCWILLIAMS MD [facility] 10-27-2023 14:19-[address] HARSHAD MCWILLIAMS MD [facility] 10-27-2023 14:19-[address] HARSHAD MCWILLIAMS MD [facility] 10-27-2023 14:19-0500 Body height 157.[address] HARSHAD MCWILLIAMS MD [facility] 10-27-2023 14:19-0500 Body weight 90.[address] HARSHAD MCWILLIAMS MD [facility] 10-27-2023 14:19-0500 Body weight 36.64 kg/m2 DR HARSHAD MCWILLIAMS MD [facility] 10-27-2023 14:19-0500 Diastolic Blood Pressure Non-Invasive 64 mm[Hg] DR HARSHAD MCWILLIAMS MD [facility] 10-27-2023 14:19-0500 Heart rate 88 /min DR HARSHAD MCWILLIAMS MD [facility] 10-27-2023 14:19-0500 Systolic Blood Pressure Non-Invasive 102 mm[Hg] DR HARSHAD MCWILLIAMS MD [facility] 10-09-2023 01:43-0500 Diastolic blood pressure 77 mm[Hg] [facility] 10-09-2023 01:43-0500 Heart rate 69 /min [facility] 10-09-2023 01:43-0500 Respiratory rate 17 /min [facility] 10-09-2023 01:43-0500 SaO2% (BldA) [Mass fraction] 98 % [facility] 10-09-2023 01:43-0500 Systolic blood pressure 162 mm[Hg] [facility] 10-08-2023 21:02-0500 Body height 160.02 cm [facility] 10-08-2023 21:02-0500 Body mass index (BMI) [Ratio] 39.2 kg/m2 [facility] 10-08-2023 21:02-0500 Body temperature 98.1 [degF] [facility] 10-08-2023 21:02-0500 Body weight 100.32 kg [facility] Encounters Encounter Date Encounter Type Care Provider Facility Start: 08-10-2025 ambulatory Devin Bloom Facility: [facility] Start: 11-29-2024 End: 11-29-2024 ambulatory Devin Wolf Facility:[facility] Start: 10-13-2024 End: 10-13-2024 ambulatory Devin [facility] Facility:[facility] Start: 09-06-2024 End: 09-06-2024 ambulatory [facility] Facility:[facility] Start: 01-01-2024 End: 01-01-[address] HARSHAD MCWILLIAMS MD Facility:B Start: 01-01-2024 End: 01-01-[address] HARSHAD MCWILLIAMS MD [facility] [place] [facility] Start: 12-11-[address] HARSHAD MCWILLIAMS MD Facility:B Start: 11-25-2023 End: 11-27-2023 Evaluation and management of inpatient Dr. Devin Bloom Work Phone: [facility] Work Phone: Start: 10-30-2023 End: 10-30-[address] HARSHAD MCWILLIAMS MD Facility:B Start: 10-30-2023 End: 10-30-[address] HARSHAD MCWILLIAMS MD [facility] Start: 10-28-2023 End: 10-28-2023 Emergency department patient visit MIRANDA INTERIANO MD Facility:B Start: 10-28-2023 End: 10-28-2023 Emergency department patient visit MIRANDA INTERIANO MD [facility] Start: 10-27-2023 End: 10-28-[address] HARSHAD MCWILLIAMS MD Facility:B Start: 10-27-2023 End: 10-27-[address] HARSHAD MCWILLIAMS MD [facility] Start: 10-14-2023 End: 10-14-2023 Non-patient / Non-visit Dr. Devin Bloom Work Phone: [facility] Work Phone: Start: 10-14-2023 End: 10-14-2023 ambulatory [facility] Work Phone: Start: 10-14-2023 End: 10-14-2023 Patient encounter procedure [facility]-Pulmonary Services/Neurology Work Phone: Start: 10-08-2023 End: 10-09-2023 Emergency department patient visit [facility]-Emergency Department Work Phone: Start: 07-24-2023 End: 07-24-2023 ambulatory [facility] Work Phone: Start: 07-24-2023 End: 07-24-2023 Patient encounter procedure [facility]-Laboratory Work Phone: Start: 04-28-2023 End: 04-28-2023 Patient encounter procedure [facility]-Laboratory, Basilia Oscar [facility] Procedures Date Procedure Procedure Detail Performing Clinician Start: 11-27-2023 CT of abdomen and pe lvis without contrast Dr. Devin Bloom Work Phone: Start: 11-25-2023 Fluoroscopic guidance Lakeisha Bloom Work Phone: Start: 11-25-2023 Percutaneous,Nephros tolith daxa (Right) Dr. Devin Bloom Work Phone: Start: 10-30-[address] HARSHAD AGUIAR MD Comment on above: right ureteral stent Start: 10-08-2023 CT of abdomen and pe lvis without contrast Start: 10-08-2023 Urine culture Cystoscopic lithotri psy of ureteric calculus DR HARSHAD MCWILLIAMS MD Kidney stone (disorder) DR Mukul MCWILLIAMS MD Removal of calculus of renal pelvis through percutaneous nephrostomy DR HARSHAD MCWILLIAMS MD Comment on above: x2 Plan of Treatment Date Care Activity Detail Author Start: 11-27-2023 Patient discharge [facility] Start: 11-26-2023 Removal of urinary catheter [facility] Start: 11-25-2023 Application of inter mittent pneumatic compression device [facility] Start: 11-25-2023 Following clinical p athway protocol [facility] Start: 11-25-2023 Admission procedure [facility] Start: 11-25-2023 Deep breathing and c oughing exercises [facility] Start: 11-25-2023 Measuring intake and output [facility] Start: 11-25-2023 Patient education [facility] Start: 11-25-2023 Provision of activit y privileges [facility] Start: 11-25-2023 Taking patient vital signs [facility] Start: 11-25-2023 Vital signs measurements [facility] Start: 11-25-2023 [facility] Start: 10-09-2023 [facility] Start: 10-09-2023 [facility] Start: 10-08-2023 Bacteria identified in Urine by Culture Urine Culture [facility] Patient Education [facility] Work Phone: Patient referral [facility] Work Phone: [facility] Payers Date Payer Category Payer Medicare [id number] 2024 Self-pay [id number] 2023 Medicare [id number] 2023 Medicare [id number] 1955 Unknown [id number] 2.16.8 [id number] 1955 Unknown [id number] 2.16.8 [id number] 1955 Unknown [id number] 2.16.8 [id number] 1955 Unknown [id number] 2.16.8 [id number] 1955 Unknown [id number] 2.16.8 [id number] Unknown COMMERCIAL OTHER [id number] Unknown [facility] [id number] Unknown [id number] 2.16.8 [id number] Unknown [id number] 2.16.8 [id number] Unknown [id number] 2.16.8 [id number] Unknown [id number] 2.16.8 [id number] Social History Date Type Detail Facility Start: 10-30-2021 End: 11-18-2023 Tobacco smoking status UTIS Unknown if ever smoked [facility] Start: 03-26-2021 Non-smoker [facility] Start: 1955 Sex Assigned At Female [facility] Start: 10-27-2023 Tobacco smoking status Never smoked tobacco (finding) [facility] NEGATED: Highlighted row [facility] Medical Equipment Procedure Code Equipment Code Equipment Origin al Text Equipment Identifier Dates STENT,URETERAL PIGTAIL [id number] FDA Start: 06-01-2020 STENT,URETERAL 6 FR PIG [id number] FDA Start: 06-06-2020 STENT,URETERAL PIGTAIL [id number] FDA Start: 06-01-2020 STENT,URETERAL 6 FR PIG [id number] FDA Start: 06-06-2020 STENT,URETERAL PIGTAIL [id number] FDA Start: 06-01-2020 STENT,URETERAL 6 FR PIG [id number] FDA Start: 06-06-2020 STENT,URETERAL PIGTAIL [id number] FDA Start: 06-01-2020 STENT,URETERAL 6 FR PIG [id number] FDA Start: 06-06-2020 Goals Date Patient Goal Desired Activity /State Functional Status Date Assessment Result Facility 01-01-2024 Functional Status bilateral knee high applied/on [facility] 01-01-2024 Functional Status Maintained, More than 8 hours [facility] 11-27-2023 Functional status Up ad shukri[facility] Work Phone: 10-30-2023 Functional Status Activity Statu s ADL Up to bathroom [facility] 10-30-2023 Functional Status bilateral knee high applied/on [facility] 10-30-2023 Functional Status [facility] 10-28-2023 Functional Status Up ad shukri [facility] 10-28-2023 Functional Status [facility] 10-27-2023 Functional Status Sensory Deficits None A [facility] Mental Status Date Assessment Result Facility 01-01-2024 Mental Status Orientation Asse ssment Oriented x 4 [facility] 11-27-2023 Cognitive function Voice/Name [facility] Work Phone: 10-30-2023 Mental Status Orientation Oriented x 4 [facility] 10-30-2023 [facility] 10-28-2023 Mental Status Orientation Oriented x 4 [facility] Clinical Notes 10-28-2023 to 01-01-2024 Note Date & Type Note Facility 01-01-2024 Hospital Discharg e instructions Patient Education 01/01/2024 14:20:55 General Anesthesia, Adult, Care After General Anesthesia, Adult, Care After This sheet gives you information about how to care for yourself after your procedure. Your health care provider may also give you more specific instructions. If you have problems or questions, contact your health care provider. What can I expect after the procedure? After the procedure, the following side effects are common: Pain or discomfort at the IV site. Nausea. Vomiting. Sore throat. Trouble concentrating. Feeling cold or chills. Weak or tired. Sleepiness and fatigue. Soreness and body aches. These side effects can affect parts of the body that were not involved in surgery. Follow these instructions at home: For at least 24 hours after the procedure: Have a responsible adult stay with you. It is important to have someone help care for you until you are awake and alert. Rest as needed. Do not: ?Participate in activities in which you could fall or become injured. ?Drive. ?Use heavy machinery. ?Drink alcohol. ?Take sleeping pills or medicines that cause drowsiness. ?Make important decisions or sign legal documents. ?Take care of children on your own. Eating and drinking Follow any instructions from your health care provider about eating or drinking restrictions. When you feel hungry, start by eating small amounts of foods that are soft and easy to digest (bland), such as toast. Gradually return to your regular diet. Drink enough fluid to keep your urine pale yellow. If you vomit, rehydrate by drinking water, juice, or clear broth. General instructions If you have sleep apnea, surgery and certain medicines can increase your risk for breathing problems. Follow instructions from your health care provider about wearing your sleep device: ?Anytime you are sleeping, including during daytime naps. ?While taking prescription pain medicines, sleeping medicines, or medicines that make you drowsy. Return to your normal activities as told by your health care provider. Ask your health care provider what activities are safe for you. Take iimk-nio-cmjjern and prescription medicines only as told by your health care provider. If you smoke, do not smoke without supervision. Keep all follow-up visits as told by your health care provider. This is important. Contact a health care provider if: You have nausea or vomiting that does not get better with medicine. You cannot eat or drink without vomiting. You have pain that does not get better with medicine. You are unable to pass urine. You develop a skin rash. You have a fever. You have redness around your IV site that gets worse. Get help right away if: You have difficulty breathing. You have chest pain. You have blood in your urine or stool, or you vomit blood. Summary After the procedure, it is common to have a sore throat or nausea. It is also common to feel tired. Have a responsible adult stay with you for the first 24 hours after general anesthesia. It is important to have someone help care for you until you are awake and alert. When you feel hungry, start by eating small amounts of foods that are soft and easy to digest (bland), such as toast. Gradually return to your regular diet. Drink enough fluid to keep your urine pale yellow. Return to your normal activities as told by your health care provider. Ask your health care provider what activities are safe for you. This information is not intended to replace advice given to you by your health care provider. Make sure you discuss any questions you have with your health care provider. Document Released: 02/15/2002 Document Revised: 11/12/2018 Document Reviewed: 06/25/2018 [employer] Patient Education 2020 [place]. 01/01/2024 14:20:41 Lithotripsy, Care After Lithotripsy, Care After This sheet gives you information about how to care for yourself after your procedure. Your health care provider may also give you more specific instructions. If you have problems or questions, contact your health care provider. What can I expect after the procedure? After the procedure, it is common to have: Some blood in your urine. This should only last for a few days. Soreness in your back, sides, or upper abdomen for a few days. Blotches or bruises on your back where the pressure wave entered the skin. Pain, discomfort, or nausea when pieces (fragments) of the kidney stone move through the tube that carries urine from the kidney to the bladder (ureter). Stone fragments may pass soon after the procedure, but they may continue to pass for up to 4 8 weeks. ?If you have severe pain or nausea, contact your health care provider. This may be caused by a large stone that was not broken up, and this may mean that you need more treatment. Some pain or discomfort during urination. Some pain or discomfort in the lower abdomen or (in men) at the base of the penis. Follow these instructions at home: Medicines Take gjld-luc-ybqywyc and prescription medicines only as told by your health care provider. If you were prescribed an antibiotic medicine, take it as told by your health care provider. Do not stop taking the antibiotic even if you start to feel better. Do not drive for 24 hours if you were given a medicine to help you relax (sedative). Do not drive or use heavy machinery while taking prescription pain medicine. Eating and drinking Drink enough water and fluids to keep your urine clear or pale yellow. This helps any remaining pieces of the stone to pass. It can also help prevent new stones from forming. Eat plenty of fresh fruits and vegetables. Follow instructions from your health care provider about eating and drinking restrictions. You may be instructed: ?To reduce how much salt (sodium) you eat or drink. Check ingredients and nutrition facts on packaged foods and beverages. ?To reduce how much meat you eat. Eat the recommended amount of calcium for your age and gender. Ask your health care provider how much calcium you should have. General instructions Get plenty of rest. Most people can resume normal activities 1 2 days after the procedure. Ask your health care provider what activities are safe for you. Your health care provider may direct you to lie in a certain position (postural drainage) and tap firmly (percuss) over your kidney area to help stone fragments pass. Follow instructions as told by your health care provider. If directed, strain all urine through the strainer that was provided by your health care provider. ?Keep all fragments for your health care provider to see. Any stones that are found may be sent to a medical lab for examination. The stone may be as small as a grain of salt. Keep all follow-up visits as told by your health care provider. This is important. Contact a health care provider if: You have pain that is severe or does not get better with medicine. You have nausea that is severe or does not go away. You have blood in your urine longer than your health care provider told you to expect. You have more blood in your urine. You have pain during urination that does not go away. You urinate more frequently than usual and this does not go away. You develop a rash or any other possible signs of an allergic reaction. Get help right away if: You have severe pain in your back, sides, or upper abdomen. You have severe pain while urinating. Your urine is very dark red. You have blood in your stool (feces). You cannot pass any urine at all. You feel a strong urge to urinate after emptying your bladder. You have a fever or chills. You develop shortness of breath, difficulty breathing, or chest pain. You have severe nausea that leads to persistent vomiting. You faint. Summary After this procedure, it is common to have some pain, discomfort, or nausea when pieces (fragments) of the kidney stone move through the tube that carries urine from the kidney to the bladder (ureter). If this pain or nausea is severe, however, you should contact your health care provider. Most people can resume normal activities 1 2 days after the procedure. Ask your health care provider what activities are safe for you. Drink enough water and fluids to keep your urine clear or pale yellow. This helps any remaining pieces of the stone to pass, and it can help prevent new stones from forming. If directed, strain your urine and keep all fragments for your health care provider to see. Fragments or stones may be as small as a grain of salt. Get help right away if you have severe pain in your back, sides, or upper abdomen or have severe pain while urinating. This information is not intended to replace advice given to you by your health care provider. Make sure you discuss any questions you have with your health care provider. Document Released: 11/28/2008 Document Revised: 02/20/2020 Document Reviewed: 09/30/2017 [employer] Patient Education 2020 [place]. Follow Up Care 12/11/2023 08:13:19 With:HARSHAD MCWILLIAMS MD, [facility] Address: [address] [place] [phone] When: Unknown [facility] 01-01-2024 Summary of episod e note Discharge Instructions Thank you for allowing [facility] to assist you with your healthcare needs. The following is important discharge information regarding your hospital visit. Your Diagnosis Kidney stone What to do next Follow Up Appointments Follow Up with HARSHAD MCWILLIAMS MD, [facility] When Where: [address] [place] [phone] Allergies Contrast dye (FEELS HOT) cephalexin (HIVES) Medications Please ask your primary doctor or pharmacist before taking any other medication not listed, including over the counter drugs, herbal medications, vitamins and or supplements as they may interact with your home medications. What How Much When Why Instructions Last Dose New ciprofloxacin (Cipro 500 mg oral tablet) 1 tab(s) by mouth Every 12 hours Duration: 5 Days Pickup at [facility] #[id number] New oxyCODONE (oxyCODONE 5 mg oral tablet ( IMMEDIATE release )) 1 tab(s) by mouth Every 6 hours as needed for for pain Kidney stone Duration: 5 Days Pickup at [facility] #[id number] Unchanged aspirin (aspirin 81 mg oral delayed release tablet) 1 tab(s) by mouth Every day Unchanged cholecalciferol (Vitamin D3) 50 Microgram by mouth Every day Unchanged herbal/ nutritional product (cider vinegar oral tablets) 1 tab by mouth Every day Unchanged herbal/ nutritional product (turmeric 500 mg oral capsule) 1 cap by mouth Every day Unchanged lisinopril (lisinopril 10 mg oral tablet) TAKE 1 TABLET BY MOUTH EVERY DAY Unchanged multivitamin with minerals (Centrum Silver Ultra Women's oral tablet) 1 tab(s) by mouth Every day Pharmacy Information [facility] #[id number]: [address], [place] [phone] Please take this list to your next doctor s visit. Bring all medications you take, including over the counter medications, herbals and other supplements with you to your doctor s visit. Patients and families are reminded to discard old lists and to update any records with all medication providers or retail pharmacies. Education Materials General Anesthesia, Adult, Care After This sheet gives you information about how to care for yourself after your procedure. Your health care provider may also give you more specific instructions. If you have problems or questions, contact your health care provider. What can I expect after the procedure? After the procedure, the following side effects are common: Pain or discomfort at the IV site. Nausea. Vomiting. Sore throat. Trouble concentrating. Feeling cold or chills. Weak or tired. Sleepiness and fatigue. Soreness and body aches. These side effects can affect parts of the body that were not involved in surgery. Follow these instructions at home: For at least 24 hours after the procedure: Have a responsible adult stay with you. It is important to have someone help care for you until you are awake and alert. Rest as needed. Do not: ? Participate in activities in which you could fall or become injured. ? Drive. ? Use heavy machinery. ? Drink alcohol. ? Take sleeping pills or medicines that cause drowsiness. ? Make important decisions or sign legal documents. ? Take care of children on your own. Eating and drinking Follow any instructions from your health care provider about eating or drinking restrictions. When you feel hungry, start by eating small amounts of foods that are soft and easy to digest (bland), such as toast. Gradually return to your regular diet. Drink enough fluid to keep your urine pale yellow. If you vomit, rehydrate by drinking water, juice, or clear broth. General instructions If you have sleep apnea, surgery and certain medicines can increase your risk for breathing problems. Follow instructions from your health care provider about wearing your sleep device: ? Anytime you are sleeping, including during daytime naps. ? While taking prescription pain medicines, sleeping medicines, or medicines that make you drowsy. Return to your normal activities as told by your health care provider. Ask your health care provider what activities are safe for you. Take rweq-jdc-gjoecxn and prescription medicines only as told by your health care provider. If you smoke, do not smoke without supervision. Keep all follow-up visits as told by your health care provider. This is important. Contact a health care provider if: You have nausea or vomiting that does not get better with medicine. You cannot eat or drink without vomiting. You have pain that does not get better with medicine. You are unable to pass urine. You develop a skin rash. You have a fever. You have redness around your IV site that gets worse. Get help right away if: You have difficulty breathing. You have chest pain. You have blood in your urine or stool, or you vomit blood. Summary After the procedure, it is common to have a sore throat or nausea. It is also common to feel tired. Have a responsible adult stay with you for the first 24 hours after general anesthesia. It is important to have someone help care for you until you are awake and alert. When you feel hungry, start by eating small amounts of foods that are soft and easy to digest (bland), such as toast. Gradually return to your regular diet. Drink enough fluid to keep your urine pale yellow. Return to your normal activities as told by your health care provider. Ask your health care provider what activities are safe for you. This information is not intended to replace advice given to you by your health care provider. Make sure you discuss any questions you have with your health care provider. Document Released: 02/15/2002 Document Revised: 11/12/2018 Document Reviewed: 06/25/2018 [employer] Patient Education 2020 [place]. Lithotripsy, Care After This sheet gives you information about how to care for yourself after your procedure. Your health care provider may also give you more specific instructions. If you have problems or questions, contact your health care provider. What can I expect after the procedure? After the procedure, it is common to have: Some blood in your urine. This should only last for a few days. Soreness in your back, sides, or upper abdomen for a few days. Blotches or bruises on your back where the pressure wave entered the skin. Pain, discomfort, or nausea when pieces (fragments) of the kidney stone move through the tube that carries urine from the kidney to the bladder (ureter). Stone fragments may pass soon after the procedure, but they may continue to pass for up to 4 8 weeks. ? If you have severe pain or nausea, contact your health care provider. This may be caused by a large stone that was not broken up, and this may mean that you need more treatment. Some pain or discomfort during urination. Some pain or discomfort in the lower abdomen or (in men) at the base of the penis. Follow these instructions at home: Medicines Take zsyf-scu-rasipwd and prescription medicines only as told by your health care provider. If you were prescribed an antibiotic medicine, take it as told by your health care provider. Do not stop taking the antibiotic even if you start to feel better. Do not drive for 24 hours if you were given a medicine to help you relax (sedative). Do not drive or use heavy machinery while taking prescription pain medicine. Eating and drinking Drink enough water and fluids to keep your urine clear or pale yellow. This helps any remaining pieces of the stone to pass. It can also help prevent new stones from forming. Eat plenty of fresh fruits and vegetables. Follow instructions from your health care provider about eating and drinking restrictions. You may be instructed: ? To reduce how much salt (sodium) you eat or drink. Check ingredients and nutrition facts on packaged foods and beverages. ? To reduce how much meat you eat. Eat the recommended amount of calcium for your age and gender. Ask your health care provider how much calcium you should have. General instructions Get plenty of rest. Most people can resume normal activities 1 2 days after the procedure. Ask your health care provider what activities are safe for you. Your health care provider may direct you to lie in a certain position (postural drainage) and tap firmly (percuss) over your kidney area to help stone fragments pass. Follow instructions as told by your health care provider. If directed, strain all urine through the strainer that was provided by your health care provider. ? Keep all fragments for your health care provider to see. Any stones that are found may be sent to a medical lab for examination. The stone may be as small as a grain of salt. Keep all follow-up visits as told by your health care provider. This is important. Contact a health care provider if: You have pain that is severe or does not get better with medicine. You have nausea that is severe or does not go away. You have blood in your urine longer than your health care provider told you to expect. You have more blood in your urine. You have pain during urination that does not go away. You urinate more frequently than usual and this does not go away. You develop a rash or any other possible signs of an allergic reaction. Get help right away if: You have severe pain in your back, sides, or upper abdomen. You have severe pain while urinating. Your urine is very dark red. You have blood in your stool (feces). You cannot pass any urine at all. You feel a strong urge to urinate after emptying your bladder. You have a fever or chills. You develop shortness of breath, difficulty breathing, or chest pain. You have severe nausea that leads to persistent vomiting. You faint. Summary After this procedure, it is common to have some pain, discomfort, or nausea when pieces (fragments) of the kidney stone move through the tube that carries urine from the kidney to the bladder (ureter). If this pain or nausea is severe, however, you should contact your health care provider. Most people can resume normal activities 1 2 days after the procedure. Ask your health care provider what activities are safe for you. Drink enough water and fluids to keep your urine clear or pale yellow. This helps any remaining pieces of the stone to pass, and it can help prevent new stones from forming. If directed, strain your urine and keep all fragments for your health care provider to see. Fragments or stones may be as small as a grain of salt. Get help right away if you have severe pain in your back, sides, or upper abdomen or have severe pain while urinating. This information is not intended to replace advice given to you by your health care provider. Make sure you discuss any questions you have with your health care provider. Document Released: 11/28/2008 Document Revised: 02/20/2020 Document Reviewed: 09/30/2017 [employer] Patient Education 2020 [place]. Signatures Patient Education Materials General Anesthesia, Adult, Care After Lithotripsy, Care After Medication Leaflets My discharge plan and instructions have been reviewed and explained to me and I,FERDINAND FELICIANO understand my current condition and have read and understand these discharge instructions. I have received a written copy of the plan/instructions. If I have questions, I am aware that I should contact my doctor. 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 Family's history: negative. Health Status Allergies: Allergic Reactions (Selected) Severity Not Documented Cephalexin- Hives. Contrast dye- Feels hot., Allergies (2) ActiveReaction cephalexinHIVES Contrast dyeFEELS HOT Current medications: (Selected) Inpatient Medications Ordered NS 1,000 mL: 75 mL/hr, Intravenous, Stop: 01/01/24 23:59:00 EST ceFAZolin: 2 gram(s), 200 mL/hr, IV Piggyback, PREOP pharm Documented Medications Documented Centrum Silver Ultra Women's oral tablet: 1 tab(s), Oral, Daily, 0 Refill(s) Vitamin D3: 50 mcg, 1 cap(s), Oral, Daily, 30 cap(s), 0 Refill(s) aspirin 81 mg oral delayed release tablet: 81 mg, 1 tab(s), Oral, Daily, 0 Refill(s) cider vinegar oral tablets: 1 tab, Oral, Daily, 0 Refill(s) lisinopril 10 mg oral tablet: TAKE 1 TABLET BY MOUTH EVERY DAY turmeric 500 mg oral capsule: 500 mg, 1 cap(s), Oral, Daily, 0 Refill(s), Medications (2) Active Scheduled: (1) ceFAZolin 2 gram(s), IV Piggyback, PREOP pharm Continuous: (1) NS (0.9% nacl) 1,000 mL 1,000 mL, Intravenous, 75 mL/hr PRN: (0) Problem list: Active Problems (3) Arthritis HTN (hypertension) Kidney stone Histories Past Medical History: No active or resolved past medical history items have been selected or recorded. Family History: History is unknown. Procedure history: Cystoscopy of ureter ([id number]) on 10/30/2023 at 68 Years. Comments: 12/22/2023 8:50 Dee Jean RN right ureteral stent Removal of calculus of renal pelvis through percutaneous nephrostomy ([id number]). Comments: 12/22/2023 8:51 Dee Jean RN x2 Cystoscopic lithotripsy of ureteric calculus ([id number]). 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 Physical Examination Vital Signs 01/01/2024 11:47 EST Temperature Temporal Artery 36.5 DegC Heart Rate Monitored 84 bpm Respiratory Rate 19 br/min Systolic Blood Pressure Non-Invasive 149 mmHg HI Diastolic Blood Pressure Non-Invasive 68 mmHg Vital Signs(last 24 hrs) Last Charted Heart Rate Pguqsyzut36 bpm (JAN 01 11:47) SBPH 149mmHg (JAN 01 11:47) DBP68 mmHg (JAN 01 11:47) BMI37.73 (JAN 01 11:36) Measurements from flowsheet : Measurements 01/01/2024 11:36 EST Height 157 cm Height in inches 61.8 inch(es) Admission Weight 93 kg Weight Lbs 204.6 lb [place] Body Weight 49.67 kg BSA Admission 1.93 Body Mass Index 37.73 kg/m2 Pain assessment: Pain Assessment 01/01/2024 11:47 EST Primary Pain Intensity 0 Pain Scale Type 0-10 Pain scale . General: Alert and oriented. Airway: Normal temporomandibular joint mobility. Mallampati classification: II (soft palate, fauces, uvula visible). Respiratory: Lungs are clear to auscultation, Respirations are non-labored. Cardiovascular: Normal rate, Regular rhythm. Neurologic: Alert, Oriented. Review / Management Results review: No qualifying data available , Lab results 01/01/2024 12:03 EST SN - Preop - CTm Pt in SDS Room 01/01/2024 11:27 SN - Preop - CTm Pt Ready for OR/Proced 01/01/2024 12:03 01/01/2024 11:59 EST Continuous IV Infusions lr Antecubital Left 01/01/2024 20 gauge Peripheral IV Activity: Insert new site Peripheral IV Dressing Condition: Clean, Dry, Intact Peripheral IV Dressing Activity: Applied, Transparent dressing Peripheral IV Line Status/Patency: Flushes easily Peripheral IV Line Care: Secured with tape Peripheral IV Site Condition: No complications Peripheral IV Equipment: Extension set, PRN Adaptor Peripheral IV Number of Attempts: 2 01/01/2024 11:47 EST Temperature Temporal Artery 36.5 DegC Heart Rate Monitored 84 bpm Respiratory Rate 19 br/min Systolic Blood Pressure Non-Invasive 149 mmHg HI Diastolic Blood Pressure Non-Invasive 68 mmHg Primary Pain Intensity 0 Pain Scale Type 0-10 Pain scale Respirations Unlabored Respiratory Pattern Regular Oxygen Therapy Room air Oxygen Saturation 87 % Bowel Sounds All Quadrants Present Urinary Elimination Voiding, no difficulties Skin Integrity Intact IV Present Present Neurological Symptoms Patient denies Characteristics of Communication Appropriate Characteristics of Speech Clear Level of Consciousness Alert Allergies Yes Anesthesia Extension Set Applied Yes Leisure Studies Professor On Yes Consent Form Signed Yes Patient Dressed In Hospital gown CHG Preoperative Wash/Wipe Not done Preop Nasal Swab Povidone-Iodine History & Physical Update On Chart Yes History & Physical On Chart Yes Obstructive Sleep Apnea Assess Completed No Lorenza Motor (2) Moves 4 extremities voluntarily or on command Lorenza Respirations (2) Spontaneous respiration without support, RR > 10 Lorenza Blood Pressure (2) BP 20% above or below preanesthetic level Lorenza Pulse (2) Pulse 20% above or below preanesthetic level Lorenza Oxygen Saturation (2) 94% or more Lorenza Level of Consciousness (2) Fully awake Lorenza III Score 12 Positioning Repositions self Sequential Compression Device bilateral knee high applied/on NPO Status Maintained, More than 8 hours Standard Safety ID band on, Allergy Band on, Call device within reach, Bed in low position, Wheels locked, Safety level maintained Allergy Band on and Verified Yes Patient ID Band on and Verified Yes Implants Verified No Pacemaker/AICD Verified No Site Verified by Patient/Family Yes Anesthesia Consent Signed Yes Last Fluid Intake 12/31/2023 23:45 Last Food Intake 12/31/2023 18:00 Last Void 01/01/2024 12:03 01/01/2024 11:39 EST Belongings At Bedside Cell phone, Pants, Shirt, Shoes, Socks, Undergarments 01/01/2024 11:36 EST Designated Person #1 We May Share PHI JAN FELICIANO [phone] Designated Person #1 Relationship Spouse Designated Person #2 We May Share PHI OMAR BRADEN [phone] Designated Person #2 Relationship Son Privacy Restrictions Requested None Height 157 cm Height in inches 61.8 inch(es) Admission Weight 93 kg Weight Lbs 204.6 lb [place] Body Weight 49.67 kg BSA Admission 1.93 Body Mass Index 37.73 kg/m2 Patient Type Outpatient Status N/A Do You Wish/Go to Sleep/Never Wake Up No Thoughts of Harming Others - History No Thoughts of Suicide - History No Hospital Clergy to Visit Patient Verbalizes No Spiritual Needs Sensory Deficits None Advanced Directives No - refuses information Infectious [...] > 3 Weeks No Weight Loss No Barriers to Learning None evident Teaching Method Explanation, Printed materials Preferred Spoken Language Palauan Preferred Written Language Palauan Teaching Evaluation No further teaching needed Safety Brochure Information Reviewed Unable to complete [facility] Video Viewed No Information Given by Patient Patient's Current Physicians Patient's Current Physicians Discharge To, Anticipated Home with family care Prev Test Positive/Diagnosis w/COVID-19 Yes Previous COVID-19 Positive Date 2020 Current Quarantine/Isolated any Illness No Any Contact with Sick Animals/Birds No Traveled Anywhere in Last 30 Days No Lost Weight Unintentionally Recently No Eat Poorly Due to Decreased Appetite No Total MST Score 0 N/A Personal Devices, Patient Valuables Contact lenses Admission Note-Nursing Patient History (AO) . Assessment and Plan [place] [employer] Anesthesiologists (ASA) physical status classification: Class III. Anesthetic Preoperative Plan Anesthetic technique: General. Maintenance airway: Laryngeal mask airway. Postoperative pain management: Per surgeon. Risks discussed: nausea, vomiting, sore throat, dental injury, hypotension, allergic reaction, serious complications. Informed consent: signed by patient. Digitally Signed by SHRUTHI SU on 01/01/2024 12:17 PM [facility] 11-27-2023 Consult note Note Date/Time November 27, 2023 1:26pm [facility] Medical Records Department [address] [place] [address] Counseling Note - Pharmacy 11/27/23 1325 MR#: [id number] Acct: [id number] Name: FERDINAND FELICIANO Rep #:[id number] : 1955 68 From: Dick Becerra PCP: Dr. Devin Bloom, DO Status:ADM IN Y Location: [facility] KX966-5 Pharmacy [facility] has performed discharge medication reconciliation and counseling for this patient. The patient's discharge medication list was reviewed for discrepancies and discrepancies were resolved. The patient was counseled on the following discharge medications and changes in medications for homegoing were reviewed. The Reason for Use, instructions for use, and potential side effects were reviewed for all new medications. The patient's questions regarding all of their medications were answered. 1. Oxycodone 5 mg PO Q6H PRN pain x 7 days 2. Ciprofloxacin 500 mg PO BID x 14 days The patient was able to verbally demonstrate an understanding of their dischargemedications. Medications at Discharge Home Medications lisinopril 10 mg tablet 10 mg PO DAILY htn 08/26/19 apple cider vinegar 300 mg tablet 300 mg PO DAILY 05/24/20 aspirin 81 mg tablet,delayed release 81 mg PO QODAY [facility] 05/24/20 tfanrtgs-kvdh-gajd 8 mg-folic 400 mcg-K 50 mcg-lutein 300 mcg tablet 1 ea PO DAILY 05/24/20 turmeric 400 mg capsule 400 mg PO DAILY supplement 05/24/20 acetaminophen 500 mg tablet 500 mg PO Q4H PRN PRN Pain Score 1-/10 #20 tabs 06/06/20 oxycodone-acetaminophen 5 mg-325 mg tablet 1 tab PO Q6H PRN PRN pain 5 days #20 TABLETS 10/09/23 cholecalciferol (vitamin D3) 25 mcg (1,000 unit) tablet (Vitamin D3) 1,000 unit PO DAILY 11/18/23 ciprofloxacin HCl 500 mg tablet (Cipro) 500 mg PO BID #14 tabs 11/25/23 oxycodone 5 mg tablet 5 mg PO Q6H PRN pain 7 days #14 tabs 11/25/23 11/27/23 1326 <Electronically signed by Dick sandhu> Date _ Dick Mayfield Signature (if applicable): Date CC: ~ Signed [facility] Work Phone: 1(401) 845-278601-05-2024 Progress note Author Harshad Mcwilliams [facility] November 27, 2023 12:38pm Note Date/Time November 27, 2023 12 :38pm [facility] Medical Records Department [address] [place] [address] Progress Note - Urology 11/27/23 1237 MR#: [id number] Acct: [id number] Name: FERDINAND FELICIANO Rep #:[id number] : 1955 68 From: Harshad Mcwilliams MD PCP: Dr. Devin Bloom, DO Status:ADM IN Location: [place] [address] Subjective Subjective Status post percutaneous removal stone CT scan done this morning shows no stone no hydro nephrostomy tubes been clamped we will remove nephrostomy tube today and he will she can go home Objective Data Objective Data Vital Signs: Vital Signs Temp Pulse Resp BP Pulse Ox O2 Del Method 97.6 F L 98 16 148/72 H 96 Room Air 11/27/23 08:00 11/27/23 08:00 11/27/23 08:00 11/27/23 08:00 11/27/23 08:18 11/27/23 08:18 Oxygen Delivery Method Room Air Weight: 99.3 kg Body Mass Index (BMI) 40.0 Intake & Output: Intake and Output for Last 24 Hours 11/25/23 11/26/23 11/27/23 23:59 23:59 23:59 Intake Total 1768.5 / 1768.5 3700 / 3700 2187.5 / 2187.5 Output Total 1525 / 2125 1500 / 1600 1525 / 1525 Balance 243.5 / -356.5 2200 / 2100 662.5 / 662.5 Radiography Diagnostic Testing: Radiology Impression Abdomen/Pelvis CT 11/27/23 08:10 IMPRESSION: Decreased right hydronephrosis status post percutaneous nephrostomy catheter placement. Interval removal or passage of right staghorn calculus and right proximal ureteral calculus. Nonobstructing left lower pole calculus again seen. Electronically Signed: Mae Leon MD at 8:37 EST , 11/27/23 1238 <Electronically signed by Harshad Mcwilliams MD> Cosigner Signature (if applicable): CC: ~ Signed [facility] Work Phone: 1(486) 331-782801-04-2024 Progress note Author Harshad Mcwilliams [facility] November 26, 2023 7:43am Note Date/Time November 26, 2023 7: 43am [facility] Medical Records Department [address] [place] [address] Progress Note - Urology 11/26/23 0743 MR#: [id number] Acct: [id number] Name: FERDINAND FELICIANO Rep #:[id number] : 1955 68 From: Harshad Mcwilliams MD PCP: Dr. Devin Bloom, DO Status:ADM IN Location: [place] [id number] Subjective Subjective Status post right percutaneous removal of large staghorn calculus and also laserof stone and ureter, today I clamped the nephrostomy tube plan to get a CT scan tomorrow and remove nephrostomy tube and discharge home tomorrow Objective Data Objective Data Vital Signs: Vital Signs Temp Pulse Resp BP Pulse Ox O2 Del Method 98.1 F 91 16 103/83 H 95 Room Air 11/26/23 03:58 11/26/23 03:58 11/26/23 03:58 11/26/23 03:58 11/26/23 03:58 11/26/23 03:58 Oxygen Delivery Method Room Air Weight: 99.3 kg Body Mass Index (BMI) 40.0 Intake & Output: Intake and Output for Last 24 Hours 11/24/23 11/25/23 11/26/23 23:59 23:59 23:59 Intake Total 1768.5 / 1768.5 1000 / 1000 Output Total 1525 / 2125 950 / 950 Balance 243.5 / -356.5 50 / 50 11/26/23 0743 <Electronically signed by Harshad Mcwilliams MD> Cosigner Signature (if applicable): CC: ~ Signed [facility] Work Phone: 1(964) 395-866701-03-2024 Procedure [facility] 11-25-2023 Discharge summary Author Harshad Mcwilliams [facility] November 25, 2023 1:05pm Note Date/Time November 25, 2023 1: 05pm [facility] Medical Records Department [address] [place] [address] Instructions for Home/Discharge Instructions 11/25/23 1305 MR#: [id number] Acct: [id number] Name: FERDINAND FELICIANO Rep #:[id number] : 1955 68 From: Harshad Mcwilliams MD PCP: Dr. Devin Bloom DO Status:REG [facility] Discharge Instructions Diet Discharge Diet: No restrictions Activity Discharge Activity: Return to Normal Activity and May Not Drive (while taking narcotic pain medications.) Dressing / Incision Call your doctor if you observe: Fever of 101 or Higher Follow Up Care Please Follow Up With: Harshad Mcwilliams MD When: Call [phone] for an appointment Test Results: Test results from this visit will be discussed in further detail at your follow- up appointment, if applicable. Discharge Plan Admission Primary Reason for Your Visit: Right percutaneous removal of stone Attending Provider: Harshad Mcwilliams Primary Care Provider: Devin Bloom Discharge Orders/Prescriptions Prescriptions: New oxycodone 5 mg tablet 5 mg PO Q6H PRN (Reason: pain) 7 Days Qty: 14 0RF ciprofloxacin HCl [Cipro] 500 mg tablet 500 mg PO BID Qty: 14 0RF Continued lisinopril 10 MG tablet 10 mg PO DAILY Patient Comments: TAKE 1 TABLET BY MOUTH EVERY DAY apple cider vinegar 300 MG tablet 300 mg PO DAILY vasckuwz-hzq-emor-FA-vit K-lut 1 EACH tablet 1 ea PO DAILY turmeric 400 MG capsule 400 mg PO DAILY aspirin 81 MG tablet,delayed release (DR/EC) 81 mg PO QODAY Patient Comments: stop 7 days preop acetaminophen 500 MG tablet 500 mg PO Q4H PRN PRN (Reason: Pain Score 1-10/10) Qty: 20 0RF cholecalciferol (vitamin D3) [Vitamin D3] 25 mcg (1,000 unit) tablet 1,000 unit PO DAILY oxycodone-acetaminophen 5-325 mg tablet 1 tab PO Q6H PRN PRN (Reason: pain) 5 Days Qty: 20 0RF Referrals / Follow Up: Harshad Mcwilliams MD [Med Staff - Active Staff] - Devin Bloom DO [Primary Care Provider] - Disposition Disposition (needs filled in before D/C Order can be placed): Home, Self Care 11/25/23 1305<Electronically signed by Harshad Mcwilliams MD>Harshad Mcwilliams MD CC: Dr. Devin Bloom, DO ~ Signed [facility] Work Phone: 1(847) 586-816401-03-2024 History and physical note Author Harshad Mcwilliams [facility] November 25, 2023 1:05pm Note Date/Time November 25, 2023 1: 05pm [facility] Medical Records Department [address] [place] [address] History & Physical Exam 11/25/23 1304 MR#: [id number] Acct: [id number] Name: FERDINAND FELICIANO Rep #:[id number] : 1955 68 From: Harshad Mcwilliams MD PCP: Dr. Devin Bloom, Status:REG [facility] Location: [address] - General General Date of Admission: 11/25/23 Chief Complaint: Large right percutaneous stone HPI Narrative FERDINAND FELICIANO, is a 68 F who presents for a percutaneous nephrostolithotomy on theright side and also ureteroscopy laser stone in the ureter right side [facility] Medical History (Updated 11/18/23 @ 14:31 by Jocelyn Matute) Arthritis History of stress test Hypertension Kidney disease Kidney stones Post-menopausal Wears contact lenses Home Medications lisinopril 10 mg tablet 10 mg PO DAILY htn 08/26/19 [History Last Taken 11/24/23] apple cider vinegar 300 mg tablet 300 mg PO DAILY 05/24/20 [History Last Taken Unknown] aspirin 81 mg [facility] [History Last Taken 11/11/23] jhrzgelw-gefg-wzvz 8 mg-folic 400 mcg-K 50 mcg-lutein 300 mcg tablet 1 ea PO DAILY 05/24/20 [History Last Taken Unknown] turmeric 400 mg capsule 400 mg PO DAILY supplement 05/24/20 [History Last Taken Unknown] acetaminophen 500 mg tablet 500 mg PO Q4H PRN PRN Pain Score 1-10/10 #20 tabs 06/06/20 [Rx Last Taken Unknown] oxycodone-acetaminophen 5 mg-325 mg tablet 1 tab PO Q6H PRN PRN pain 5 days #20 TABLETS 10/09/23 [Rx Last Taken Unknown] cholecalciferol (vitamin D3) 25 mcg (1,000 unit) tablet (Vitamin D3) 1,000 unit PO DAILY 11/18/23 [History Last Taken Unknown] ciprofloxacin HCl 500 mg tablet (Cipro) 500 mg PO BID #14 tabs 11/25/23 [Rx Last Taken Unknown] oxycodone 5 mg tablet 5 mg PO Q6H PRN pain 7 days #14 tabs 11/25/23 [Rx Last Taken Unknown] Allergy/AdvReac Type Severity Reaction Status Date / Time cephalexin Allergy Intermediate Rash Verified 11/25/23 11:30 Social History Smoking Status: Never smoker Vital Signs Vital Signs Vital Signs: 11/25/23 11:33 11/25/23 11:33 Temperature 98.4 F Temperature Source Temporal Pulse Rate 76 Respiratory Rate 18 Respiratory Pattern Normal Blood Pressure 139/95 H Blood Pressure Mean 109 Blood Pressure Source Monitor Blood Pressure Position Semi-Fowlers Blood Pressure Location Left Arm Pulse Ox 98 Oxygen Delivery Method Room Air Weight Weight: 95.708 kg Body Mass Index (BMI) 38.5 11/25/23 1305 <Electronically signed by Harshad Mcwilliams MD> Cosigner Signature (if applicable): CC: Dr. Harshad Mcwilliams MD; Dr. Devin Bloom DO~ Signed [facility] Work Phone: 1(149) 167-255212-10-2023 Note. MICRO - Microbiology PROCEDURE: Urine Culture [*1] [...] Locations *1: This test was performed at: [address], [id number] [place] [address])10-30-2023 Note. MICRO - Microbiology PROCEDURE: Urine Culture [*1] [...] Locations *1: This test was performed at: [address], [id number] [place] [address] ([place])10-30-2023 Hospital Discharge instructions Patient Education 10/30/2023 12:40:45 Acute Pain, Adult Acute Pain, Adult Acute pain is a type of sudden pain that may last for just a few days or for as long as six months.It is often related to an illness, injury, or medical procedure. Acute pain may be mild, moderate, or severe. Pain can make it hard for you to do your normal, daily activities. It can cause anxiety and lead toother problems if it is left untreated. Treatment depends on the cause and severity of your pain. Acute pain usually goes away once your injury has healed or you are no longer ill. Follow these instructions at home: Medicines Take sfyv-doh-hzqacao and prescription medicines only as told by [...] pain is severe. ?Do not take other lsrd-rjl-whsjvue pain medicines in addition to prescription pain medicine unlesstold by your health care provider. ?Ask your [...] grains, and fresh fruits and vegetables. ?Take eqgr-vpm-fgulbjw or prescription medicines. ?Limit foods that are [...] told by your health care provider. Use theheat source that your health care provider recommends, [...] or you are no longer ill. Take vwgy-wni-oebpsut and prescription medicines only as told by [...] 11/23/2016 Document Revised: 03/26/2020 Document Reviewed: 03/26/2020 [employer] Patient Education 2020 [employer] 10/30/2023 12:40:34 Ureteral Stent Implantation, Care After [...] Follow these instructions at home: Medicines Take eqcn-wlg-cbpcozs and prescription medicines only as told by your health care provider. If you were prescribed an antibiotic medicine, take it as told by your health care provider. Do notstop taking the antibiotic even if you start [...] contain nicotine or tobacco, such as cigarettes, e- cigarettes, and chewing tobacco. These can delay healing after surgery. If you need help quitting, ask your health careprovider. Keep all follow-up visits as told by [...] of blood in your urine increases. Take upez-cjn-rlathxn and prescription medicines only as told by your health care provider. Drink enough fluid to keep your urine pale yellow. This information is not intended to replace advice given to you by your health care provider. Make sure you discuss any questions you have with your health care provider. Document Released: 07/12/2014 Document Revised: 08/16/2019 Document Reviewed: 08/17/2019 [employer] Patient Education 2020 [place]. 10/30/2023 12:40:15 Kidney Stones, Brgy-oz-Jjih Kidney Stones Kidney stones are rock-like masses [...] Follow these instructions at home: Medicines Take feyq-jdz-nzsrpnl and prescription medicines only as told by [...] 04/27/2009 Document Revised: 03/27/2020 Document Reviewed: 03/27/2020 [employer] Patient Education 2020 [place]. 10/30/2023 12:40:13 Dietary Guidelines to Help Prevent [...] about 300 mg of calcium at each meal.Foods that contain 200 500 mg of calcium [...] Talk to your dietitian about how much calciumis recommended for you. Shopping Buy plenty of [...] the table and allow each person to addhis or her own salt to taste. Use [...] fish, if told by your dietitian. To dothis: ?Limit the number of times you have [...] include: ?Spinach. ?Rhubarb. ?Beets. ?Potato chips and northern irish fries. ?Nuts. If you regularly take a diuretic medicine, make sure to eat at least 1 2 fruits or vegetables high in potassium each day. These include: ?Avocado. ?Banana. ?Lima, prune, carrot, or tomato juice. ?Baked potato. [...] fish. Salted or cured meats. Deli meats. Hotdogs. Sausages. Dairy Cheese. Beverages Regular soft drinks. Regular vegetable juice. Seasonings and other foods Seasoning blends with salt. Salad dressings. Canned soups. Soy sauce. Ketchup. Barbecue sauce. Canned pasta sauce. Casseroles. Pizza. Lasagna. Frozen meals. Potato chips. Slovenian fries. Summary You can reduce your risk of kidney stones by making changes to your diet. The most important thing you can do is drink enough fluid. You should drink enough fluid to keep your urine clear or pale yellow. Ask your health care provider or dietitian how much protein from animal sources you should eat eachday, and also how much salt and calcium you should have each day. This information is not intended to replace advice given to you by your health care provider. Make sure you discuss any questions you have with your health care provider. Document Released: 03/05/2012 Document Revised: 02/29/2020 Document Reviewed: 10/20/2017 [employer] Patient Education 2020 [place]. Follow Up Care 10/26/2023 10:29:58 With:HARSHAD MCWILLIAMS MD, [facility] Address: [address] [place] [phone] When: Unknown [facility] 12-08-2023 Evaluation + Plan note Diagnostic Tests Pending * Urine Culture 10/30/23 [facility] 12-08-2023 Note ORIGINAL EXAMINATION: CT OF THE ABDOMEN AND PELVIS WITHOUT AKRQSCJG89/8/2023 1:41 pm TECHNIQUE: CT of the abdomen [...] Sign Date: 10/30/2023 3:25:09 PM Ordering Provider: HARSHAD Davison [facility]12-08-2023 Note Discharge Instructions Thank you for allowing [facility] to assist you with your healthcare needs. The following is importantdischarge information regarding your hospital visit. Your Care Team Your Diagnosis Stone in kidney What to do next Follow Up Appointments Follow Up with HARSHAD MCWILLIAMS MD, [facility] When Where: [address] [place] [phone] The Following Activity and Diet Have Been [...] post-operative/post-procedure diet instructions provided by your physician's office.,10/30/23 12:29:00 EST Allergies Contrast dye (FEELS HOT) cephalexin (HIVES) oxyCODONE (HIVES) Medications Please ask your primary doctor or pharmacist before taking any other medication not listed, including over the counter drugs, herbal medications, vitamins and or supplements as they may interact withyour home medications. What How Much When Why Instructions Last Dose New ciprofloxacin (Cipro I.V.) 400 Milligram IV Piggyback As directed Pre-Op New oxyCODONE (oxyCODONE 5 mg oral tablet ( IMMEDIATE release )) 1 tab(s) by mouth Every 6 hours as needed for for pain Stone in kidney Duration: 7 Days Pickup at [id number] Unchanged benzonatate (Tessalon Perles 100 mg oral [...] mouth Every day Pharmacy Information [id number]: [address] [place] [address] [phone] Please take this list to your next [...] days or for as long as six months.It is often related to an illness, injury, or medical procedure. Acute pain may be mild, moderate, or severe. Pain can make it hard for you to do your normal, daily activities. It can cause anxiety and lead toother problems if it is left untreated. Treatment depends on the cause and severity of your pain. Acute pain usually goes away once your injury has healed or you are no longer ill. Follow these instructions at home: Medicines Take hgof-jwu-dkpqrec and prescription medicines only as told by [...] is severe. ? Do not take other onzm-jdq-oskyvlt pain medicines in addition to prescription pain [...] and fresh fruits and vegetables. ? Take joks-tqf-jjyyvwl or prescription medicines. ? Limit foods that [...] told by your health care provider. Use theheat source that your health care provider recommends, [...] or you are no longer ill. Take azjw-fgt-iaqpaxl and prescription medicines only as told by [...] 11/23/2016 Document Revised: 03/26/2020 Document Reviewed: 03/26/2020 [employer] Patient Education 2020 [employer] Ureteral Stent Implantation, Care After This [...] Follow these instructions at home: Medicines Take tcuu-cwq-nojfyfj and prescription medicines only as told by your health care provider. If you were prescribed an antibiotic medicine, take it as told by your health care provider. Do notstop taking the antibiotic even if you start [...] your health care provider approves. Ask your healthcare provider if you may take showers. You may only be allowed to take sponge baths. Drink enough fluid to keep your urine pale yellow. Do not use any products that contain nicotine or tobacco, such as cigarettes, e- cigarettes, and chewing tobacco. These can delay healing after surgery. If you need help quitting, ask your health careprovider. Keep all follow-up visits as told by [...] of blood in your urine increases. Take jvya-ddh-qvlaywg and prescription medicines only as told by your health care provider. Drink enough fluid to keep your urine pale yellow. This information is not intended to replace advice given to you by your health care provider. Make sure you discuss any questions you have with your health care provider. Document Released: 07/12/2014 Document Revised: 08/16/2019 Document Reviewed: 08/17/2019 [employer] Patient Education 2020 [employer] Kidney Stones Kidney stones are rock-like masses [...] Follow these instructions at home: Medicines Take lirk-nmp-irzntdl and prescription medicines only as told by [...] 04/27/2009 Document Revised: 03/27/2020 Document Reviewed: 03/27/2020 Elsevier Patient Education 2020 [employer] Dietary Guidelines to Help Prevent Kidney [...] about 300 mg of calcium at each meal.Foods that contain 200 500 mg of calcium [...] Talk to your dietitian about how much calciumis recommended for you. Shopping Buy plenty of [...] the table and allow each person to addhis or her own salt to taste. Use [...] fish, if told by your dietitian. To dothis: ? Limit the number of times you [...] Rhubarb. ? Beets. ? Potato chips and northern irish fries. ? Nuts. If you regularly take a diuretic medicine, make sure to eat at least 1 2 fruits or vegetables high in potassium each day. These include: ? Avocado. ? Banana. ? Lima, prune, carrot, or tomato juice. ? Baked [...] fish. Salted or cured meats. Deli meats. Hotdogs. Sausages. Dairy Cheese. Beverages Regular soft drinks. Regular vegetable juice. Seasonings and other foods Seasoning blends with salt. Salad dressings. Canned soups. Soy sauce. Ketchup. Barbecue sauce. Canned pasta sauce. Casseroles. Pizza. Lasagna. Frozen meals. Potato chips. Slovenian fries. Summary You can reduce your risk of kidney stones by making changes to your diet. The most important thing you can do is drink enough fluid. You should drink enough fluid to keep your urine clear or pale yellow. Ask your health care provider or dietitian how much protein from animal sources you should eat eachday, and also how much salt and calcium you should have each day. This information is not intended to replace advice given to you by your health care provider. Make sure you discuss any questions you have with your health care provider. Document Released: 03/05/2012 Document Revised: 02/29/2020 Document Reviewed: 10/20/2017 [employer] Patient Education 2020 [place]. Additional Information VACCINATE! IT SAVES LIVES! Members of the community who have not yet received the COVID-19 vaccine and would like to receive it can visit one of [facility] vaccine clinics. There are many vaccine clinic locations within the [facility]. For locations and available times, please visit https://gettheshot.coronavirus.[place].gov/. It is important to note that some COVID mobile vaccine clinics are held outdoors and may be canceled in rainy or stormy conditions. To learn more about pediatric vaccinations (ages 5-11), we invite you to visit the [facility] webpage. https://www.[facility].org/pages/1936-Lxvpc-Jqvedzxcafo-Pxnfqikdjp-Hgmoo-Vao stions.htmlTo learn more about the COVID-19 vaccine, we invite you to visit the CDC website for a list of frequently asked questions.https://www.cdc.gov/coronavirus/2019-ncov/vaccines/faq.html [facility] Patient Portal Access Instructions: Stay connected with your healthcare team and access your personal medical information anytime with the [facility] Patient Portal. Please follow the directions below to create your [employer] account: 1.Access the email account you provided upon registration to the hospital/physician office.2.Look for an invitation email from [facility].3.Open the email and access the invitation link: AcceptInvitation to [email or web address].4.Fill in the required root to create your account. To access your account, visit [email or web address]. Click the blue button labeled Access Patient Portal and then log in with the username and password that you created in the steps above. You will be able to view your test results, lab results, a summary of your visits, upcoming appointments and more. There is also a convenient messaging option where you can send secure messages to your p rovider. In addition, you will have the ability to download any documents or summaries to your computer and/or send the information securely to a physician. Remember that your healthcare information is confidential, so carefully consider who you will allowto register on the [email or web address] Patient Portal for access to your information. You can also access the [email or web address] Patient Portal on the [facility] dima. Simply click on Patient Portal and then log into your account. If you would like to receive a full copy of your medical records, please contact the [facility] Medical Records Department by calling [phone], Thursday through Thursday between 8 a.m. and 4:30 p.m. HOW TO SAFELY DISPOSE OF PRESCRIPTION MEDICATIONS Please use one of the following methods to safely dispose of your unused medications. 1.Use a drug disposal kit: the drug disposal pouch allows you to safely discard your old and unuseddrugs. Ask your nurse to give you one when you are discharged.2.Visit a local take-back location: Many local pharmacies and police departments have programs that collect old and unwanted prescriptiondrugs. Call your local pharmacy or go to http://[employer]/7G7Oq1z to find one close to you.3.Make use of household items: Use cat litter or old coffee grounds to dispose medications if other options arenot available. Mix your drugs with these household products, seal them in an airtight container andthrow it into the garbage. Call [facility]: [phone] to be sure your drugs can be [...] Ureteral Stent Implantation, Care After Kidney Stones, Ggqd-yb-Xnsg Dietary Guidelines to Help Prevent Kidney Stones Medication Leaflets My discharge plan and instructions have been reviewed and explained to me and I,FERDINAND FELICIANO understand my current condition and have read and understand these discharge instructions. I have receiveda written copy of the plan/instructions. If I have questions, I am aware that I should contact my do ctor. 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 Signature: Date/Time: Relationship to Patient: Witness Name/Signature: Date/Time: [facility]12-08-2023 Anesthesiology Consult note Patient: FERDINAND FELICIANO Age: 68 years Sex: Female : 1955 Associated Diagnoses: None Author: ANDRES NAGY SALES REPRESENTATIVE BUSINESS COURSES-SENIOR UNIX ADMINISTRATOR Preoperative Information Time of last food or [...] Not Documented Cephalexin- Hives. Contrast dye- Feels hot. OxyCODONE- Hives., Allergies (3) ActiveReaction cephalexinHIVES Contrast dyeFEELS HOT oxyCODONEHIVES Current medications: (Selected) Inpatient Medications Ordered NS 1000 mL: 75 mL/hr, Intravenous, Stop: 10/31/23 17:59:00 EST Prescriptions Prescribed Tessalon Perles 100 mg oral capsule: 100 mg, 1 cap(s), Oral, q8h, for 10 day(s), PRN: as needed forcough, 30 cap(s), 0 Refill(s) levoFLOXacin 750 mg oral tablet: 750 mg, 1 tab(s), Oral, q48h, for 10 day(s), 5 tab(s), 0 Refill(s) oxyCODONE 5 mg oral tablet ( IMMEDIATE release ): 5 mg, 1 tab(s), Oral, q6h, for 7 day(s), PRN: forpain, 28 tab(s), 0 Refill(s) Documented Medications Documented [...] History is unknown. Procedure history: Kidney stone ([id number]). Social History Social & Psychosocial Habits Alcohol [...] Resp Rate 16 br/min (OCT 30 10:47) TNT921 mmHg (OCT 30 10:47) DBP73 mmHg (OCT 30 10:47) Measurements from flowsheet : Measurements 10/30/2023 10:47 EST Height 157.5 cm Admission Weight 91 kg [place] Body Weight 50.12 kg Admission Body Mass [...] Height 157.5 cm Admission Weight 91 kg [place] Body Weight 50.12 kg Admission Body Mass [...] Non-distended, Soft Skin Temperature Warm Skin Description Marley Skin Integrity Intact Mucous Membrane Color Marley Skin Moisture General Dry Neurological Symptoms Patient [...] Designated Person #1 We May Share PHI JAN FELICIANO [phone] Designated Person #1 Relationship Spouse Designated Person #2 We May Share [facility] OMAR CHRISCONNER [phone] Designated Person #2 Relationship Son Privacy Restrictions [...] Teaching Method Printed materials Preferred Spoken Language Palauan Preferred Written Language Palauan Teaching Evaluation Verbalizes/Nonverbally indicates understanding Safety Brochure Information Reviewed Unable to complete Adonis Guallpa Video Viewed No Information Given by Patient Patient's Current Physicians DR BLOOM - PCP Discharge To, Anticipated Home independently [...] Allergies Yes Anesthesia Extension Set Applied Yes Leisure Studies Professor On Yes Consent Form Signed Yes Patient [...] Care Note Transition of Care sent from [facility] . Assessment and Plan [place] Society of Anesthesiologists (ASA) physical status classification: Class III. Anesthetic Preoperative Plan Premedication: intravenous. Anesthetic technique: General. Induction: intravenously. Maintenance airway: Laryngeal mask airway. Postoperative pain management: Per surgeon. Risks discussed: nausea, vomiting, headache, sore throat, dental injury, hypotension, allergic reaction, serious complications. Informed consent: signed by patient. Digitally Signed by ANDRES NAGY on 10/30/2023 11:55 AM [facility]12-06-2023 Hospital Discharge instructions Patient Education 10/28/2023 15:15:08 Identifying Kidney Stones Identifying Kidney Stones Your kidneys filter your blood and release chemicals into the urine. If certain chemicals build up in the kidneys, they can form a stone. There are 4 general types of kidney stones. Your kidney stone s size and shape determine whether itis likely to pass by itself. Knowing what a stone is made of (its composition) helps your healthcare provider find its cause. Then he or she can suggest the best treatment. X-rays or scans can help show the stone's size and shape. Your healthcare provider may also give you a strainer. You can use th is to catch the stone while passing urine, [...] you may manage it with medicines. Certain proceduresmay also help, such as SWL (shock wave lithotripsy) or using a camera inside the body to remove thestone (ureteroscopy). And you will be told how you can help prevent kidney stones in the future. 2234-5139 [employer]. [address] [place] [address], [place] [address]. All rights reserved. This information is not intended as a substitute for professional medical care. Always follow yourhealthcare professional's instructions. Follow Up Care 10/28/2023 11:37:18 With:HARSHAD MCWILLIAMS MD, [employer] [facility] Address: [address] [place] [phone] When:1-2 days [facility] 12-06-2023 Note Discharge Instructions Thank you for allowing [facility] to assist you with your healthcare needs. The following is importantdischarge information regarding your hospital visit. Diagnosis from Today's Visit Cough Flank pain Kidney stone Urinary tract infection What to Do Next Instructions from Your Care Team You have a complicated UTI because you have an infection in your urine test and a kidney stone. This requires antibiotics. Because you had a recent reaction to Keflex you will be put on an antibioticcalled levofloxacin. Because your kidneys are under stress they are not filtering that well so we have to dose levofloxacin every 48 hours. You are given a dose today so your next dose will be Monday, October 30, 2023. Please call Dr. Adames's office tomorrow and let them know that you have a UTI tosee if that will change anything for your [...] Schedule the Following Appointments Follow Up with HARSHAD MCWILLIAMS MD, [facility] [employer] [facility] When Within 1-2 days Where: [address] [place] [phone] Allergies Contrast dye (FEELS HOT) cephalexin (HIVES) oxyCODONE (HIVES) Medications Please ask your primary doctor or pharmacist before taking any other medication not listed, including over the counter drugs, herbal medications, vitamins and or supplements as they may interact withyour home medications. What How Much When Instructions [...] and constant pain in your chest, stomach, orback. What is levofloxacin? Levofloxacin is a fluoroquinolone (yocp-w-BIZU-o-lone) antibiotic that fights bacteria in the body.Levofloxacin is used to treat different types of bacterial infections. Levofloxacin is also used totreat people who have been exposed to anthrax [...] (the fiber that connects bones to muscles inthe body), especially in the Achilles' tendon of [...] reaction (fever, sore throat, burning in your eyes,skin pain, red or purple skin rash that spreads and causes blistering and peeling). Levofloxacin can cause serious side effects, including tendon problems, side effects on your nerves(which may cause permanent nerve damage), serious mood [...] rupture--sudden pain, swelling, bruising, tenderness, stiffness, movement problems,or a snapping or popping sound in any of your joints (rest the joint until you receive medical careor instructions). In rare cases, levofloxacin may cause damage to your aorta, the main blood artery of the body. Thiscould lead to dangerous bleeding or . Get [...] may report side effects to FDA at 6-449-BWJ-4939. What other drugs will affect levofloxacin? Some [...] drugs may affect levofloxacin, including prescription and ooyf-qod-puoeonz medicines, vitamins, and herbal products. Not all [...] to ensure that the information provided by [employer]. ('[employer]') is accurate, up-to-date, and complete, but no guarantee is made to that effect. Drug information contained herein may be time sensitive. [employer] information has been compiled for use by healthcare practitioners and consumers in the [place] and therefore [employer] does not warrant that uses outside of the [place] are appropriate, unless specifically indicated otherwise. [employer] drug information does not endorse drugs, diagnose patients or recommend therapy. [employer] drug information isan informational resource designed to assist licensed healthcare practitioners in caring for their p atients and/or to serve consumers viewing this service as a supplement to, and not a substitute for, the expertise, skill, knowledge and judgment of healthcare practitioners. The absence of a warningfor a given drug or drug combination in no way should be construed to indicate that the drug or drug combination is safe, effective or appropriate for any given patient. [employer] does not assume any responsibility for any aspect of healthcare administered with the aid of information [employer] provides. The information contained herein is not intended to cover all possible uses, directions, precautions, warnings, drug interactions, allergic reactions, or adverse effects. If you have questions about the drugs you are taking, check with your doctor, nurse or pharmacist. Copyright 9891-3667 [employer]. Version: 16.. Revision Date: 07/02/2023. benzonatate (denise JUAN DAVID na hale) What is the most important information I should know about benzonatate? Never suck or chew on a benzonatate capsule. Swallow the pill whole. Sucking or chewing the capsulemay cause serious side effects. Benzonatate is not approved for use by anyone younger than 10 years old. An overdose of benzonatatecan be fatal to a young child. What [...] than 10 years old. An overdose of benzonatatecan be fatal, especially to a young child who has accidentally swallowed the medicine. How should I take benzonatate? Follow all directions on your prescription label and read all medication guides or instruction sheets. Use the medicine exactly as directed. Never suck or chew on a benzonatate capsule. Swallow the pill whole. Sucking or chewing the capsulemay cause serious side effects. Store at room [...] may report side effects to FDA at 0-591-HEZ-7330. What other drugs will affect benzonatate? Using benzonatate with other drugs that make you drowsy can worsen this effect. Ask your doctor before using opioid medication, a sleeping pill, a muscle relaxer, or medicine for anxiety or seizures. Other drugs may affect benzonatate, including prescription and vwvr-uqs-bxbkmro medicines, vitamins, and herbal products. Tell your [...] to ensure that the information provided by [employer]. ('[employer]') is accurate, up-to-date, and complete, but no guarantee is made to that effect. Drug information contained herein may be time sensitive. [employer] information has been compiled for use by healthcare practitioners and consumers in the [place] and therefore [employer] does not warrant that uses outside of the [place] are appropriate, unless specifically indicated otherwise. [employer] drug information does not endorse drugs, diagnose patients or recommend therapy. [employer] drug information isan informational resource designed to assist licensed healthcare practitioners in caring for their p atients and/or to serve consumers viewing this service as a supplement to, and not a substitute for, the expertise, skill, knowledge and judgment of healthcare practitioners. The absence of a warningfor a given drug or drug combination in no way should be construed to indicate that the drug or drug combination is safe, effective or appropriate for any given patient. [employer] does not assume any responsibility for any aspect of healthcare administered with the aid of information [employer] provides. The information contained herein is not intended to cover all possible uses, directions, precautions, warnings, drug interactions, allergic reactions, or adverse effects. If you have questions about the drugs you are taking, check with your doctor, nurse or pharmacist. Copyright 9939-1905 [employer]. Version: 09.23. Revision Date: 06/25/2023. Education Materials Identifying Kidney Stones Your kidneys filter your blood and release chemicals into the urine. If certain chemicals build up in the kidneys, they can form a stone. There are 4 general types of kidney stones. Your kidney stone s size and shape determine whether itis likely to pass by itself. Knowing what a stone is made of (its composition) helps your healthcare provider find its cause. Then he or she can suggest the best treatment. X-rays or scans can help show the stone's size and shape. Your healthcare provider may also give you a strainer. You can use th is to catch the stone while passing urine, [...] you may manage it with medicines. Certain proceduresmay also help, such as SWL (shock wave lithotripsy) or using a camera inside the body to remove thestone (ureteroscopy). And you will be told how you can help prevent kidney stones in the future. 4719-1802 [employer]. [address] [place] [address], [place] [address]. All rights reserved. This information is not intended as a substitute for professional medical care. Always follow yourhealthcare professional's instructions. Additional Information VACCINATE! IT SAVES LIVES! Members of the community who have not yet received the COVID-19 vaccine and would like to receive it can visit one of [facility] vaccine clinics. There are many vaccine clinic locations within the [facility]. For locations and available times, please visit www.gettheshot.coronavirus.[place].gov/. It is important to note that some COVID mobile vaccine clinics are held outdoors and may be canceled in rainy or stormy conditions. To learn more about pediatric vaccinations (ages 5-11), we invite you to visit the [facility] webpage. https://www.[employer].org/pages/4281-Rqfwu-Rzkkkqbjdpw-Lroexqlair-Yvjmn-Oxj stions.htmlTo learn more about the COVID-19 vaccine, we invite you to visit the CDC website for a list of frequently asked questions. https://www.cdc.gov/coronavirus/2019-ncov/vaccines/faq.html [email or web address] Patient Portal Access Instructions: Stay connected with your healthcare team and access your personal medical information anytime with the [facility] Patient Portal. If you would like a full copy of your medical records please contact the [facility] Medical Records Department Thursday through Thursday between 8a.m. and 4:30p.m. Please follow the directions below to access the portal: 1.Access the email account you provided upon registration to the hospital.2.Look for an invitation email from [facility].3.Open the email and access the invitation link: Accept Invitation to [facility].Fill in the required root to create your account. Sign into [email or web address] with your username and password that you [...] you will allow to register on the [facility] Patient Portal for access to your information. You can also access the [facility] Patient Portal on the [employer] dima. Simply click on Health Records under [employer] and then click on the [facility] logo. HOW TO SAFELY DISPOSE OF PRESCRIPTION MEDICATIONS Please use one of the following methods to safely dispose of your unused medications. 1.Use a drug disposal kit: the drug disposal pouch allows you to safely discard your old and unuseddrugs. Ask your nurse to give you one when you are discharged.2.Visit a local take-back location: Many local pharmacies and police departments have programs that collect old and unwanted prescriptiondrugs. Call your local pharmacy or go to http://[employer]/4B1Bm4p to find one close to you.3.Make use of household items: Use cat litter or old coffee grounds to dispose medications if other options arenot available. Mix your drugs with these household products, seal them in an airtight container andthrow it into the garbage. Call [facility]: [phone] to be sure your drugs can be [...] drowsiness, such as benzodiazepines, also known as benzos,including diazepam and alprazolam, muscle relaxants or sleep aids. Never sell or share prescriptionopioids. This is illegal. Store opioids in a secure place and out of reach of others (including children, family, friends and visitors). The last page(s) of this document has been signed and retained as a CHART COPY Signatures Patient Education Materials Identifying Kidney Stones Medication Leaflets levofloxacin (oral), benzonatate My discharge plan and instructions have been reviewed and explained to me and IBRADEN KAREN understand my current condition and have read and understand these discharge instructions. I have receiveda written copy of the plan/instructions. If I have questions, I am aware that I should contact my do ctor. 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 Signature: Date/Time: Relationship to Patient: Witness Name/Signature: Date/Time: [facility]12-06-2023 Evaluation + Plan note Future Appointments Diagnostic Tests Pending * Urine Culture 10/28/23 [facility] 12-06-2023 Note ORIGINAL EXAMINATION: CT OF THE ABDOMEN AND PELVIS WITHOUT QUJBKMWE25/6/2023 1:[address] ABDOMEN/PELVIS WITHOUT CONTRAST TECHNIQUE: [...] Samuel Martinez MD Preliminary Report By: Juan Miles Electronically signed By Samuel Martinez MD Dictated Date: 10/28/2023 2:49:30 PM Prelim Date: 10/28/2023 3:08:54 PM Sign Date: 10/28/2023 4:36:46 PM Ordering Provider: [facility]12-06-2023 Note ORIGINAL EXAMINATION: ONE XRAY VIEW OF [...] Sign Date: 10/28/2023 1:58:24 PM Ordering Provider: [facility]12-06-2023 SARS-CoV-2 (COVID-19) RNA EMMA+probe Ql (Nph)Negative *NA* (10/28/23 12:07 PM)AO Auto Urine SSAnesthesiology Consult note* SHRUTHI SU APRN-SENIOR UNIX ADMINISTRATOR: PERFORM, SIGN, VERIFY Event Display: Anesthesiology Consultation Authored Date: [id number] Patient: FERDINAND FELICIANO Age: 68 years Sex: Female : 1955 Associated Diagnoses: None Author: SHRUTHI SU Preoperative Information Anesthesia history Patient's history: negative. Family's history: negative. Health Status Allergies: Allergic Reactions (Selected) Severity Not Documented Cephalexin- Hives. Contrast dye- Feels hot., Allergies (2) ActiveReaction cephalexinHIVES Contrast dyeFEELS HOT Current medications: (Selected) Inpatient Medications Ordered NS 1,000 mL: 75 mL/hr, Intravenous, Stop: 01/01/24 23:59:00 EST ceFAZolin: 2 gram(s), 200 mL/hr, IV Piggyback, PREOP pharm Documented Medications Documented Centrum Silver Ultra Women's oral tablet: 1 tab(s), Oral, Daily, 0 Refill(s) Vitamin D3: 50 mcg, 1 cap(s), Oral, Daily, 30 cap(s), 0 Refill(s) aspirin 81 mg oral delayed release tablet: 81 mg, 1 tab(s), Oral, Daily, 0 Refill(s) cider vinegar oral tablets: 1 tab, Oral, Daily, 0 Refill(s) lisinopril 10 mg oral tablet: TAKE 1 TABLET BY MOUTH EVERY DAY turmeric 500 mg oral capsule: 500 mg, 1 cap(s), Oral, Daily, 0 Refill(s), Medications (2) Active Scheduled: (1) ceFAZolin 2 gram(s), IV Piggyback, PREOP pharm Continuous: (1) NS (0.9% nacl) 1,000 mL 1,000 mL, Intravenous, 75 mL/hr PRN: (0) Problem list: Active Problems (3) Arthritis HTN (hypertension) Kidney stone Histories Past Medical History: No active or resolved past medical history items have been selected or recorded. Family History: History is unknown. Procedure history: Cystoscopy of ureter ([id number]) on 10/30/2023 at 68 Years. Comments: 12/22/2023 8:50 Dee Jean RN right ureteral stent Removal of calculus of renal pelvis through percutaneous nephrostomy ([id number]). Comments: 12/22/2023 8:51 EST - Mausolf, Dee RN x2 Cystoscopic lithotripsy of ureteric calculus ([id number]). 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 Physical Examination Vital Signs 01/01/2024 11:47 EST Temperature Temporal Artery 36.5 DegC Heart Rate Monitored 84 bpm Respiratory Rate 19 br/min Systolic Blood Pressure Non-Invasive 149 mmHg HI Diastolic Blood Pressure Non-Invasive 68 mmHg Vital Signs(last 24 hrs) Last Charted Heart Rate Qedwctiys60 bpm (JAN 01 11:47) SBPH 149mmHg (JAN 01 11:47) DBP68 mmHg (JAN 01 11:47) BMI37.73 (JAN 01 11:36) Measurements from flowsheet : Measurements 01/01/2024 11:36 EST Height 157 cm Height in inches 61.8 inch(es) Admission Weight 93 kg Weight Lbs 204.6 lb [place] Body Weight 49.67 kg BSA Admission 1.93 Body Mass Index 37.73 kg/m2 Pain assessment: Pain Assessment 01/01/2024 11:47 EST Primary Pain Intensity 0 Pain Scale Type 0-10 Pain scale . General: Alert and oriented. Airway: Normal temporomandibular joint mobility. Mallampati classification: II (soft palate, fauces, uvula visible). Respiratory: Lungs are clear to auscultation, Respirations are non-labored. Cardiovascular: Normal rate, Regular rhythm. Neurologic: Alert, Oriented. Review / Management Results review: No qualifying data available , Lab results 01/01/2024 12:03 EST SN - Preop - CTm Pt in SDS Room 01/01/2024 11:27 SN - Preop - CTm Pt Ready for OR/Proced 01/01/2024 12:03 01/01/2024 11:59 EST Continuous IV Infusions lr Antecubital Left 01/01/2024 20 gauge Peripheral IV Activity: Insert new site Peripheral IV Dressing Condition: Clean, Dry, Intact Peripheral IV Dressing Activity: Applied, Transparent dressing Peripheral IV Line Status/Patency: Flushes easily Peripheral IV Line Care: Secured with tape Peripheral IV Site Condition: No complications Peripheral IV Equipment: Extension set, PRN Adaptor Peripheral IV Number of Attempts: 2 01/01/2024 11:47 EST Temperature Temporal Artery 36.5 DegC Heart Rate Monitored 84 bpm Respiratory Rate 19 br/min Systolic Blood Pressure Non-Invasive 149 mmHg HI Diastolic Blood Pressure Non-Invasive 68 mmHg Primary Pain Intensity 0 Pain Scale Type 0-10 Pain scale Respirations Unlabored Respiratory Pattern Regular Oxygen Therapy Room air Oxygen Saturation 87 % <LLOW Bowel Sounds All Quadrants Present Urinary Elimination Voiding, no difficulties Skin Integrity Intact IV Present Present Neurological Symptoms Patient denies Characteristics of Communication Appropriate Characteristics of Speech Clear Level of Consciousness Alert Allergies Yes Anesthesia Extension Set Applied Yes Leisure Studies Professor On Yes Consent Form Signed Yes Patient Dressed In Hospital gown CHG Preoperative Wash/Wipe Not done Preop Nasal Swab Povidone-Iodine History & Physical Update On Chart Yes History & Physical On Chart Yes Obstructive Sleep Apnea Assess Completed No Lorenza Motor (2) Moves 4 extremities voluntarily or on command Lorenza Respirations (2) Spontaneous respiration without support, RR > 10 Lorenza Blood Pressure (2) BP 20% above or below preanesthetic level Lorenza Pulse (2) Pulse 20% above or below preanesthetic level Lorenza Oxygen Saturation (2) 94% or more Lorenza Level of Consciousness (2) Fully awake Lorenza III Score 12 Positioning Repositions self Sequential Compression Device bilateral knee high applied/on NPO Status Maintained, More than 8 hours Standard Safety ID band on, Allergy Band on, Call device within reach, Bed in low position, Wheels locked, Safety level maintained Allergy Band on and Verified Yes Patient ID Band on and Verified Yes Implants Verified No Pacemaker/AICD Verified No Site Verified by Patient/Family Yes Anesthesia Consent Signed Yes Last Fluid Intake 12/31/2023 23:45 Last Food Intake 12/31/2023 18:00 Last Void 01/01/2024 12:03 01/01/2024 11:39 EST Belongings At Bedside Cell phone, Pants, Shirt, Shoes, Socks, Undergarments 01/01/2024 11:36 EST Designated Person #1 We May Share PHI JAN FELICIANO [phone] Designated Person #1 Relationship Spouse Designated Person #2 We May Share [facility] OMAR FELICIANO [phone] Designated Person #2 Relationship Son Privacy Restrictions Requested None Height 157 cm Height in inches 61.8 inch(es) Admission Weight 93 kg Weight Lbs 204.6 lb [place] Body Weight 49.67 kg BSA Admission 1.93 Body Mass Index 37.73 kg/m2 Patient Type Outpatient Status N/A Do You Wish/Go to Sleep/Never Wake Up No Thoughts of Harming Others - History No Thoughts of Suicide - History No Hospital Clergy to Visit Patient Verbalizes No Spiritual Needs Sensory Deficits None Advanced Directives No - refuses information Infectious [...] > 3 Weeks No Weight Loss No Barriers to Learning None evident Teaching Method Explanation, Printed materials Preferred Spoken Language Palauan Preferred Written Language Palauan Teaching Evaluation No further teaching needed Safety Brochure Information Reviewed Unable to complete [facility] Video Viewed No Information Given by Patient Patient's Current Physicians Patient's Current Physicians Discharge To, Anticipated Home with family care Prev Test Positive/Diagnosis w/COVID-19 Yes Previous COVID-19 Positive Date 2020 Current Quarantine/Isolated any Illness No Any Contact with Sick Animals/Birds No Traveled Anywhere in Last 30 Days No Lost Weight Unintentionally Recently No Eat Poorly Due to Decreased Appetite No Total MST Score 0 N/A Personal Devices, Patient Valuables Contact lenses Admission Note-Nursing Patient History (AO) . Assessment and Plan [place] [employer] Anesthesiologists (ASA) physical status classification: Class III. Anesthetic Preoperative Plan Anesthetic technique: General. Maintenance airway: Laryngeal mask airway. Postoperative pain management: Per surgeon. Risks discussed: nausea, vomiting, sore throat, dental injury, hypotension, allergic reaction, serious complications. Informed consent: signed by patient. Digitally Signed by SHRUTHI SU on 01/01/2024 12:17 PM [facility] Chief complaint+Reason for visit Narrative* Chief Complaint FLANK PAIN PRE-PROCEDURE [facility] Work Phone: Chief complaint+Reason for visit Narrative* Chief Complaint FLANK PAIN PRE-PROCEDURE PRE-PROCEDURE Ureteroscopy Laser lithotripsy with [facility] Work Phone: Evaluation + Plan note Future Appointments [facility] Evaluation noteNo assessment information available [facility] Work Phone: Hospital course Narrative No data available for this section [facility] Hospital Discharge instructions No data available for this section [facility] Hospital Discharge instructions Additional Instructions Implant Used?: [facility] Work Phone: Progress note No data available for this section [facility] Summary Purpose Family History No Family History Records Found No data available for this section No data available for this section No data available for this section No data available for this section No Family History Records FoundNo Family History Records Found Advance Directives No Advanced Directives Records Found Advance Directive Response Recorded Date/ Time Living Will Yes March 26, 2021 2: 44pm Power of Job Lithographer Yes March 26, 2021 2:44pm Advance Directive Response Recorded Date/ Time Living Will No October 08 023 11:23pm Power of Job Lithographer No October 08, 2023 11:23pm Advance Directive Response Recorded Date/ Time Living Will No November 25 3:58pm Power of Job Lithographer No November 25 024 3:58pm Chief Complaint and Reason for Visit Chief Complaint FLANK PAIN Additional Source Comments INFORMATION SOURCE (unrecogn ized section and content) DATE CREATED AUTHOR 01/12/2020 [facility] DATE CREATED AUTHOR AUTHOR'S ORGANIZ ATION 01/09/2024 [facility] ([place] DATE CREATED AUTHOR AUTHOR'S ORGANIZ ATION 08/11/2025 [facility] Care Teams (unrecognized sec tion and content) Team Status: Active Member Role Status Dates Dr. Devin Wolf , DO Family Provider Active Dr. Devin Bloom , DO Primary Care Provider Active Team Status: Inactive Member Role Status Dates Dr. Devin Bloom , DO Primary Care Provider Active CLARISSA Guerra Attending Provider, Referring Provider Active Team Status: Inactive Member Role Status Dates Dr. Devin Bloom , DO Primary Care Prov ider, Attending Provider, Referring Provider Active Team Status: Inactive Member Role Status Dates Dr. Devin Bloom , DO Primary Care Provider Active Dr. Donnie Shepard , DO Emergency Provider Active Team Status: Inactive Member Role Status Dates Dr. Devin Bloom , DO Primary Care Provider Active Dr. Donnie Shepard DO Attending Provider, Emergency P rovider Active Team Status: Inactive Member Role Status Dates Dr. Devin Bloom DO Primary Care Provider Active Dr. Harshad Mcwilliams MD Attending Provider, Referr ing Provider Active Team Status: Active Member Role Status Dates Dr. Devin Bloom DO Primary Care Provider Active Dr. Monica Bacon MD Attending Provider Active Dr. Harshad Mcwilliams MD Referring Provider Active Team Status: Inactive Member Role Status Dates Dr. Devin Bloom DO Primary Care Provider Active Dr. Harshad Mcwilliams MD Admit Provid er, Attending Provider, Referring Provider Active Goals (unrecognized section and content) Goals may be documented in a n alternate sectionGoals may be documented in an alternate sectionGoals may be documented in an alternate section No data available for this section No data available for this section No data available for this section No data available for this section FOR RECORDS PERTAINING TO PATIENTS WHO ARE [...] BE BASED ON THE PRIMARY CLINICAL RECORDS. Known [facility]. provides no warranty or guarantee of the accuracy or completeness of information in this document.
== END | disposition home or self-care (01) ==
LOC: BFHLAB 14:04
PROVIDERS: PCP Family Medicine; Visit Provider Family Medicine
DX: I10 Essential (primary) hypertension (principal); E55.9 Vitamin D deficiency, unspecified
CPT/HCPCS: 36415; 80053; 80061; 82306; 85025